=== PATIENT | male | born 1935 | race Caucasian/White ===

== ENCOUNTER 2017-12-22 18:30 | Observation (INO) | payer MEDICARE, OTHER ==
[2017-12-22 19:35] LABS: #Eosinphils 0.1 thou/uL (0.0-0.7); #Lymphocytes 1.3 thou/uL (1.20-3.40); #Monocytes 0.7 thou/uL (0.11-0.59); #Neutrophils 5.1 thou/uL (1.40-6.50); %Basophils 0.4 % (0.0-1.0); %Eosinophils 1.8 % (0.0-10.0); %Lymphocytes 18.4 % (21.0-51.0); %Monocytes 9.3 % (0.0-10.0); %Neutrophils 70.1 % (42.0-75.0); Hemoglobin 12.9 g/dL (14.0-18.0); Mean Corpuscular HGB CONC 31.8 g/dL (32.0-36.0); Mean Corpuscular Hemoglobin 30.3 pg (27.0-31.0); Mean Corpuscular Volume 95.4 fl (80.0-94.0); Mean Platelet Volume 7.1 fL (7.4-10.4); Platelet Count 164 thou/uL (130-400); RBC Distribution Width 12.7 % (11.5-14.5); Red Blood Cell (RBC) Count 4.24 mill/uL (4.70-6.10); White Blood Cell (WBC) Count 7.2 thou/uL (4.8-10.8)
[2017-12-22 19:55] LABS: Anion Gap 11 mmol/L (10-20); BUN (Urea Nitrogen) 13 mg/dL (8.4-25.7); Calc. Creatinine Clearance 0 mL/min (70-130); Calcium 8.9 mg/dL (7.8-10.44); Carbon Dioxide 25 mmol/L (23-31); Chloride 106 mmol/L (98-107); Estimated GFR-MDRD Greater than 90; Glucose 81 mg/dL (83-110); Potassium 3.9 mmol/L (3.5-5.1); Sodium 138 mmol/L (136-145)
[2017-12-22 20:01] LABS: Troponin I 0.038 ng/mL (< 0.028)
[2017-12-22] MEDS ORDERED: Acetaminophen 325 MG TAB PO PRN (21:57)
[2017-12-22] MEDS ORDERED: Ondansetron HCl/PF 4 MG/2 ML Vial IVP PRN (21:57)
[2017-12-22] MEDS ORDERED: hydrALAZINE 20 MG/ML VIAL SLOW IVP PRN (22:03)
[2017-12-22] MEDS ORDERED: Finasteride 5 MG TAB PO SCH (22:15)
[2017-12-22] MEDS ORDERED: Diazepam 2 MG TAB PO SCH (22:15)
[2017-12-22] MEDS ORDERED: Gabapentin 300 MG CAP PO SCH (22:15)
[2017-12-22] MEDS ORDERED: Rivaroxaban 15 MG TAB PO SCH (22:15)
[2017-12-22] MEDS ORDERED: Sodium Chloride 0.9% 500 ML IV SCH (22:15)
[2017-12-22] MEDS ORDERED: Tamsulosin HCl 0.4 MG CAP PO SCH (22:15)
[2017-12-22 22:31] LABS: Troponin I 0.049 ng/mL (< 0.028)
[2017-12-22] MEDS: Sodium Chloride 0.45% 1,000 ML IV SCH (23:11)
[2017-12-23 01:23] LABS: Troponin I 0.057 ng/mL (< 0.028)
[2017-12-23 02:22] VITALS: BMI 28.0
[2017-12-23 04:48] LABS: #Eosinphils 0.1 thou/uL (0.0-0.7); #Lymphocytes 1.1 thou/uL (1.20-3.40); #Monocytes 0.9 thou/uL (0.11-0.59); #Neutrophils 6.3 thou/uL (1.40-6.50); %Basophils 0.2 % (0.0-1.0); %Eosinophils 1.1 % (0.0-10.0); %Lymphocytes 12.9 % (21.0-51.0); %Neutrophils 74.8 % (42.0-75.0); Hemoglobin 12.2 g/dL (14.0-18.0); Mean Corpuscular HGB CONC 32.1 g/dL (32.0-36.0); Mean Corpuscular Hemoglobin 30.3 pg (27.0-31.0); Mean Corpuscular Volume 94.4 fl (80.0-94.0); Mean Platelet Volume 6.7 fL (7.4-10.4); Platelet Count 133 thou/uL (130-400); RBC Distribution Width 12.7 % (11.5-14.5); Red Blood Cell (RBC) Count 4.02 mill/uL (4.70-6.10); White Blood Cell (WBC) Count 8.4 thou/uL (4.8-10.8)
[2017-12-23 05:13] LABS: Anion Gap 10 mmol/L (10-20); BUN (Urea Nitrogen) 14 mg/dL (8.4-25.7); Calc. Creatinine Clearance 92 mL/min (70-130); Calcium 8.6 mg/dL (7.8-10.44); Carbon Dioxide 24 mmol/L (23-31); Chloride 107 mmol/L (98-107); Estimated GFR-MDRD Greater than 90; Glucose 105 mg/dL (83-110); Potassium 3.8 mmol/L (3.5-5.1); Sodium 137 mmol/L (136-145)
--- NOTE | 2017-12-23 05:15 | HP ---
PRIMARY CARE PHYSICIAN: Dr. Emile Jack PRESENTING COMPLAINT: Lightheadedness. 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 He reports he has had intermittent lightheadedness for the past year. Around 2:00 p.m. today, he fel t lightheaded and had intermittent episodes for about every 15 minutes. It usually happens when he i s carrying out various activities such as mowing the lawn, watching TV or sometimes at work. When it occurs he usually drops to his knees and feels better. He also noticed that it is worse when he nabeel es his medications, especially carvedilol and digoxin. He states he has taken the same medications f or over 40 years and now feels he might need some recovery recalibration of his meds. He has had an echocardiogram and a stress test done in the past 6 months in [place] by his press leader, Edi randolph, and he reported a normal stress test about 6 months ago. He states that he does not usually drink enough water and his always encourages him to do just that. He usually drinks a lot of water w hen he feels lightheadedness with improvement in his symptoms, but he tried that today with no improv ement. He denies chest pain, shortness of breath, palpitations, diaphoresis, nausea, vomiting, and n o abdominal or urinary symptoms. PAST MEDICAL HISTORY: Hypertension, atrial fibrillation. PAST SURGICAL HISTORY: Right shoulder and right ACL surgery. FAMILY HISTORY: Reviewed and noncontributory. SOCIAL HISTORY: Does not drink alcohol, smoke cigarettes or use illicit drugs. ALLERGIES: None. CODE STATUS OF SYSTEMS: Full. REVIEW OF SYSTEMS: A 12-point review of systems done and negative except as stated in HPI. PHYSICAL EXAMINATION: VITAL SIGNS: Orthostatics were positive in the hospital with pulse rates fluctuating between the 40s and 90s. GENERAL: Not in acute distress, lying comfortably in bed. HEENT: Normocephalic, atraumatic. Not pale, anicteric. Moist mucosa. PERRLA, EOMI. RESPIRATORY: Vesicular breath sounds bilaterally. No wheezes or rales. CARDIOVASCULAR: Irregularly irregular rhythm with normal rate. No murmurs, rubs or gallops. ABDOMEN: Soft, nontender, nondistended. No organomegaly. MUSCULOSKELETAL: Moves all extremities spontaneously. No edema. SKIN: Warm, dry, well perfused. NEUROLOGIC: Alert and oriented x3. No focal deficits. PSYCHIATRIC: Normal mood and affect. LABORATORY DATA: Chemistry unremarkable. Magnesium 2.3. Hematology largely unremarkable. Initial troponin 0.038. EKG; no signs of acute ischemia. ASSESSMENT AND PLAN: 1. Lightheadedness/dizziness. This is likely secondary to orthostatic hypotension due to inadequate p.o. fluid intake. It could also be medication mediated as he is on carvedilol and digoxin and was bradycardic in the emergency room. We will hold beta blockers, digoxin and give a bolus of normal sa line and maintenance fluid. We will recheck orthostatics in the morning. 2. Bradycardia, likely secondary to beta blockers. We will hold beta blockers and monitor on teleme try. 3. Elevated troponin. This could be from demand ischemia as the patient has no cardiac symptoms cur rently. We will trend and get a Cardiology consult. 4. Hypertension. Blood pressure is currently controlled. We will monitor. 5. Atrial fibrillation. His rates were not rhythm controlled. We will resume Xarelto and monitor h eart rate closely. The patient reports multiple recent investigations at [facility] un [address] Dr. Chinchilla. Primary team in the morning to attempt to get these records. Otherwise, he might nee d a repeat TTE. He might also require an MRI brain if his symptoms persist.
[2017-12-23] MEDS ORDERED: Eucerin (Mineral Oil/Petrolatum,White) 30 gm Jar TOP PRN (06:55)
[2017-12-23] MEDS ORDERED: Ondansetron ODT 4 MG TAB PO PRN (06:55)
[2017-12-23] MEDS ORDERED: Milk Of Magnesia 30 ML UDCUP PO PRN (06:55)
[2017-12-23] MEDS ORDERED: HYDROcodone/Acetaminophen 5/325 mg Tablet PO PRN (06:55)
[2017-12-23] MEDS ORDERED: Diabetic Tussin 200 MG/10 ML UDCUP PO PRN (06:55)
[2017-12-23] MEDS ORDERED: Temazepam 15 MG CAP PO PRN (06:55)
[2017-12-23] MEDS ORDERED: Loperamide HCl 2 MG CAP PO PRN (06:55)
[2017-12-23] MEDS ORDERED: Loratadine 10 MG TAB PO PRN (06:55)
[2017-12-23] MEDS ORDERED: Mag-Al 1200 mg/1200 mg/30 ML UDCUP PO PRN (06:55)
[2017-12-23] MEDS ORDERED: Chloraseptic Spray 180 ml Bottle PO PRN (06:55)
[2017-12-23] MEDS ORDERED: Senokot 8.6 MG TAB PO PRN (06:55)
[2017-12-23] MEDS ORDERED: Artificial Tears 18 DROP/0.9 ML EA EYE PRN (06:55)
[2017-12-23] MEDS ORDERED: Sodium Chloride 0.65% Nasal 44 ML BOT EA NARE PRN (06:55)
[2017-12-23] MEDS ORDERED: FLU VACC TS2017-18 (>65YR) 0.5 ML SYRINGE IM ONE (09:00)
[2017-12-23] MEDS ORDERED: Famotidine 20 MG TAB PO SCH (09:00)
[2017-12-23] MEDS ORDERED: Digoxin 0.125 MG TAB PO SCH (09:00)
--- NOTE | 2017-12-23 09:18 | PDOC.PN ---
- Subjective Encounter Start Date: 12/23/17 Encounter Start Time: 07:10 -: old records requested/rev Patient seen and examined. No new complaints. No overnight events - Objective Resuscitation Status: Resuscitation Status FULL:Full Resuscitation MAR Reviewed: Yes Vital Signs & Weight: Vital Signs (12 hours) Temp Pulse Resp BP BP BP BP 12/23/17 07:35 98.8 F 98 16 136/79 12/23/17 04:11 98.8 F 90 25 H 132/67 12/22/17 23:44 98.0 F 77 18 133/69 12/22/17 21:42 98.4 F 67 20 177/72 H 166/73 H 135/77 Pulse Ox 12/23/17 07:35 92 L 12/23/17 04:11 91 L 12/22/17 23:44 12/22/17 21:42 Weight Weight 195 lb 3.2 oz I&O: 12/22/17 12/23/17 12/24/17 06:59 06:59 06:59 Intake Total 1242 Balance 1242 Result Diagrams: 12/23/17 04:12 12/23/17 04:12 EKG Reviewed by me: Yes (nsr) Phys Exam - Physical Examination Constitutional: NAD HEENT: PERRLA, moist MMs, sclera anicteric Neck: no JVD, supple Respiratory: no wheezing, no rales, no rhonchi Cardiovascular: RRR, no significant murmur, no rub Gastrointestinal: soft, non-tender, no distention, positive bowel sounds Musculoskeletal: no edema, pulses present Neurological: non-focal, normal sensation, moves all 4 limbs Psychiatric: normal affect, A&O x 3 Skin: no rash, normal turgor Dx/Plan (1) Dizziness Code(s): R42 - DIZZINESS AND GIDDINESS Status: Acute (2) Elevated troponin Code(s): R74.8 - ABNORMAL LEVELS OF OTHER SERUM ENZYMES Status: Acute (3) Anxiety Code(s): F41.9 - ANXIETY DISORDER, UNSPECIFIED Status: Chronic (4) BPH (benign prostatic hyperplasia) Code(s): N40.0 - BENIGN PROSTATIC HYPERPLASIA WITHOUT LOWER URINRY TRACT SYMP Status: Chronic (5) Chronic anticoagulation Code(s): Z79.01 - RETIREMENT (CURRENT) USE OF ANTICOAGULANTS Status: Chronic (6) Hypertension Code(s): I10 - ESSENTIAL (PRIMARY) HYPERTENSION Status: Chronic (7) Paroxysmal atrial fibrillation Code(s): I48.0 - PAROXYSMAL ATRIAL FIBRILLATION Status: Chronic - Plan cont current plan of care, plan discussed w/ family * will reduce metoprolol 12.5 mg po bid * DC digoxin * reduce losartan 25 mg po daily * DC actos and Januvia * Echo today * later today will discharge * updated plan to son and pt * medication reviewed as below * symptomatic treatment. Review of Systems - Review of Systems ENT: negative: Ear Pain, Ear Discharge, Nose Pain, Nose Discharge, Nose Congestion, Mouth Pain, Mouth Swelling, Throat Pain, Throat Swelling, Other Respiratory: negative: Cough, Dry, Shortness of Breath, Hemoptysis, SOB with Excertion, Pleuritic Pain, Sputum, Wheezing Cardiovascular: negative: chest pain, palpitations, orthopnea, paroxysmal nocturnal dyspnea, edema, light headedness, other Gastrointestinal: negative: Nausea, Vomiting, Abdominal Pain, Diarrhea, Constipation, Melena, Hematochezia, Other Genitourinary: negative: Dysuria, Frequency, Incontinence, Hematuria, Retention , Other Musculoskeletal: negative: Neck Pain, Shoulder Pain, Arm Pain, Back Pain, Hand Pain, Leg Pain, Foot Pain, Other Skin: negative: Rash, Lesions, Billy, Bruising, Other - Medications/Allergies Allergies/Adverse Reactions: Allergies Allergy/AdvReac Type Severity Reaction Status Date / Time No Known Allergies Allergy Unverified 12/22/17 21:25 Medications: Current Medications Acetaminophen (Tylenol) 650 mg PO Q4H PRN PRN Reason: Headache/Fever or Pain Hydrocodone Bitart/Acetaminophen (Edison 5/325) 1 tab PO Q4H PRN PRN Reason: Moderate Pain (4-6) Al Hydroxide/Mg Hydroxide (Maalox) 15 ml PO Q4H PRN PRN Reason: Heartburn or Indigestion Artificial Tears (Tears Naturale) 0 drop EA EYE PRN PRN PRN Reason: Dry Eyes Famotidine (Pepcid) 20 mg PO BID JENI Finasteride (Proscar) 5 mg PO HS JENI Gabapentin (Neurontin) 300 mg PO HS JENI Guaifenesin (Robitussin Sf) 200 mg PO Q4H PRN PRN Reason: Cough Hydralazine HCl (Apresoline) 5 mg SLOW IVP Q4H PRN PRN Reason: To Control Heart Rate Sodium Chloride (1/2 Normal Saline) 1,000 mls @ 75 mls/hr IV .[id number] [facility] Last Admin: 12/22/17 23:11 Dose: 1,000 mls Loperamide HCl (Imodium) 2 mg PO PRN PRN PRN Reason: Diarrhea/Loose Stools Loratadine (Claritin) 10 mg PO DAILYPRN PRN PRN Reason: Sinus Symptoms Magnesium Hydroxide (Milk Of Magnesium) 30 ml PO DAILYPRN PRN PRN Reason: Constipation Mineral Oil/White Petrolatum (Eucerin Cream) 0 gm TOP BIDPRN PRN PRN Reason: Dry Skin Ondansetron HCl (Zofran) 4 mg IVP Q6H PRN PRN Reason: Nausea/Vomiting Ondansetron HCl (Zofran Odt) 4 mg PO Q6H PRN PRN Reason: Nausea/Vomiting Phenol (Chloraseptic [place] 180 Ml Bot) 0 ml PO PRN PRN PRN Reason: Sore Throat Rivaroxaban (Xarelto) 15 mg PO QPM-WM [facility] Senna (Senokot) 2 tab PO HSPRN PRN PRN Reason: Constipation Sodium Chloride (Bonner Nasal [place] 0.65%) 0 ml EA NARE QIDPRN PRN PRN Reason: Nasal Congestion Sodium Chloride (Flush - Normal Saline) 10 ml IVF Q12HR [facility] Sodium Chloride (Flush - Normal Saline) 10 ml IVF PRN PRN PRN Reason: Saline Flush Tamsulosin HCl (Flomax) 0.4 mg PO HS JENI Temazepam (Restoril) 15 mg PO HSPRN PRN PRN Reason: Insomnia
--- NOTE | 2017-12-23 10:26 | DIS ---
DATE OF ADMISSION: 12/22/2017 DATE OF DISCHARGE: 12/23/2017 PRIMARY CARE PHYSICIAN: Emile Jack M.D. DISCHARGE DISPOSITION: Home. PRIMARY DISCHARGE DIAGNOSES: 1. Dizziness, likely due to orthostatic hypotension. 2. Elevated troponins, likely due to demand ischemia. SECONDARY DISCHARGE DIAGNOSES: Paroxysmal atrial fibrillation, hypertension, chronic anticoagulation , benign enlargement of prostate, anxiety disorder. PRIMARY PROCEDURE/OPERATION: None. RADIOLOGICAL INVESTIGATION: None. SIGNIFICANT LABORATORY DATA: WBC 8.4, hemoglobin 12.2, platelets 133. Sodium 137, potassium 3.8, BU N 14, creatinine 0.76, calcium 8.6, troponin 0.057, magnesium 2.3. DISCHARGE MEDICATIONS: Coreg 3.125 mg p.o. daily, Proscar 5 mg p.o. at bedtime p.r.n., gabapentin 30 0 mg p.o. at bedtime, Xarelto 15 mg p.o. daily, Flomax 0.4 mg p.o. daily. CONTRAINDICATIONS: None. CODE STATUS: FULL CODE. INPATIENT CREATIVE TECHNOLOGIST: Cardiology was consulted while in hospital. TEST RESULTS PENDING ON DISCHARGE: None. ALLERGIES: No known drug allergies. DISCHARGE PLAN: Post hospital, patient will follow up with primary care physician in 1 week. The rochelle veloz will follow up with primary voice systems engineer in 1 month. HOSPITAL COURSE: An 82-year-old male who was admitted last night by Dr. Pina for dizziness. Thi s patient was drinking very little amount of liquid and he was taking blood pressure medicine. He wa s experiencing dizziness after taking Coreg. This patient was relatively having orthostatic hypotension. His dizziness we attributed to be due to orthostatic hypotension and he already had full workup done including echo and stress test in [place] by his voice systems engineer. We are going to obtain medical record if possible. Cardiology already consult ed for their opinion, but doubt any further investigation required during this admission given [place] santiago does not have any more symptoms. While in hospital, we treated him with IV fluid and later on toda y we will plan for discharging him home. Necessary patient education about orthostatic hypotension i s given and he is advised to follow up with his primary care physician and voice systems engineer for further a djustment in medication. The patient is seen and examined at bedside today. Please see my progress note from today for furthe r details.
[2017-12-23] MEDS: Sodium Chloride 0.45% 1,000 ML IV SCH (12:07)
[2017-12-23 13:18] VITALS: TEMP 98.5
[2017-12-23 13:34] VITALS: BP 173/84
--- NOTE | 2017-12-23 14:35 | CON ---
DATE OF CONSULTATION: 12/23/2017 HISTORY OF PRESENT ILLNESS: The patient is an 82-year-old gentleman who presented for evaluation of dizziness. The patient has a previous history of coronary artery disease. He had a cardiac catheterization done in 2008 and found to have a 40% LAD lesion. The patient also has a history of chronic atrial fibrillation. The patient is followed by a pageant director in [place]. He has previously undergone an echocardiogram in 03/2017, which revealed normal left ventricular systolic function. He also underwent a stress test in 2005, which revealed no evidence of ischemia. The patient denies having any chest pain or dyspnea. He has noticed for the past year, having periods of lightheadedness and dizziness. The patient denies never lost consciousness. Approximately 6 weeks ago, the patient started having diarrhea and has been extremely lightheaded and weak. He presented to emergency room for further evaluation due to marked dizziness and diarrhea. PAST MEDICAL HISTORY: 1. Atrial fibrillation. 2. Coronary artery disease. 3. Hypertension. 4. GI hemorrhage. PAST SURGICAL HISTORY: Shoulder surgery and knee surgery. SOCIAL HISTORY: Nonsmoker. FAMILY HISTORY: No strong family history of heart disease. ALLERGIES: None. MEDICATIONS Coreg 3.125 mg daily, gabapentin 300 at bedtime, Flomax 0.4 at bedtime and Xarelto 15 at bedtime. REVIEW OF SYSTEMS: The patient denies having easy bruising or bleeding, bright red blood per rectum, hematuria. PHYSICAL EXAMINATION: GENERAL: This is a well-developed gentleman, in no acute distress. VITAL SIGNS: Blood pressure 136/79. NECK: No jugular venous distention, no carotid bruits. LUNGS: Clear to auscultation. HEART: Regular rate and rhythm, normal S1, S2 with a 1/6 systolic murmur. ABDOMEN: Nondistended. EXTREMITIES: Showed no edema. SKIN: Warm and dry. NEUROLOGIC: Nonfocal. VASCULAR: Radial pulses are 2+. LABORATORY RESULTS: His sodium is 137, potassium 3.8, chloride 107, bicarbonate 24, BUN 14, creatinine 0.76, glucose 105, troponin 0.057. White blood cell count 8.4, hemoglobin 12.2, hematocrit 38.0 and platelets 133. His EKG revealed atrial fibrillation with a right bundle branch block and left anterior fascicular block. IMPRESSION: 1. Dizziness and lightheadedness. 2. Hypotension, orthostatic. 3. Chronic atrial fibrillation. 4. Indeterminate troponin level. 5. History of coronary artery disease. PLAN: This gentleman presents with orthostatic hypotension. He has had marked diarrhea. He was extremely orthostatic. From a cardiac standpoint his digoxin and Coreg were held. He has both slow ventricular response with prolong pauses and rapid tachycardia. The patient has never lost consciousness; however, he appears to be very symptomatic. I would recommend the patient have placement of an electronic pacemaker to prevent severe bradycardia and better control his rate. The patient states he would like to discuss this with his primary pageant director. I also told him I am very concerned about the dose of his Xarelto and that this should be considered whether he should have this dose adjusted to 20 mg daily. If the patient wishes to proceed with electronic pacemaker placement, I will be happy to arrange this during this hospitalization. JHONATAN
[2017-12-23] MEDS ORDERED: Rivaroxaban 15 MG TAB PO SCH (17:00)
[2017-12-23] MEDS ORDERED: Finasteride 5 MG TAB PO SCH (21:00)
[2017-12-23] MEDS ORDERED: Diazepam 2 MG TAB PO SCH (21:00)
[2017-12-23] MEDS ORDERED: Tamsulosin HCl 0.4 MG CAP PO SCH (21:00)
[2017-12-23] MEDS ORDERED: Gabapentin 300 MG CAP PO SCH (21:00)
--- NOTE | 2017-12-27 14:30 | EKG ---
Test Reason : EKG CHANGES Blood Pressure : / mmHG Vent. Rate : 053 BPM Atrial Rate : 468 BPM P-R Int : 000 ms QRS Dur : 148 ms QT Int : 490 ms P-R-T Axes : 000 -49 074 degrees QTc Int : 459 ms Atrial fibrillation with slow ventricular response Right bundle branch block Left anterior fascicular block Bifascicular block Voltage criteria for left ventricular hypertrophy Possible Lateral infarct , age undetermined Abnormal ECG Confirmed by KLEEVR BAKER, ZENIA ([id number]), newspaper photo editor HUI AGUIRRE ([id number]) on 12/27/2017 2:30:29 PM Referred By: Confirmed By:ZENIA ERNST MD
--- NOTE | 2017-12-27 14:30 | EKG ---
Test Reason : Blood Pressure : / mmHG Vent. Rate : 051 BPM Atrial Rate : 048 BPM P-R Int : 000 ms QRS Dur : 140 ms QT Int : 488 ms P-R-T Axes : 000 -44 084 degrees QTc Int : 449 ms Atrial fibrillation with slow ventricular response Left axis deviation Left ventricular hypertrophy with QRS widening Possible Lateral infarct , age undetermined Abnormal ECG Confirmed by KLEVER BAKER, ZENIA ([id number]), editor at large HUI AGUIRRE ([id number]) on 12/27/2017 2:30:23 PM Referred By: Confirmed By:ZENIA ERNST MD
== END 2017-12-23 16:31 | disposition home or self-care (01) ==
LOC: ERS 18:30 → 2SW 20:12
PROVIDERS: ADMIT Internal Medicine; ATTEND Internal Medicine
DX: R42 Dizziness and giddiness (principal); R79.89 Other specified abnormal findings of blood chemistry; I48.0 Paroxysmal atrial fibrillation; I10 Essential (primary) hypertension; I25.10 Atherosclerotic heart disease of native coronary artery without angina pectoris; N40.0 Benign prostatic hyperplasia without lower urinary tract symptoms; F41.9 Anxiety disorder, unspecified; R00.1 Bradycardia, unspecified; Z79.01 Long term (current) use of anticoagulants; Z79.899 Other long term (current) drug therapy; Z98.890 Other specified postprocedural states
CPT/HCPCS: 80048 ×2; 82553; 83735; 84484 ×3; 85025 ×2; 93005; 97139; 99285; G0008; G0378; Q2036; 36415; 90471; 90682

== ENCOUNTER 2018-11-03 15:11 | Inpatient (IN) | payer MEDICARE ==
[~2018-11-03 15:11] MED LIST: Atropine Sulfate 1 mg/10 ml Syringe ONE; Magnesium 5 GM/10 ML Abboject SYRINGE ONE; Succinylcholine Chloride 20 MG/ML 10 ml SYRINGE FS ONE
[2018-11-03] MEDS ORDERED: Atropine Sulfate 1 mg/10 ml Syringe ONE ×3 (15:19→21:02)
[2018-11-03] MEDS ORDERED: Ondansetron ODT 8 MG TAB ONE (15:30)
[2018-11-03] MEDS ORDERED: Ondansetron PF 4 MG/2 ML Vial ONE (15:31)
[2018-11-03 15:41] LABS: #Eosinphils 0.1 thou/uL (0.0-0.7); #Lymphocytes 1.7 thou/uL (1.20-3.40); #Neutrophils 6.8 thou/uL (1.40-6.50); %Basophils 0.2 % (0.0-1.0); %Eosinophils 1.4 % (0.0-10.0); %Neutrophils 70.4 % (42.0-75.0); Hemoglobin 11.2 g/dL (14.0-18.0); Mean Corpuscular HGB CONC 33.5 g/dL (32.0-36.0); Mean Corpuscular Hemoglobin 30.4 pg (27.0-31.0); Mean Corpuscular Volume 90.7 fL (78.0-98.0); Mean Platelet Volume 7.2 fL (7.4-10.4); Platelet Count 176 thou/uL (130-400); RBC Distribution Width 13.2 % (11.5-14.5); Red Blood Cell (RBC) Count 3.68 mill/uL (4.70-6.10); White Blood Cell (WBC) Count 9.7 thou/uL (4.8-10.8)
[2018-11-03 16:03] LABS: Digoxin 1.28 ng/mL (0.8-2.0)
[2018-11-03 16:04] LABS: ALT (SGPT) 21 U/L (8-55); AST (SGOT) 24 U/L (5-34); Albumin 3.9 g/dL (3.4-4.8); Alkaline Phosphatase 82 U/L (40-150); Anion Gap 17 mmol/L (10-20); BUN (Urea Nitrogen) 93 mg/dL (8.4-25.7); Bilirubin, Total 1.1 mg/dL (0.2-1.2); Calc. Creatinine Clearance 0 mL/min (70-130); Calcium 8.5 mg/dL (7.8-10.44); Carbon Dioxide 18 mmol/L (23-31); Chloride 95 mmol/L (98-107); Estimated GFR-MDRD 12; Globulin 2.7 g/dL (2.4-3.5); Glucose 97 mg/dL (83-110); Magnesium 3.1 mg/dL (1.6-2.6); Potassium 6.4 mmol/L (3.5-5.1); Protein, Total 6.6 g/dL (5.8-8.1); Sodium 124 mmol/L (136-145)
[2018-11-03] MEDS ORDERED: Sodium Bicarb 50 MEQ/50 ML Abboject 8.4% SYRINGE ONE (16:13)
[2018-11-03] MEDS ORDERED: Dextrose 50% Abboject 50 ML SYRINGE ONE (16:13)
[2018-11-03] MEDS ORDERED: Insulin Regular 300 UNITS/3 ML VIAL ONE (16:13)
[2018-11-03] MEDS ORDERED: Calcium Chloride 1 GM/10 ML Abboject SYRINGE ONE (16:15)
[2018-11-03 16:26] LABS: CKMB 2.5 ng/mL (0-6.6)
[2018-11-03] MEDS ORDERED: Aspirin 325 MG TAB ONE (16:28)
[2018-11-03] MEDS ORDERED: Diazepam 5 MG TAB ONE (16:54)
--- NOTE | 2018-11-03 17:03 | RAD ---
AP CHEST: INDICATION: Bradycardia. FINDINGS: The heart is mildly enlarged. Mild vascular engorgement. No focal infiltrate or significant effusio n. IMPRESSION: Borderline cardiomegaly and mild vascular engorgement. POS: [facility]
[2018-11-03] MEDS ORDERED: Ondansetron PF 4 MG/2 ML Vial IVP PRN (18:11)
[2018-11-03] MEDS ORDERED: Ondansetron ODT 4 MG TAB PO PRN (18:11)
[2018-11-03] MEDS ORDERED: Senokot S 8.6-50 MG TAB PO PRN (18:11)
[2018-11-03 18:42] LABS: Potassium 5.5 mmol/L (3.5-5.1)
[2018-11-03] MEDS: DOBUTamine 500 mg/250 ml 250 ML IVPB SCH (18:54)
[2018-11-03] MEDS: DOPamine 400 MG/D5W 250 ML 250 ML IVPB SCH (18:55)
[2018-11-03 19:14] LABS: Troponin I 0.225 ng/mL (< 0.028)
[2018-11-03 19:50] LABS: Actual Bicarbonate (HCO3a) 19.8 mEq/L (22-28); Base Excess (BEa) -5.8 mEq/L (-2.0 to +3.0); CO2 Tension 39.1 mmHg (35.0-45.0); Calcium, Ionized 1.18 mmol/L (1.12-1.30); Carboxyhemoglobin (COHb) 0.7 gm% (0.0-3.0); Hemoglobin (Hb) 11.8 g/dL (14.0-18.0); O2 Tension (PaO2) 75.8 mmHg (> 60.0); Potassium - ABG Lab 5.74 mmol/L (3.70-5.30); pH, Arterial 7.32 (7.35-7.45)
[2018-11-03 19:52] LABS: ALV-art Gradient 74.965 (0-20); Puncture Site LRA
[2018-11-03] MEDS ORDERED: Amiodarone 150 MG/3 ML VIAL ONE ×2 (20:20→20:49)
[2018-11-03] MEDS ORDERED: KETAMINE 100 MG/ML (5ML VIAL) ONE (21:20)
[2018-11-03] MEDS ORDERED: Succinylcholine Chloride 20 MG/ML 10 ml SYRINGE FS ONE (21:20)
[2018-11-03] MEDS ORDERED: Rocuronium Bromide 50 MG/5 ML VIAL ONE (21:21)
[2018-11-03] MEDS ORDERED: Propofol 1,000 MG/100 ML VIAL IV ONE (22:05)
[2018-11-03] MEDS ORDERED: Propofol BOLUS 1,000 MG/100 ML VIAL IV PRN (22:07)
[2018-11-03] MEDS ORDERED: Lorazepam 2 MG/ML VIAL SLOW IVP PRN (22:07)
[2018-11-03] MEDS ORDERED: Fentanyl BOLUS 250 ML IVPB PRN (22:07)
[2018-11-03] MEDS ORDERED: fentaNYL Citrate/PF 2,000 MCG in Sodium Chloride 0.9% 60 ML IV SCH (22:07)
[2018-11-03] MEDS ORDERED: Morphine 2 MG/ML SYRINGE SLOW IVP PRN (22:07)
[2018-11-03] MEDS ORDERED: DISCONTINUE PREVIOUS NARCOTIC PAIN MEDICATIONS AND BENZODIAZEPINES FS SCH (22:07)
[2018-11-03 22:24] LABS: ALT (SGPT) 19 U/L (8-55); AST (SGOT) 18 U/L (5-34); Albumin 3.6 g/dL (3.4-4.8); Alkaline Phosphatase 76 U/L (40-150); Anion Gap 16 mmol/L (10-20); BUN (Urea Nitrogen) 93 mg/dL (8.4-25.7); Bilirubin, Total 1.2 mg/dL (0.2-1.2); Calc. Creatinine Clearance 16 mL/min (70-130); Calcium 9.1 mg/dL (7.8-10.44); Carbon Dioxide 18 mmol/L (23-31); Chloride 95 mmol/L (98-107); Estimated GFR-MDRD 13; Globulin 2.6 g/dL (2.4-3.5); Glucose 104 mg/dL (83-110); Potassium 5.8 mmol/L (3.5-5.1); Protein, Total 6.2 g/dL (5.8-8.1); Sodium 123 mmol/L (136-145)
[2018-11-03 22:25] LABS: Troponin I 0.194 ng/mL (< 0.028)
[2018-11-03 23:00] LABS: Actual Bicarbonate (HCO3a) 18.1 mEq/L (22-28); Base Excess (BEa) -7.8 mEq/L (-2.0 to +3.0); CO2 Tension 38.7 mmHg (35.0-45.0); Calcium, Ionized 1.19 mmol/L (1.12-1.30); Carboxyhemoglobin (COHb) 0.8 gm% (0.0-3.0); Hemoglobin (Hb) 11.8 g/dL (14.0-18.0); O2 Tension (PaO2) 63.3 mmHg (> 60.0); pH, Arterial 7.29 (7.35-7.45)
[2018-11-03] MEDS: Famotidine 20 MG TAB PO SCH (23:04)
--- NOTE | 2018-11-03 23:20 | RAD ---
PORTABLE SUPINE CHEST ONE VIEW: 11/03/18 PROVIDED CLINICAL HISTORY: Code blue. FINDINGS: Comparison made with examination performed earlier same date. Interval placement of endotracheal tube , tip of which projects in the region of the thoracic inlet. Interval placement of enteric catheter, the tip of which projects over likely the left upper quadrant. It is not well seen due to multiple ov erlying lead wires and external defibrillators. Pulmonary vasculature appears prominent. No gross ple ural fluid or pneumothorax is evident with limitations due to the supine nature of the study. IMPRESSION: Interval endotracheal tube and enteric catheter placement as above. POS: [facility]
[2018-11-03 23:28] LABS: ALV-art Gradient 173.525 (0-20); Puncture Site LBA
[2018-11-03] MEDS ORDERED: Sodium Chloride 0.9% 1,000 ML IV SCH (23:30)
[2018-11-03] MEDS ORDERED: Sodium Bicarbonate 140 MEQ in Dextrose 5% in Water 1,000 ML IV SCH (23:59)
--- NOTE | 2018-11-04 00:08 | CON ---
DATE OF CONSULTATION: TOTAL CRITICAL CARE TIME: 1 hour 45 minutes. HISTORY OF PRESENT ILLNESS: Mr. Guy is an 82-year-old gentleman, who is a patient of Dr. Davin Perez. He recently presented with a fall. He was brought to the emergency room. He was found to be markedly bradycardic. He also was found to have new onset renal failure and hyperkalemia. He was seen and evaluated by Nephrology. He was treated for hyperkalemia and his potassium decreased to 5.4. He remained markedly bradycardic. I saw and evaluated Mr. Guy at bedside. His heart rate was in the 20s and 30s. I recommended we increase his dopamine and dobutamine. His heart rate responded appropriately in the 40s and 50s. The patient was somnolent and given Valium while in the emergency room. PAST MEDICAL HISTORY: Atrial fibrillation, on anticoagulation therapy; hypertension; prostate enlargement; knee surgery; shoulder surgery. ALLERGIES: NONE. HOME MEDICATIONS: Include; 1. Carvedilol. 2. Gabapentin. 3. Diazepam. 4. Digoxin. 5. Finasteride. 6. Tamsulosin. 7. Lisinopril. 8. Lasix. REVIEW OF SYSTEMS: Difficult to obtain due to somnolence. PHYSICAL EXAMINATION: VITAL SIGNS: Blood pressure 110/70, pulse 20s to 40s, respirations 20. GENERAL: He is currently somnolent. NEUROLOGIC: The patient is alert and oriented x3 with no focal neurologic deficits. HEENT: Sclerae without icterus. Mouth has moist mucous membranes with normal pallor. NECK: No JVD. Carotid upstroke brisk. No bruits bilaterally. LUNGS: Clear to auscultation with unlabored respirations. BACK: No scoliosis or kyphosis. CARDIAC: Regular rate and rhythm with normal S1 and S2. No S3 or S4 noted. No significant rubs, murmurs, thrills, or gallops noted throughout the precordium. PMI is not displaced. There is no parasternal heave. ABDOMEN: Soft, nontender, nondistended. No peritoneal signs present. No hepatosplenomegaly. No abnormal striae. EXTREMITIES: 2+ femoral and 2+ dorsalis pedis pulses. No cyanosis, clubbing, or edema. SKIN: No gross abnormalities. PERTINENT LABORATORY DATA: Hemoglobin 11.2, creatinine 4.5 which is a new finding. Followup potassium of 5.4, peak troponin 0.225. BNP of 198. IMPRESSION: 1. Marked bradycardia, etiology unknown. 2. Hyperkalemia, now resolved. 3. Renal failure, unknown etiology. RECOMMENDATIONS: At this point, we decided to proceed without temporary pacer implant on Mr. Mikal Guy. I discussed the procedure in full detail with his and family. Risks include, but not limited to the following: Infection, bleeding, perforation, as well as inability to pace. All questions were answered. Given the above, the patient's family agreed to proceed with the above procedure. While in the cath lab tech, the patient was draped and prepped in sterile fashion. Pacer was placed appropriately in the RA and RV. Upon attempting pacing, he went into sinus. He had to be shocked initially. After a total of 7 attempts of placement of the catheter into the right ventricle as well as using a different pacemaker catheter, he continued to go into sinus and required cardioversion. He was cardioverted x6. He was also given magnesium in addition to amiodarone during the procedure. At that point, it was decided to proceed with intubation. Intubation was recommended for possible external pacing. I also discussed the case with Dr. Antonio given the above. The patient was on Zithromax, which may have been the culprit for myocardial sensitivity. This has been discontinued. At this point, we will plan on intubation for external cardioversion if needed. After keeping the family apprised of the situation, they have opted for intubation only. They also felt a chemical code is appropriate, but no compressions. This will be honored. The patient's prognosis appears guarded. Job ID: [id number]
--- NOTE | 2018-11-04 00:46 | HP ---
PRIMARY CARE PHYSICIAN: Emile Jack MD CHIEF COMPLAINT: Near-syncope and weakness. HISTORY OF PRESENT ILLNESS: This is an 82-year-old white male with a known history of hypertension and long-standing atrial fibrillation. He had been feeling bad with allergies and coughing for the last 2 to 3 weeks. This progressed until a week ago. He was coughing a lot of green phlegm up. He was seen by his primary care doctor and started on azithromycin and just finished his course yesterday. It did not improve the cough at all, although the mucus started becoming thinner and much more copious. He has had persistence of the cough and then for about a week or week and a half, he has felt very tired. This has gotten progressively worse and then 2 days prior to admission, he started to feel like he was going to pass out multiple episodes that was Friday than yesterday. He had a couple episodes, where he felt he was going to pass out and had to sit down. 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 He was able to drive to work but then he after walking across the parking lot to the building, he almost passed out. They had to lay him down. He did not improve after 5 minutes, so they called EMS. EMS found his heart rate in the 20s and improved to the 40s after a dose of atropine. I came to the emergency room, he had idioventricular rhythm and was found to be in renal failure with a high potassium. The patient was given insulin and glucose along with calcium chloride and glucagon and sodium bicarbonate. He also had a dose of Valium, because he was having hard time lying still. The patient's complex narrowed a little bit, but did not speed up in all. He still does not have any atrial activity on the monitor. I did talk to Dr. Awad about the patient. He had already discussed the case with the ER physician. Given the fact that he had no response to interventions made to lower his potassium, Dr. Awad recommended dobutamine and dopamine drips, and then he is going to come and see him and likely put an intravenous pacer in. Of note, before the dopamine and dobutamine were ordered, the patient has been transferred to the [facility], so I have to do a low-dose at a steady rate during the move to an ICU bed. PAST MEDICAL HISTORY: 1. Hypertension. 2. Atrial fibrillation. 3. It was told by Dr. Perez that he would likely need a pacemaker sometime in the last year. PAST SURGICAL HISTORY: Right shoulder surgery, right ACL surgery, macular degeneration. FAMILY HISTORY: Mother in her 50s of throat cancer from smoking. No other pertinent family medical history. SOCIAL HISTORY: The patient does not smoke, drink, or use illicit drugs. He is . ALLERGIES: NO KNOWN DRUG ALLERGIES. CURRENT MEDICATIONS: 1. Carvedilol 3.125 mg daily. 2. Finasteride 5 mg at night. 3. Gabapentin 300 mg at night. 4. Xarelto 15 mg daily. 5. Tamsulosin 0.4 mg at night. 6. Digoxin, unknown dose. REVIEW OF SYSTEMS: CONSTITUTIONAL: No fevers, no chills, no weight changes. EYES: No double vision or blurred vision. He does have chronic poor vision from his macular degeneration. ENT: He had some congestion and drainage as per HPI. No sore throat. CARDIOVASCULAR: No chest pain. No palpitations or racing heart. PULMONARY: See HPI. He has had no wheezing or trouble breathing. GASTROINTESTINAL: No abdominal pain. No nausea or vomiting. No constipation. He has had some diarrhea, possibly related to the azithromycin. GENITOURINARY: He has had a little bit of dysuria for the last couple of days on initiation of his stream. No hematuria. MUSCULOSKELETAL: No new muscle aches or joint pains. He does have chronic low back pain and chronic muscular spasms of his calves and his feet from a burst disc from an injury when he was a teenager. The cramps in his legs have worsened over the last 2 days. NEUROLOGIC: No numbness, tingling, or focal weakness. SKIN: No rashes or lesions noted. PHYSICAL EXAMINATION: VITAL SIGNS: Pulse alternating between 30s to 40s, blood pressure has been stable. No hypotension. His current vital signs from the floor, not yet posted in the computer. GENERAL: This is a well-developed white male, who is a little bit anxious from having to lay on his back due to his back injury, little sleepy from the Valium he was given, but otherwise no distress. HEENT: Pupils are equally round and reactive to light. Oropharynx is clear without lesions, erythema, or exudate. NECK: Supple. No lymphadenopathy. No thyroid nodules or enlargement. No JVD. HEART: Bradycardic and regular without any murmurs. LUNGS: Clear to auscultation bilaterally. No wheezes, crackles, or rhonchi. ABDOMEN: Soft, nontender to palpation. Normoactive bowel sounds. No hepatosplenomegaly or other masses. EXTREMITIES: No clubbing, cyanosis, or edema. SKIN: No rashes or lesions noted. NEUROLOGIC: He moves all extremities equally and has no facial droop. LABORATORY DATA: CBC shows hemoglobin 11 and hematocrit 33. Rest is normal. The complete metabolic panel shows sodium of 124, potassium of 6.4, chloride of 95, carbon dioxide of 18, BUN of 93, creatinine of 4.55 with a creatinine of 0.97 just 2 weeks ago. Magnesium is 3.1. Remainder of the CMP is normal. His troponin is indeterminate at 0.226. Brain natriuretic peptide is elevated at 198. Digoxin level is normal at 1.28. EKG, I did review the EKG done in the emergency room. He does have an idioventricular rhythm at 26 beats per minute with a right bundle branch block and left anterior fascicular block and some LVH. No severe peaking of the T-waves on the EKG. On the heart monitor, his complexes were a little bit narrower but virtually unchanged from the EKG. Chest x-ray done in the emergency room along the radiologist's report does show some cardiomegaly and some pulmonary vascular congestion that is mild. ASSESSMENT: 1. Symptomatic bradycardia, possibly related to his hyperkalemia, though it sounds like he has had some problems with his rhythms in the past year. He appears to have progressed to where he needs a pacemaker now. I have discussed this case with Dr. Awad and wished starting dobutamine and dopamine. Dr. Awad will evaluate the patient for need for a pacemaker. 2. Acute renal failure. Uncertain etiology at this time. I have talked to Dr. Gomez. He will see the patient. Given the pulmonary vascular congestion in his lungs, I am reluctant to give him a lot of fluids at this time. 3. Hyperkalemia. We will recheck the potassium now after interventions in the ER and will give a dose of Kayexalate. 4. Gastrointestinal prophylaxis. We will put the patient on Pepcid twice a day. 5. Deep venous thrombosis prophylaxis. We will put the patient on SCDs while in bed. We will hold on any blood thinners for now as he is previously on Xarelto. We will hold his Xarelto for now as well until they decide about possibly surgery. 6. Code status. I did discuss this with the patient and his at length. He is a full code, but he would not want to be stuck on a machine for a prolonged period of time. Should he be incapacitated, his would be his medical decision maker. Her name is Shelby Guy. Job ID: [id number]
[2018-11-04] MEDS: cefTRIAXone\\ROCEPHIN 1 GM in Sodium Chloride 0.9% 100 ML IVPB SCH (01:11)
[2018-11-04] MEDS: DOBUTamine 500 mg/250 ml 250 ML IVPB SCH (04:25)
--- NOTE | 2018-11-04 04:35 | CON ---
DATE OF CONSULTATION: 11/03/2018 This is 45 minutes critical care time. CONSULTING PHYSICIAN: Dr. Awad. HISTORY OF PRESENT ILLNESS: The patient is a pleasant 82-year-old male who presented to the emergency room earlier today. At the time of this dictation, history and physical is now on the chart. The ER notes indicate that he was profoundly bradycardic at time of admission with heart rate in the 20s to 30s. 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 Several attempts were made to put in a transvenous pacer and apparently he had multiple episodes of torsade. Based on that, decision was made externally pace him. To do that, Dr. Awad felt that he would need to be intubated. In the process of talking to the family, the patient had respiratory arrest and ended up being intubated before everything could play out. PAST MEDICAL HISTORY: 1. He has had a recent viral type illness where he has been taking a Z-Ash. His says he has not eaten well in the last 3 or 4 days. 2. Atrial fibrillation. 3. CHF. 4. Herniated discs. 5. Hypertension. 6. Prostatic hypertrophy. PAST SURGICAL HISTORY: Shoulder surgery and knee surgery. He has also had hernia operations. FAMILY MEDICAL HISTORY: Unremarkable. SOCIAL HISTORY: He does not drink alcohol. Does not smoke. Does not use illicit drugs. 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 ALLERGIES: NONE. MEDICATIONS: List is not complete and what we have from the ER demonstrates that he is on; 1. Eliquis 5 mg b.i.d. 2. Carvedilol 6.25 mg b.i.d. 3. Gabapentin 800 mg at night. 4. Diazepam 5 mg two daily. 5. Digoxin 0.125 mg daily. 6. Finasteride 5 mg daily. 7. Tamsulosin 0.4 mg once daily. 8. Lisinopril 10 mg once daily. 9. Furosemide 80 mg as needed. REVIEW OF SYSTEMS: Cannot be obtained. He is currently on mechanical ventilation. PHYSICAL EXAMINATION: VITAL SIGNS: Pulse 91, blood pressure 133/43, O2 saturation 92%, respiratory rate 29. GENERAL: He is currently intubated on mechanical ventilation. He will move all 4 extremities spontaneously. HEENT: Pupils are 3 mm and reactive. Sclerae icteric. Oropharynx clear. NECK: No adenopathy or JVD. CHEST: He has an external pacer placed. CARDIAC: S1 and S2. Slightly bradycardic without murmur. He is not currently having to be paced at the time of this dictation. LUNGS: Clear without wheezing or rhonchi. ABDOMEN: Soft and nontender. EXTREMITIES: No clubbing, cyanosis, or edema. LABORATORY DATA: Sodium 123, potassium 5.8, chloride 95, CO2 of 18, BUN 93, creatinine 4.3, glucose 104. White blood cell count 9.7, hematocrit 33.4, and platelet count 176. PH 7.29, pCO2 of 38, pO2 of 63 on SIMV rate of 20, tidal volume of 500, PEEP 5, pressure support 10, and FiO2 of 40%. Digoxin level is 1.28. Chest x-ray shows no obvious mass, effusion, or infiltrate. ASSESSMENT: 1. Hyperkalemia. 2. Acute renal failure. 3. Rule out sepsis. 4. Bradycardia. RECOMMENDATIONS: 1. I would switch him over to a bicarbonate drip. 2. Sepsis workup. 3. Empiric antibiotics. 4. Keep on mechanical ventilation until he no longer needs pacemaker. 5. Consider acute hemodialysis as I think his renal failure is probably reversible. Job ID: [id number]
[2018-11-04 05:16] LABS: Bilirubin Negative (Negative); Blood, Urine Large (Negative); Clarity CLOUDY (Clear); Glucose, Urine (Dipstick) Negative (Negative); Leukocyte Trace (Negative); Nitrite Negative (Negative); Protein, Urine (Dipstick) 100 mg/dL (Neg-Trace); Specific Gravity, Urine 1.009 (1.002-1.036); Urobilinogen 0.2 mg/dL (0.2-1.0)
[2018-11-04 05:19] LABS: Bacteria/HPF None Seen HPF (None Seen); RBC/HPF GREATER THAN 50-TNTC HPF (0-3); Squamous Epithelial 0-3 HPF (0-3)
[2018-11-04 05:20] LABS: Pathc Cast-AUWi Flag 4.07 (0-2.49)
[2018-11-04 05:21] LABS: Transitional Epithelial 0-3 HPF (0-3)
[2018-11-04 05:22] LABS: Albumin 3.5 g/dL (3.4-4.8); Anion Gap 19 mmol/L (10-20); BUN (Urea Nitrogen) 94 mg/dL (8.4-25.7); BUN/Creatinine Ratio 22.76; Calc. Creatinine Clearance 17 mL/min (70-130); Calcium 8.7 mg/dL (7.8-10.44); Carbon Dioxide 18 mmol/L (23-31); Chloride 93 mmol/L (98-107); Estimated GFR-MDRD 14; Glucose 146 mg/dL (83-110); Potassium 5.9 mmol/L (3.5-5.1); Sodium 124 mmol/L (136-145)
[2018-11-04 06:26] LABS: #Monocytes 1.1 thou/uL (0.11-0.59); #Neutrophils 12.1 thou/uL (1.40-6.50); %Basophils 0.2 % (0.0-1.0); %Eosinophils 0.2 % (0.0-10.0); %Lymphocytes 6.9 % (21.0-51.0); %Monocytes 7.8 % (0.0-10.0); %Neutrophils 84.9 % (42.0-75.0); Hemoglobin 10.7 g/dL (14.0-18.0); Mean Corpuscular HGB CONC 35.4 g/dL (32.0-36.0); Mean Corpuscular Hemoglobin 31.1 pg (27.0-31.0); Mean Corpuscular Volume 87.8 fL (78.0-98.0); Mean Platelet Volume 7.1 fL (7.4-10.4); Platelet Count 154 thou/uL (130-400); RBC Distribution Width 13.1 % (11.5-14.5); Red Blood Cell (RBC) Count 3.43 mill/uL (4.70-6.10); White Blood Cell (WBC) Count 14.2 thou/uL (4.8-10.8)
[2018-11-04 06:54] LABS: Actual Bicarbonate (HCO3a) 18.7 mEq/L (22-28); Base Excess (BEa) -2.7 mEq/L (-2.0 to +3.0); Calcium, Ionized 1.08 mmol/L (1.12-1.30); Carboxyhemoglobin (COHb) 0.9 gm% (0.0-3.0); Hemoglobin (Hb) 10.5 g/dL (14.0-18.0); O2 Tension (PaO2) 69.5 mmHg (> 60.0); Potassium - ABG Lab 5.12 mmol/L (3.70-5.30); pH, Arterial 7.53 (7.35-7.45)
[2018-11-04 06:55] LABS: ALV-art Gradient -26.825 (0-20); CO2 Tension 22.9 mmHg (35.0-45.0); Puncture Site ALINE
--- NOTE | 2018-11-04 07:58 | PDOC.PN ---
- Subjective Encounter Start Date: 11/04/18 Encounter Start Time: 10:00 -: non-verbal Subjective: Patient intubated during attempted transvenous pacing. Now with -: external pads in place, but HR staying 40-50 on Dopamine and Dobutamine. - Objective Resuscitation Status - Order Detail: 11/03/18 22:06 Resuscitation Status Routine Resuscitation Status: PRTL: Chem-Intubation Discussed with: Discussed with and children and family. 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 Additional comments: external pacing MAR Reviewed: Yes Vital Signs & Weight: Vital Signs (12 hours) Temp Pulse Resp BP Pulse Ox 11/04/18 07:00 99.1 F 11/04/18 06:31 72 123/37 L 11/04/18 06:00 26 H 11/04/18 05:00 97.8 F 11/04/18 04:00 26 H 11/04/18 02:00 26 H 11/04/18 00:00 26 H 11/03/18 22:00 91 L Weight Weight 196 lb 1.6 oz Most Recent Monitor Data Heart Rate from ECG 47 NIBP 117/32 NIBP BP-Mean 67 Respiration from ECG 7 SpO2 95 I&O: 11/03/18 11/04/18 11/05/18 06:59 06:59 06:59 Intake Total 600 Output Total 1225 45 Balance -625 -45 Result Diagrams: 11/04/18 04:55 11/04/18 04:55 Phys Exam - Physical Examination Constitutional: NAD HEENT: moist MMs intubated Respiratory: no wheezing, no rales, no rhonchi Cardiovascular: no significant murmur bradycardic Gastrointestinal: soft, positive bowel sounds Musculoskeletal: no edema Neurological: non-focal Deviation from normal: sedated on ventilator Dx/Plan (1) Bradycardia Code(s): R00.1 - BRADYCARDIA, UNSPECIFIED Status: Acute Comment: Severe, possibly secondary to underlying afib along with azithromycin. Failed placement of temporary transvenous pacer. Intubated to allow for external pacing. Dr. Awad following. On Dopamine and Dobutamine. (2) Intubation of airway performed without difficulty Code(s): Z78.9 - OTHER SPECIFIED HEALTH STATUS Status: Acute Comment: Patient intubated and ventilated to allow external pacing (3) Acute renal failure Status: Acute Comment: Dr. Gomez consulted (4) Hyperkalemia Code(s): E87.5 - HYPERKALEMIA Status: Acute Comment: Improved, given Kayexelate (5) Diastolic CHF Code(s): I50.30 - UNSPECIFIED DIASTOLIC (CONGESTIVE) HEART FAILURE Status: Acute Qualifiers: Heart failure chronicity: unspecified Qualified Code(s): I50.30 - Unspecified diastolic (congestive) heart failure Comment: Severe pulmonary HT and diastolic dysfunction on ECHO - Plan cont current plan of care, PT/OT, respiratory therapy, DVT proph w/SCDs Try another dose of Kayexelate, may need a round of dialysis. * . - Discharge Day Encounter end time: 10:30
--- NOTE | 2018-11-04 08:03 | CON ---
DATE OF CONSULTATION: CONSULTING PHYSICIAN: Patricia Cruz MD REQUESTING PHYSICIAN: ER physician. REASON FOR CONSULTATION: Hyperkalemia and acute kidney injury. IMPRESSION: 1. Acute kidney injury, query cause. This is probably cardiorenal in the context of cardiac problems compounded by recent use of diuretics. 2. Hyperkalemia, which is related to problem #1 above plus or minus medications, which I do not have the names of the medications. 3. Bradycardia may be related to cardiac pathology; however, the hyperkalemia could be also playing a role. 4. Somnolence, query related to the diazepam that was administered in the ER as well as incipient uremic sleep. PLAN: 1. The cardiology service is in the process of securing a temporary pacemaker to stabilize the heart rate. I will discuss with in the event of status post stabilization of the heart. If the renal function does not improve, the patient will benefit from renal replacement therapy (hemodialysis) to address the potential incipient uremia as well as the hyperkalemia. 2. Bladder scan to rule out potential obstructive uropathy. 3. Renally dose all medications for very low GFR and avoid potentially nephrotoxic agents. 4. The patient has received all the medical cocktail for hyperkalemia with a repeat potassium of 5.5. We will continue to monitor the potassium as there is potential for a rise again if the renal function does not pear picker status post cardiac stabilization. 5. If all the above medical maneuvers do not help the electrolytes in the way of hyperkalemia, the patient to benefit from temporary dialysis. HISTORY OF PRESENT ILLNESS: An 82-year-old gentleman who syncop[place] at the local bank and was found to be bradycardic. The patient responded transiently to atropine with a heart rate going up to 30s. The patient was then via EMS sent to the ER where he was noted to remain bradycardic as well as severely hyperkalemic with potassium of 6.4 and creatinine of 4 to 4.5, baseline creatinine a few months ago showed a creatinine of 0.76. According to the , the patient some fluid for which he was prescribed buttload load of diuretics. Over the past few days, the noted that the patient has not be eating well and not feeling well. As a result of the constellation of the findings of hyperkalemia and acute kidney injury, decision was taken to involve Renal in the management of this case. PAST MEDICAL HISTORY: Significant for atrial fibrillation, congestive heart failure, hypertension, BPH. MEDICATIONS: According to the ER record include; 1. Eliquis. 2. Carvedilol. 3. Neurontin. 4. Diazepam. 5. Digoxin. 6. Finasteride. 7. Flomax. 8. Lisinopril. 9. Lasix. FAMILY HISTORY: No family history of kidney disease. SOCIAL HISTORY: The patient is . No history of alcohol abuse. REVIEW OF SYSTEMS: Could not be obtained from this patient who is virtually somnolent. LABORATORY DATA: Laboratory investigations significant for potassium of 6.4, which has gone down to 5.5 with a repeat. Sodium of 124, bicarb of 18, BUN of 93 with a creatinine of 4.55. Chest x-ray showed some mild vascular congestion and cardiomegaly. Magnesium 3.1. PHYSICAL EXAMINATION: GENERAL: The patient was found to be somnolent. VITAL SIGNS: Noted with the following vital signs; afebrile with temperature of 98.3, pulse 20s to 30s, respiratory rate of 17, O2 saturation of 96 with a blood pressure 157/57. HEENT: Unremarkable. CARDIOVASCULAR SYSTEM: First and second heart sounds were heard. RESPIRATORY SYSTEM: Clear to auscultation. DIGESTIVE SYSTEM: Revealed a benign abdomen. EXTREMITIES: Showed very mild edema. NEUROLOGIC: Revealed the patient who is very somnolent, but no obvious lateralizing signs. LYMPHATICS: No peripheral lymphadenopathy. SUMMARY: An 82-year-old gentleman who syncopized at a local bank, brought in and found to be severely bradycardic. Thank you for this consultation. We will follow with you. Job ID: [id number]
[2018-11-04] MEDS: Sodium Bicarbonate 70 MEQ in Sodium Chloride 0.45% 1,000 ML IV SCH ×2 (08:44→18:26)
--- NOTE | 2018-11-04 09:40 | PRG ---
DATE OF SERVICE: 11/04/2018 35 minutes critical care time. SUBJECTIVE: The patient remains intubated on mechanical ventilation. He will wake up. He moves all extremities, but does not follow commands specifically for me. OBJECTIVE: VITAL SIGNS: Temperature is 99.1, pulse 47, and blood pressure 123/34. Right now, his pacemaker is not capturing because the demand rate has been turned down below 40. Intake 600, output 1225. HEENT: Pupils reactive. Sclerae anicteric. Oropharynx clear. NECK: No JVD. LUNGS: Clear anteriorly. CARDIAC: S1 and S2. Bradycardic. ABDOMEN: Soft and nontender. EXTREMITIES: No edema. LABORATORY DATA: White blood cell count 14.2, hematocrit platelet count 154. A pH 7.53, pCO2 of 23, pO2 of 60 on SIMV rate 26, tidal volume 500, PEEP 5, pressure support 10, and FiO2 of 40%. Sodium 124, potassium 5.9, chloride 93, CO2 of 18, BUN 94, creatinine 4.1, and glucose 146. ASSESSMENT: 1. Acute respiratory failure, requiring mechanical ventilation. 2. Severe bradycardia, which I think is probably due to the hyperkalemia. 3. Acute renal insufficiency secondary to sepsis. PLAN: 1. I will go ahead and change his IV fluids and take some of the bicarbonate out. 2. Urine output seems adequate, but one run of acute dialysis might be considered. I will talk with the family about that. 3. I have adjusted mechanical ventilation rate. Job ID: [id number]
[2018-11-04] MEDS: DOPamine 400 MG/D5W 250 ML 250 ML IVPB SCH ×4 (10:42→23:43)
[2018-11-04 12:30] LABS: Digoxin 1.19 ng/mL (0.8-2.0)
[2018-11-04] MEDS: Propofol 1,000 MG/100 ML VIAL IV PRN ×2 (12:43→18:52)
--- NOTE | 2018-11-04 19:50 | PRG ---
DATE OF SERVICE: 11/04/2018 SUBJECTIVE: The patient is seen and examined, still intubated, noted with the following vital signs. OBJECTIVE: VITAL SIGNS: Blood pressure 160/44, respiratory rate of 20, O2 saturations are 93%, and heart rate in the 40s to 50s on transcutaneous pacer. HEENT: Remarkable for endotracheal tube in place. CARDIOVASCULAR SYSTEM: First and second heart sounds were heard. RESPIRATORY SYSTEM: Revealed ventilator sounds. DIGESTIVE SYSTEM: Revealed a benign abdomen. EXTREMITIES: No peripheral edema. LABORATORY INVESTIGATIONS: Showed a sodium of 124, potassium of 5.9, bicarbonate of 18, BUN of 94 with a creatinine of 4.13. Phosphorus was 5.0. IMPRESSION: 1. Acute tubular necrosis, nonoliguric. 2. Hyperkalemia, persistent. 3. Hyponatremia. 4. Metabolic acidosis. PLAN: 1. Formal indication and discussion with the family seem not to want to consider dialysis. Though with hyperkalemia and metabolic acidosis persist, not responding to medical management, this modality of treatment is clearly indicated. 2. I adjust the IV fluid from relatively hypotonic at this point to hypertonic given the hyponatremic state. 3. Renally dose all medications and avoid potentially nephrotoxic agents. 4. Further management to be dependent on the clinical course. Job ID: [id number]
[2018-11-04] MEDS: Famotidine 20 MG TAB PO SCH (19:58)
--- NOTE | 2018-11-04 23:01 | CON ---
DATE OF CONSULTATION: 11/04/2018 HISTORY OF PRESENT ILLNESS: I am seeing Mr. uGy at our 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 a. Attempted temporary pacemaker placement with cancel due to temporary lead induced ventricular arrhythmias. 2. Chronic atrial fibrillation, on digoxin and Eliquis. 3. Acute renal failure with elevated potassium. 4. History of preserved LV systolic function with LVEF of 60% to 65%, moderate right atrial and mildly enlarged right ventricular cavities, [id number]-[id number] MR, vcjoxodp-dq-[id number] TR with severe pulmonary hypertension 80 mmHg on echocardiogram on 11/04/2018. 5. hypertension. ALLERGIES: NONE. MEDICATIONS: At home include: 1. Eliquis. 2. Carvedilol. 3. Gabapentin. 4. Diazepam. 5. Digoxin 0.125 mg daily. 6. Finasteride. 7. Tamsulosin. 8. Lisinopril. 9. Furosemide. SUBJECTIVE: Mr. Guy is intubated and sedated. History is obtained from the chart. This gentleman has been experiencing significant mental status changes for last week or so. He has had an episode of bronchitis with green phlegm about 2 to 3 weeks ago, at which point, later, he was evaluated by his primary care doctor and erythromycin was started. He finishes course just the day before admission. The bronchitis symptoms seem to have been resolving. On the other hand, he had persistent cough and felt very tired, progressively worse and 2 days prior to his admission, he started to pass out, and again, tried to go to work today, but almost passed out again. He was found to be in atrial fibrillation with junctional escape rhythm on arrival to the ER. Potassium was found somewhat elevated. Glucagon, sodium bicarb, calcium chloride, and glucose insulin were all given. Eventually, he underwent an emergent attempt on placing a temporary pacemaker wire, has marked bradycardia in the 20s, but the effort is failed due to frequently induced torsade-like ventricular tachycardia. As per Dr. Awad's noted, it seems to be related to the pacemaker wire manipulation. Eventually, his heart rate improved with administration of dopamine and dobutamine. His blood pressure also remained stable overnight. He had no further ventricular arrhythmias without the temporary pacing wires in place. Currently, he appears to be stable on these drips, but still somewhat bradycardic in the 40s on high-dose pressor support. He is on some sedation and poorly mentating at this time on the ventilator, which was instituted after the failed attempts of pacemaker placement. Transiently overnight, he had some external pacing instituted. His renal failure is evaluated by Nephrology. Hyperkalemia treated as above. So far, he had no bleeding issues, but he has prolonged PT/PTT and mild anemia present. White cell count has increased overnight. REVIEW OF SYSTEMS: Rest of 12-point review of systems is otherwise unremarkable/unavailable. PAST MEDICAL HISTORY: As above. He has been followed by Dr. Perez long-term with prior history of atrial fibrillation and some bradyarrhythmia. He has been treated for this in the past. SOCIAL HISTORY: The patient denies smoking, EtOH, or drug abuse. 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 FAMILY HISTORY: Not contributory. PHYSICAL EXAMINATION: VITAL SIGNS: Most recent blood pressure is 138/52, heart rate 46 to 50, and respirations 12. The patient is afebrile. GENERAL: Reveals an intubated and sedated man, in no apparent distress. Poorly responsive. NECK: Supple. Jugular veins, difficult to evaluate. CHEST: Coarse without crackles. HEART: Sounds are regular, but bradycardic. No murmurs or gallops. ABDOMEN: Benign. Bowel sounds are positive. EXTREMITIES: Lower extremities without edema, clubbing, or cyanosis. Pulses are adequate. NEUROLOGIC: The patient is nonfocal. MUSCULOSKELETAL: Without joint swelling or deformity. SKIN: Without rash. DATABASE: Chest x-ray on admission shows borderline cardiomegaly, mild vascular engorgement, but is unremarkable. LABORATORY DATA: Reveals initial white cell count 9.7, now 14.2; hemoglobin 11.2; platelet count is 176. ABGs on the 8th reveals pCO2 of 39, pH 7.32, PO2 of 75.8. Current pH 7.53, pCO2 of 22, and PO2 is 69.5 on SIMV 26, PEEP of 5. Urine growth culture is negative at 12 hours. ASSESSMENT AND PLAN: Mr. Guy is an 82-year-old man with prior history of atrial arrhythmias, on chronic apixaban therapy, which has been held on admission, thus was on digoxin, and on presentation, he is markedly bradycardic with pauses, likely junctional escape is the present rhythm with possible underlying atrial fibrillation or atrial standstill. His heart rate is now improved with dopamine and dobutamine support. His blood pressure is reasonably stable, although he attempted to have a pacemaker placed that was stopped due to the provoked during the placement. The reason for his extreme bradycardia is unclear, possibly started developing AV block is a potential reason. Digoxin toxicity would be less likely. Hence, the lab tox screen, that was 1.28 just in the therapeutic range. Uremia could also contribute, but also could be a cause of his poor circulation. His potassium is mildly elevated, but could also contribute to his darlene and also tachyarrhythmias. I discussed his case with the family, his nursing staff, and also Dr. Perez. This gentleman is likely decompensated due to marked bradycardia, and at this point, hopefully, he will improve with the increased heart rates on dopamine support long-term, though he would likely benefit for pacemaker placement, even though it may be complicated again with the noted ventricular arrhythmias. Hence, hence has normal LV function, I do not think ICD would be though necessary. I am hoping that these ventricular tachyarrhythmias induced during the manipulation in the RV were all reversible after placement of a permanent pacemaker and improvement of his renal function and electrolyte situation. For now, though, I would advise continued supportive measures with continued intubation and pressor support. If he remains stable, may be a consideration to perform permanent pacemaker placement, attempt tomorrow. Risk and benefits of this were discussed with the family including chance of recurrent arrhythmias, infection, bleeding, pneumothorax, tamponade. They understand and agreed to proceed. We will schedule him for a near date. Thank you again for allowing us to participate in the care of this pleasant patient. Job ID: [id number]
[2018-11-05] MEDS: cefTRIAXone\\ROCEPHIN 1 GM in Sodium Chloride 0.9% 100 ML IVPB SCH (00:31)
[2018-11-05] MEDS: Propofol 1,000 MG/100 ML VIAL IV PRN ×3 (02:00→20:31)
[2018-11-05 05:29] LABS: ALT (SGPT) 20 U/L (8-55); AST (SGOT) 36 U/L (5-34); Albumin 3.3 g/dL (3.4-4.8); Alkaline Phosphatase 67 U/L (40-150); Anion Gap 16 mmol/L (10-20); BUN (Urea Nitrogen) 79 mg/dL (8.4-25.7); BUN/Creatinine Ratio 27.82; Bilirubin, Total 1.4 mg/dL (0.2-1.2); Calc. Creatinine Clearance 0 mL/min (70-130); Carbon Dioxide 23 mmol/L (23-31); Chloride 95 mmol/L (98-107); Estimated GFR-MDRD 21; Globulin 2.6 g/dL (2.4-3.5); Glucose 133 mg/dL (83-110); Phosphorus 6.6 mg/dL (2.3-4.7); Potassium 4.6 mmol/L (3.5-5.1); Protein, Total 5.9 g/dL (5.8-8.1); Sodium 129 mmol/L (136-145)
[2018-11-05 06:11] LABS: INR-International Normal Ratio 1.6; Prothrombin Time 19.1 SEC (12.0-14.7)
[2018-11-05 06:12] LABS: PTT 48.7 SEC (22.9-36.1)
[2018-11-05 07:01] LABS: Actual Bicarbonate (HCO3a) 23.8 mEq/L (22-28); Base Excess (BEa) 0.5 mEq/L (-2.0 to +3.0); CO2 Tension 34.2 mmHg (35.0-45.0); Calcium, Ionized 1.06 mmol/L (1.12-1.30); Carboxyhemoglobin (COHb) 0.3 gm% (0.0-3.0); Potassium - ABG Lab 4.27 mmol/L (3.70-5.30); pH, Arterial 7.46 (7.35-7.45)
[2018-11-05 07:05] LABS: Puncture Site ALINE
[2018-11-05] MEDS: Sodium Bicarbonate 70 MEQ in Sodium Chloride 0.45% 1,000 ML IV SCH ×2 (07:23→20:29)
--- NOTE | 2018-11-05 08:38 | RAD ---
CHEST 1 VIEW: INDICATION: Intubation. COMPARISON: Prior study dated 11/03/2018. FINDINGS: There is persistent cardiomegaly with pulmonary vascular congestion and central edema pattern. ET tu be and gastric catheter are unchanged. No pneumothorax is evident. Left lower chest wall pacer pad is unchanged. Numerous leads overlie the patient. Osseous structures are unchanged. IMPRESSION: 1. Stable congestive heart failure. 2. Tubes and lines are unchanged. 3. No pneumothorax demonstrated. POS: [facility]
[2018-11-05] MEDS: DOPamine 400 MG/D5W 250 ML 250 ML IVPB SCH ×2 (08:57→16:01)
--- NOTE | 2018-11-05 09:34 | PRG ---
DATE OF SERVICE: 11/05/2018 PULMONARY CRITICAL CARE PROGRESS NOTE 35 minutes critical time. SUBJECTIVE: The patient remains intubated on mechanical ventilation. There have been no acute changes overnight. OBJECTIVE: VITAL SIGNS: His temperature is 98.6, pulse 44, blood pressure 150/44, 24-hour intake 3977, output 3125. NEUROLOGIC: The nursing staff says he will wake up and follow commands without limitation. HEENT: Unremarkable. NECK: No JVD. LUNGS: Clear anteriorly. CARDIAC: S1 and S2. Bradycardic. ABDOMEN: Soft and nontender. EXTREMITIES: No edema. LABORATORY DATA: Sodium 129, potassium 4.6, chloride 95, CO2 of 23, BUN 79, creatinine 2.8, glucose 133, phosphorus 6.6, AST 36, ALT 20, albumin 3.3. PH 7.46, pCO2 of 34, pO2 of 46 on SIMV rate 16, tidal volume of 500, PEEP 5, pressure support 10, and FiO2 of 40%. ASSESSMENT: 1. Acute respiratory failure related to severe bradycardia. 2. Severe bradycardia, which I thought was initially related to hyperkalemia, but has persisted despite correction of the potassium. 3. Acute renal failure secondary to sepsis and probably secondary to recent medications he was started on as an outpatient. PLAN: This patient needs a pacemaker. I would be inclined to be very aggressive in his treatment as he was fully functional a couple of days ago. For the time being, I will keep the bicarbonate going in his IV fluids until pacemaker is in. It does not look the patient will need hemodialysis as his urine output has been adequate. He is on antibiotics for presumed sepsis, but so far, cultures had shown no growth today. Job ID: [id number]
--- NOTE | 2018-11-05 09:45 | PDOC.PN ---
- Subjective Encounter Start Date: 11/05/18 Encounter Start Time: 10:15 Subjective: Patient still intubated and sedated. No changes overnight. - Objective Resuscitation Status - Order Detail: 11/03/18 22:06 Resuscitation Status Routine Resuscitation Status: PRTL: Chem-Intubation Discussed with: Discussed with and children and family. 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 Additional comments: external pacing MAR Reviewed: Yes Vital Signs & Weight: Vital Signs (12 hours) Temp Pulse Resp BP Pulse Ox 11/05/18 08:00 16 95 11/05/18 07:00 98.6 F 11/05/18 06:42 43 L 144/42 H 11/05/18 06:00 16 11/05/18 04:00 16 11/05/18 03:20 16 94 L 11/05/18 03:00 98.3 F 11/05/18 02:00 16 11/05/18 01:00 98.3 F 11/05/18 00:00 16 96 11/04/18 22:00 98.6 F 16 Weight Admit Weight 196 lb Weight 3.139 oz Most Recent Monitor Data Heart Rate from ECG 42 NIBP 132/31 NIBP BP-Mean 54 Respiration from ECG 16 SpO2 96 I&O: 11/04/18 11/05/18 11/06/18 06:59 06:59 06:59 Intake Total 600 3977 Output Total 1225 3125 460 Balance -625 852 -460 Result Diagrams: 11/04/18 04:55 11/05/18 03:30 Phys Exam - Physical Examination HEENT: moist MMs Respiratory: no wheezing, no rales, no rhonchi Cardiovascular: no significant murmur bradycardic in 40s Gastrointestinal: soft, positive bowel sounds Musculoskeletal: no edema Neurological: non-focal Deviation from normal: sedated on vent Dx/Plan (1) Bradycardia Code(s): R00.1 - BRADYCARDIA, UNSPECIFIED Status: Acute Comment: Severe, possibly secondary to underlying afib along with azithromycin. Failed placement of temporary transvenous pacer. Intubated to allow for external pacing. Dr. Awad following. On Dopamine and Dobutamine. Dr. Antonio considering permanent pacemaker today or tomorrow if stable. (2) Intubation of airway performed without difficulty Code(s): Z78.9 - OTHER SPECIFIED HEALTH STATUS Status: Acute Comment: Patient intubated and ventilated to allow external pacing (3) Acute renal failure Status: Acute Comment: Dr. Gomez consulted, creatinine improving (4) Hyperkalemia Code(s): E87.5 - HYPERKALEMIA Status: Resolved Comment: Improved, given Kayexelate (5) Diastolic CHF Code(s): I50.30 - UNSPECIFIED DIASTOLIC (CONGESTIVE) HEART FAILURE Status: Acute Qualifiers: Heart failure chronicity: unspecified Qualified Code(s): I50.30 - Unspecified diastolic (congestive) heart failure Comment: Severe pulmonary HT and diastolic dysfunction on ECHO - Plan cont current plan of care, continue antibiotics, PT/OT, respiratory therapy, DVT proph w/SCDs Plan for pacemaker today * . - Discharge Encounter end time: 11:30
[2018-11-05] MEDS ORDERED: Iopamidol 370 76% 50 ML VIAL FS ONE (11:17)
[2018-11-05] MEDS ORDERED: CEFAZOLIN 1 GM VIAL ONE (17:46)
--- NOTE | 2018-11-05 19:24 | PRG ---
DATE OF SERVICE: 11/05/2018 SUBJECTIVE: The patient is seen and examined, still on life support, noted with the following vital signs. OBJECTIVE: VITAL SIGNS: Blood pressure 124/40, pulse 46, and respiratory rate of 23. HEENT: Remarkable for endotracheal tube in place. CARDIOVASCULAR SYSTEM: First and second heart sounds were heard. RESPIRATORY SYSTEM: Revealed sounds. DIGESTIVE SYSTEM: Revealed a benign abdomen. EXTREMITIES: No peripheral edema. SKIN: No new gross rash. LYMPHATICS: No peripheral lymphadenopathy. LABORATORY INVESTIGATION: Significant for sodium of 129, BUN of 79 with a creatinine 2.84. Urine output in this patient is up to 100 to 150 mL per hour. IMPRESSION: 1. Acute on chronic kidney disease in the context of acute tubular necrosis. The patient seems to be in post acute tubular necrosis diuretic phase. 2. Hyponatremia, in keeping with acute tubular necrosis improving. 3. Cardiopulmonary failure with significant bradycardia. PLAN: 1. There is no indication for renal replacement therapy, especially now that the patient is in post ATN diuretic phase. We just pay attention to the patient's electrolyte potassium and sodium. 2. Renally dose all medications and avoid potentially nephrotoxic agents. Job ID: [id number]
[2018-11-05] MEDS ORDERED: Acetaminophen/Codeine 30-300mg Tablet PO PRN ×2 (20:15)
[2018-11-05] MEDS: Famotidine 20 MG TAB PO SCH (20:28)
[2018-11-06] MEDS: cefTRIAXone\\ROCEPHIN 1 GM in Sodium Chloride 0.9% 100 ML IVPB SCH (00:17)
[2018-11-06] MEDS ORDERED: Fentanyl BOLUS 250 ML IVPB PRN (00:51)
[2018-11-06] MEDS ORDERED: Morphine 2 MG/ML SYRINGE SLOW IVP PRN (00:51)
[2018-11-06] MEDS ORDERED: DISCONTINUE PREVIOUS NARCOTIC PAIN MEDICATIONS AND BENZODIAZEPINES FS SCH (00:51)
[2018-11-06] MEDS ORDERED: Lorazepam 2 MG/ML VIAL SLOW IVP PRN (00:51)
[2018-11-06] MEDS ORDERED: Propofol BOLUS 1,000 MG/100 ML VIAL IV PRN (00:51)
[2018-11-06] MEDS ORDERED: fentaNYL Citrate/PF 2,000 MCG in Sodium Chloride 0.9% 60 ML IV SCH (00:51)
[2018-11-06 00:58] LABS: Actual Bicarbonate (HCO3a) 25.7 mEq/L (22-28); CO2 Tension 41.3 mmHg (35.0-45.0); Calcium, Ionized 1.06 mmol/L (1.12-1.30); Carboxyhemoglobin (COHb) 0.8 gm% (0.0-3.0); Hemoglobin (Hb) 11.3 g/dL (14.0-18.0); Potassium - ABG Lab 4.39 mmol/L (3.70-5.30); pH, Arterial 7.41 (7.35-7.45)
[2018-11-06 01:07] LABS: ALV-art Gradient 617.375 (0-20); Puncture Site ALINE
[2018-11-06] MEDS ORDERED: Furosemide 40 MG/4 ML VIAL SLOW IVP SCH (01:15)
[2018-11-06] MEDS: Sodium Bicarbonate 70 MEQ in Sodium Chloride 0.45% 1,000 ML IV SCH (01:42)
[2018-11-06] MEDS: DOPamine 400 MG/D5W 250 ML 250 ML IVPB SCH (01:43)
[2018-11-06 03:14] LABS: #Eosinphils 0.1 thou/uL (0.0-0.7); #Lymphocytes 0.9 thou/uL (1.20-3.40); #Neutrophils 10.3 thou/uL (1.40-6.50); %Eosinophils 0.9 % (0.0-10.0); %Lymphocytes 7.2 % (21.0-51.0); %Monocytes 8.1 % (0.0-10.0); %Neutrophils 83.8 % (42.0-75.0); Hemoglobin 10.3 g/dL (14.0-18.0); Mean Corpuscular Hemoglobin 30.4 pg (27.0-31.0); Mean Corpuscular Volume 89.3 fL (78.0-98.0); Mean Platelet Volume 6.4 fL (7.4-10.4); Platelet Count 175 thou/uL (130-400); RBC Distribution Width 13.7 % (11.5-14.5); White Blood Cell (WBC) Count 12.3 thou/uL (4.8-10.8)
[2018-11-06 03:57] LABS: ALT (SGPT) 16 U/L (8-55); AST (SGOT) 29 U/L (5-34); Albumin 2.9 g/dL (3.4-4.8); Alkaline Phosphatase 61 U/L (40-150); Anion Gap 13 mmol/L (10-20); BUN (Urea Nitrogen) 61 mg/dL (8.4-25.7); BUN/Creatinine Ratio 35.88; Bilirubin, Total 1.4 mg/dL (0.2-1.2); Calc. Creatinine Clearance 0 mL/min (70-130); Calcium 7.8 mg/dL (7.8-10.44); Carbon Dioxide 27 mmol/L (23-31); Chloride 100 mmol/L (98-107); Estimated GFR-MDRD 39; Globulin 2.5 g/dL (2.4-3.5); Glucose 100 mg/dL (83-110); Phosphorus 4.8 mg/dL (2.3-4.7); Potassium 4.5 mmol/L (3.5-5.1); Protein, Total 5.4 g/dL (5.8-8.1); Sodium 135 mmol/L (136-145)
[2018-11-06] MEDS: Propofol 1,000 MG/100 ML VIAL IV PRN ×2 (06:11→16:52)
[2018-11-06 07:08] LABS: Actual Bicarbonate (HCO3a) 28.2 mEq/L (22-28); Base Excess (BEa) 4.8 mEq/L (-2.0 to +3.0); CO2 Tension 37.3 mmHg (35.0-45.0); Calcium, Ionized 1.02 mmol/L (1.12-1.30); Carboxyhemoglobin (COHb) 0.5 gm% (0.0-3.0); Hemoglobin (Hb) 10.5 g/dL (14.0-18.0); Potassium - ABG Lab 4.29 mmol/L (3.70-5.30)
[2018-11-06 07:13] LABS: ALV-art Gradient 298.175 (0-20); Puncture Site ALINE
--- NOTE | 2018-11-06 09:18 | PRG ---
DATE OF SERVICE: 11/06/2018 PULMONARY CRITICAL CARE PROGRESS NOTE 35 minutes of critical time. SUBJECTIVE: Mr. Guy had a pacemaker placed yesterday. Afterwards, he had difficulty with hematuria, pulmonary edema, and hypoxemia. He was given Lasix. His PEEP was increased, his FiO2 was increased, and his oxygenation improved. His hematuria is thought secondary to catheter manipulation during transport yesterday. PHYSICAL EXAMINATION: VITAL SIGNS: His temperature is 99.2, pulse is 60 and fully paced, blood pressure 110/34. He is currently on dopamine drip at 3 mcg/minute. HEENT: Unremarkable. NECK: No JVD. CHEST: He has a pacemaker bandage over the left upper quadrant of his chest. His lungs are clear. CARDIAC: S1 and S2, fully paced. ABDOMEN: Soft and nontender. EXTREMITIES: No edema. LABORATORY DATA: Sodium 135, potassium 4.5, chloride 100, CO2 of 27, BUN 61, creatinine 1.7, glucose 100. White blood cell count 12.3, hematocrit 38.3, and platelet count 175. His chest x-ray demonstrates bilateral effusions, right greater than left, and some pulmonary edema. ASSESSMENT: 1. Acute respiratory failure, requiring mechanical ventilation. 2. Status post profound bradycardia. 3. Improving renal failure. PLAN: 1. Decrease IV fluids, stop bicarbonate. 2. Decrease ventilatory rate. 3. Hopefully, be able to wean over this weekend. 4. Urology consultation for the hematuria. 5. Start enteral tube feeds. 6. Wean off dopamine as tolerated. 7. Continue Rocephin for the time being. Job ID: [id number]
--- NOTE | 2018-11-06 09:32 | RAD ---
PORTABLE SUPINE FRONTAL CHEST RADIOGRAPH: DATE: 11/06/1028. COMPARISON: 11/05/2018. HISTORY: Ventilated patient. FINDINGS: Endotracheal tube and nasogastric tube are in stable position. There is dense opacity in both lung b ases suggesting a combination of bibasilar consolidation/collapse and bilateral pleural effusions, st able on the left and worsened on the right. There is pulmonary vascular congestion. A single-lead t ransvenous AICD is present, inserted via left subclavian approach. Cardiac silhouette is enlarged. IMPRESSION: Pulmonary vascular congestion with dense bibasilar pleural and parenchymal opacity which may signify infectious pneumonitis, pulmonary edema, and/or aspiration. Followup to resolution advised. POS: [facility]
[2018-11-06] MEDS: Sodium Chloride 0.9% 1,000 ML IV SCH (10:02)
--- NOTE | 2018-11-06 13:17 | PQF ---
DATE: 11-06-18 ATTN: DR. CYNTHIA NATION Please exercise your independent, professional judgment in responding to the clarification form. Clinical indicators are provided on the bottom of this form for your review Please check appropriate box(s) to clarify if the following diagnosis has been ruled in or ruled out: SEPSIS Present on Admission (POA): [ ] Yes [ x ] No [ ] Unable to determine [ ] Ruled in diagnosis [ ] Continue to treat [ ] Resolved [ ] Ruled out diagnosis [ ] Other diagnosis [ ] Unable to determine For continuity of documentation, please document condition throughout progress notes and discharge summary. Thank You. CLINICAL INDICATORS - SIGNS / SYMPTOMS / LABS CONSULT NOTE DR. DENISE 11-03-18: HYPERKALEMIA, ACUTE RENAL FAILURE, R/O SEPSIS, BRADYCARDIA CONSULT NOTE DR. DENISE 11-04-18: ACUTE RENAL INSUFFICIENCY SECONDARY TO SEPSIS WBC: 11-03-18: 9.7 11-04-18: 14.2 11-06-18: 12.[address] HERNANDEZ 11-04-18: HAS BEEN EXPERIENCING SIGNIFICANT MENTAL STATUS CHANGES FOR LAST WEEK OR SO TEMP: 11-04-18: 99.1, 100.1 RR: 11-04-18: 26, 26, 26, 26, 24, 24 RISK FACTORS: CONSULT NOTE DR. HERNANDEZ 11-04-18: HAS BEEN EXPERIENCING SIGNIFICANT MENTAL STATUS CHANGES FOR LAST WEEK OR SO H&P: COUGHING UP A LOT OF GREEN PHLEGM, STARTED ON AZITHROMYCIN AND JUST FINISHED COURSE YEST. CONSULT NOTED DR. DENISE 11-04-18: ACUTE RENAL FAILURE SECONDARY TO SEPSIS AND PROBABLY SECONDARY TO RECENT MEDICATIONS HE WAS STARTED ON AN OUTPATIENT TREATMENTS: CONSULT NOTE DR. DENISE 11-03-18: SEPSIS WORKUP MAR: STEFANIEEPKEVIN 11-03-18, IVF (This form is maintained as a part of the permanent medical record) 2014 [employer] All Rights Reserved KIRSTEN [email or web address] Office: [phone] [facility] CENTERKermit
--- NOTE | 2018-11-06 14:08 | PDOC.CTH ---
Cardiology Progress Note - Subjective EP PROGRESS NOTE: 11/06/18 Seeing patient as follow up for third degree heart block s/p pacemaker implantation on 11/05/18. He is intubated and sedated. Family not at bedside. Pressure dressing remains in place over PPM implant site. - ROS not able to obtain ROS - Objective Vital Signs Temp Pulse Resp BP 11/06/18 13:43 80 107/32 L 11/06/18 10:26 60 118/46 L 11/06/18 08:02 61 151/51 H 11/06/18 06:00 16 11/06/18 04:00 99.2 F 16 11/06/18 02:27 63 Admit Weight 196 lb Weight 3.139 oz 11/05/18 11/06/18 11/07/18 06:59 06:59 06:59 Intake Total 3977 4807.6 Output Total 3125 4112 Balance 852 695.6 - Physical Examination General/Neuro: other: (sedated) Neck: no JVD present Lungs: other: (intubated. PEEP 10, FiO 45%) Heart: PMI normal, RRR Abdomen: NT/ND, soft Other PE findings: hematuria in tyson bag. Pressure dressing over PPM site. - Telemetry Telemetry Rhythm: SR - Labs Result Diagrams: 11/06/18 03:10 11/06/18 03:10 Troponin/CKMB CK-MB (CK-2) 2.5 ng/mL (0-6.6) 11/03/18 15:27 Troponin I 0.194 ng/mL (< 0.028) H 11/03/18 21:42 - Assessment/Plan 1. Third degree AV block -s/p single lead permanent pacemaker 11/05/18 2. Medtronic single lead pacemaker - hematoma at site. controlled with pressure dressing. off OAC - CXR this AM- no pneumothorax. Device check stable today. 3. Renal failure, improving 4. Respiratory failure -remains intubated - per Pulm/intensivists 5. Hypotension - on low dose dopamine gtt at 3mcg/kg/min 6. Chronic Atrial fibrillation - OAC on hold for now with acute hematuria and hematoma at PPM site. - fair rate controlled despite current dopamine gtt Continue Ceftriaxone 1 gram Q24 hours x 5 doses post PPM implant.
--- NOTE | 2018-11-06 17:35 | PDOC.PN ---
- Subjective Encounter Start Date: 11/06/18 Encounter Start Time: 17:33 Intubated, sedated. Pacemaker placed yesterday. Remains on dopamine infusion 3mcg/min. Hematuria present in tyson bag, urology consult requested per critical care team. Family not present at this time. - Objective Resuscitation Status - Order Detail: 11/03/18 22:06 Resuscitation Status Routine Resuscitation Status: PRTL: Chem-Intubation Discussed with: Discussed with and children and family. 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 Additional comments: external pacing Vital Signs & Weight: Vital Signs (12 hours) Pulse Resp BP 11/06/18 15:19 81 95/30 L 11/06/18 13:43 80 107/32 L 11/06/18 10:26 60 118/46 L 11/06/18 08:02 61 151/51 H 11/06/18 06:00 16 Weight Admit Weight 196 lb Weight 3.139 oz Most Recent Monitor Data Heart Rate from ECG 80 NIBP 94/42 NIBP BP-Mean 60 Respiration from ECG 11 SpO2 100 I&O: 11/05/18 11/06/18 11/07/18 06:59 06:59 06:59 Intake Total 3977 4807.6 Output Total 3125 4112 Balance 852 695.6 Result Diagrams: 11/06/18 03:10 11/06/18 03:10 Phys Exam - Physical Examination Sedated, intubated ETT Neck: supple Fairly clear laterally/anteriorly Cardiovascular: RRR paced Gastrointestinal: soft Musculoskeletal: edema present Presently sedated on diprivan Deviation from normal: Reinforced dressing overlying pacer site Dx/Plan (1) Third degree AV block Code(s): I44.2 - ATRIOVENTRICULAR BLOCK, COMPLETE Status: Acute Comment: s/ p Medtronic single lead pacemaker. Hematoma at site, pressure dressing in place /reinforced. No PTX (2) Hematuria Code(s): R31.9 - HEMATURIA, UNSPECIFIED Status: Acute Comment: Urology consulted per critical care (3) Presence of permanent cardiac pacemaker Code(s): Z95.0 - PRESENCE OF CARDIAC PACEMAKER Status: Acute Comment: PPM 08/14, continue Rocephin once daily for 5 doses per EP (4) Acute renal failure Status: Acute Comment: Dr. Gomez consulted, creatinine improving (5) Diastolic CHF Code(s): I50.30 - UNSPECIFIED DIASTOLIC (CONGESTIVE) HEART FAILURE Status: Acute Qualifiers: Heart failure chronicity: unspecified Qualified Code(s): I50.30 - Unspecified diastolic (congestive) heart failure Comment: Severe pulmonary HTN and diastolic dysfunction on ECHO (6) Hyperkalemia Code(s): E87.5 - HYPERKALEMIA Status: Resolved Comment: Improved, given Kayexelate (7) Chronic atrial fibrillation Code(s): I48.2 - CHRONIC ATRIAL FIBRILLATION Status: Acute Comment: Not an anticoagulation candidate presently (8) Hypotension Status: Acute Comment: Weaning dopamine (9) Acute respiratory failure Code(s): J96.00 - ACUTE RESPIRATORY FAILURE, UNSP W HYPOXIA OR HYPERCAPNIA Status: Acute Comment: Weaning per pulmonary, appreciate their care - Plan * Please see specifics above * Holding anticoagulation at this time. Check AML including coags for the morning, prior INR 1.6
--- NOTE | 2018-11-06 19:16 | PRG ---
DATE OF SERVICE: 11/06/2018 SUBJECTIVE: The patient was seen and examined, still on life support. Noted with the following vital signs. OBJECTIVE: VITAL SIGNS: Blood pressure of 94/42 to 114/47 with a pulse of 80 and respiratory rate of 11. HEENT: Remarkable for endotracheal tube in place. CARDIOVASCULAR SYSTEM: First and second heart sounds were heard. RESPIRATORY SYSTEM: Revealed vented sounds. DIGESTIVE SYSTEM: Revealed a benign abdomen. EXTREMITIES: No peripheral edema. SKIN: No new gross rash. UROGENITAL SYSTEM: Revealed hematuria. IMPRESSION: 1. Acute on chronic kidney disease, which seems to be improving. 2. Hematuria, query cause. 3. Cardiopulmonary failure, on life support. PLAN: 1. Continue renal supportive measures. 2. Hemodynamic support. 3. Hematuria management by Urology. 4. Further management will be dependent on the clinical course. Condition of the patient still remains guarded. Job ID: [id number]
--- NOTE | 2018-11-06 20:24 | CON ---
DATE OF CONSULTATION: 11/06/2018 CONSULTING PHYSICIAN: Ridge Moon MD. CONSULTED PHYSICIAN: Dr. Rae. REASON FOR CONSULTATION: Gross hematuria. HISTORY OF PRESENT ILLNESS: Mr. Guy is an 82-year-old white male, who was admitted to the hospital with history of hypertension and atrial fibrillation with feeling bad, coughing up a lot, and feeling very tired. He was found to have renal failure as well as being markedly bradycardic. He was given dopamine and dobutamine and transferred to the ICU. Dr. Antonio has taken him for formal pacemaker placement after attempts at an endovascular pacemaker placement had failed. After coming out of his procedure, the patient did have a Nichols catheter, which became grossly bloody. The patient has a history of taking Eliquis, but apparently has not received a dose since around Friday or Friday earlier this week. The nursing staff stated the catheter was not draining at all despite attempts to flush it and he had 400 mL in his bladder on bladder scan. I requested that his catheter be changed out to a 22-Czech catheter, which was done prior to my arrival to the patient's bedside. At the time of my arrival, the patient is currently intubated and sedated. His son is present from whom a limited history is obtained. The son states that the patient has not had blood in his urine previously and did not really report any significant urinary problems before. PAST MEDICAL HISTORY: 1. Atrial fibrillation. 2. Chronic anticoagulation use. 3. Hypertension. 4. BPH. 5. Knee surgery. 6. Shoulder surgery. ALLERGIES: NONE. HOME MEDICATIONS: 1. Carvedilol. 2. Neurontin. 3. Valium. 4. Digoxin. 5. Finasteride. 6. Flomax. 7. Lisinopril. 8. Lasix. FAMILY HISTORY: Significant for throat cancer in his mother, otherwise noncontributory. SOCIAL HISTORY: The patient has no history of reported smoking, drinking, or illicit drug use. He is . 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 REVIEW OF SYSTEMS: A 12-point review of systems could not be obtained as the patient is currently intubated. PHYSICAL EXAMINATION: VITAL SIGNS: Temperature 98.1, pulse 60, blood pressure 106/38, saturation 99% on the ventilator. GENERAL: Intubated and sedated. The patient does withdraw to stimuli. HEENT: Normocephalic, atraumatic. ET tube is currently in place. Pupils are somewhat small, but otherwise nonicteric. NECK: Trachea midline. CARDIOVASCULAR: Borderline bradycardia with normal S1 and S2, somewhat irregular rhythm. CHEST: Clear anteriorly, although there do appear to be some coarse upper airway breath sounds. ABDOMEN: Soft, nontender, nondistended. Positive bowel sounds. No organomegaly or masses. : Nichols catheter is currently in place. The penis is uncircumcised. Scrotum is normal with testicles bilaterally descended. The Nichols catheter is a 22-Czech two-way Nichols catheter with dark merlot-type urine in the tubing. RECTAL: Exam is deferred. EXTREMITIES: No clubbing, cyanosis, or edema. SKIN: No rashes. Warm, dry, slightly poor turgor. NEUROLOGIC: The patient is currently sedated and does not follow commands. MUSCULOSKELETAL: No obvious joint deformities or joint erythema noted. LABORATORY DATA: On laboratory evaluation, the full set of labs are in the [employer] system, which I have reviewed. Of note, the patient's white count is 12.3 with hemoglobin 10.3. Creatinine is 1.7 with sodium of 135. DESCRIPTION OF PROCEDURE: The patient's catheter was irrigated with normal saline approximately 1 L with removal of a large amount of clot from the bladder. Upon completion of irrigation, the urine became light pink color, but he continues to have evidence of active bleeding, although it seems to be quite slow. The catheter was hooked back up to gravity drainage after completion of irrigation. ASSESSMENT AND PLAN: An 82-year-old white male with gross hematuria starting after his recent procedure. It is unclear whether the patient was heparinized or not during the procedure, but more than likely his catheter probably had some type of trauma during a transfer. He probably does not have any anticoagulation on board at this time, but given his history of finasteride and Flomax usage, I do anticipate that he probably has a large prostate and may have voiding difficulties without these medications. In either case, the medications can be restarted once the patient is awake and able to swallow pills again. For now, I would recommend keeping the catheter in to gravity drainage. I will reinspect the catheter in approximately 3 to 4 hours and if the urine has become very bloody again, we will switch his catheter out to a three-way catheter and initiate CBI. If the urine is draining well and it is only a translucent red, I think we can keep this catheter in place and allowed to continue to drain until the bleeding clears up on its own, at which point, we can remove his catheter and perform a voiding trial. I would recommend that he is back on his prostate medications before starting the void trial. I will come check on the patient again and make recommendations accordingly. Job ID: [id number]
[2018-11-06] MEDS: Famotidine 20 MG TAB PO SCH (20:31)
[2018-11-07] MEDS: cefTRIAXone\\ROCEPHIN 1 GM in Sodium Chloride 0.9% 100 ML IVPB SCH ×2 (00:09→23:35)
[2018-11-07 05:53] LABS: #Eosinphils 0.2 thou/uL (0.0-0.7); #Lymphocytes 0.8 thou/uL (1.20-3.40); #Monocytes 0.7 thou/uL (0.11-0.59); #Neutrophils 6.7 thou/uL (1.40-6.50); %Basophils 0.1 % (0.0-1.0); %Eosinophils 2.2 % (0.0-10.0); %Lymphocytes 9.4 % (21.0-51.0); %Monocytes 7.8 % (0.0-10.0); %Neutrophils 80.5 % (42.0-75.0); Hemoglobin 8.8 g/dL (14.0-18.0); Mean Corpuscular HGB CONC 33.2 g/dL (32.0-36.0); Mean Corpuscular Hemoglobin 30.7 pg (27.0-31.0); Mean Corpuscular Volume 92.5 fL (78.0-98.0); Platelet Count 158 thou/uL (130-400); RBC Distribution Width 13.6 % (11.5-14.5); Red Blood Cell (RBC) Count 2.85 mill/uL (4.70-6.10); White Blood Cell (WBC) Count 8.3 thou/uL (4.8-10.8)
[2018-11-07 05:57] LABS: INR-International Normal Ratio 1.4; Prothrombin Time 17.2 SEC (12.0-14.7)
[2018-11-07] MEDS: Sodium Chloride 0.9% 1,000 ML IV SCH (05:58)
[2018-11-07] MEDS: Propofol 1,000 MG/100 ML VIAL IV PRN ×2 (05:58→18:45)
[2018-11-07 06:06] LABS: Albumin 2.6 g/dL (3.4-4.8); Anion Gap 9 mmol/L (10-20); BUN (Urea Nitrogen) 56 mg/dL (8.4-25.7); BUN/Creatinine Ratio 40.88; Calc. Creatinine Clearance 50 mL/min (70-130); Calcium 7.8 mg/dL (7.8-10.44); Carbon Dioxide 30 mmol/L (23-31); Chloride 102 mmol/L (98-107); Estimated GFR-MDRD 50; Glucose 119 mg/dL (83-110); Phosphorus 3.9 mg/dL (2.3-4.7); Sodium 137 mmol/L (136-145)
[2018-11-07 07:37] LABS: Actual Bicarbonate (HCO3a) 29.9 mEq/L (22-28); Base Excess (BEa) 4.8 mEq/L (-2.0 to +3.0); CO2 Tension 46.8 mmHg (35.0-45.0); Calcium, Ionized 1.07 mmol/L (1.12-1.30); Carboxyhemoglobin (COHb) 0.2 gm% (0.0-3.0); Hemoglobin (Hb) 9.3 g/dL (14.0-18.0); Potassium - ABG Lab 3.95 mmol/L (3.70-5.30); pH, Arterial 7.42 (7.35-7.45)
[2018-11-07 07:39] LABS: Puncture Site ART LINE
--- NOTE | 2018-11-07 08:47 | RAD ---
PORTABLE FRONTAL CHEST RADIOGRAPH: D ATE: 11/07/2018. COMPARISON: 11/06/2018. HISTORY: Ventilated patient. FINDINGS: Endotracheal tube and nasogastric tube in proper position. Single-lead transvenous pacing device. P rominence of the cardiac silhouette noted. Atherosclerotic calcification in the aortic arch present. There is dense opacity in both lung bases suggesting a combination of bilateral lower lobe consolidat ion/collapse and bilateral pleural effusions, not significantly changed. IMPRESSION: Stable portable chest radiograph as above. POS: JIMBO
--- NOTE | 2018-11-07 09:28 | PRG ---
DATE OF SERVICE: 11/07/2018 SUBJECTIVE: Remains intubated in the vent and sedated. OBJECTIVE: VITAL SIGNS: Blood pressure 124/44, pulse is 80, sats are 100%, respirations 11. GENERAL: He is encephalopathic, sedated. I's and O's are negative 2661 in, 4580 out. CHEST: Bilateral rhonchi. CARDIAC: Normal S1 and S2. No gallops. ABDOMEN: No masses. LABORATORY DATA: White count 8000, H and H 8 and 26, platelet count is normal. PO2 is . IMPRESSION: 1. Status post pacemaker for third-degree heart block. 2. Respiratory failure. 3. Renal failure. 4. Congestive heart failure. PLAN: Hold sedation. Start weaning slowly. Continue nutrition, PT. We will follow. One-half hour of critical time. Job ID: [id number]
--- NOTE | 2018-11-07 11:01 | PDOC.PN ---
- Subjective Encounter Start Date: 11/07/18 (f/u anemia) Encounter Start Time: 10:59 Subjective: Pt intubated, per RN following commands. Continuous bladder irrigation -: continues for hematuria. - Objective Resuscitation Status - Order Detail: 11/03/18 22:06 Resuscitation Status Routine Resuscitation Status: PRTL: Chem-Intubation Discussed with: Discussed with and children and family. 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 Additional comments: external pacing Vital Signs & Weight: Vital Signs (12 hours) Temp Pulse Resp BP 11/07/18 10:46 80 114/44 L 11/07/18 07:31 80 124/44 L 11/07/18 06:00 11 L 11/07/18 04:00 99.6 F 13 11/07/18 02:20 80 11/07/18 02:00 12 11/07/18 00:00 99.3 F 16 Weight Admit Weight 196 lb Weight 192 lb 7.417 oz Most Recent Monitor Data Heart Rate from ECG 80 NIBP 111/41 NIBP BP-Mean 56 Respiration from ECG 15 SpO2 100 I&O: 11/06/18 11/07/18 11/08/18 06:59 06:59 06:59 Intake Total 4807.6 2661.2 Output Total 4112 4580 Balance 695.6 -1918.8 Result Diagrams: 11/07/18 05:34 11/07/18 05:34 EKG Reviewed by me: Yes (tele - paced rhythm) Phys Exam - Physical Examination Constitutional: NAD intubated, sedated, some spontaneous movement, eye opening Respiratory: no wheezing, no rales, no rhonchi Cardiovascular: RRR, no significant murmur ecchymosis on chest around pacemaker site Gastrointestinal: soft, positive bowel sounds Musculoskeletal: no edema intubated/sedated with spontaneous movement Dx/Plan (1) S/P placement of cardiac pacemaker Code(s): Z95.0 - PRESENCE OF CARDIAC PACEMAKER Status: Acute (2) Hematuria Code(s): R31.9 - HEMATURIA, UNSPECIFIED Status: Acute Qualifiers: Hematuria type: gross Qualified Code(s): R31.0 - Gross hematuria (3) Anemia Code(s): D64.9 - ANEMIA, UNSPECIFIED Status: Acute (4) CORTES (acute kidney injury) Code(s): N17.9 - ACUTE KIDNEY FAILURE, UNSPECIFIED Status: Acute (5) Acute respiratory failure Code(s): J96.00 - ACUTE RESPIRATORY FAILURE, UNSP W HYPOXIA OR HYPERCAPNIA Status: Acute Comment: Weaning per pulmonary, appreciate their care (6) Chronic atrial fibrillation Code(s): I48.2 - CHRONIC ATRIAL FIBRILLATION Status: Acute (7) Diastolic CHF Code(s): I50.30 - UNSPECIFIED DIASTOLIC (CONGESTIVE) HEART FAILURE Status: Acute Qualifiers: Heart failure chronicity: unspecified Qualified Code(s): I50.30 - Unspecified diastolic (congestive) heart failure Comment: Severe pulmonary HTN and diastolic dysfunction on ECHO (8) Hypotension Status: Acute Comment: dopamine weaned off 11/07 - Plan * Appreciate Pulm managing vent - weaning sedation * Hematuria - continuous bladder irrigation * Anemia of acute blood loss - type and screen ordered * CORTES improving * hyperkalemia resolved * s/p pacemaker insertion 11/07 * * dvt prophy - scd's * gi prophy - pepcid * code status - chemical only with intubation * * family not present to discuss care * pt remains at high risk in current condition
--- NOTE | 2018-11-07 12:52 | PRG ---
DATE OF SERVICE: 11/07/2018 SUBJECTIVE: Yesterday upon my arrival back to the room, the patient had recurrent very dark red merlot type hematuria in the catheter with clots. The nurse said she had irrigated several clots out of the bladder. I had elected to start him on CBI at that time and I had irrigated out his bladder with insertion of a 22-Persian three-way Nichols catheter, which he currently has in. There were no further episodes of clotting after this. OBJECTIVE: VITAL SIGNS: Temperature is not recorded, pulse 80, blood pressure 114/44, and saturations are 100% on ventilator. GENERAL: Intubated and sedated. CARDIOVASCULAR: Regular rate and rhythm. GENITOURINARY: Catheter is in place with very light pink urine on a moderate drip CBI. ASSESSMENT AND PLAN: An 82-year-old white male with chronic kidney disease and hematuria most likely secondary to catheter-associated trauma. The patient had taken Eliquis before and due to his chronic kidney disease, I think it is taking a little longer than normal for the bleeding to resolve and the Eliquis to wear out of his system. I do anticipate that the bleeding should resolve on its own and if it does not, he may need to go to the operating room for cauterization, although he is in somewhat poor health for this. At the current time, I am fairly confident that he will not have to do this and will probably have his bleeding resolved on its own. We will continue just to leave things alone as they are to allow his natural clotting to take place, at which time, the CBI can be turned off if his urine remains clear and his catheter has been in for about 5 to 7 days. We can consider a void trial if he is still in the hospital. Otherwise, he can be discharged to rehab or wherever he is going to go if he is discharged before then and we can always perform his void trial on an outpatient basis. I will continue to follow along and make recommendations. Job ID: [id number]
[2018-11-07] MEDS: Famotidine 20 MG TAB PO SCH (20:46)
--- NOTE | 2018-11-07 21:26 | EKG ---
Test Reason : BRADYCARDIA Blood Pressure : / mmHG Vent. Rate : 026 BPM Atrial Rate : 024 BPM P-R Int : 000 ms QRS Dur : 174 ms QT Int : 652 ms P-R-T Axes : 000 -49 060 degrees QTc Int : 428 ms Idioventricular rhythm Right bundle branch block Left anterior fascicular block Bifascicular block Left ventricular hypertrophy with repolarization abnormality Possible Lateral infarct , age undetermined Abnormal ECG Confirmed by JEROME GARCIA ([id number]), proposal editor PINA BUCK ([id number]) on 11/07/2018 9:25:45 PM Referred By: JOSE Confirmed By:JEROME GARCIA
[2018-11-08] MEDS: Propofol 1,000 MG/100 ML VIAL IV PRN (01:23)
[2018-11-08] MEDS: Sodium Chloride 0.9% 1,000 ML IV SCH ×2 (01:23→23:44)
--- NOTE | 2018-11-08 02:14 | PRG ---
DATE OF SERVICE: 11/08/2018 SUBJECTIVE: The patient was seen and examined and noted with the following vital signs while still on life support. OBJECTIVE: VITAL SIGNS: Blood pressure 129/56, pulse of 80, respiratory rate of 17 and O2 saturation 100%. HEENT: Remarkable for endotracheal tube in place. CARDIOVASCULAR: First and second heart sounds were heard. RESPIRATORY SYSTEM: Revealed vented sounds. DIGESTIVE SYSTEM: Revealed a benign abdomen. EXTREMITIES: No peripheral edema. SKIN: No new gross rash. IMPRESSION: 1. Acute on chronic kidney disease, which is much improved. 2. Cardiopulmonary failure, on life support. PLAN: 1. Continue renal supportive measures. 2. Continue to avoid potential nephrotoxic agents. 3. Further management will be dependent on the clinical course. Job ID: [id number]
[2018-11-08 04:29] LABS: #Eosinphils 0.2 thou/uL (0.0-0.7); #Lymphocytes 0.8 thou/uL (1.20-3.40); #Monocytes 0.6 thou/uL (0.11-0.59); #Neutrophils 6.2 thou/uL (1.40-6.50); %Eosinophils 2.8 % (0.0-10.0); %Lymphocytes 10.5 % (21.0-51.0); %Monocytes 7.9 % (0.0-10.0); %Neutrophils 78.8 % (42.0-75.0); Mean Corpuscular HGB CONC 33.1 g/dL (32.0-36.0); Mean Corpuscular Hemoglobin 30.9 pg (27.0-31.0); Mean Corpuscular Volume 93.3 fL (78.0-98.0); Mean Platelet Volume 6.7 fL (7.4-10.4); Platelet Count 169 thou/uL (130-400); RBC Distribution Width 13.6 % (11.5-14.5); Red Blood Cell (RBC) Count 2.93 mill/uL (4.70-6.10); White Blood Cell (WBC) Count 7.9 thou/uL (4.8-10.8)
[2018-11-08 06:56] LABS: Actual Bicarbonate (HCO3a) 33.2 mEq/L (22-28); Base Excess (BEa) 7.6 mEq/L (-2.0 to +3.0); CO2 Tension 52.8 mmHg (35.0-45.0); Calcium, Ionized 1.14 mmol/L (1.12-1.30); Carboxyhemoglobin (COHb) 0.6 gm% (0.0-3.0); Hemoglobin (Hb) 9.2 g/dL (14.0-18.0); O2 Tension (PaO2) 112.5 mmHg (> 60.0); pH, Arterial 7.42 (7.35-7.45)
[2018-11-08 06:59] LABS: Puncture Site RRA
[2018-11-08] MEDS ORDERED: Furosemide 40 MG/4 ML VIAL SLOW IVP SCH ×2 (08:15→12:45)
--- NOTE | 2018-11-08 08:27 | RAD ---
FRONTAL RADIOGRAPH CHEST: DATE: 11/08/2018. COMPARISON: 11/07/2018. HISTORY: Ventilated patient. FINDINGS: Stable endotracheal tube and nasogastric tube. Stable single-lead transvenous pacing device. There is pulmonary vascular congestion with dense bibasilar pleural and parenchymal opacity suggesting biba silar consolidation/collapse and bilateral pleural effusions. IMPRESSION: Findings suggesting pulmonary edema. Superimposed infection could not be excluded. Followup to [facility] advised. POS: EVELIA
--- NOTE | 2018-11-08 08:34 | PRG ---
DATE OF SERVICE: 11/08/2018 SUBJECTIVE: Mikal Guy remains intubated on the vent. His sedation was withheld, though he is not very much responsive this morning. OBJECTIVE: VITAL SIGNS: Pulse is 82, blood pressure 154/88, sats 99% on the vent, and respiratory rate 19. His I's and O's have been negative. CHEST: Decreased breath sounds with bilateral rhonchi. CARDIAC: Normal S1, S2. No gallops. ABDOMEN: No masses. LABORATORY DATA: White count 7000, H and H 9 and 27, and platelet count normal. His PO2 is 112, and his creatinine was 1.37 yesterday. DIAGNOSTIC DATA: Chest x-ray shows large bilateral pleural effusions. IMPRESSION: 1. Respiratory failure. 2. Congestive heart failure. 3. Severe deconditioning. 4. Encephalopathy. 5. Status post pacemaker. 6. Renal failure. PLAN: weanable today. We will continue to hold sedation and a trial of diuretics. We will follow. One-half hour of critical time. Job ID: [id number]
[2018-11-08] MEDS ORDERED: DC Sedation Protocol FS ONE (12:41)
--- NOTE | 2018-11-08 13:42 | PDOC.PN ---
- Subjective Encounter Start Date: 11/08/18 (f/u anemia) Encounter Start Time: 13:40 Subjective: Pt s/p extubation, c/o dry mouth. Denies any other complaints - Objective Resuscitation Status - Order Detail: 11/03/18 22:06 Resuscitation Status Routine Resuscitation Status: PRTL: Chem-Intubation Discussed with: Discussed with and children and family. 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 Additional comments: external pacing Vital Signs & Weight: Vital Signs (12 hours) Pulse Resp BP Pulse Ox 11/08/18 12:40 86 23 H 96 11/08/18 11:04 81 157/58 H 11/08/18 06:50 82 139/58 L 11/08/18 06:00 12 11/08/18 04:00 10 L 11/08/18 02:07 80 11/08/18 02:00 15 Weight Admit Weight 196 lb Weight 204 lb 9.423 oz Most Recent Monitor Data Heart Rate from ECG 80 NIBP 149/47 NIBP BP-Mean 107 Respiration from ECG 18 SpO2 94 I&O: 11/07/18 11/08/18 11/09/18 06:59 06:59 06:59 Intake Total 2661.2 2715 Output Total 4580 5025 Balance -1918.8 -2310 Result Diagrams: 11/08/18 03:55 11/07/18 05:34 EKG Reviewed by me: Yes (tele - paced rhythm) Phys Exam - Physical Examination Constitutional: NAD Respiratory: no wheezing, no rales, no rhonchi Cardiovascular: RRR, no significant murmur Gastrointestinal: soft, non-tender, positive bowel sounds Neurological: non-focal, moves all 4 limbs Deviation from normal: multiple small areas of ecchymosis on chest Dx/Plan (1) S/P placement of cardiac pacemaker Code(s): Z95.0 - PRESENCE OF CARDIAC PACEMAKER Status: Acute (2) Hematuria Code(s): R31.9 - HEMATURIA, UNSPECIFIED Status: Acute Qualifiers: Hematuria type: gross Qualified Code(s): R31.0 - Gross hematuria (3) Anemia Code(s): D64.9 - ANEMIA, UNSPECIFIED Status: Acute (4) CORTES (acute kidney injury) Code(s): N17.9 - ACUTE KIDNEY FAILURE, UNSPECIFIED Status: Acute (5) Acute respiratory failure Code(s): J96.00 - ACUTE RESPIRATORY FAILURE, UNSP W HYPOXIA OR HYPERCAPNIA Status: Acute Comment: extubaed 11/08 (6) Chronic atrial fibrillation Code(s): I48.2 - CHRONIC ATRIAL FIBRILLATION Status: Acute (7) Diastolic CHF Code(s): I50.30 - UNSPECIFIED DIASTOLIC (CONGESTIVE) HEART FAILURE Status: Acute Qualifiers: Heart failure chronicity: unspecified Qualified Code(s): I50.30 - Unspecified diastolic (congestive) heart failure Comment: Severe pulmonary HTN and diastolic dysfunction on ECHO (8) Hypotension Status: Acute Comment: dopamine weaned off 11/07 - Plan * * Appreciate Pulm - pt extubaed today * Hematuria improved - continuous bladder irrigation * Anemia of acute blood loss - stable and bleeding slowing down * CORTES continues to improve * * s/p pacemaker insertion 11/07 * * advance diet as tolerated per ICU protocol * * dvt prophy - scd's * gi prophy - pepcid * code status - chemical only with intubation * * family not present to discuss care * pt remains at high risk in current condition.
[2018-11-08] MEDS: Famotidine 20 MG TAB PO SCH (20:29)
--- NOTE | 2018-11-08 22:27 | PRG ---
DATE OF SERVICE: 11/08/2018 SUBJECTIVE: The patient noted with the following vital signs, still on life support. OBJECTIVE: VITAL SIGNS: Blood pressure 162/72, pulse 80, respiratory rate of 20, and O2 saturation of 92%. HEENT: Remarkable for endotracheal tube in place. CARDIOVASCULAR SYSTEM: First and second heart sounds were heard. RESPIRATORY SYSTEM: Clear to auscultation. DIGESTIVE SYSTEM: Revealed a benign abdomen. EXTREMITIES: No peripheral edema. SKIN: No new gross rash. LYMPHATICS: No peripheral lymphadenopathy. LABORATORY INVESTIGATION: Showed a hemoglobin of 9.0, creatinine down to 1.37 with BUN of 56. IMPRESSION: 1. Acute on chronic kidney disease, which seems to shown remarkable improvement with the creatinine down to 1.37. 2. Cardiopulmonary failure, on life support. PLAN: 1. Hemodynamic support. 2. Renally dose all medications and avoid potentially nephrotoxic agents. 3. Further management to be dependent on the clinical course. Job ID: [id number]
[2018-11-08] MEDS: cefTRIAXone\\ROCEPHIN 1 GM in Sodium Chloride 0.9% 100 ML IVPB SCH (23:45)
[2018-11-09 05:20] LABS: #Lymphocytes 0.9 thou/uL (1.20-3.40); #Monocytes 1.2 thou/uL (0.11-0.59); #Neutrophils 10.8 thou/uL (1.40-6.50); %Basophils 0.1 % (0.0-1.0); %Eosinophils 0.2 % (0.0-10.0); %Lymphocytes 7.1 % (21.0-51.0); %Monocytes 9.3 % (0.0-10.0); %Neutrophils 83.4 % (42.0-75.0); Hemoglobin 9.8 g/dL (14.0-18.0); Mean Corpuscular HGB CONC 32.3 g/dL (32.0-36.0); Mean Corpuscular Hemoglobin 30.5 pg (27.0-31.0); Mean Corpuscular Volume 94.3 fL (78.0-98.0); Mean Platelet Volume 6.9 fL (7.4-10.4); Platelet Count 190 thou/uL (130-400); RBC Distribution Width 13.5 % (11.5-14.5); Red Blood Cell (RBC) Count 3.22 mill/uL (4.70-6.10); White Blood Cell (WBC) Count 12.9 thou/uL (4.8-10.8)
[2018-11-09] MEDS ORDERED: Furosemide 40 MG/4 ML VIAL SLOW IVP SCH (08:00)
--- NOTE | 2018-11-09 08:27 | PRG ---
DATE OF SERVICE: 11/09/2018 SUBJECTIVE: The patient is extubated. He is alert. OBJECTIVE: VITAL SIGNS: On exam, his temperature is 100.2, pulse 81, blood pressure , and O2 sat 95% on 3 L of oxygen. Intake for 24 hours 898 in. His net urine output was not quantitated accurately. His weight currently is 205 pounds. His admission weight was 196 pounds. HEENT: Unremarkable. NECK: No JVD. LUNGS: Coarse breath sounds. CARDIAC: S1 and S2 paced. ABDOMEN: Soft. EXTREMITIES: He has bruising over his upper torso and petechiae type lesions. LABORATORY DATA: No labs were done today. Chemistry needs to be repeated this morning to ensure that he does not need supplemental potassium. ASSESSMENT: 1. Status post severe bradycardia, requiring pacemaker. 2. Status post respiratory failure, requiring mechanical ventilation. PLAN: 1. Initiate physical therapy. 2. Out of bed. 3. Check labs. 4. Consider moving to floor this afternoon if he is doing well. Job ID: [id number]
[2018-11-09] MEDS: Carvedilol 3.125 MG TAB PO SCH ×2 (08:28→09:54)
[2018-11-09 09:03] LABS: Anion Gap 18 mmol/L (10-20); BUN (Urea Nitrogen) 43 mg/dL (8.4-25.7); Calc. Creatinine Clearance 75 mL/min (70-130); Calcium 8.9 mg/dL (7.8-10.44); Carbon Dioxide 24 mmol/L (23-31); Chloride 106 mmol/L (98-107); Estimated GFR-MDRD 73; Glucose 108 mg/dL (83-110); Potassium 4.9 mmol/L (3.5-5.1); Sodium 143 mmol/L (136-145)
--- NOTE | 2018-11-09 09:08 | RAD ---
CHEST ONE VIEW: History: Dyspnea. Follow up. Comparison: 11-08-18 FINDINGS: Cardiac silhouette is magnified and enlarged. Pulmonary vasculature remains engorged with bilateral p erihilar and dense bibasilar infiltrates, similar in appearance to the prior study. Blunting of the h emidiaphragms has the appearance of pleural fluid. Mediastinum is midline with aortic calcification and a single lead left subclavian cardiac pacer. No evidence for pneumothorax. Endotracheal catheter and nasogastric tube no longer visible. IMPRESSION: 1. Interval removal of the endotracheal catheter and nasogastric tube. 2. Pulmonary edema with pleural fluid and other findings are otherwise stable. POS: [facility]
[2018-11-09] MEDS ORDERED: Digoxin 0.5 MG/2 ML AMP SLOW IVP SCH ×3 (10:00→14:00)
[2018-11-09] MEDS: Enoxaparin Sodium 30 MG/0.3 ML SYRINGE SC SCH (10:17)
--- NOTE | 2018-11-09 10:24 | PDOC.PN ---
- Subjective Encounter Start Date: 11/09/18 Encounter Start Time: 12:15 Subjective: Patient doing better. Extubated. Denies CP/SOB currently. - Objective Resuscitation Status - Order Detail: 11/03/18 22:06 Resuscitation Status Routine Resuscitation Status: PRTL: Chem-Intubation Discussed with: Discussed with and children and family. 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 Additional comments: external pacing MAR Reviewed: Yes Vital Signs & Weight: Vital Signs (12 hours) Temp Pulse 11/09/18 10:18 86 11/09/18 05:00 100.2 F H 11/09/18 00:00 98.0 F Weight Admit Weight 196 lb Weight 205 lb 7.533 oz Most Recent Monitor Data Heart Rate from ECG 80 NIBP 154/77 NIBP BP-Mean 96 Respiration from ECG 27 SpO2 93 I&O: 11/08/18 11/09/18 11/10/18 06:59 06:59 06:59 Intake Total 2715 898 Output Total 2295 5895 Balance -2075 -4885 Result Diagrams: 11/09/18 04:12 11/09/18 08:09 Phys Exam - Physical Examination Constitutional: NAD HEENT: moist MMs Respiratory: no wheezing, no rales, no rhonchi occ irregular and fast, 80s most of the time Gastrointestinal: soft, positive bowel sounds Neurological: non-focal, moves all 4 limbs Psychiatric: normal affect, A&O x 3 Dx/Plan (1) Bradycardia Code(s): R00.1 - BRADYCARDIA, UNSPECIFIED Status: Resolved Comment: S/P permanent pacemaker placement, doing well. (2) Intubation of airway performed without difficulty Code(s): Z78.9 - OTHER SPECIFIED HEALTH STATUS Status: Acute Comment: Extubated, saturating well on NC O2. (3) Acute renal failure Status: Resolved Comment: Dr. Gomez consulted, creatinine improving (4) Hyperkalemia Code(s): E87.5 - HYPERKALEMIA Status: Resolved Comment: Improved, given Kayexelate (5) Diastolic CHF Code(s): I50.30 - UNSPECIFIED DIASTOLIC (CONGESTIVE) HEART FAILURE Status: Acute Qualifiers: Heart failure chronicity: unspecified Qualified Code(s): I50.30 - Unspecified diastolic (congestive) heart failure Comment: Severe pulmonary HTN and diastolic dysfunction on ECHO (6) Chronic atrial fibrillation Code(s): I48.2 - CHRONIC ATRIAL FIBRILLATION Status: Chronic - Plan cont current plan of care, PT/OT, respiratory therapy Off all antibiotics * . - Discharge Day Encounter end time: 12:30
--- NOTE | 2018-11-09 12:14 | PRG ---
DATE OF SERVICE: 11/09/2018 SUBJECTIVE: The patient has been extubated. He is responsive but has hoarseness and is somewhat somnolent. He has had no other major events overnight. OBJECTIVE: VITAL SIGNS: Temperature 99, pulse 86, respirations 21, blood pressure 165/72, and saturations 94% on 1 L nasal cannula. GENERAL: Again, appears somnolent, minimally responsive, but awake. CARDIOVASCULAR: Regular rate and rhythm. CHEST: No significant increased work of breathing. Symmetric expansion of the lungs. ABDOMEN: Soft, nontender, and nondistended. Positive bowel sounds. : Nichols catheter in place with CBI. CBI is currently off and the urine is nearly completely yellow. EXTREMITIES: 1+ edema bilaterally. SKIN: Multiple ecchymoses noted throughout the patient's skin on arms, chest, and legs. LABORATORY DATA: On laboratory evaluation, the full set of labs in the [facility] system which I have reviewed. Of note, the patient's white count is 12.9 with a hemoglobin of 9.8. Creatinine is currently 0.98. ASSESSMENT AND PLAN: An 82-year-old white male with cardiac arrhythmia, status post pacemaker placement with hematuria and likely secondary to Nichols catheter trauma. The hematuria seems to have almost completely resolved now and his CBI is off. We will keep the CBI off, unless, he begins to have hematuria again, at which point, the nurse has been instructed to restart the CBI. If his urine remains clear for approximately another 1 to 2 days, I think we could consider a void trial once he is a little bit more ambulatory and out of the ICU. At which point, we can see if he is urinating on his own; however, his significant debilitation and weakness would likely make him have a temporary ileus of the bladder, which may make urination difficult. If he fails a void trial, he will need to keep an indwelling catheter, until he is able to do rehab to gain his strength back at which point, I would anticipate that he would be able to urinate better. I will continue to follow along and make recommendations. Job ID: [id number]
[2018-11-09] MEDS: Nitroglycerin 2% Ointment 1 INCH/1 GM Packet TOP SCH (19:46)
[2018-11-09] MEDS: Famotidine 20 MG TAB PO SCH (19:46)
[2018-11-09] MEDS: hydrALAZINE 20 MG/ML VIAL SLOW IVP PRN (19:47)
[2018-11-09] MEDS: Furosemide 40 MG/4 ML VIAL SLOW IVP SCH (19:47)
--- NOTE | 2018-11-09 23:19 | PRG ---
DATE OF SERVICE: 11/09/2018 SUBJECTIVE: The patient was seen and examined, already extubated, noted with the following vital signs. OBJECTIVE: VITAL SIGNS: Afebrile, temperature 98.2, pulse 100, and blood pressure 185/71. HEENT: Unremarkable. CARDIOVASCULAR SYSTEM: First and second heart sounds were heard. RESPIRATORY: Clear to auscultation. DIGESTIVE SYSTEM: Revealed a benign abdomen. EXTREMITIES: No peripheral edema. SKIN: No new gross rash. LYMPHATICS: No peripheral lymphadenopathy. LABORATORY INVESTIGATION: Showed a hemoglobin of 9.8. Chemistry showed a creatinine of 0.98 with BUN of 3. IMPRESSION: 1. Acute on chronic kidney disease, which is much improved with creatinine down to 0.98. 2. Hypertension, suboptimally controlled. PLAN: 1. The patient's blood pressure may be better monitored with medication with negative chronotropic effect. 2. Avoid potentially nephrotoxic agents. 3. Further management to be dependent on the clinical course. Job ID: [id number]
[2018-11-10] MEDS: Nitroglycerin 2% Ointment 1 INCH/1 GM Packet TOP SCH ×5 (00:23→23:24)
[2018-11-10 05:29] LABS: #Monocytes 1.2 thou/uL (0.11-0.59); #Neutrophils 9.3 thou/uL (1.40-6.50); %Basophils 0.1 % (0.0-1.0); %Eosinophils 0.3 % (0.0-10.0); %Lymphocytes 8.9 % (21.0-51.0); %Monocytes 10.3 % (0.0-10.0); %Neutrophils 80.3 % (42.0-75.0); Hemoglobin 9.9 g/dL (14.0-18.0); Mean Corpuscular HGB CONC 32.7 g/dL (32.0-36.0); Mean Corpuscular Hemoglobin 30.5 pg (27.0-31.0); Mean Corpuscular Volume 93.2 fL (78.0-98.0); Mean Platelet Volume 6.9 fL (7.4-10.4); Platelet Count 204 thou/uL (130-400); RBC Distribution Width 13.3 % (11.5-14.5); Red Blood Cell (RBC) Count 3.25 mill/uL (4.70-6.10); White Blood Cell (WBC) Count 11.5 thou/uL (4.8-10.8)
[2018-11-10 05:47] LABS: Anion Gap 13 mmol/L (10-20); BUN (Urea Nitrogen) 53 mg/dL (8.4-25.7); Calc. Creatinine Clearance 64 mL/min (70-130); Calcium 9.3 mg/dL (7.8-10.44); Carbon Dioxide 29 mmol/L (23-31); Chloride 108 mmol/L (98-107); Estimated GFR-MDRD 60; Glucose 118 mg/dL (83-110); Potassium 4.3 mmol/L (3.5-5.1); Sodium 146 mmol/L (136-145)
[2018-11-10] MEDS: hydrALAZINE 20 MG/ML VIAL SLOW IVP PRN (05:47)
[2018-11-10] MEDS: Enoxaparin Sodium 30 MG/0.3 ML SYRINGE SC SCH (08:03)
[2018-11-10] MEDS: Digoxin 0.125 MG TAB PO SCH (08:04)
[2018-11-10] MEDS: Furosemide 40 MG/4 ML VIAL SLOW IVP SCH (08:04)
--- NOTE | 2018-11-10 08:28 | RAD ---
CHEST ONE VIEW: History: Dyspnea. Follow up exam. FINDINGS: Re-demonstration of the left sided transvenous pacemaker, cardiomegaly and atherosclerosis. There is persistent interstitial and alveolar opacification. The degree of opacification has minimally decreas ed when compared to earlier exam. Bilateral pleural effusions are again noted. There is no pneumothor ax. IMPRESSION: Slightly improved aeration. Persistent interstitial and alveolar infiltrates along with pleural effus ion. POS: EVELIA
[2018-11-10] MEDS ORDERED: Furosemide 40 MG/4 ML VIAL SLOW IVP SCH ×3 (09:00→21:00)
[2018-11-10] MEDS ORDERED: Carvedilol 3.125 MG TAB PO SCH ×2 (10:00→10:15)
--- NOTE | 2018-11-10 10:09 | PDOC.PN ---
- Subjective Encounter Start Date: 11/10/18 Encounter Start Time: 11:50 Subjective: Patient feeling a bit better. Moved around with PT. No CP/SOB. No fever. - Objective Resuscitation Status - Order Detail: 11/03/18 22:06 Resuscitation Status Routine Resuscitation Status: PRTL: Chem-Intubation Discussed with: Discussed with and children and family. 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 Additional comments: external pacing MAR Reviewed: Yes Vital Signs & Weight: Vital Signs (12 hours) Temp Pulse BP Pulse Ox 11/10/18 08:04 90 11/10/18 08:00 100 11/10/18 05:47 84 198/80 H 11/10/18 04:00 97.8 F 11/10/18 00:00 98.2 F 11/09/18 22:14 94 L Weight Admit Weight 196 lb Weight 187 lb 6.287 oz Most Recent Monitor Data Heart Rate from ECG 87 NIBP 172/62 NIBP BP-Mean 108 Respiration from ECG 21 SpO2 94 I&O: 11/09/18 11/10/18 11/11/18 06:59 06:59 06:59 Intake Total 898 508 Output Total 5810 2310 Balance -9068 -0157 Result Diagrams: 11/10/18 05:10 11/10/18 05:10 Phys Exam - Physical Examination Constitutional: NAD HEENT: moist MMs Respiratory: no wheezing, no rales, no rhonchi Cardiovascular: RRR, no significant murmur Gastrointestinal: soft, positive bowel sounds Musculoskeletal: no edema Neurological: non-focal, moves all 4 limbs Psychiatric: normal affect, A&O x 3 Dx/Plan (1) Bradycardia Code(s): R00.1 - BRADYCARDIA, UNSPECIFIED Status: Resolved Comment: S/P permanent pacemaker placement, doing well. (2) Intubation of airway performed without difficulty Code(s): Z78.9 - OTHER SPECIFIED HEALTH STATUS Status: Acute Comment: Extubated, saturating well on NC O2. (3) Acute renal failure Status: Resolved Comment: Dr. Gomez consulted, creatinine improving, will redose Lovenox now that GFR improved (4) Hyperkalemia Code(s): E87.5 - HYPERKALEMIA Status: Resolved Comment: Improved, given Kayexelate (5) Diastolic CHF Code(s): I50.30 - UNSPECIFIED DIASTOLIC (CONGESTIVE) HEART FAILURE Status: Acute Qualifiers: Heart failure chronicity: unspecified Qualified Code(s): I50.30 - Unspecified diastolic (congestive) heart failure Comment: Severe pulmonary HTN and diastolic dysfunction on ECHO (6) Chronic atrial fibrillation Code(s): I48.2 - CHRONIC ATRIAL FIBRILLATION Status: Chronic - Plan cont current plan of care, PT/OT, DVT proph w/lovenox * . - Discharge Day Encounter end time: 12:00
--- NOTE | 2018-11-10 10:10 | PRG ---
DATE OF SERVICE: 11/10/2018 SUBJECTIVE: The patient is doing well today, has no complaints. OBJECTIVE: VITAL SIGNS: Temperature 97.8, pulse 87, blood pressure his weight is down to 187 pounds. HEENT: Unremarkable. NECK: Without adenopathy or JVD. LUNGS: Some diminished breath sounds at the bases. CARDIOVASCULAR: S1 and S2, paced. ABDOMEN: Soft and nontender. EXTREMITIES: Edematous. LABORATORY DATA: White blood cell count 11.5, hematocrit 30.3, and platelet count 204. Sodium 146, potassium 4.3, chloride 108, CO2 of 29, BUN 53, creatinine 1.1, glucose 118. ASSESSMENT: 1. Status post acute respiratory failure related to congestive heart failure. 2. Systolic heart failure related to severe bradycardia at the time of admission. 3. Improved acute renal failure, now to the point of being dry. RECOMMENDATIONS: 1. I would consider going down on the diuretic dose. 2. Can transfer to [facility]. 3. physical therapy. Job ID: [id number]
[2018-11-10] MEDS: Tamsulosin HCl 0.4 MG CAP PO SCH (11:58)
[2018-11-10] MEDS: Carvedilol 3.125 MG TAB PO SCH (17:34)
[2018-11-10] MEDS: Famotidine 20 MG TAB PO SCH (20:02)
[2018-11-11 04:49] LABS: #Eosinphils 0.1 thou/uL (0.0-0.7); #Lymphocytes 0.8 thou/uL (1.20-3.40); #Monocytes 0.7 thou/uL (0.11-0.59); #Neutrophils 4.7 thou/uL (1.40-6.50); %Basophils 0.2 % (0.0-1.0); %Eosinophils 1.8 % (0.0-10.0); %Lymphocytes 13.3 % (21.0-51.0); %Monocytes 10.3 % (0.0-10.0); %Neutrophils 74.4 % (42.0-75.0); Hemoglobin 8.2 g/dL (14.0-18.0); Mean Corpuscular HGB CONC 32.7 g/dL (32.0-36.0); Mean Corpuscular Hemoglobin 30.5 pg (27.0-31.0); Mean Corpuscular Volume 93.1 fL (78.0-98.0); Mean Platelet Volume 6.7 fL (7.4-10.4); Platelet Count 193 thou/uL (130-400); RBC Distribution Width 13.3 % (11.5-14.5); Red Blood Cell (RBC) Count 2.68 mill/uL (4.70-6.10); White Blood Cell (WBC) Count 6.3 thou/uL (4.8-10.8)
[2018-11-11 05:13] LABS: Anion Gap 11 mmol/L (10-20); BUN (Urea Nitrogen) 47 mg/dL (8.4-25.7); Calc. Creatinine Clearance 63 mL/min (70-130); Calcium 8.5 mg/dL (7.8-10.44); Carbon Dioxide 31 mmol/L (23-31); Chloride 108 mmol/L (98-107); Estimated GFR-MDRD 67; Glucose 103 mg/dL (83-110); Potassium 3.8 mmol/L (3.5-5.1); Sodium 146 mmol/L (136-145)
[2018-11-11] MEDS: Nitroglycerin 2% Ointment 1 INCH/1 GM Packet TOP SCH ×3 (05:26→18:35)
[2018-11-11] MEDS ORDERED: Carvedilol 3.125 MG TAB PO SCH (08:43)
--- NOTE | 2018-11-11 08:49 | PRG ---
DATE OF SERVICE: 11/10/2018 SUBJECTIVE: The patient is seen and examined. Noted with the following vital signs. OBJECTIVE: VITAL SIGNS: Temperature 98.5, pulse 79, respiratory rate 20, blood pressure 121/57. HEENT: Unremarkable. CARDIOVASCULAR SYSTEM: First and second heart sounds were heard. RESPIRATORY SYSTEM: DIGESTIVE SYSTEM: Revealed a benign abdomen. EXTREMITIES: No peripheral edema. SKIN: No new gross rash. LYMPHATICS: No peripheral lymphadenopathy. IMPRESSION: 1. Glqiy-ot-vpgijqa kidney disease, will require hemodynamic support. 2. Hypertension, . 3. Further management to be dependent on the clinical course. Job ID: [id number]
--- NOTE | 2018-11-11 08:50 | PDOC.PN ---
- Subjective Encounter Start Date: 11/11/18 Encounter Start Time: 09:20 Subjective: Patient doing well. No CP/SOB. Doesn't like the food but willing to start -: eating more to gain strength. - Objective Resuscitation Status - Order Detail: 11/03/18 22:06 Resuscitation Status Routine Resuscitation Status: PRTL: Chem-Intubation Discussed with: Discussed with and children and family. 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 Additional comments: external pacing MAR Reviewed: Yes Vital Signs & Weight: Vital Signs (12 hours) Temp Pulse Resp BP Pulse Ox 11/11/18 07:51 98.2 F 75 18 148/77 H 94 L 11/11/18 03:54 99.2 F 79 16 134/61 94 L 11/11/18 03:53 99.2 F 79 16 134/61 94 L 11/11/18 00:00 99.2 F 80 16 116/50 L 94 L Weight Admit Weight 196 lb Weight 284 lb Most Recent Monitor Data Heart Rate from ECG 80 NIBP 141/56 NIBP BP-Mean 71 Respiration from ECG 28 SpO2 93 I&O: 11/10/18 11/11/18 11/12/18 06:59 06:59 06:59 Intake Total 508 2300 Output Total 2310 4250 Balance -1802 -1950 Result Diagrams: 11/11/18 04:32 11/11/18 04:32 Phys Exam - Physical Examination Constitutional: NAD HEENT: moist MMs Respiratory: no wheezing, no rales, no rhonchi Cardiovascular: RRR, no significant murmur Gastrointestinal: soft, positive bowel sounds Neurological: non-focal, moves all 4 limbs Psychiatric: normal affect, A&O x 3 Dx/Plan (1) Bradycardia Code(s): R00.1 - BRADYCARDIA, UNSPECIFIED Status: Resolved Comment: S/P permanent pacemaker placement, doing well. (2) Intubation of airway performed without difficulty Code(s): Z78.9 - OTHER SPECIFIED HEALTH STATUS Status: Acute Comment: Extubated, saturating well on NC O2. (3) Acute renal failure Status: Resolved Comment: Dr. Gomez consulted, creatinine improving, will redose Lovenox now that GFR improved (4) Hyperkalemia Code(s): E87.5 - HYPERKALEMIA Status: Resolved Comment: Improved, given Kayexelate (5) Diastolic CHF Code(s): I50.30 - UNSPECIFIED DIASTOLIC (CONGESTIVE) HEART FAILURE Status: Acute Qualifiers: Heart failure chronicity: acute on chronic Qualified Code(s): I50.33 - Acute on chronic diastolic (congestive) heart failure Comment: Severe pulmonary HTN and diastolic dysfunction on ECHO (6) Chronic atrial fibrillation Code(s): I48.2 - CHRONIC ATRIAL FIBRILLATION Status: Chronic - Plan cont current plan of care, PT/OT, respiratory therapy, DVT proph w/lovenox * . - Discharge Day Encounter end time: 09:30
[2018-11-11] MEDS ORDERED: Carvedilol 6.25 MG TAB PO SCH (09:00)
[2018-11-11] MEDS: Digoxin 0.125 MG TAB PO SCH (09:36)
[2018-11-11] MEDS: Enoxaparin Sodium 40 MG/0.4 ML SYRINGE SC SCH (09:37)
--- NOTE | 2018-11-11 09:59 | PRG ---
DATE OF SERVICE: 11/11/2018 SUBJECTIVE: The patient is doing well. He is feeding himself. He has not been able to get up because of the bladder irrigation. OBJECTIVE: VITAL SIGNS: Temperature 98.2, pulse 65, respirations 18, O2 saturation 94% on 2 L, and blood pressure 148/77. HEENT: Unremarkable. NECK: No JVD. CHEST: Clear anteriorly. CARDIAC: S1 and S2, regular, paced. ABDOMEN: Soft. EXTREMITIES: No edema. LABORATORY DATA: White blood cell count 6.3, hematocrit 25, platelet count 193. Sodium 146, potassium 3.8, chloride 108, CO2 of 31, BUN 47, creatinine 1.1, and glucose 103. ASSESSMENT: 1. Status post pacemaker placement for sick sinus syndrome. 2. Status post respiratory failure, requiring mechanical ventilation. 3. Status post Nichols trauma and subsequent need for bladder irrigation. PLAN: I think he can be transferred to the floor once the bladder irrigation is stopped. He needs to start physical therapy if he is not already done so. Job ID: [id number]
[2018-11-11] MEDS: Tamsulosin HCl 0.4 MG CAP PO SCH (13:21)
[2018-11-11] MEDS: Carvedilol 3.125 MG TAB PO SCH (13:44)
--- NOTE | 2018-11-11 17:42 | PRG ---
DATE OF SERVICE: 11/11/2018 SUBJECTIVE: The patient is doing well. He states he has no complaints right now. He is somewhat weak, but he had been able to get out of bed several times and ambulated short distances. His urine has been relatively clear without any further hematuria and his CBI is now off. OBJECTIVE: VITAL SIGNS: Temperature 98.7, pulse 84, respirations 20, blood pressure 155/83, and saturations 89% on room air. GENERAL: No apparent distress, communicating, and alert. CARDIOVASCULAR: Normal rate, irregular rhythm. ABDOMEN: Soft, nontender, nondistended. Positive bowel sounds. : Nichols catheter in place with clear urine with some sediment and a few tiny sediments of blood. EXTREMITIES: No clubbing, cyanosis, or edema. LABORATORY DATA: On laboratory evaluation, the full set of labs are in the [facility] system, which I have reviewed. Of note, white count is 6.3 with a hemoglobin 8.2. Creatinine is currently 1.06. ASSESSMENT AND PLAN: An 82-year-old white male with gross hematuria, likely secondary to catheter trauma, which has now resolved. He has had a catheter in for several days and I do feel that he has been long enough now that he could have his catheter removed for a void trial. There is some concern given his weakness about whether he would be able to ambulate properly to urinate or even be able to urinate at all given his deconditioning. The patient states he would like to try and get rid of his catheter eventually, so we will make plans to remove his catheter either today or tomorrow and have him do a void trial. If he cannot urinate, we will have to replace the catheter and he will probably have to go to rehab with his catheter in. However, if he is able to urinate, the catheter can remain out and we will continue to follow him on an outpatient basis. Job ID: [id number]
[2018-11-11] MEDS: Carvedilol 6.25 MG TAB PO SCH (18:34)
[2018-11-11] MEDS: Famotidine 20 MG TAB PO SCH (20:44)
[2018-11-12] MEDS: Nitroglycerin 2% Ointment 1 INCH/1 GM Packet TOP SCH ×2 (00:05→05:40)
[2018-11-12 05:08] LABS: #Eosinphils 0.2 thou/uL (0.0-0.7); #Lymphocytes 0.7 thou/uL (1.20-3.40); #Monocytes 0.4 thou/uL (0.11-0.59); #Neutrophils 3.2 thou/uL (1.40-6.50); %Basophils 0.1 % (0.0-1.0); %Eosinophils 4.3 % (0.0-10.0); %Lymphocytes 16.6 % (21.0-51.0); %Monocytes 7.9 % (0.0-10.0); Hemoglobin 8.6 g/dL (14.0-18.0); Mean Corpuscular HGB CONC 32.8 g/dL (32.0-36.0); Mean Corpuscular Hemoglobin 30.6 pg (27.0-31.0); Mean Corpuscular Volume 93.4 fL (78.0-98.0); Mean Platelet Volume 6.9 fL (7.4-10.4); Platelet Count 212 thou/uL (130-400); RBC Distribution Width 13.3 % (11.5-14.5); White Blood Cell (WBC) Count 4.5 thou/uL (4.8-10.8)
[2018-11-12 05:41] LABS: Anion Gap 12 mmol/L (10-20); BUN (Urea Nitrogen) 34 mg/dL (8.4-25.7); Calc. Creatinine Clearance 76 mL/min (70-130); Calcium 8.6 mg/dL (7.8-10.44); Carbon Dioxide 30 mmol/L (23-31); Chloride 107 mmol/L (98-107); Estimated GFR-MDRD 84; Glucose 92 mg/dL (83-110); Potassium 3.6 mmol/L (3.5-5.1); Sodium 145 mmol/L (136-145)
--- NOTE | 2018-11-12 09:34 | PDOC.PN ---
- Subjective Encounter Start Date: 11/12/18 Encounter Start Time: 11:00 Subjective: Patient doing better. Had tyson out today but hasn't voided -: yet. Strength improving. No CP. No SOB. - Objective Resuscitation Status - Order Detail: 11/03/18 22:06 Resuscitation Status Routine Resuscitation Status: PRTL: Chem-Intubation Discussed with: Discussed with and children and family. 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 Additional comments: external pacing MAR Reviewed: Yes Vital Signs & Weight: Vital Signs (12 hours) Temp Pulse Resp BP Pulse Ox 11/12/18 07:36 98 11/12/18 07:18 98.5 F 79 19 94/68 95 11/12/18 04:25 98.8 F 79 16 135/66 96 11/12/18 00:06 98.7 F 79 16 116/52 L 100 Weight Admit Weight 196 lb Weight 184 lb 4.8 oz Most Recent Monitor Data Heart Rate from ECG 80 NIBP 141/56 NIBP BP-Mean 71 Respiration from ECG 28 SpO2 93 I&O: 11/11/18 11/12/18 11/13/18 06:59 06:59 06:59 Intake Total 2300 1410 Output Total 4250 1700 Balance -1950 -290 Result Diagrams: 11/12/18 04:49 11/12/18 04:49 Phys Exam - Physical Examination Constitutional: NAD HEENT: moist MMs Respiratory: no wheezing, no rales, no rhonchi, clear to auscultation bilateral Cardiovascular: RRR, no significant murmur Gastrointestinal: soft, positive bowel sounds Neurological: non-focal, moves all 4 limbs Psychiatric: normal affect, A&O x 3 Dx/Plan (1) Bradycardia Code(s): R00.1 - BRADYCARDIA, UNSPECIFIED Status: Resolved Comment: S/P permanent pacemaker placement, doing well. (2) Intubation of airway performed without difficulty Code(s): Z78.9 - OTHER SPECIFIED HEALTH STATUS Status: Acute Comment: Extubated, saturating well on NC O2. (3) Acute renal failure Status: Resolved Comment: Dr. Gomez consulted, creatinine improving, will redose Lovenox now that GFR improved (4) Hyperkalemia Code(s): E87.5 - HYPERKALEMIA Status: Resolved Comment: Improved, given Kayexelate (5) Diastolic CHF Code(s): I50.30 - UNSPECIFIED DIASTOLIC (CONGESTIVE) HEART FAILURE Status: Acute Qualifiers: Heart failure chronicity: acute on chronic Qualified Code(s): I50.33 - Acute on chronic diastolic (congestive) heart failure Comment: Severe pulmonary HTN and diastolic dysfunction on ECHO (6) Chronic atrial fibrillation Code(s): I48.2 - CHRONIC ATRIAL FIBRILLATION Status: Chronic (7) Hematuria Code(s): R31.9 - HEMATURIA, UNSPECIFIED Status: Acute Comment: Bladder irrigation d/c'd. Plan to try off tyson today. - Plan cont current plan of care, PT/OT, DVT proph w/lovenox Plan to send to rehab when approved and ok to d/c per cardiology * . - Discharge Encounter end time: 11:10
--- NOTE | 2018-11-12 09:41 | PRG ---
DATE OF SERVICE: 11/12/2018 SUBJECTIVE: Mr. Guy has been up and walking around. He looks very good. OBJECTIVE: VITAL SIGNS: Temperature 98.5, pulse 79, respirations 19, O2 saturation 95% on 2 L, and blood pressure 94/60. HEENT: Unremarkable. NECK: No JVD. CHEST: Clear anteriorly. CARDIAC: S1, S2. Regular. ABDOMEN: Soft. EXTREMITIES: No edema. LABORATORY DATA: White blood cell count 4.5, hematocrit 26.2, and platelet count 212. Sodium 145, potassium 3.6, BUN 34, creatinine 0.8, glucose 84. ASSESSMENT: 1. Status post sick sinus syndrome, requiring pacemaker placement. 2. Status post respiratory failure, requiring mechanical ventilation. PLAN: The patient can be transferred out to the Telemetry floor. I think, he is a good candidate for rehab and should be able to go over there as soon as he is cleared by Cardiology. Job ID: [id number]
[2018-11-12] MEDS: Furosemide 40 MG TAB PO SCH (09:42)
[2018-11-12] MEDS: Enoxaparin Sodium 40 MG/0.4 ML SYRINGE SC SCH (09:43)
[2018-11-12] MEDS: Carvedilol 6.25 MG TAB PO SCH ×2 (09:43→18:26)
[2018-11-12] MEDS: Digoxin 0.125 MG TAB PO SCH (09:43)
--- NOTE | 2018-11-12 09:50 | PRG ---
DATE OF SERVICE: 11/11/2018 SUBJECTIVE: The patient was seen and examined. Seems to be doing much better. Hemodynamically stable. OBJECTIVE: VITAL SIGNS: Blood pressure 151/83, O2 saturations 98%, pulse 84, respiratory rate of 20. HEENT: Unremarkable. Moist oral mucosa. NECK: Supple. No conjunctival injection or icterus. CARDIOVASCULAR: First and second heart sounds were heard. RESPIRATORY: Clear to auscultation. DIGESTIVE SYSTEM: Revealed a benign abdomen with positive bowel sounds. EXTREMITIES: No peripheral edema. SKIN: No new gross rash. LYMPHATICS: No peripheral lymphadenopathy. IMPRESSION: 1. Htfcn-ij-ekjfyrs kidney disease, which seems to be much improved. 2. Gross hematuria, followed by Urology. PLAN: 1. Continue current renal supportive measures. 2. Further management to be dependent on the clinical course. Job ID: [id number]
[2018-11-12] MEDS: Tamsulosin HCl 0.4 MG CAP PO SCH (12:46)
[2018-11-12] MEDS: Famotidine 20 MG TAB PO SCH (20:46)
--- NOTE | 2018-11-13 08:19 | PDOC.PN ---
- Subjective Encounter Start Date: 11/13/18 Encounter Start Time: 10:10 Subjective: Patient feeling much better. Had some tachy arrh overnight, non- sustained. -: Coreg increased. Strength improving with PT. - Objective Resuscitation Status - Order Detail: 11/03/18 22:06 Resuscitation Status Routine Resuscitation Status: PRTL: Chem-Intubation Discussed with: Discussed with and children and family. 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 Additional comments: external pacing MAR Reviewed: Yes Vital Signs & Weight: Vital Signs (12 hours) Temp Pulse Resp BP Pulse Ox 11/13/18 07:27 98.8 F 79 18 128/57 L 93 L 11/13/18 04:00 99.2 F 79 20 132/65 92 L 11/13/18 00:00 98.8 F 84 16 113/65 97 Weight Admit Weight 196 lb 1.6 oz Weight 184 lb 14.4 oz Most Recent Monitor Data Heart Rate from ECG 80 NIBP 141/56 NIBP BP-Mean 71 Respiration from ECG 28 SpO2 93 I&O: 11/12/18 11/13/18 11/14/18 06:59 06:59 06:59 Intake Total 1410 10 Output Total 1700 500 Balance -290 -490 Result Diagrams: 11/12/18 04:49 11/13/18 11:02 Phys Exam - Physical Examination Constitutional: NAD HEENT: moist MMs Respiratory: no wheezing, no rales, no rhonchi Cardiovascular: RRR, no significant murmur Gastrointestinal: soft, non-tender, positive bowel sounds Neurological: non-focal, moves all 4 limbs Psychiatric: normal affect, A&O x 3 Dx/Plan (1) Bradycardia Code(s): R00.1 - BRADYCARDIA, UNSPECIFIED Status: Resolved Comment: S/P permanent pacemaker placement, doing well. (2) Intubation of airway performed without difficulty Code(s): Z78.9 - OTHER SPECIFIED HEALTH STATUS Status: Resolved Comment: Extubated, now weaned off all oxygen, doing well on RA (3) Acute renal failure Status: Resolved Comment: Dr. Gomez consulted, creatinine improving, will redose Lovenox now that GFR improved (4) Hyperkalemia Code(s): E87.5 - HYPERKALEMIA Status: Resolved (5) Diastolic CHF Code(s): I50.30 - UNSPECIFIED DIASTOLIC (CONGESTIVE) HEART FAILURE Status: Acute Qualifiers: Heart failure chronicity: acute on chronic Qualified Code(s): I50.33 - Acute on chronic diastolic (congestive) heart failure Comment: Severe pulmonary HTN and diastolic dysfunction on ECHO (6) Chronic atrial fibrillation Code(s): I48.2 - CHRONIC ATRIAL FIBRILLATION Status: Chronic (7) Hematuria Code(s): R31.9 - HEMATURIA, UNSPECIFIED Status: Resolved Comment: Nichols successfully out. No more hematuria. - Plan cont current plan of care, PT/OT rehab when approved * . - Discharge Day Encounter end time: 10:20
--- NOTE | 2018-11-13 09:35 | PRG ---
DATE OF SERVICE: 11/13/2018 SUBJECTIVE: Mr. Guy remains in the IM. He has been walking around. He is quite thankful for his care. Has no complaints today. OBJECTIVE: VITAL SIGNS: Temperature 98.8, pulse 79, respirations 18, O2 saturation 95% on room air, and blood pressure 120/57. HEENT: Unremarkable. NECK: Without adenopathy, JVD, or bruits. LUNGS: Clear. CARDIAC: S1 and S2, regular. ABDOMEN: Soft. EXTREMITIES: No edema. ASSESSMENT: 1. Status post pacemaker placement for sick sinus syndrome. 2. Status post acute respiratory failure related to his heart failure. PLAN: He can be transferred out to telemetry. His pulmonary status is stable. There are no acute pulmonary issues and we will sign off. Job ID: [id number]
[2018-11-13] MEDS: Digoxin 0.125 MG TAB PO SCH (09:39)
[2018-11-13] MEDS: Apixaban 5 MG TAB PO SCH ×2 (09:39→21:42)
[2018-11-13] MEDS: Carvedilol 6.25 MG TAB PO SCH ×2 (09:39→17:22)
[2018-11-13] MEDS: Furosemide 40 MG TAB PO SCH (09:42)
[2018-11-13] MEDS: Tamsulosin HCl 0.4 MG CAP PO SCH (11:33)
[2018-11-13 11:37] LABS: Anion Gap 17 mmol/L (10-20); BUN (Urea Nitrogen) 28 mg/dL (8.4-25.7); Calc. Creatinine Clearance 75 mL/min (70-130); Carbon Dioxide 22 mmol/L (23-31); Chloride 105 mmol/L (98-107); Estimated GFR-MDRD 83; Glucose 102 mg/dL (83-110); Magnesium 2.3 mg/dL (1.6-2.6); Potassium 3.8 mmol/L (3.5-5.1); Sodium 140 mmol/L (136-145)
--- NOTE | 2018-11-13 18:19 | PRG ---
DATE OF SERVICE: 11/13/2018 SUBJECTIVE: The patient was seen and examined, seems to be doing much better, noted with the following vital signs. OBJECTIVE: VITAL SIGNS: Afebrile, temperature 98.1, pulse 79, respiratory rate of 18, O2 saturations 95%, blood pressure 120/57. HEENT: Unremarkable. CARDIOVASCULAR SYSTEM: First and second heart sounds were heard. RESPIRATORY SYSTEM: Clear to auscultation. DIGESTIVE SYSTEM: Revealed a benign abdomen. EXTREMITIES: No peripheral edema. LABORATORY INVESTIGATION: Showed a creatinine down to less than 1. IMPRESSION: 1. Acute kidney injury which is much improved, back to baseline normal range. 2. Sick sinus syndrome, status post pacemaker placement. PLAN: Continue current renal supportive measures. Job ID: [id number]
[2018-11-13] MEDS: Famotidine 20 MG TAB PO SCH (21:42)
[2018-11-14 06:29] LABS: Anion Gap 13 mmol/L (10-20); BUN (Urea Nitrogen) 26 mg/dL (8.4-25.7); Calc. Creatinine Clearance 81 mL/min (70-130); Calcium 8.5 mg/dL (7.8-10.44); Carbon Dioxide 26 mmol/L (23-31); Chloride 105 mmol/L (98-107); Estimated GFR-MDRD 90; Glucose 95 mg/dL (83-110); Potassium 3.2 mmol/L (3.5-5.1); Sodium 141 mmol/L (136-145)
[2018-11-14] MEDS: Carvedilol 6.25 MG TAB PO SCH (08:13)
[2018-11-14] MEDS: Digoxin 0.125 MG TAB PO SCH (08:13)
[2018-11-14] MEDS: Furosemide 40 MG TAB PO SCH (08:13)
[2018-11-14] MEDS: Apixaban 5 MG TAB PO SCH ×2 (08:13→20:58)
[2018-11-14] MEDS ORDERED: Carvedilol 6.25 MG TAB PO SCH (09:00)
[2018-11-14] MEDS ORDERED: Carvedilol 25 MG TAB PO SCH (09:00)
[2018-11-14] MEDS ORDERED: Potassium Chloride 20 MEQ TAB PO SCH (12:30)
--- NOTE | 2018-11-14 12:43 | PRG ---
DATE OF SERVICE: 11/12/2018 SUBJECTIVE: The patient states he is feeling good. His catheter was removed and he has been voiding without any difficulty. His urine is clear without any blood. He is currently taking his finasteride and Flomax. He does have a history of previous BPH with slow urinary stream, but states that he is getting by pretty well on his own and he has no real complaints regarding his urination currently. He has been up out of bed and is otherwise doing quite well. OBJECTIVE: VITAL SIGNS: Temperature 98.2, blood pressure 144/68, heart rate 80, respirations 19, and saturations 95% on room air. GENERAL: No apparent distress, communicating, and alert. CARDIOVASCULAR: Regular rate and rhythm. SKIN: Multiple ecchymoses throughout his chest, shoulders, arms, and extremities. ABDOMEN: Soft, nontender, and nondistended. : Nichols catheter has gone. Penis is otherwise nonfocal. EXTREMITIES: No significant clubbing, cyanosis, or edema. LABORATORY EVALUATION: The full set of labs in the [facility] System, which I have reviewed. Of note, the patient's white count is 4.5 and hemoglobin is 8.6. Creatinine is 0.82. ASSESSMENT AND PLAN: An 82-year-old white male with gross hematuria secondary to catheter-related trauma, which has now resolved. The patient has also history of benign prostatic hyperplasia, but he is urinating well with finasteride and Flomax and has passed his voiding trial. He had a postvoid residual via bladder scan by the nursing staff, which demonstrated only 18 mL. He is very happy with his current emptying status and since he states he is urinating without any significant problems, I think I can sign off at this time. He does not necessarily state that he needs a followup appointment, which I would agree with. Given him my card that if his urinary symptoms worsen in the future, he can always contact me. Otherwise, he can see me on a p.r.n. basis as an outpatient. Again, I will sign off on this case. Please re-consult if there are any further questions or concerns. Job ID: [id number]
[2018-11-14] MEDS: Tamsulosin HCl 0.4 MG CAP PO SCH (12:46)
--- NOTE | 2018-11-14 14:03 | PRG ---
DATE OF SERVICE: 11/14/2018 SUBJECTIVE: The patient is seen and examined at the bedside. He is feeling good. He did his walking this morning. His appetite is not that good, but he complains about the quality of food in this hospital. OBJECTIVE: VITAL SIGNS: Blood pressure is 126/60, pulse is 84, respiratory rate is 18, temperature is 98.3, and O2 saturation 93% on room air. HEENT: His head is atraumatic and normocephalic. Eyes are PERRLA. Sclerae are nonicteric. Oral mucosa is moist. NECK: Supple. CHEST: Left upper chest shows there is some bruising in the area where the pacemaker was placed. Otherwise, the area looks good lungs. LUNGS: He has few wheezes and few crackles at both bases. HEART: S1, S2 normal. No S3. No S4. There is a murmur 2/6, mostly audible at the left sternal border. ABDOMEN: Soft, nontender. Bowel sounds are present. No organomegaly. EXTREMITIES: No clubbing, cyanosis, or edema. NEUROLOGIC: He is alert and oriented x4. There is no any motor or sensory deficit present. Cranial nerves are intact. LABORATORY DATA: Labs showed sodium of 141, potassium 3.2, chloride 105, CO2 of 26, BUN 26, creatinine 0.82. The rest of chemistry within normal limits. IMPRESSION: 1. Bradycardia, status post permanent pacemaker placement. 2. Acute renal failure, improved. 3. Hypokalemia. We will supplement him with potassium chloride p.o. 40 mEq x1. 4. Diastolic congestive heart failure, acute on chronic, improved, although there is a severe pulmonary hypertension. 5. Chronic atrial fibrillation. 6. Hematuria, resolved. PLAN: Plan is to continue current regimen, which includes Eliquis, carvedilol, digoxin, furosemide, and Flomax along with potassium and transfer to rehab as soon as he is approved. Job ID: [id number]
[2018-11-14] MEDS: Carvedilol 25 MG TAB PO SCH (16:48)
[2018-11-14] MEDS: Famotidine 20 MG TAB PO SCH (20:58)
--- NOTE | 2018-11-15 00:14 | PRG ---
DATE OF SERVICE: 11/14/2018 SUBJECTIVE: The patient noted with the following vital signs. OBJECTIVE: VITAL SIGNS: Temperature 98.9, pulse 85, respiratory rate of 20, O2 sat 95%, and blood pressure . HEENT: Unremarkable. CARDIOVASCULAR SYSTEM: First and second heart sounds were heard. RESPIRATORY SYSTEM: Clear to auscultation. DIGESTIVE SYSTEM: Revealed a benign abdomen with positive bowel sounds. EXTREMITIES: No peripheral edema. SKIN: No new gross rash. LYMPHATICS: No peripheral lymphadenopathy. LABORATORY INVESTIGATION: Showed creatinine 0.83, BUN of 26, and potassium 3.2. IMPRESSION: 1. Hypokalemia. 2. Acute kidney injury, resolved. 3. Hypernatremia, resolved. PLAN: 1. Replete potassium. 2. Further management to be dependent on the clinical course. Job ID: [id number]
[2018-11-15] MEDS: Apixaban 5 MG TAB PO SCH ×2 (09:01→20:47)
[2018-11-15] MEDS: Carvedilol 25 MG TAB PO SCH ×2 (09:01→17:24)
[2018-11-15] MEDS: Furosemide 40 MG TAB PO SCH (09:01)
[2018-11-15] MEDS: Digoxin 0.125 MG TAB PO SCH (09:01)
[2018-11-15] MEDS: Tamsulosin HCl 0.4 MG CAP PO SCH (12:14)
--- NOTE | 2018-11-15 14:13 | PRG ---
DATE OF SERVICE: 11/15/2018 SUBJECTIVE: The patient is seen and examined at bedside. He is doing quite well. He is walking in the hallway. His appetite is fair. OBJECTIVE: VITAL SIGNS: Blood pressure is 146/68, pulse is 80, temperature is 97.9, O2 saturation is 95% on room air, his respirations are 18. HEENT: His head is atraumatic and normocephalic. Eyes are PERRLA. Sclerae are nonicteric. Oral mucosa is moist. NECK: Supple. No lymphadenopathy. Thyroid is not palpable. Left upper chest shows status post pacemaker placement with small bruise and healing incision properly. LUNGS: Clear. HEART: S1 and S2 normal. No S3. No S4. ABDOMEN: Soft, nontender. Bowel sounds are present. No organomegaly. EXTREMITIES: No clubbing, cyanosis, or edema. NEUROLOGIC: He is alert and oriented x4. There is no any sensory or motor deficits present. Cranial nerves are intact. LABORATORY DATA: None today. IMPRESSION: 1. Bradycardia, status post permanent pacemaker placement. 2. Acute renal failure, improved. 3. Renal failure, improved. 4. Hypokalemia. 5. Diastolic congestive heart failure, acute on chronic, improved. 6. Severe pulmonary hypertension. 7. Chronic atrial fibrillation. 8. Hematuria, resolved, posttraumatic. PLAN: Plan is to continue his current regimen with furosemide, Flomax, digoxin, carvedilol, Eliquis. Replace potassium as needed, continue until he is approved by the rehab, then transfer. Job ID: [id number]
[2018-11-15] MEDS: Famotidine 20 MG TAB PO SCH (20:47)
--- NOTE | 2018-11-15 21:04 | PRG ---
DATE OF SERVICE: 11/15/2018 OBJECTIVE: VITAL SIGNS: Patient noted with the following vital signs. Afebrile, temperature 98.2; pulse 89; respiratory rate of 18; O2 saturation 93%, with blood pressure 137/64. HEENT EXAMINATION: Unremarkable. CARDIOVASCULAR SYSTEM: First and second heart sounds were heard. RESPIRATORY SYSTEM: Clear to auscultation. DIGESTIVE SYSTEM: Revealed a benign abdomen. Positive bowel sounds. EXTREMITIES: No peripheral edema. SKIN EXAMINATION: No new gross rash. LYMPHATICS: No peripheral lymphadenopathy. IMPRESSION: 1. Acute kidney injury, which seems resolved. 2. Hypokalemia, on potassium supplementation. PLAN: 1. Continue current renal supportive measures. 2. Further management to be dependent on the clinical course. Job ID: [id number]
[2018-11-16] MEDS: Digoxin 0.125 MG TAB PO SCH (08:07)
[2018-11-16] MEDS: Carvedilol 25 MG TAB PO SCH ×2 (08:07→17:20)
[2018-11-16] MEDS: Furosemide 40 MG TAB PO SCH (08:07)
[2018-11-16] MEDS: Apixaban 5 MG TAB PO SCH ×2 (08:07→21:05)
[2018-11-16] MEDS ORDERED: Amiodarone 200 MG TAB PO SCH ×2 (11:00→12:00)
[2018-11-16] MEDS: Tamsulosin HCl 0.4 MG CAP PO SCH (12:38)
--- NOTE | 2018-11-16 14:26 | PRG ---
DATE OF SERVICE: 11/16/2018 SUBJECTIVE: The patient is seen and examined at the bedside. He is doing well. He does not have much complaints to offer. OBJECTIVE: VITAL SIGNS: Blood pressure is 119/56, pulse is 85, temperature is 98.2, respiratory rate 18, and pulse oximetry is 95% on room air. HEENT: His head is atraumatic and normocephalic. Eyes are PERRLA. Sclerae are nonicteric. Oral mucosa is moist. NECK: Supple. CHEST: The left chest area where the pacemaker is placed, looks good. Small bruising. Incision looks good. LUNGS: Clear. HEART: S1 and S2 normal. No S3. No S4. No any murmur. ABDOMEN: Soft, nontender, nondistended. EXTREMITIES: 1+ peripheral edema similar bilaterally. No any other pathology. NEUROLOGIC: He is alert and oriented x4. There is no any motor or sensory deficits present. Cranial nerves are intact. LABORATORY DATA: None. IMPRESSION: 1. Bradycardia, status post permanent pacemaker placement. 2. Acute renal failure, improved. 3. Hypokalemia. 4. Diastolic congestive heart failure, acute on chronic, improved. 5. Severe pulmonary hypertension. 6. Chronic atrial fibrillation. 7. Hematuria, resolved, posttraumatic. We are basically waiting for insurance to approve his rehab. All medical treatments going to continue until we have some final report on that part. If not the rehab we will try to get him to skilled or outpatient rehabilitation center, but he should be able to be discharged in the next 24 hours. Job ID: [id number]
[2018-11-16] MEDS: Famotidine 20 MG TAB PO SCH (21:05)
[2018-11-16] MEDS: Amiodarone 200 MG TAB PO SCH (21:05)
--- NOTE | 2018-11-16 21:37 | PRG ---
DATE OF SERVICE: 11/16/2018 SUBJECTIVE: The patient noted with the following vital signs. OBJECTIVE: VITAL SIGNS: Blood pressure 90/56, pulse of 85, afebrile, temperature 98.2, respiratory rate of 18, O2 saturation 95%. HEENT: Unremarkable. Moist oral mucosa. No conjunctival injection or icterus. NECK: Supple. CARDIOVASCULAR SYSTEM: First and second heart sounds were heard. RESPIRATORY SYSTEM: Clear to auscultation. DIGESTIVE SYSTEM: Revealed a benign abdomen. EXTREMITIES: No peripheral edema. SKIN: No new gross rash. LYMPHATICS: No peripheral lymphadenopathy. IMPRESSION: 1. Acute kidney injury, improved. 2. Hypokalemia. 3. Bradycardia, status post pacemaker placement. PLAN: 1. Replete potassium. 2. Further management to be dependent on the clinical course. Job ID: [id number]
[2018-11-17 06:27] LABS: Hemoglobin 8.8 g/dL (14.0-18.0); Platelet Count 236 thou/uL (130-400)
[2018-11-17 06:49] LABS: Calc. Creatinine Clearance 83 mL/min (70-130); Estimated GFR-MDRD Greater than 90
[2018-11-17] MEDS: Apixaban 5 MG TAB PO SCH ×2 (08:55→21:40)
[2018-11-17] MEDS: Digoxin 0.125 MG TAB PO SCH (08:55)
[2018-11-17] MEDS: Furosemide 40 MG TAB PO SCH (08:55)
[2018-11-17] MEDS: Amiodarone 200 MG TAB PO SCH ×2 (08:55→21:40)
[2018-11-17] MEDS: Carvedilol 25 MG TAB PO SCH ×2 (08:55→16:19)
[2018-11-17] MEDS: Tamsulosin HCl 0.4 MG CAP PO SCH (11:51)
[2018-11-17 13:58] VITALS: BMI 26.4
--- NOTE | 2018-11-17 14:46 | PDOC.PN ---
- Subjective Encounter Start Date: 11/17/18 Encounter Start Time: 08:40 Pt seen for followup re; physical deconditioning. Says he feels well. - Objective Resuscitation Status - Order Detail: 11/03/18 22:06 Resuscitation Status Routine Resuscitation Status: PRTL: Chem-Intubation Discussed with: Discussed with and children and family. Pt to be intubated for plastic sewer Additional comments: external pacing MAR Reviewed: Yes Vital Signs & Weight: Vital Signs (12 hours) Temp Pulse Pulse Pulse Resp BP BP 11/17/18 11:47 97.6 F 82 16 11/17/18 11:10 86 84 133/62 133/60 11/17/18 08:55 81 11/17/18 07:15 97.4 F L 81 16 11/17/18 04:00 97.2 F L 80 20 BP BP Pulse Ox Pulse Ox Pulse Ox 11/17/18 11:47 128/60 96 11/17/18 11:10 98 97 11/17/18 08:55 11/17/18 07:15 134/65 94 L 11/17/18 04:00 133/65 92 L Weight Admit Weight 196 lb 1.6 oz Weight 184 lb Most Recent Monitor Data Heart Rate from ECG 80 NIBP 141/56 NIBP BP-Mean 71 Respiration from ECG 28 SpO2 93 I&O: 11/16/18 11/17/18 11/18/18 06:59 06:59 06:59 Intake Total 1050 400 Output Total 200 Balance 850 400 Result Diagrams: 11/17/18 05:29 11/17/18 05:29 EKG Reviewed by me: Yes (Tele: V-paced) Phys Exam - Physical Examination Constitutional: NAD HEENT: moist MMs Neck: supple Respiratory: clear to auscultation bilateral Cardiovascular: RRR Gastrointestinal: soft Neurological: moves all 4 limbs Psychiatric: normal affect Dx/Plan (1) Physical deconditioning Code(s): R53.81 - OTHER MALAISE Status: Acute Comment: awaiting SNU placement (2) S/P placement of cardiac pacemaker Code(s): Z95.0 - PRESENCE OF CARDIAC PACEMAKER Status: Acute Comment: no complications (3) BPH (benign prostatic hyperplasia) Code(s): N40.0 - BENIGN PROSTATIC HYPERPLASIA WITHOUT LOWER URINRY TRACT SYMP Status: Chronic Comment: stable (4) Hypertension Code(s): I10 - ESSENTIAL (PRIMARY) HYPERTENSION Status: Chronic Comment: controlled - Plan * . Review of Systems - Review of Systems Constitutional: weakness Respiratory: negative: Cough, Shortness of Breath, SOB with Excertion, Pleuritic Pain, Wheezing Cardiovascular: negative: chest pain, palpitations, orthopnea, paroxysmal nocturnal dyspnea, edema, light headedness - Medications/Allergies Allergies/Adverse Reactions: Allergies Allergy/AdvReac Type Severity Reaction Status Date / Time No Known Allergies Allergy Unverified 12/22/17 21:25 Medications: Current Medications Amiodarone HCl (Cordarone) 400 mg PO BID [facility] Last Admin: 11/17/18 08:55 Dose: 400 mg Apixaban (Eliquis) 5 mg PO BID [facility] Last Admin: 11/17/18 08:55 Dose: 5 mg Carvedilol (Coreg) 25 mg PO BID[facility] Last Admin: 11/17/18 08:55 Dose: 25 mg Digoxin (Lanoxin) 0.125 mg PO QAM [facility] Last Admin: 11/17/18 08:55 Dose: 0.125 mg Famotidine (Pepcid) 20 mg PO Q24HR [facility] Last Admin: 11/16/18 21:05 Dose: 20 mg Furosemide (Lasix) 40 mg PO DAILY-AC [facility] Last Admin: 11/17/18 08:55 Dose: 40 mg Hydralazine HCl (Apresoline) 10 mg SLOW IVP Q4H PRN PRN Reason: Hypertension Last Admin: 11/10/18 05:47 Dose: 10 mg Ondansetron HCl (Zofran Odt) 4 mg PO Q6H PRN PRN Reason: Nausea/Vomiting Ondansetron HCl (Zofran) 4 mg IVP Q6H PRN PRN Reason: Nausea/Vomiting Senna/Docusate Sodium (Senokot S) 2 tab PO BID PRN PRN Reason: Constipation Sodium Chloride (Flush - Normal Saline) 10 ml IVF Q12HR [facility] Last Admin: 11/17/18 08:56 Dose: 10 ml Sodium Chloride (Flush - Normal Saline) 10 ml IVF PRN PRN PRN Reason: Saline Flush Last Admin: 11/10/18 10:19 Dose: 10 ml Tamsulosin HCl (Flomax) 0.4 mg PO 1200 [facility] Last Admin: 11/17/18 11:51 Dose: 0.4 mg
--- NOTE | 2018-11-17 20:56 | PRG ---
DATE OF SERVICE: SUBJECTIVE: The patient is noted with the following vital signs. OBJECTIVE: VITAL SIGNS: Afebrile. Temperature 97.4, pulse 86, respiratory rate of 16, O2 saturation of 97% with a blood pressure of 119/59. HEENT: Unremarkable. CARDIOVASCULAR SYSTEM: First and second heart sounds were heard. RESPIRATORY SYSTEM: Clear to auscultation. DIGESTIVE SYSTEM: Revealed a benign abdomen. EXTREMITIES: No peripheral edema. SKIN: No new gross rash. LYMPHATICS: No peripheral lymphadenopathy. IMPRESSION: Acute kidney injury, which has resolved. Hypokalemia, seems to have resolved PLAN: 1. Continue current renal supportive measures. 2. Monitor the electrolyte, especially the potassium. 3. Further management to be dependent on the clinical course. Job ID: [id number]
[2018-11-17] MEDS: Famotidine 20 MG TAB PO SCH (21:40)
[2018-11-18] MEDS: Apixaban 5 MG TAB PO SCH (08:20)
[2018-11-18] MEDS: Digoxin 0.125 MG TAB PO SCH (08:20)
[2018-11-18] MEDS: Amiodarone 200 MG TAB PO SCH (08:20)
[2018-11-18] MEDS: Carvedilol 25 MG TAB PO SCH (08:20)
[2018-11-18] MEDS: Furosemide 40 MG TAB PO SCH (08:20)
[2018-11-18 11:33] VITALS: TEMP 97.4
[2018-11-18] MEDS: Tamsulosin HCl 0.4 MG CAP PO SCH (11:34)
[2018-11-18 13:09] VITALS: BP 132/61
--- NOTE | 2018-11-18 20:35 | DIS ---
DATE OF ADMISSION: 11/03/2018 DATE OF DISCHARGE: 11/18/2018 PRIMARY CARE PROVIDER: Emile Jack MD DISCHARGE DIAGNOSES: 1. Symptomatic bradycardia. 2. Acute kidney injury, secondary to acute tubular necrosis. 3. Hyperkalemia. 4. Acute respiratory failure. 5. Traumatic hematuria. 6. Third-degree heart block. 7. Physical deconditioning. CONSULTATIONS DURING THIS HOSPITALIZATION: 1. Cardiology, Davin Awad MD. 2. Nephrology, Mitchellrafael Cruz MD. 3. Pulmonology, Ridge Moon MD. 4. Urology, Dr. Rae. 5. Electrophysiology, Fady Antonio MD. CONDITION OF PATIENT ON THE DAY OF DISCHARGE: I assessed Mr. Guy on November 18, 2018. He denies any chest pain or shortness of breath. Vital signs are stable. S1 and S2 are heard, regular. Lungs are clear to auscultation bilaterally. DISCHARGE MEDICATIONS: 1. Digoxin 0.125 mg daily. 2. Flomax 0.4 mg at bedtime. 3. Amiodarone 400 mg 2 times a day for 2 weeks, then 400 mg daily for 2 weeks, then 200 mg daily. 4. Apixaban 5 mg 2 times a day. 5. Coreg 25 mg 2 times a day. 6. Lasix 40 mg daily. HOSPITAL COURSE: Mr. Guy is a pleasant 82-year-old gentleman, who was admitted to [facility] on November 03, 2018, for symptomatic bradycardia. Please refer to Dr. Gloria's history and physical note for further details. The patient was bradycardic with heart rate in the 20s to 30s. 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 He had multiple episodes of torsade while attempting transvenous pacer. Therefore, decision was made to externally pace him. The patient had respiratory arrest and was intubated. He was also seen by Nephrology Service for acute kidney injury. His renal function slowly normalized. It was deemed to be secondary to acute tubular necrosis by Nephrology Service. He was seen by Urology Service for traumatic hematuria, which improved with CBI. On November 08, he was extubated. He was subsequently transferred to telemetry floor. He was physically deconditioned. He was seen by Therapy Services. He was declined for inpatient rehab. Case Management was waiting for insurance authorization before he could be [facility]. He is being discharged to [facility] on November 18, 2018. Many thanks for allowing me to participate in your patient's care. Please feel free to contact me with any questions or concerns. DISCHARGE DESTINATION: [facility]. Total amount of time spent coordinating this discharge: 33 minutes. Job ID: [id number]
== END 2018-11-18 13:16 | DRG 242 ==
LOC: ERS 15:11 → IMCU/EMU 16:25 → CCU 17:50 → IMCU/EMU 11-10 16:58 → 2NO 11-13 19:12
PROVIDERS: ADMIT Emergency Medicine; ATTEND Emergency Medicine
PROC: 5A2204Z Restoration of Cardiac Rhythm, Single (ICD-10-PCS; 2018-11-03)
PROC: 5A1955Z Respiratory Ventilation, Greater than 96 Consecutive Hours (ICD-10-PCS; 2018-11-03)
PROC: 0BH17EZ Insertion of Endotracheal Airway into Trachea, Via Natural or Artificial Opening (ICD-10-PCS; 2018-11-03)
PROC: 0JH604Z Insertion of Pacemaker, Single Chamber into Chest Subcutaneous Tissue and Fascia, Open Approach (ICD-10-PCS; principal; 2018-11-05)
PROC: 02HK3JZ Insertion of Pacemaker Lead into Right Ventricle, Percutaneous Approach (ICD-10-PCS; 2018-11-05)
DX: R00.1 Bradycardia, unspecified (principal); I50.33 Acute on chronic diastolic (congestive) heart failure; N17.0 Acute kidney failure with tubular necrosis; A41.9 Sepsis, unspecified organism; J96.00 Acute respiratory failure, unspecified whether with hypoxia or hypercapnia; E87.0 Hyperosmolality and hypernatremia; E87.1 Hypo-osmolality and hyponatremia; E87.2 Acidosis; S37.39XA Other injury of urethra, initial encounter; D62 Acute posthemorrhagic anemia; Z66 Do not resuscitate; E87.5 Hyperkalemia; I11.0 Hypertensive heart disease with heart failure; E87.6 Hypokalemia; I27.20 Pulmonary hypertension, unspecified; I48.2 Chronic atrial fibrillation; N40.0 Benign prostatic hyperplasia without lower urinary tract symptoms; I44.2 Atrioventricular block, complete; Z79.01 Long term (current) use of anticoagulants; Z79.899 Other long term (current) drug therapy; X58.XXXA Exposure to other specified factors, initial encounter; Y92.239 Unspecified place in hospital as the place of occurrence of the external cause
CPT/HCPCS: 33207; 33210; 36005; 36415; 71045; 75820; 76942; 80048; 80053; 80069; 80162; 81003; 81015; 82533; 82553; 82565; 82805; 83735; 83880; 84484; 85014; 85018; 85025; 85049; 85610; 85730; 86850; 86900; 86901; 87040; 87086; 93005; 93306; 93798; 94002; 94003; 96374; 96375; C1769; C1786; C1898; J0282; J0360; J0461; J0690; J0696; J1160; J1250; J1265; J1610; J1644; J1650; J1815; J1940; J2060; J2270; J2405; J2704; J3010; J3475; J3490; J7050; J7070

== ENCOUNTER 2018-12-23 10:05 | Day surgery (SDC) | payer MEDICARE ==
[2018-12-22 14:23] VITALS: BMI 25.9
[2018-12-23] MEDS ORDERED: PROPOFOL 200 MG/20 ML VIAL ONE (11:29)
[2018-12-23] MEDS ORDERED: Lidocaine 1% PF 5 ML VIAL ONE (11:29)
--- NOTE | 2018-12-23 19:49 | OP ---
DATE OF PROCEDURE: 12/23/2018 PROCEDURES PERFORMED: Esophagogastroduodenoscopy with control of hemorrhage and colonoscopy. PREOPERATIVE DIAGNOSIS: Iron deficiency anemia, on chronic anticoagulation. DESCRIPTION OF PROCEDURE: Informed consent was obtained from the patient. He was sedated with total intravenous anesthesia. The bite block was placed and the endoscope was advanced easily to the second portion of the duodenum and retroflexion was performed in the stomach. The esophagus was normal. The GE junction was normal. 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 Around 25 of these were cauterized with argon plasma coagulation. Retroflexed views in the stomach were normal. The pylorus and first and second portions of the duodenum were normal. The patient was turned around. Rectal exam was performed and was normal. The colonoscope was advanced to the terminal ileum without difficulty. The mucosa of the terminal ileum was normal. The ileocecal valve and appendiceal orifice were clearly identified. There was mild diverticulosis of the sigmoid and descending colon. The remainder of the colonic mucosa was normal. Retroflexed views in the rectum were unremarkable. IMPRESSION: 1. 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 25 of these were cauterized with argon plasma coagulation. 2. Otherwise, normal esophagogastroduodenoscopy. 3. Left-sided diverticulosis. 4. Otherwise, normal ileocolonoscopy. RECOMMENDATIONS: 1. Proton pump inhibitor daily for a month. 2. Ferrous sulfate 325 mg twice daily for a month. 3. He should be able to restart Eliquis tomorrow. 4. Follow up in GI Clinic in 1 month. Job ID: [id number]
== END 2018-12-23 14:40 | disposition home or self-care (01) ==
LOC: SDC 10:05
PROVIDERS: ATTEND Internal Medicine Gastroenterology
PROC: 0W3P8ZZ Control Bleeding in Gastrointestinal Tract, Via Natural or Artificial Opening Endoscopic (ICD-10-PCS; principal; 2018-12-23)
PROC: 0DJD8ZZ Inspection of Lower Intestinal Tract, Via Natural or Artificial Opening Endoscopic (ICD-10-PCS; 2018-12-23)
DX: K31.811 Angiodysplasia of stomach and duodenum with bleeding (principal); K57.30 Diverticulosis of large intestine without perforation or abscess without bleeding; D50.9 Iron deficiency anemia, unspecified; M19.90 Unspecified osteoarthritis, unspecified site; I48.91 Unspecified atrial fibrillation; I11.0 Hypertensive heart disease with heart failure; I50.9 Heart failure, unspecified; K59.09 Other constipation; Z79.01 Long term (current) use of anticoagulants; Z79.899 Other long term (current) drug therapy; Z95.0 Presence of cardiac pacemaker
CPT/HCPCS: 88305; J2001; J2704

== ENCOUNTER 2019-01-30 12:03 | Inpatient (IN) | payer MEDICARE ==
[2019-01-30 13:40] LABS: #Eosinphils 0.1 thou/uL (0.0-0.7); #Lymphocytes 1.6 thou/uL (1.20-3.40); #Monocytes 0.8 thou/uL (0.11-0.59); #Neutrophils 5.1 thou/uL (1.40-6.50); %Basophils 0.5 % (0.0-1.0); %Eosinophils 1.9 % (0.0-10.0); %Lymphocytes 20.7 % (21.0-51.0); Hemoglobin 5.1 g/dL (14.0-18.0); Mean Corpuscular HGB CONC 31.6 g/dL (32.0-36.0); Mean Corpuscular Hemoglobin 29.7 pg (27.0-31.0); Mean Corpuscular Volume 93.9 fL (78.0-98.0); Mean Platelet Volume 6.5 fL (7.4-10.4); Platelet Count 255 thou/uL (130-400); RBC Distribution Width 15.5 % (11.5-14.5); Red Blood Cell (RBC) Count 1.71 mill/uL (4.70-6.10); White Blood Cell (WBC) Count 7.7 thou/uL (4.8-10.8)
[2019-01-30 13:54] LABS: ALT (SGPT) 17 U/L (8-55); AST (SGOT) 21 U/L (5-34); Albumin 3.6 g/dL (3.4-4.8); Alkaline Phosphatase 61 U/L (40-150); Anion Gap 13 mmol/L (10-20); BUN (Urea Nitrogen) 102 mg/dL (8.4-25.7); Bilirubin, Total 0.6 mg/dL (0.2-1.2); Calc. Creatinine Clearance 0 mL/min (70-130); Calcium 8.8 mg/dL (7.8-10.44); Carbon Dioxide 26 mmol/L (23-31); Chloride 104 mmol/L (98-107); Estimated GFR-MDRD 22; Globulin 2.4 g/dL (2.4-3.5); Glucose 119 mg/dL (83-110); Potassium 5.9 mmol/L (3.5-5.1); Sodium 137 mmol/L (136-145)
[2019-01-30] MEDS ORDERED: Pantoprazole 40 MG VIAL ONE (14:31)
[2019-01-30] MEDS ORDERED: Insulin Regular 300 UNITS/3 ML VIAL ONE (15:14)
[2019-01-30] MEDS ORDERED: Dextrose 50% Abboject 50 ML SYRINGE ONE (15:14)
[2019-01-30] MEDS ORDERED: Finasteride 5 MG TAB PO PRN (16:33)
[2019-01-30 17:37] LABS: Digoxin 3.22 ng/mL (0.8-2.0)
[2019-01-30] MEDS ORDERED: Sodium Chloride 0.9% 1,000 ML IV SCH (19:00)
[2019-01-30 19:37] LABS: Anion Gap 13 mmol/L (10-20); BUN (Urea Nitrogen) 96 mg/dL (8.4-25.7); Calc. Creatinine Clearance 0 mL/min (70-130); Calcium 8.6 mg/dL (7.8-10.44); Carbon Dioxide 25 mmol/L (23-31); Chloride 104 mmol/L (98-107); Estimated GFR-MDRD 24; Glucose 99 mg/dL (83-110); Sodium 137 mmol/L (136-145)
--- NOTE | 2019-01-30 20:33 | CON ---
DATE OF CONSULTATION: 01/30/2019 REASON FOR CONSULTATION: CORTES and hyperkalemia. CONSULTING PHYSICIAN: Naz Ortega MD HISTORY OF PRESENT ILLNESS: An 83-year-old male with past medical history significant for intermittent CORTES, congestive heart failure, atrial fibrillation, and hypertension as well as prior GI bleed, who presents to the hospital due to abnormal lab of severe anemia with hemoglobin 6.1 as noted on blood work done yesterday January 29 by the PCP, who recommended the patient present to the emergency room. The patient had seen the PCP due to worsening weakness and generalized weakness as well as poor appetite and oral intake. He also reported weight loss. Further evaluation in the emergency room showed hemoglobin of 5.1, as well as creatinine of 2.7 and potassium of 5.9. The patient was treated with dextrose and insulin and Nephrology consulted for further evaluation and treatment. The patient with congestive heart failure, has been on diuretics like Lasix and metolazone, but reported poor oral intake due to an early/easy satiety. He denied nausea, vomiting, diarrhea, or change in bowel habit. He also denied hematuria, dysuria, hematemesis, or hematochezia. He; however, admitted to black stools, but reported taking iron tablet. The patient with atrial fibrillation, has been on chronic anticoagulation with Eliquis. Of note, the patient was treated for GI bleed about 5 weeks ago with EGD and cauterization of vascular ectasias. Of note, the patient has a creatinine of 1.30 on January 08, 2019. His baseline creatinine ranges from 0.8 to 1.1. The patient also has had prior episode of acute kidney injury in the past. He denied any new medication or use of NSAIDs. PAST MEDICAL HISTORY: 1. Hypertension. 2. Atrial fibrillation. 3. Chronic anticoagulation with Eliquis. 4. Pacemaker placement. 5. Acute blood loss anemia. 6. Pulmonary hypertension. 7. [id number] tricuspid regurgitation. 8. BPH. 9. Restless legs syndrome. 10. Back pain. 11. Congestive heart failure. PAST SURGICAL HISTORY: 1. Right shoulder surgery. 2. Right ACL surgery. 3. Pacemaker placement. 4. Hernia operation. FAMILY HISTORY: Significant for throat cancer in mother, who in her 50s. Otherwise, noncontributory. SOCIAL HISTORY: The patient is and lives with spouse. He denied smoking, alcohol, or recreational drug use. The patient continues to walk. ALLERGIES: NO KNOWN DRUG ALLERGIES REPORTED. HOME MEDICATIONS: 1. Ferrous sulfate 325 mg p.o. b.i.d. 2. Lasix 80 mg daily. 3. Potassium chloride 40 mEq daily. 4. Lisinopril 2.5 mg daily. 5. Carvedilol 3.125 mg b.i.d. 6. Diazepam 5 mg daily at bedtime. 7. Eliquis 5 mg p.o. b.i.d. 8. Digoxin 125 mcg p.o. daily. 9. Metolazone 5 mg daily. 10. Amiodarone 200 mg daily. REVIEW OF SYSTEMS: A 12-point review of system performed was negative other than pertinent positives and negatives included in the history of present illness. PHYSICAL EXAMINATION: VITAL SIGNS: Temperature 97.6, pulse 96, respiratory rate 18, SpO2 of 100 on room air, and BP 105/56. GENERAL: Healthy-looking elderly male, in no obvious distress. Afebrile and anicteric, but fatigued. HEENT: Normocephalic and atraumatic. Pupils are equal and reacting to light. Oral mucosa is moist. Conjunctival pallor noted. NECK: Supple and nontender with full range of motion. CARDIOVASCULAR: Regular rhythm and rate with normal sounds 1 and 2. Systolic murmur noted. RESPIRATORY: Good air entry bilaterally with no obvious crackle or rhonchi or use of accessory muscles. GI: Abdomen is full, soft, nontender, and nondistended with normal bowel sounds. EXTREMITIES: Grossly normal looking atraumatic with no edema, erythema, or cyanosis. NEUROLOGIC: Conscious, alert, and oriented x3 with appropriate mental status. Cranial nerves 2 through 12 are intact. The patient moves all extremities. DIAGNOSTIC DATA: CBC showed WBC count of 7.7, hemoglobin of 5.1, MCV of 93.9, and platelet of 255. CMP showed sodium 137, potassium 5.9, chloride 104, CO2 of 26, BUN 102, creatinine 2.77, glucose 119, calcium 8.9, total bilirubin 0.6, AST 21, ALT 17, alkaline phosphatase 61, total protein 6.0, albumin 3.6, and globulin 2.4. Digoxin level is 3.22. ASSESSMENT: 1. Acute kidney injury: This most likely due to volume depletion from gastrointestinal bleeding as well as diuretic therapy. Contribution from hemodynamic factors related to lisinopril cannot be ruled out. The patient also reported poor oral intake. Markedly elevated BUN of 102 is consistent with gastrointestinal bleeding. 2. Hyperkalemia: Due to acute kidney injury. The patient also is on potassium supplementation. 3. Digoxin toxicity. Digoxin level is 3.22. 4. Severe symptomatic anemia with hemoglobin of 5.1. 5. Chronic gastrointestinal bleeding. The patient has history of gastrointestinal bleeding and was recently seen by Gastroenterology and had esophagogastroduodenoscopy with cauterization of vascular ectasias. The patient; however, continued to be on chronic anticoagulation. PLAN: 1. Agree with blood transfusion. 2. The patient also will be started on low-dose IV fluid therapy. 3. We will also give the patient Kayexalate for treatment of hyperkalemia. 4. We will also get urine electrolytes and recheck BMP in the morning. 5. Anticoagulation has been held. We will defer GI bleeding management to the primary attending. Digoxin is held at this time also. Many thanks for involving us in the care of this patient. We will continue to follow along with you. Job ID: [id number]
[2019-01-30] MEDS: Tamsulosin HCl 0.4 MG CAP PO SCH (21:52)
[2019-01-30] MEDS: Diazepam 2 MG TAB PO SCH (21:52)
[2019-01-30 22:13] VITALS: BMI 23.8
--- NOTE | 2019-01-30 22:35 | CON ---
DATE OF CONSULTATION: 01/30/2019 REASON FOR CONSULTATION: Anemia. HISTORY OF PRESENT ILLNESS: Mikal Guy is a very pleasant 83-year-old man, previously seen by my GI colleague, Dr. Shreyas Casey. He met him in consultation for iron-deficiency anemia last November. On 12/23/2018, Dr. Casey performed EGD and colonoscopy. The EGD was notable for multiple punctate arteriovenous malformations, some of which were oozing actively. Dr. Casey performed extensive argon plasma coagulation treatment to 25 at these areas. The patient was continued on Eliquis and started on iron supplementation, which he has been taking twice per day. He is also continued on daily acid suppression with omeprazole. Despite this, the patient has had persistent anemia, now anemia has worsened prompting this presentation. He says really over the past several months, he has been having progressive weakness and decline in appetite. He has actually had a 40-pound weight loss. His stool is dark, though he is not sure whether this is due to melena or due to his iron supplement that he takes. Notably, duodenal biopsies were obtained at the time of his recent EGD and were normal and colonoscopy was normal except for left-sided diverticulosis. Again, the patient has continued on Eliquis throughout this time. He has been on some kind of anticoagulation for years, the Eliquis for the past 6 months or so. REVIEW OF SYSTEMS: Full review of systems including constitutional, head, eyes, ears, nose, throat, GI, , cardiovascular, respiratory, musculoskeletal, and neurologic systems is negative except as noted in the HPI. PAST MEDICAL HISTORY: Chronic anemia; arthritis; atrial fibrillation, on Eliquis; congestive heart failure; hemorrhoids; hypertension; pacemaker; and cataract surgery. ALLERGIES: NO KNOWN DRUG ALLERGIES. OUTPATIENT MEDICATIONS: 1. Amiodarone. 2. Eliquis 5 mg b.i.d. 3. Carvedilol. 4. Vitamin B12. 5. Diazepam. 6. Digoxin. 7. Ferrous sulfate 325 mg b.i.d. 8. Finasteride. 9. Lasix. 10. Lisinopril. 11. . 12. Omeprazole 40 mg daily. 13. Flomax. SOCIAL HISTORY: No smoking, alcohol, or drug use. FAMILY HISTORY: Noncontributory. PHYSICAL EXAMINATION: VITAL SIGNS: Pulse 81, blood pressure 109/47, and 100% oxygen saturation on room air. GENERAL: An 83-year-old gentleman, lying in bed comfortably, in no acute distress. SKIN: He is pale. No jaundice. No rashes were palpable. HEENT: Eyes, no scleral icterus. Extraocular movements intact. ENT, mucous membranes moist. No oral lesions. LYMPH: No submandibular or supraclavicular lymphadenopathy. Thyroid, nontender to palpation. HEART: Regular rate and rhythm. LUNGS: Clear to auscultation bilaterally. ABDOMEN: Bowel sounds present. Soft, nontender to palpation throughout. No masses or organomegaly appreciated. EXTREMITIES: No peripheral edema. VESSELS: Radial pulses 2+ bilaterally. NEURO: Cranial nerves 2 through 12 intact bilaterally. No focal deficits. LABORATORY STUDIES: Hemoglobin is 5.1, MCV 93, WBC 7.7, and platelets 255. Baseline hemoglobin is about 8 over the past month, so this is a significant recent decline. Sodium 137, potassium 5.9, BUN 102, creatinine 2.77, total bilirubin 0.6, alkaline phosphatase 61, AST 21, and ALT 17. ASSESSMENT AND PLAN: 1. Melena. 2. Recurrent ongoing blood-loss anemia. 3. Gastric arteriovenous malformations, status post endoscopic therapy with Dr. Casey in 11/2018. 4. Atrial fibrillation, on chronic anticoagulation with Eliquis. I reviewed the results of Mr. Guy's recent endoscopic investigations with Dr. Casey. The colonoscopy was normal, and he had multiple gastric arteriovenous malformations, which were actively oozing at the time of the procedure and treated with APC. It is highly likely that Mr. Guy has more arteriovenous malformations in the stomach, but also likely throughout the small bowel. This puts him at high risk for ongoing slow chronic gastrointestinal blood loss, particularly if he is going to be continuing anticoagulation. At this time, I agree with blood transfusion and continued acid suppression. We would need to hold Eliquis at least a couple of days before repeating esophagogastroduodenoscopy, so please hold the Eliquis starting now. The patient may be better off completely without anticoagulation going forward if he is unable to maintain his blood counts on iron supplementation. No plan for any urgent endoscopy at this time. GI can follow along. Job ID: [id number]
--- NOTE | 2019-01-31 00:10 | HP ---
CHIEF COMPLAINT: Sent from PCP's office for low H and H and generalized weakness. HISTORY OF PRESENT ILLNESS: The patient is an 83-year-old male with past medical history of hypertension, atrial fibrillation, currently on Eliquis, pacemaker placement after significant symptomatic bradycardia, also vascular ectasia, recently EGD performed in November, who presents to the hospital with complaints of generalized weakness and also was sent from his PCPs office. The patient stated that for the past couple months, he has been feeling unwell, he has lost about 14 pounds in the past 2 months due to decreased appetite. The patient states that he feels that he is hungry; however, when he gets to eat his meal, after couple bites he feels full and he is unable to eat anymore. The patient stated that he has been feeling very weak and very tired. The patient stated that about a couple months ago, he did have a low hemoglobin and underwent a upper endoscopy, which indicated that he had a small pinpoint vascular ectasia, multiple of them, which were cauterized by GI. The patient states that he continues to be on Eliquis and his current dose of Eliquis was earlier this morning. The patient stated that he did follow up with his PCP yesterday for his generalized weakness, who checked an H and H and called him this morning stating that his hemoglobin was 6.1. The patient, at this time, was directed to come into the ER for further evaluation. In the ER, he was found to have an H and H of 5.1. The patient was typed and screened and is being transfused blood. PAST MEDICAL HISTORY: 1. Hypertension. 2. Atrial fibrillation, is on anticoagulation. 3. Recent pacemaker after symptomatic bradycardia and cardiac arrest. 4. Acute blood loss anemia, EGD indicated small pinpoint vascular ectasia and cauterized in the context of chronic anticoagulation. 5. Pulmonary hypertension on a recent echocardiogram performed on November 04, 2018, which indicated an EF of 60% to 65%, and also had moderate tricuspid regurgitation. 6. BPH. 7. Macular degeneration. 8. Restless legs syndrome. PAST SURGICAL HISTORY: He has a history of right shoulder surgery, right ACL surgery, pacemaker placement, and macular degeneration. FAMILY HISTORY: His mother in the 50s with throat cancer and she was a smoker. SOCIAL HISTORY: The patient is , lives with his . Denies any smoking, alcohol, or drug use. He is a full code. ALLERGIES: NO KNOWN DRUG ALLERGIES. MEDICATIONS: 1. Amiodarone 200 mg daily. 2. Apixaban 5 mg b.i.d. 3. Carvedilol 25 mg b.i.d. 4. Diazepam mg q.p.m. 5. Digoxin 0.125 mg daily. 6. Ferrous sulfate b.i.d. 7. Proscar 5 mg q.p.m. 8. Tamsulosin 0.4 at bedtime. 9. He is also on Lasix. 10. Zaroxolyn. REVIEW OF SYSTEMS: All negative except for the ones mentioned above. PHYSICAL EXAMINATION: VITAL SIGNS: Temperature of 97.9, 98% on room air, respirations 20, blood pressure 108/48, pulse of 82. GENERAL: He is awake, alert, and oriented x3. Appears very dehydrated and very cachectic. HEENT: Normocephalic, atraumatic. The patient's mucous membranes are very dry. Pupils are equal and reactive to light. CV: Irregularly irregular. He does have a mild systolic murmur heard on his right sternal border and left sternal border. LUNGS: Clear to auscultation. No rhonchi or wheezes noted. ABDOMEN: Soft and nontender. Bowel sounds are present x2. EXTREMITIES: He does have +1 lower extremity edema. NEUROVASCULAR: No focal deficits noted. SKIN: He does have some age spots to his bilateral lower extremities, otherwise pretty intact. LABORATORY RESULTS: As of the following; WBCs of 7.7, hemoglobin of 5.1, hematocrit of 16.0. His platelets are 255. Chemistry; sodium of 137, potassium of 5.6, BUN of 95, creatinine of 2.85. His BNP has not been collected. ASSESSMENT AND PLAN: The patient is an 83-year-old male who presents to the hospital with symptomatic anemia. 1. Symptomatic anemia, could be secondary to recurrent bleed from his vascular ectasia and also the patient has been treated Eliquis. We will hold the Eliquis for now. Gastroenterology has been consulted. We will put the patient on a PPI b.i.d. The patient is receiving 3 units of PRBC. We will continue to monitor carefully for fluid status given his moderate to severe tricuspid regurgitation. 2. Moderate to severe tricuspid regurgitation. We will continue to monitor. The patient may require Lasix; however, at this time, he appears very severely dehydrated. 3. Dehydration. Right now, we will transfuse with 3 units. The patient most likely will be on clear liquid diet per Gastroenterology's recommendation. 4. Benign prostatic hyperplasia. We will continue his home medications. 5. Deep vein thrombosis prophylaxis. We will hold any kind of anticoagulation. 6. Atrial fibrillation. Again, the patient has been notified that we will have to hold his anticoagulation due to his recent bleed. Job ID: [id number]
[2019-01-31 04:11] LABS: Bilirubin Negative (Negative); Blood, Urine Negative (Negative); Clarity CLEAR (Clear); Glucose, Urine (Dipstick) Negative (Negative); Leukocyte Negative (Negative); Nitrite Negative (Negative); Protein, Urine (Dipstick) Negative (Neg-Trace); Urobilinogen 0.2 mg/dL (0.2-1.0)
[2019-01-31 04:13] LABS: Bacteria/HPF None Seen HPF (None Seen); Hyaline Casts/LPF 0-3 HYALINE CAST LPF (0-3 Hyaline); Pathc Cast-AUWi Flag 0.13 (0-2.49); RBC/HPF 0-3 HPF (0-3); Squamous Epithelial None Seen HPF (0-3); WBC/HPF None Seen HPF (0-3)
[2019-01-31 04:15] LABS: Urine Culture Reflex No No
[2019-01-31 06:05] LABS: #Eosinphils 0.2 thou/uL (0.0-0.7); #Lymphocytes 1.5 thou/uL (1.20-3.40); #Neutrophils 4.8 thou/uL (1.40-6.50); %Basophils 0.1 % (0.0-1.0); %Eosinophils 2.6 % (0.0-10.0); %Lymphocytes 19.5 % (21.0-51.0); %Monocytes 12.9 % (0.0-10.0); %Neutrophils 64.9 % (42.0-75.0); Hemoglobin 5.5 g/dL (14.0-18.0); Mean Corpuscular HGB CONC 33.1 g/dL (32.0-36.0); Mean Corpuscular Hemoglobin 30.5 pg (27.0-31.0); Mean Corpuscular Volume 92.1 fL (78.0-98.0); Mean Platelet Volume 6.2 fL (7.4-10.4); Platelet Count 234 thou/uL (130-400); RBC Distribution Width 15.3 % (11.5-14.5); Red Blood Cell (RBC) Count 1.82 mill/uL (4.70-6.10); White Blood Cell (WBC) Count 7.5 thou/uL (4.8-10.8)
[2019-01-31 06:24] LABS: Anion Gap 12 mmol/L (10-20); BUN (Urea Nitrogen) 87 mg/dL (8.4-25.7); Calc. Creatinine Clearance 25 mL/min (70-130); Calcium 8.1 mg/dL (7.8-10.44); Carbon Dioxide 27 mmol/L (23-31); Chloride 107 mmol/L (98-107); Estimated GFR-MDRD 26; Glucose 106 mg/dL (83-110); Potassium 4.5 mmol/L (3.5-5.1); Sodium 141 mmol/L (136-145)
[2019-01-31 08:52] LABS: Digoxin 2.35 ng/mL (0.8-2.0)
[2019-01-31 09:27] LABS: Sodium, Urine 36 mmol/L (Not Available); Urea Nitrogen, Random Urine 554 mg/dl
[2019-01-31] MEDS: Amiodarone 200 MG TAB PO SCH (10:28)
--- NOTE | 2019-01-31 12:52 | PRG ---
DATE OF SERVICE: 01/31/2019 SUBJECTIVE: An 83-year-old male followed up for acute kidney injury. The patient is currently getting blood transfusion. Reports feeling better. Denied shortness of breath, leg swelling, chest pain, or dysuria. PHYSICAL EXAMINATION: VITAL SIGNS: Temperature 98.4, pulse 89, respiratory rate 16, SpO2 of 99% on room air, and blood pressure 104/56. GENERAL: Elderly male, in no obvious distress. Afebrile. HEENT: Normocephalic, atraumatic. Pupils are equal and reacting to light. CARDIOVASCULAR: Regular rhythm and rate with normal heart sounds 1 and 2. Systolic murmur noted. RESPIRATORY: Fair air entry bilaterally with some transmitted sounds. No obvious rhonchi or crackles are appreciated. GI: Full, soft, nontender, nondistended with normal bowel sounds. EXTREMITIES: Grossly normal, atraumatic with no obvious edema. Bilateral distal leg hyperpigmentation consistent with chronic venous insufficiency noted. NEUROLOGIC: Conscious, alert, oriented x3 with appropriate mental status. DIAGNOSTIC DATA: BMP today showed sodium 141, potassium 4.5, chloride 107, CO2 of 27, BUN 87, creatinine 2.38, glucose 106, and calcium 8.1. CBC today showed WBC count of 7.5, hemoglobin of 5.5, and platelets of 234. Random total urine-protein less than 10. ASSESSMENT: 1. Acute kidney injury, most likely due to hemodynamic factors related to cardiac decompensation from severe congestive heart failure and diuretic therapy. Creatinine is trending downward with IV fluids and diuretics. IV fluid and blood transfusion. Diuretics are held at this time. 2. Hyperkalemia: Due to acute kidney injury. Resolved with dextrose and insulin plus Kayexalate. 3. Iron deficiency anemia. 4. Chronic gastrointestinal bleeding. 5. Volume status: The patient is close to euvolemia. We will continue to history of diuretics at this time. PLAN: 1. Continue to monitor renal function with discontinuation of Lasix and RAAS kee. Stop IV fluids at this time to avoid fluid overload. 2. Get repeat iron chemistry. 3. Transfusion as per primary attending and GI. 4. Continue to hold antihypertensives. Job ID: [id number]
--- NOTE | 2019-01-31 15:00 | PRG ---
DATE OF SERVICE: 01/31/2019 SUBJECTIVE: Mr. Guy is feeling okay today. Hemoglobin came up from 5.1 only to 5.5 this morning after 1 unit RBC transfusion yesterday. He is currently getting another unit of blood. He denies any melena since we talked yesterday. Vital signs have been stable. He has no abdominal pain or other complaints. He has been tolerating his diet. This is day 1 of holding the Eliquis. OBJECTIVE: VITAL SIGNS: Temperature 98.4, pulse 89, blood pressure 104/56, and 99% oxygen saturation on room air. GENERAL: No acute distress. HEART: Regular rate and rhythm. LUNGS: Clear to auscultation bilaterally. ABDOMEN: Soft and nontender to palpation. EXTREMITIES: No peripheral edema. LABORATORY STUDIES: Hemoglobin 5.5, WBC 7.5, platelets 234. Sodium 141, potassium 4.5, BUN 87, creatinine 2.38. ASSESSMENT AND PLAN: 1. Acute on chronic anemia, appears likely secondary to ongoing gastrointestinal blood loss. 2. Melena. 3. Gastric arteriovenous malformations, status post endoscopic therapy with Dr. Casey in November 2018. Mr. Guy is clinically stable. Agree with further transfusion. Today is day 1 of holding the Eliquis. We generally like to hold the Eliquis at least 2 to 3 days prior to any endoscopic investigation. No urgent indication for repeat EGD at this time, though this could be considered later this admission if he continues to drop his blood count. The patient is considering stopping the Eliquis altogether, and this might be the best course for him. Job ID: [id number]
[2019-01-31] MEDS: Pantoprazole 80 MG in Sodium Chloride 0.9% 100 ML IVP SCH (15:19)
--- NOTE | 2019-01-31 15:20 | CON ---
DATE OF CONSULTATION: 01/31/2019 REASON FOR CONSULTATION: Anemia and history of atrial fibrillation. HISTORY OF PRESENT ILLNESS: Mr. Guy is a very pleasant 83-year-old gentleman, who recently underwent pacemaker/ICD placement. He has a history of underlying atrial fibrillation. He has been on Eliquis. He states he has had bleeding issues noted, but difficult to ascertain based on hemorrhoids. He presents to his primary provider, where he had a hemoglobin of 6. His followup hemoglobin has been 5. PAST MEDICAL HISTORY: Atrial fibrillation, hypertension, knee surgery, shoulder surgery. HOME MEDICATIONS: Include; 1. Gabapentin. 2. Diazepam. 3. Digoxin. 4. Finasteride. 5. Tamsulosin. 6. Lasix. 7. Carvedilol. REVIEW OF SYSTEMS: Ten-point review of systems is reviewed and as above, otherwise negative. PHYSICAL EXAMINATION: GENERAL: Patient is a pleasant male, who is in no acute distress. The patient appears their stated age. VITAL SIGNS: Blood pressure 104/56, pulse 89, temperature 98.4. NEUROLOGIC: The patient is alert and oriented x3 with no focal neurologic deficits. HEENT: Sclerae without icterus. Mouth has moist mucous membranes with normal pallor. NECK: No JVD. Carotid upstroke brisk. No bruits bilaterally. LUNGS: Clear to auscultation with unlabored respirations. BACK: No scoliosis or kyphosis. CARDIAC: Regular rate and rhythm with normal S1 and S2. No S3 or S4 noted. No significant rubs, murmurs, thrills, or gallops noted throughout the precordium. PMI is not displaced. There is no parasternal heave. ABDOMEN: Soft, nontender, nondistended. No peritoneal signs present. No hepatosplenomegaly. No abnormal striae. EXTREMITIES: 2+ femoral and 2+ dorsalis pedis pulses. No cyanosis, clubbing, or edema. SKIN: No gross abnormalities. PERTINENT LABORATORY DATA: Hemoglobin 5.5. Creatinine 2.3. IMPRESSION: 1. Atrial fibrillation, on anticoagulation therapy. 2. Profound anemia. 3. Status post pacemaker/ICD. RECOMMENDATIONS: We will stop anticoagulation therapy. Mr. Guy is prepared to stop treatment and understands the risks. He may be a candidate for Watchman device. He has received 2 units of packed red blood cells today. Repeat his CBC and reassess. Further recommendations per Dr. Davin Perez in a.m. Job ID: [id number]
--- NOTE | 2019-01-31 15:59 | PRG ---
DATE OF SERVICE: 01/31/2019 SUBJECTIVE: The patient was seen and examined at the bedside. He feels somewhat better. He received 2 units of packed red blood cells so for. He admits that he saw black tarry stools for the last couple of months. He did not see any fresh red blood in his stool and he did not have any emesis with blood. OBJECTIVE: VITAL SIGNS: Blood pressure is 104/56, temperature is 98.4, pulse is 89, respiratory rate is 16, and O2 saturation is 99% on room air. HEENT: Head is atraumatic and normocephalic. Sclerae nonicteric. Conjunctivae palish. Oral mucosa is moist. NECK: Supple. LUNGS: Breath sounds diminished at both bases. HEART: S1 and S2, irregularly irregular. No S3. No S4. ABDOMEN: Soft and nontender. Bowel sounds are present. No organomegaly. EXTREMITIES: No clubbing, cyanosis, or edema. NEUROLOGIC: He follows my commands. There is no any motor or sensory deficits present. Cranial nerves are intact. LABORATORY DATA: Labs showed hemoglobin of 5.5, hematocrit 16.7, and platelet count 234. White count of 7.5. Chemistry showed normal electrolytes, BUN of 87, creatinine 2.38, and the rest of chemistry within normal limits. IMPRESSION: 1. Chronic anemia, most likely blood loss from gastric arteriovenous malformations, which were treated by Dr. Casey in November 2018. His Eliquis is on hold. He was seen by return to vendor, Dr. Melara, who wants to wait additional day or two before going in and trying to stop the bleeding since his general condition is relatively good and his vitals look to be stable. 2. Dehydration and some hypotension. The patient is receiving 3 units of packed red blood cells. 3. Atrial fibrillation. 4. Pacemaker, ICD. 5. Acute kidney injury, most likely secondary to hemodynamic instability with some cardiac decompensation. The patient was seen by telephone appointment clerk, Dr. Jesus, who recommends to close monitoring, discontinuation of Lasix, and RAAS blockers. IV fluids to avoid fluid overload. Job ID: [id number]
[2019-01-31] MEDS: Tamsulosin HCl 0.4 MG CAP PO SCH (20:41)
[2019-01-31] MEDS: Diazepam 2 MG TAB PO SCH (20:41)
[2019-02-01] MEDS: Pantoprazole 80 MG in Sodium Chloride 0.9% 100 ML IVP SCH ×3 (00:12→23:26)
[2019-02-01 05:59] LABS: #Eosinphils 0.2 thou/uL (0.0-0.7); #Lymphocytes 1.4 thou/uL (1.20-3.40); #Monocytes 1.3 thou/uL (0.11-0.59); %Basophils 0.1 % (0.0-1.0); %Eosinophils 1.7 % (0.0-10.0); %Lymphocytes 12.7 % (21.0-51.0); %Monocytes 11.8 % (0.0-10.0); %Neutrophils 73.8 % (42.0-75.0); Hemoglobin 7.4 g/dL (14.0-18.0); Mean Corpuscular HGB CONC 34.1 g/dL (32.0-36.0); Mean Corpuscular Hemoglobin 31.1 pg (27.0-31.0); Mean Corpuscular Volume 91.2 fL (78.0-98.0); Mean Platelet Volume 6.1 fL (7.4-10.4); Platelet Count 210 thou/uL (130-400); RBC Distribution Width 15.1 % (11.5-14.5); Red Blood Cell (RBC) Count 2.37 mill/uL (4.70-6.10); White Blood Cell (WBC) Count 10.9 thou/uL (4.8-10.8)
[2019-02-01 06:20] LABS: Albumin 3.3 g/dL (3.4-4.8); Anion Gap 12 mmol/L (10-20); BUN (Urea Nitrogen) 59 mg/dL (8.4-25.7); Calc. Creatinine Clearance 32 mL/min (70-130); Calcium 8.1 mg/dL (7.8-10.44); Carbon Dioxide 26 mmol/L (23-31); Chloride 106 mmol/L (98-107); Estimated GFR-MDRD 36; Glucose 124 mg/dL (83-110); Iron Binding Capacity, Total 280 mcg/dL (261-462); Phosphorus 3.8 mg/dL (2.3-4.7); Potassium 3.7 mmol/L (3.5-5.1); Sodium 140 mmol/L (136-145)
[2019-02-01 06:23] LABS: Digoxin 1.69 ng/mL (0.8-2.0)
[2019-02-01] MEDS: Amiodarone 200 MG TAB PO SCH (08:48)
--- NOTE | 2019-02-01 08:58 | PRG ---
DATE OF SERVICE: 02/01/2019 SUBJECTIVE: An 83-year-old male admitted due to GI bleeding. The patient also was found to have acute kidney injury necessitating Nephrology consult. The patient reports black stools still, but denied nausea, vomiting, or chest pain. He also denies shortness of breath. Bilateral leg swelling has improved a lot. OBJECTIVE: VITAL SIGNS: Temperature 97.7, pulse 82, respiratory rate 18, SpO2 of 95% on room air, blood pressure 112/60. GENERAL: Elderly male, in no obvious distress. Afebrile, anicteric, acyanotic. HEENT: Normocephalic, atraumatic. Oral mucosa is dry. CARDIOVASCULAR: Regular rhythm and rate with normal heart sounds. Soft systolic murmur noted. RESPIRATORY: Good air entry bilaterally with bibasilar crackles posteriorly. No obvious rhonchi were noted. GI: Abdomen is full, soft, nontender, nondistended with normal bowel sound. EXTREMITIES: Trace bilateral leg edema noted. NEUROLOGIC: Conscious, alert, and oriented x3 with appropriate mental status. DIAGNOSTIC DATA: Renal function panel showed sodium 140, potassium 3.7, chloride 106, CO2 of 22, BUN 59, creatinine 1.81, glucose 124, calcium 8.1, phosphorus 3.8, and albumin 3.3. TIBC is 280, ferritin is 121. CBC showed WBC count of 10.9, hemoglobin of 7.4, platelet of 210. ASSESSMENT: 1. Acute kidney injury: This is due to hemodynamic factors related to volume depletion from gastrointestinal bleeding, diuretics and stress kee. The patient had creatinine of 1.30 on January 08, 2019. With improvement in hemodynamics, creatinine is trending downwards. The patient received IV fluid initially, but due to history of congestive heart failure, IV fluid was discontinued. [place] oral intake recommended. We will continue to monitor renal function. 2. Hyperkalemia: Due to acute kidney injury. Resolved with dextrose infusion and insulin as well as Kayexalate. 3. Iron deficiency anemia: We will replete body iron with IV iron supplementation. 4. Volume status: The patient is close to euvolemia. We will continue to avoid diuretics at this time. 5. Gastrointestinal bleeding: The patient has history of vascular ectasia, status post catheterization. GI is following. Repeat endoscopy is contemplated. 6. Acute blood loss anemia: The patient is status post transfusion of 3 units of packed red blood cells. Continue to monitor hemoglobin and hematocrit. Job ID: [id number]
[2019-02-01 09:11] LABS: Iron Binding Capacity, Total 285 mcg/dL (261-462)
[2019-02-01 09:12] LABS: Iron 22 ug/dL (65-175)
[2019-02-01] MEDS: Iron, Sodium Ferric Gluconate 250 MG in Sodium Chloride 0.9% 100 ML IVPB SCH ×2 (10:15→20:37)
[2019-02-01] MEDS ORDERED: Furosemide 40 MG/4 ML VIAL SLOW IVP SCH (12:15)
--- NOTE | 2019-02-01 12:57 | PRG ---
DATE OF SERVICE: 02/01/2019 SUBJECTIVE: The patient is seen and examined at the bedside. He is feeling better. OBJECTIVE: VITAL SIGNS: Blood pressure is 134/56, pulse is 97, temperature is 97.6, respirations are 18, O2 saturation is 96% on room air. HEENT: His head is atraumatic and normocephalic. Sclerae are nonicteric. Oral mucosa is moist. NECK: Supple. LUNGS: Clear. HEART: S1, S2, somewhat irregular. No S3. No S4. There is a systolic murmur in our precordium, 2/. ABDOMEN: Soft, nontender, nondistended. EXTREMITIES: No clubbing, cyanosis, or edema. NEUROLOGIC: He is alert and oriented x4. There are no any motor or sensory deficits present. Cranial nerves are intact. LABORATORY DATA: Labs showed white count of 10.9, hemoglobin 7.4, hematocrit 21.6, platelet count 210. Normal electrolytes. BUN of 59, creatinine 1.81, glucose 124, iron 22, total iron-binding capacity 285, ferritin 121, O2 saturation 8, albumin 3.3. Normal urinalysis. Digoxin level is 1.69. IMPRESSION: 1. Chronic anemia, most likely secondary to gastric arteriovenous malformations and blood loss. Apparently, Dr. Casey in November 2018 cauterized his arteriovenous malformations. Eliquis is on hold because of recurrent bleeding. 2. Atrial fibrillation. Cardiology was consulted and EP was consulted for evaluation of this quite difficult situation since we do not use Eliquis or any other anticoagulation because of recurrent bleeding. 3. Pacemaker/implantable cardioverter-defibrillator. 4. Acute kidney injury. does not recommend to restart his diuretics yet. 5. History of congestive heart failure, and he was on diuretics at home. We will wait most likely additional 24 to 48 hours before we restart him back on his regimen gradually. Because of his hypotension, he is still off his medications he was taking at home. PLAN: The patient was started on IV iron. EGD/colonoscopy is still an option if he bleeds and we have some evidence of more active bleeding. If not, we will have more conservative approach to his situation. He received 3 units of packed red blood cells, and he will have more transfusion today. Job ID: [id number]
--- NOTE | 2019-02-01 18:26 | PRG ---
DATE OF SERVICE: 02/01/2019 SUBJECTIVE: Mr. Guy has no abdominal pain. No further overt bleeding. OBJECTIVE: VITAL SIGNS: Temperature 98.2, pulse 86, and blood pressure 149/71. GENERAL: He is in no acute distress. Alert and oriented x3. He has dry mouth. LUNGS: Clear to auscultation bilaterally. HEART: Irregular, S1 and S2. A 3/6 systolic murmur in left lower sternal border. ABDOMEN: Soft, nontender, and nondistended. Bowel sounds are present. EXTREMITIES: No lower extremity edema. LABORATORY DATA: Hemoglobin was 7.4 this morning, up from 5.5 yesterday morning. He has received a total of 3 units now including one this afternoon. IMPRESSION: 1. Anemia of acute on chronic blood loss. 2. Gastric arteriovenous malformations, again presenting with acute bleed. Status post cautery back in November. Followup endoscopy is indicated at this point. 3. Atrial fibrillation, on anticoagulation. Decision is made at this point to discontinue anticoagulation. He is being considered for Watchman device. RECOMMENDATIONS: 1. EGD tomorrow. 2. Anticoagulation has been discontinued. 3. Proton pump inhibitor. Job ID: [id number]
[2019-02-01] MEDS: Diazepam 2 MG TAB PO SCH (20:37)
[2019-02-01] MEDS: Tamsulosin HCl 0.4 MG CAP PO SCH (20:38)
[2019-02-02 06:01] LABS: #Eosinphils 0.1 thou/uL (0.0-0.7); #Monocytes 1.6 thou/uL (0.11-0.59); #Neutrophils 10.9 thou/uL (1.40-6.50); %Basophils 0.1 % (0.0-1.0); %Eosinophils 0.6 % (0.0-10.0); %Lymphocytes 13.7 % (21.0-51.0); %Monocytes 10.8 % (0.0-10.0); %Neutrophils 74.8 % (42.0-75.0); Hemoglobin 8.6 g/dL (14.0-18.0); Mean Corpuscular HGB CONC 33.2 g/dL (32.0-36.0); Mean Corpuscular Hemoglobin 30.5 pg (27.0-31.0); Mean Corpuscular Volume 91.9 fL (78.0-98.0); Mean Platelet Volume 6.4 fL (7.4-10.4); Platelet Count 203 thou/uL (130-400); RBC Distribution Width 15.1 % (11.5-14.5); White Blood Cell (WBC) Count 14.5 thou/uL (4.8-10.8)
[2019-02-02 06:15] LABS: Albumin 3.3 g/dL (3.4-4.8); Anion Gap 12 mmol/L (10-20); BUN (Urea Nitrogen) 41 mg/dL (8.4-25.7); BUN/Creatinine Ratio 21.93; Calc. Creatinine Clearance 31 mL/min (70-130); Calcium 8.1 mg/dL (7.8-10.44); Carbon Dioxide 28 mmol/L (23-31); Chloride 104 mmol/L (98-107); Estimated GFR-MDRD 35; Glucose 122 mg/dL (83-110); Phosphorus 3.6 mg/dL (2.3-4.7); Potassium 3.5 mmol/L (3.5-5.1); Sodium 140 mmol/L (136-145)
[2019-02-02] MEDS ORDERED: Pantoprazole 80 MG, Admixture Fee 1 EACH in Sodium Chloride 0.9% 100 ML IVP SCH (06:30)
[2019-02-02] MEDS ORDERED: Ketamine 50 MG/ML (10ML VIAL) ONE (09:20)
[2019-02-02] MEDS ORDERED: Promethazine HCl 25 MG/ML VIAL IM PRN (10:15)
[2019-02-02] MEDS ORDERED: Promethazine HCl 25 MG/ML VIAL SLOW IVP PRN (10:15)
[2019-02-02] MEDS ORDERED: Ondansetron HCl/PF 4 MG/2 ML Vial IVP PRN (10:15)
--- NOTE | 2019-02-02 10:41 | OP ---
DATE OF PROCEDURE: 02/02/2019 PROCEDURE PERFORMED: Esophagogastroduodenoscopy with control of hemorrhage. INDICATION FOR PROCEDURE: Significant anemia, history of bleeding gastric arteriovenous malformations. DESCRIPTION OF PROCEDURE: After the risks and benefits of the procedure were explained to the patient including risks of bleeding, infection, perforation, reactions to anesthesia, aspiration and/or pain, informed consent was obtained. The patient was then taken to the endoscopy suite, where deep sedation was administered via propofol and the anesthesia support. Once adequate sedation was achieved, the standard gastroscope was introduced to the mouth with intubation of the esophagus, stomach, and the proximal small intestines with the findings listed below. The patient tolerated the procedure well with no immediate perioperative complications. Upon completion of the procedure, all equipment was removed from the patient, and he was transferred to PACU in satisfactory condition. FINDINGS: Esophagus: Normal-appearing mucosa was seen in the proximal, mid, and distal esophagus. There was no evidence of erosions, ulcerations, mass, lesions, or active/recent bleeding. Stomach: Normal-appearing mucosa was seen in the gastric cardia, fundus, incisura, and antrum. However, within the gastric body, there were 4 small nonbleeding arteriovenous malformations measuring approximately 1 to 2 mm in size. There was no evidence of active or recent bleeding upon evaluation of these arteriovenous malformations. However, given his recent history of bleeding from these sites on full anticoagulation, they were intervened upon with argon plasma coagulation with good hemostasis achieved and no bleeding seen at the end of the procedure. Otherwise, there was no evidence of erosions, ulcerations, mass, lesions, or active/recent bleeding. Duodenum: Normal-appearing mucosa was seen both in the duodenal bulb and the second portion of the duodenum. There was no evidence of erosions, ulcerations, mass, lesions, or active/recent bleeding. IMPRESSION: 1. Four small (1 to 2 mm) nonbleeding arteriovenous malformations seen in the gastric body intervened upon with argon plasma coagulation. 2. No evidence of active or recent bleeding was seen during this examination. RECOMMENDATIONS: 1. Would continue to trend H and H and transfuse as necessary to maintain an H and H of 8/24. 2. Would continue to monitor clinically for signs of active GI bleeding. 3. Would hold anticoagulation for at least the next 48 to 72 hours given the intervention today and recent episodes of bleeding. 4. If the patient continues to have a decreased H and H, would consider a tagged red cell scan for further localization of bleeding given his negative colonoscopy in November 2018. 5. Would give strong consideration to Watchman procedure and removal of full anticoagulation given his recurrent history of possible GI bleed. We will continue to follow, please call with any questions. Job ID: [id number]
[2019-02-02] MEDS: Amiodarone 200 MG TAB PO SCH (11:23)
--- NOTE | 2019-02-02 12:25 | PQF ---
CLINICAL DOCUMENTATION IMPROVEMENT CLARIFICATION FORM: ICD-10 Updated PLEASE DO AN ADDENDUM TO THE PROGRESS NOTE WITH ANY DOCUMENTATION UPDATES OR ADDITIONS AND CARRY THROUGH TO DC SUMMARY. THANK YOU. DATE: 02/02/2019; 02/03/2019; 02/04/2019 ATTN: Dr. Barrientos/ Dr. Jesus/ Dr. Gloria Please exercise your independent, professional judgment in responding to the clarification form. Clinical indicators are provided on the bottom of this form for your review Please check appropriate box(s): HEART FAILURE: A. ACUITY [ ] Acute [ ] Acute on Chronic [ X ] Chronic [ ] Other diagnosis [ ] Unable to determine In addition, please specify: Present on Admission (POA): [ X ] Yes [ ] No [ ] Unable to determine For continuity of documentation, please document condition throughout progress notes and discharge summary. Thank You. CLINICAL INDICATORS - SIGNS / SYMPTOMS / LABS H&P 01/30: Pulmonary hypertension on a recent echocardiogram performed on November 04, 2018, which indicated an EF of 60% to 65%, and also had moderate tricuspid regurgitation He does have +1 lower extremity edema. Pn 01/31 ([place]): Acute kidney injury, most likely due to hemodynamic factors related to cardiac decompensation from severe congestive heart failure and diuretic therapy. Pn 02/01([place]) History of congestive heart failure, and he was on diuretics at home. Consult 02/01 ([facility]) PMH: Preserved LV systolic function, EF 60% to 65%. RISKS: H&P 01/30: Hx Hypertension, Atrial fibrillation , is on anticoagulation. Recent pacemaker after symptomatic bradycardia and cardiac arrest. Presents to the hospital with symptomatic anemia. Moderate to severe tricuspid regurgitation. TREATMENT: Order 02/01: Lasix 40mg slow IVP now Thank you, Negra (This form is maintained as a part of the permanent medical record) 2014 [employer]. All Rights Reserved Negra Shepherd RN, BSN [email or web address] Office: [phone] [facility]
[2019-02-02] MEDS ORDERED: PROPOFOL 200 MG/20 ML VIAL ONE (12:27)
[2019-02-02] MEDS ORDERED: ePHEDrine 50 MG/ML VIAL ONE (12:27)
[2019-02-02] MEDS ORDERED: PHENYLEPHRINE-NS 100 MCG/ML 10 ML SYRINGE ONE (12:27)
[2019-02-02] MEDS ORDERED: Sodium Chloride 0.9% (PF) 10 ML VIAL FS PRN (15:34)
--- NOTE | 2019-02-02 15:34 | PDOC.CTH ---
Cardiology Progress Note - Subjective EP PROGRESS NOTE: 02/02/19 Seen as follow up for watchman consideration. S/P AVM ablation with kimmie by GI. No new cardiac concerns or complaints. Feeling somewhat stronger after blood transfusions. 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 Atrial fibrillation - controlled VR 2. 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 Acute anemia - AVM bleed - s/p multiple transfusions 4. Gastric AVM, multiple - s/p argon ablation - trending H/H - possible tagged RBC study 5. CHADS2-VASC: 3 - Previously on Eliquis 5mg PO BID. Age and elevated creat--> qualify for reduced dose Eliquis - Good candidate for watchman but must be back on Eliquis 2.5mg BID to schedule WM and continue therapy for 6 weeks post implant. - once bleeding is stable and Eliquis resumed, may arrange expedited watchman -Per GI, ok to resume OAC in 48-72 hours (02/04- if H/H remains stable) Will continue to follow and assist with WM arrangements once acute bleeding is deemed stable and pt can resume OAC as mentioned above.
--- NOTE | 2019-02-02 16:03 | CON ---
DATE OF CONSULTATION: 02/01/2019 REASON FOR CONSULTATION: Anemia, consideration for a Watchman. HISTORY OF PRESENT ILLNESS: Mr. Guy is a pleasant 83-year-old gentleman, initially referred to our service earlier this year when he presented at the [facility] with altered mental status and was found to be in a third- degree AV block with junctional escape rhythms. He underwent emergent dual-chamber pacemaker implantation during that hospitalization, but has also had some intraoperative ventricular arrhythmias that were attributed to manipulation of the RV lead. He presented to [facility] this admission after finding that he was having acute anemia with hemoglobin as low as 5. He is on Eliquis for stroke prophylaxis at 5 mg p.o. b.i.d. for his underlying atrial fibrillation. Since being admitted to the hospital, he has undergone GI evaluation because of significant anemia and a history of bleeding gastric AVM. Following his EGD, he was found to have four small nonbleeding AVM seen in the gastric body, which were ablated with argon. There was no evidence of active or recent bleed seen during the recent examination. GI recommendations have been continued to trend his H and H and transfuse as needed with holding anticoagulation for at least 48 to 72 hours given the recent intervention and consideration for tagged red cell scan if further bleeding is seen. Given the patient's anemia and acute bleeding issues while on anticoagulation, EP has been consulted for consideration of a Watchman procedure and also for arrhythmia management. Mr. Guy is currently feeling well. He is in no apparent distress. He denies any heart racing, palpitations, chest pain, pressure, syncope, near syncope, stroke, or stroke-like symptoms. He is feeling quite weak with his recent anemia. PAST MEDICAL HISTORY: 1. Acute on chronic anemia. 2. Atrial fibrillation. 3. Hypertension. 4. Third-degree AV block with junctional escape, status post pacemaker implant. 5. History of renal failure during hospitalization in October of 2018. 6. Preserved LV systolic function, EF 60% to 65%. REVIEW OF SYSTEMS: Twelve-point review of systems is conducted and is negative unless listed above in the HPI. ALLERGIES: NONE. HOME MEDICATIONS: Include; 1. Furosemide 80 mg daily. 2. Digoxin 125 mcg daily. 3. B12 daily. 4. Coreg 25 mg p.o. b.i.d. 5. Eliquis 5 mg p.o. b.i.d. 6. Lasix 40 mg q.p.m. 7. Feosol 325 mg b.i.d. 8. Lisinopril 5 mg daily. 9. Omeprazole 20 mg daily. 10. Metolazone 2.5 mg p.o. Friday, Friday, and Friday. 11. Potassium chloride 40 mEq p.o. q.a.m. 12. Finasteride 5 mg q.p.m. 13. Diazepam 2 mg q.p.m. 14. Amiodarone 200 mg daily. 15. Tamsulosin 0.4 mg p.o. at bedtime. PHYSICAL EXAMINATION: GENERAL: The patient is alert and oriented. Speech is clear. Affect is appropriate. He is in no apparent distress. HEENT: Head is normocephalic and atraumatic. Sclerae are anicteric. EOMs are intact. Oral mucosa is moist and pink. His skin does have pallor to it. NECK: Supple without jugular venous distention. HEART: Heart rate is regularly regular. PMI nondisplaced. Pacemaker is seated at the left infraclavicular fossa without swelling, bruising, erosion, or drainage. ABDOMEN: Soft and nontender without palpable masses. LUNGS: Clear to auscultation throughout. EXTREMITIES: Warm and dry. Well perfused. No edema. NEUROLOGIC: Grossly intact and nonfocal. DATABASE: Laboratory: Hemoglobin 7.4 (5.1 on admission). Chemistry was reviewed. Creatinine currently 1.81 (2.55 on admission). Potassium 3.7 (5.0 on admission) . Telemetry and EKGs were all personally reviewed and show pacemaker in situ, interrogation pending. IMPRESSION: 1. History of atrial fibrillation, on amiodarone for arrhythmia suppression. 2. Acute anemia, status post argon ablation by GI for gastric arteriovenous malformations. 3. Acute kidney injury. 4. CHADS-VASc score of greater than or equal to 3. Home therapy with Eliquis 5 mg p.o. b.i.d. currently on hold with acute bleeding. 5. History of ventricular tachycardia, on pacemaker insertion. They are not seen clinically. 6. History of third-degree atrioventricular block, junctional bradycardia, status post pacemaker implantation. PLAN AND RECOMMENDATIONS: I had a discussion with Mr. Guy and his family today regarding oral anticoagulation and the Watchman device for left atrial appendage closure. Once his acute bleeding issues are resolved and he has been cleared by GI, we need to place him back on lower dose anticoagulation. Based on his age over 79 and his elevated creatinine, a reduced dose of Eliquis 2.5 mg p.o. b.i.d. is his indicated appropriate dose either way. Once he is able to tolerate anticoagulation, we can arrange for KENNETH occluder - Watchman device implantation. This will be arranged ultimately likely as an outpatient. He will require continued anticoagulation for at least 6 weeks on Eliquis following closure device insertion. For now, we will continue to watch his anemia issues and await GI clearance. So, I may think acute bleeding issues have been resolved and we can trial oral anticoagulation once again for scheduling him for his procedure. Thank you for allowing us to participate in the care of this patient. Job ID: [id number] [id number]
--- NOTE | 2019-02-02 17:08 | PRG ---
DATE OF SERVICE: 02/02/2019 SUBJECTIVE: The patient is seen and examined at the bedside. He actually feels better. He received first dose of his iron transfusion yesterday and he is getting another one today, which makes him probably stronger. OBJECTIVE: VITAL SIGNS: Blood pressure is 117/55, pulse is 87, temperature is 98.5, respiratory rate is 20, O2 saturation is 90% on room air. HEENT: His head is atraumatic and normocephalic. Eyes are PERRLA. Sclerae are nonicteric. Conjunctivae palish. Oral mucosa is moist. NECK: Supple. LUNGS: Breath sounds clear. HEART: S1, S2, somewhat irregular. No S3. No S4. ABDOMEN: Soft, nontender. Bowel sounds are present. No organomegaly. EXTREMITIES: No clubbing, cyanosis, or edema. NEUROLOGICAL: He follows my commands. He moves his all four extremities. There are no any motor or sensory deficits present. Cranial nerves are intact. LABORATORY DATA: Labs showed white count of 14.5, hemoglobin of 8.6, hematocrit 25.8, platelet count is 203,000. Normal electrolytes. BUN of 41, creatinine 1.87, glucose 122, and the rest of chemistry within normal limits. IMPRESSION: 1. Chronic anemia status post EGD, which showed four tiny arteriovenous malformations without any signs of bleeding, which were cauterized. 2. Atrial fibrillation, EP was consulted for Watchman since he is not able to take any anticoagulant anymore secondary to recurrent bleeding. 3. Pacemaker/implantable cardioverter-defibrillator. 4. Acute kidney injury, improved. 5. History of congestive heart failure. His blood pressure is still running on the lower side. We did not restart his carvedilol and lisinopril yet. PLAN: Plan is to continue IV iron transfusion and continue PPI. I am going to switch him from the drip to IV push every 12 hours and he will be set up for procedure with call out operator after this is arranged, and we will continue his amiodarone along with finasteride, diazepam, and Flomax. Job ID: [id number]
[2019-02-02] MEDS: Lactated Ringer's 1,000 ML IV SCH (18:37)
--- NOTE | 2019-02-02 18:45 | PRG ---
DATE OF SERVICE: 02/02/2019 SUBJECTIVE: The patient is feeling better today. He had EGD earlier today during which four small nonbleeding AV malformations seen in the gastric body, treated with argon plasma coagulation. Denied chest pain, nausea, or vomiting. OBJECTIVE: VITAL SIGNS: Temperature 98.5, pulse 87, respiratory rate 20, SpO2 of 90% on room air, and blood pressure 117/55. GENERAL: Elderly male, in no obvious distress. Afebrile. Anicteric. Acyanotic. HEENT: Normocephalic and atraumatic. Pupils are equal and reacting to light. CARDIOVASCULAR: Regular rhythm and rate with normal heart sounds. RESPIRATORY: Good air entry bilaterally with few transmitted sounds noted. No rhonchi were appreciated. GI: Abdomen is full, soft, nontender, and nondistended with normal bowel sounds. EXTREMITIES: Grossly normal looking, atraumatic with no edema. NEUROLOGIC: Conscious, alert, and oriented x3 with appropriate mental status. DIAGNOSTIC DATA: CBC done today showed WBC count of 14.5, hemoglobin of 8.6, MCV of 91.9, and platelet of 203. Renal function panel showed sodium 140, potassium 3.5, chloride 104, CO2 of 28, BUN 41, creatinine 1.87, glucose 122, and calcium 8.1, phosphorus 3.6, albumin 3.3. ASSESSMENT AND PLAN: 1. Acute kidney injury: Most likely due to hemodynamic factors related to volume depletion from GI bleeding, diuretic, and RAAS kee. The patient had creatinine of 1.3 on January 08, 2019. We will start gentle IV hydration with LR 50 mL/hour, and monitor renal function. We will also monitor the patient closely to avoid fluid overload given history of congestive heart failure. 2. Hyperkalemia: Due to acute kidney injury. Resolved with dextrose infusion as well as insulin and Kayexalate. 3. Iron deficiency anemia: The patient is status post IV iron treatment. Start the patient on oral iron once GI bleeding has subsided. 4. Volume status: The patient seems euvolemic. We will continue to hold diuretics at this time. 5. GI bleeding: We defer to Gastroenterology. Job ID: [id number]
[2019-02-02] MEDS: Tamsulosin HCl 0.4 MG CAP PO SCH ×2 (21:14→21:16)
[2019-02-02] MEDS: Diazepam 2 MG TAB PO SCH (21:14)
[2019-02-02] MEDS: Pantoprazole 40 MG VIAL IVP SCH (21:15)
[2019-02-03 05:49] LABS: #Eosinphils 0.2 thou/uL (0.0-0.7); #Lymphocytes 1.1 thou/uL (1.20-3.40); #Neutrophils 6.8 thou/uL (1.40-6.50); %Eosinophils 2.4 % (0.0-10.0); %Lymphocytes 12.3 % (21.0-51.0); %Monocytes 10.6 % (0.0-10.0); %Neutrophils 74.8 % (42.0-75.0); Hemoglobin 8.2 g/dL (14.0-18.0); Mean Corpuscular HGB CONC 32.8 g/dL (32.0-36.0); Mean Corpuscular Hemoglobin 30.9 pg (27.0-31.0); Mean Corpuscular Volume 94.2 fL (78.0-98.0); Mean Platelet Volume 6.4 fL (7.4-10.4); Platelet Count 172 thou/uL (130-400); RBC Distribution Width 15.6 % (11.5-14.5); Red Blood Cell (RBC) Count 2.67 mill/uL (4.70-6.10); White Blood Cell (WBC) Count 9.2 thou/uL (4.8-10.8)
[2019-02-03 05:59] LABS: Albumin 3.1 g/dL (3.4-4.8); Anion Gap 11 mmol/L (10-20); BUN (Urea Nitrogen) 33 mg/dL (8.4-25.7); BUN/Creatinine Ratio 22.76; Calc. Creatinine Clearance 40 mL/min (70-130); Calcium 8.1 mg/dL (7.8-10.44); Carbon Dioxide 29 mmol/L (23-31); Chloride 103 mmol/L (98-107); Estimated GFR-MDRD 46; Glucose 100 mg/dL (83-110); Phosphorus 3.1 mg/dL (2.3-4.7); Potassium 3.5 mmol/L (3.5-5.1); Sodium 139 mmol/L (136-145)
[2019-02-03] MEDS: Amiodarone 200 MG TAB PO SCH (09:28)
[2019-02-03] MEDS: Pantoprazole 40 MG VIAL IVP SCH ×2 (09:31→20:26)
--- NOTE | 2019-02-03 09:53 | PDOC.CTH ---
Cardiology Progress Note - Subjective EP PROGRESS NOTE: 02/03/19 Seen as follow up for watchman consideration. S/P AVM ablation with kimmie by GI. No new cardiac concerns or complaints. Feeling somewhat stronger after blood transfusions. - Objective Vital Signs Temp Pulse Resp BP Pulse Ox 02/03/19 07:35 97.8 F 86 20 133/68 90 L 02/03/19 03:35 98.4 F 89 20 108/58 L 93 L 02/02/19 23:40 98.1 F 81 20 126/66 93 L Admit Weight 166 lb Weight 166 lb 02/02/19 02/03/19 02/04/19 06:59 06:59 06:59 Intake Total 1350 1305 770 Output Total 1855 575 Balance -505 730 770 - Physical Examination General/Neuro: alert & oriented x3, NAD Neck: carotid US brisk, no JVD present Lungs: CTA, unlabored respirations Heart: PMI normal, other: (AF, SWING TYPE LATHE OPERATOR) Abdomen: NT/ND, soft - Telemetry Telemetry Rhythm: AF, V paced - Labs Result Diagrams: 02/03/19 05:19 02/03/19 05:19 - Assessment/Plan 1. Atrial fibrillation 2. 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 Acute anemia - AVM bleed - s/p multiple transfusions 4. Gastric AVM, multiple - s/p argon ablation - trending H/H - possible tagged RBC study if further bleeding per GI note. 5. CHADS2-VASC: 3 - Previously on Eliquis 5mg PO BID. Age and elevated creat--> qualify for reduced dose Eliquis - Good candidate for watchman but must be back on Eliquis 2.5mg BID to schedule WM and continue will need to be able to continue Eliquis therapy for 6 weeks post implant. - once bleeding is stable and Eliquis resumed, may arrange expedited watchman as outpatient - Per GI, ok to resume OAC in 48-72 hours (02/04- if H/H remains stable) Will continue to follow and assist with WM arrangements once acute bleeding is deemed stable and pt can resume OAC as mentioned above. Will await final approval from GI.
--- NOTE | 2019-02-03 13:59 | PDOC.PN ---
- Subjective Encounter Start Date: 02/03/19 Encounter Start Time: 13:57 Subjective: No new problem. Feeling good. -: No more black stools. -: Denied leg swelling and SOB - Objective Resuscitation Status - Order Detail: 01/30/19 14:42 Resuscitation Status Routine Resuscitation Status: FULL: Full Resuscitation Vital Signs & Weight: Vital Signs (12 hours) Temp Pulse Resp BP Pulse Ox 02/03/19 11:40 98.4 F 85 20 130/65 94 L 02/03/19 07:40 95 02/03/19 07:35 97.8 F 86 20 133/68 90 L 02/03/19 03:35 98.4 F 89 20 108/58 L 93 L Weight Admit Weight 166 lb Weight 166 lb I&O: 02/02/19 02/03/19 02/04/19 06:59 06:59 06:59 Intake Total 1350 1305 770 Output Total 1855 575 Balance -505 730 770 Result Diagrams: 02/03/19 05:19 02/03/19 05:19 Phys Exam - Physical Examination Constitutional: NAD HEENT: PERRLA, moist MMs Neck: no JVD, supple Respiratory: no wheezing, no rhonchi, clear to auscultation bilateral Cardiovascular: RRR Gastrointestinal: soft, non-tender, no distention, positive bowel sounds Musculoskeletal: no edema, pulses present Neurological: non-focal, moves all 4 limbs Psychiatric: A&O x 3 Dx/Plan (1) Acute on chronic blood loss anemia Code(s): D62 - ACUTE POSTHEMORRHAGIC ANEMIA Status: Acute (2) Iron deficiency Code(s): E61.1 - IRON DEFICIENCY Status: Acute (3) CORTES (acute kidney injury) Code(s): N17.9 - ACUTE KIDNEY FAILURE, UNSPECIFIED Status: Acute (4) Diastolic CHF Code(s): I50.30 - UNSPECIFIED DIASTOLIC (CONGESTIVE) HEART FAILURE Status: Acute Qualifiers: Comment: Severe pulmonary HTN and diastolic dysfunction on ECHO (5) S/P placement of cardiac pacemaker Code(s): Z95.0 - PRESENCE OF CARDIAC PACEMAKER Status: Acute Comment: no complications (6) BPH (benign prostatic hyperplasia) Code(s): N40.0 - BENIGN PROSTATIC HYPERPLASIA WITHOUT LOWER URINRY TRACT SYMP Status: Chronic Comment: stable (7) Paroxysmal atrial fibrillation Code(s): I48.0 - PAROXYSMAL ATRIAL FIBRILLATION Status: Chronic - Plan Continue Gentle IV hydration. -: Monitor H/H. -: For restart of anticoagulation tomorrow if H/H remained stable. -: Watchman procedure planning in progress. -: Monitor renal function. * .
--- NOTE | 2019-02-03 15:53 | PRG ---
DATE OF SERVICE: 02/03/2019 SUBJECTIVE: Mr. Guy has had no overt bleeding. He has no abdominal pain or other complaints currently. OBJECTIVE: VITAL SIGNS: Temperature 98.4, pulse 85, blood pressure 130/65. GENERAL: He is in no acute distress. Alert and oriented x3. LUNGS: Clear to auscultation bilaterally. HEART: Regular rate and rhythm. ABDOMEN: Soft, nontender, nondistended. Bowel sounds are present. EXTREMITIES: No lower extremity edema. IMPRESSION: Recurrent anemia of acute/chronic blood loss. He underwent esophagogastroduodenoscopy with cautery of a few small AVMs in the stomach yesterday. He had no active bleeding at this time, and at this point, his hemoglobin is stable. Given that he had recurrent severe anemia after cautery of the previous AVMs, plan is to remain off anticoagulation. Watchman procedure is being considered; however, he has to be on anticoagulation temporarily for couple months around the times of Watchman procedure. I would hold off anticoagulation for couple weeks and if his hemoglobin remained stable after that, then we could consider restarting the Eliquis with close monitoring of the hemoglobin. If he can tolerate that, then he can follow through with the Watchman procedure. Eliquis can be discontinued as soon as feasible after the Watchman. RECOMMENDATIONS: 1. Continue proton-pump inhibitor, which can be changed to orally daily. 2. Follow up in GI clinic in couple weeks. If his hemoglobin is stable, then he could potentially be restarted on Eliquis at that time with followup with Cardiology to consider Watchman. If the Eliquis is restarted, then the plan would be for this to be a temporary move for couple months and his hemoglobin would have to be monitored closely during that time. 3. I will sign off for now. Please call, if GI can be of assistance. Job ID: [id number]
[2019-02-03] MEDS: Lactated Ringer's 1,000 ML IV SCH (18:01)
[2019-02-03] MEDS: Diazepam 2 MG TAB PO SCH (20:26)
[2019-02-03] MEDS: Iron, Sodium Ferric Gluconate 250 MG in Sodium Chloride 0.9% 100 ML IVPB SCH (20:26)
[2019-02-03] MEDS: Tamsulosin HCl 0.4 MG CAP PO SCH (20:44)
[2019-02-04 06:39] LABS: #Eosinphils 0.2 thou/uL (0.0-0.7); #Lymphocytes 0.9 thou/uL (1.20-3.40); #Monocytes 0.8 thou/uL (0.11-0.59); #Neutrophils 5.9 thou/uL (1.40-6.50); %Basophils 0.2 % (0.0-1.0); %Eosinophils 2.1 % (0.0-10.0); %Lymphocytes 11.7 % (21.0-51.0); %Monocytes 9.8 % (0.0-10.0); %Neutrophils 76.1 % (42.0-75.0); Hemoglobin 7.9 g/dL (14.0-18.0); Mean Corpuscular HGB CONC 32.3 g/dL (32.0-36.0); Mean Corpuscular Hemoglobin 30.3 pg (27.0-31.0); Mean Corpuscular Volume 93.8 fL (78.0-98.0); Mean Platelet Volume 6.4 fL (7.4-10.4); Platelet Count 157 thou/uL (130-400); RBC Distribution Width 15.6 % (11.5-14.5); White Blood Cell (WBC) Count 7.7 thou/uL (4.8-10.8)
[2019-02-04 07:02] LABS: Anion Gap 10 mmol/L (10-20); BUN (Urea Nitrogen) 28 mg/dL (8.4-25.7); BUN/Creatinine Ratio 21.21; Calc. Creatinine Clearance 44 mL/min (70-130); Calcium 8.1 mg/dL (7.8-10.44); Carbon Dioxide 27 mmol/L (23-31); Chloride 104 mmol/L (98-107); Estimated GFR-MDRD 52; Glucose 100 mg/dL (83-110); Magnesium 2.8 mg/dL (1.6-2.6); Potassium 3.5 mmol/L (3.5-5.1); Sodium 137 mmol/L (136-145)
--- NOTE | 2019-02-04 08:22 | PDOC.PN ---
- Subjective Encounter Start Date: 02/04/19 Encounter Start Time: 11:00 Subjective: Patient reports feeling fine this AM. IV infiltrated giving iron this -: AM, so waiting to replace. - Objective Resuscitation Status - Order Detail: 01/30/19 14:42 Resuscitation Status Routine Resuscitation Status: FULL: Full Resuscitation MAR Reviewed: Yes Vital Signs & Weight: Vital Signs (12 hours) Temp Pulse Resp BP Pulse Ox 02/04/19 04:00 97.6 F 89 19 113/66 92 L 02/04/19 00:00 99.1 F 88 19 139/67 92 L 02/03/19 20:26 94 L Weight Admit Weight 166 lb Weight 166 lb I&O: 02/03/19 02/04/19 02/05/19 06:59 06:59 06:59 Intake Total 1305 1250 Output Total 575 750 Balance 730 500 Result Diagrams: 02/04/19 06:32 02/04/19 06:32 Phys Exam - Physical Examination Constitutional: NAD HEENT: moist MMs Respiratory: no wheezing, no rales, no rhonchi Cardiovascular: RRR, no significant murmur Gastrointestinal: soft, positive bowel sounds Musculoskeletal: no edema Neurological: non-focal, moves all 4 limbs Psychiatric: normal affect, A&O x 3 Dx/Plan (1) Acute on chronic blood loss anemia Code(s): D62 - ACUTE POSTHEMORRHAGIC ANEMIA Status: Acute Comment: H/H stable, ok for d/c and f/u in GI clinic in 2 weeks, can consider restarting low dose anticoagulation at that time and then EP followup for Watchman device (2) CORTES (acute kidney injury) Code(s): N17.9 - ACUTE KIDNEY FAILURE, UNSPECIFIED Status: Acute Comment: significantly improved with IV fluids and blood transfusion (3) Iron deficiency Code(s): E61.1 - IRON DEFICIENCY Status: Chronic Comment: oral iron supplementation (4) Paroxysmal atrial fibrillation Code(s): I48.0 - PAROXYSMAL ATRIAL FIBRILLATION Status: Chronic Comment: on amiodarone, digoxin held due to high and now down to therapeutic level (5) Diastolic CHF Code(s): I50.30 - UNSPECIFIED DIASTOLIC (CONGESTIVE) HEART FAILURE Status: Chronic Qualifiers: Comment: Severe pulmonary HTN and diastolic dysfunction on ECHO (6) S/P placement of cardiac pacemaker Code(s): Z95.0 - PRESENCE OF CARDIAC PACEMAKER Status: Chronic Comment: no complications (7) BPH (benign prostatic hyperplasia) Code(s): N40.0 - BENIGN PROSTATIC HYPERPLASIA WITHOUT LOWER URINRY TRACT SYMP Status: Chronic Comment: stable (8) Hypertension Code(s): I10 - ESSENTIAL (PRIMARY) HYPERTENSION Status: Chronic Comment: controlled - Plan cont current plan of care Plan for discharge this afternoon after finishing IV iron infusion * . - Discharge Day Encounter end time: 11:20
[2019-02-04] MEDS ORDERED: Apixaban 5 MG TAB PO SCH ×2 (09:45→21:00)
[2019-02-04] MEDS: Pantoprazole 40 MG VIAL IVP SCH (09:48)
[2019-02-04] MEDS: Amiodarone 200 MG TAB PO SCH (09:48)
--- NOTE | 2019-02-04 10:06 | PRG ---
DATE OF SERVICE: 02/04/2019 SUBJECTIVE: An 83-year-old male being followed up for acute kidney injury. The patient has no new complaints. Denied nausea, vomiting, or diarrhea. Oral intake is adequate. OBJECTIVE: VITAL SIGNS: Temperature 97.6, pulse 89, respiratory rate 19, SpO2 of 92 on room air and blood pressure is 118/66. GENERAL: Elderly male, in no distress. Anxious. HEENT: Normocephalic, atraumatic. Pupils are reacting to light. CARDIOVASCULAR: Regular rhythm and rate with normal heart sounds 1 and 2. RESPIRATORY: Good air entry bilaterally with a few bibasilar crackles. No respiratory distress noted. GI: Abdomen is full, soft, nontender, nondistended with normal bowel sounds. EXTREMITIES: Grossly normal looking, atraumatic with no edema. NEUROLOGIC: Conscious and alert and oriented x3 with appropriate mental status. DIAGNOSTIC DATA: CBC showed WBC count of 7, hemoglobin of 7.9, platelet of 157. Of note, hemoglobin was 8.2 yesterday. Renal function panel showed sodium 137, potassium 3.5, chloride 104, CO2 27, BUN 28, creatinine 1.32, glucose 100, calcium 8.1, phosphorus 3.0, magnesium 2.8, and albumin 3.0. ASSESSMENT AND PLAN: 1. Acute kidney injury: Due to hemodynamic factors related to volume depletion from GI bleeding, diuretic and RAAS kee use. The patient had normal creatinine of 0.8 to 1.1 earlier this year. It is trending downwards to baseline. Creatinine today is 1.3 from peak creatinine of 2.85 on admission. We will continue gentle IV hydration while holding diuretics and MARIA ELENA inhibitor. 2. Hyperkalemia: Due to acute kidney injury, resolved. 3. Iron deficiency anemia. Treated with IV iron. 4. Volume status: The patient still looks euvolemic. No need for diuretics at this time. Job ID: [id number]
[2019-02-04 11:49] VITALS: BP 119/60; TEMP 98.7
[2019-02-04] MEDS: Iron, Sodium Ferric Gluconate 250 MG in Sodium Chloride 0.9% 100 ML IVPB SCH (12:27)
--- NOTE | 2019-02-04 13:29 | PDOC.CTH ---
Cardiology Progress Note - Subjective EP PROGRESS NOTE: 02/04/19 Seen as follow up for watchman consideration. S/P AVM ablation with argon by GI. No new cardiac concerns or complaints. Possible DC today after IV Iron infusion is completed. - Objective Vital Signs Temp Pulse Resp BP Pulse Ox 02/04/19 11:49 98.7 F 89 16 119/60 96 02/04/19 04:00 97.6 F 89 19 113/66 92 L Admit Weight 166 lb Weight 166 lb 02/03/19 02/04/19 02/05/19 06:59 06:59 06:59 Intake Total 1305 1250 Output Total 575 750 Balance 730 500 - Physical Examination General/Neuro: alert & oriented x3, NAD Neck: carotid US brisk, no JVD present Lungs: CTA, unlabored respirations Heart: PMI normal Abdomen: NT/ND, soft - Telemetry Telemetry Rhythm: AF,INFORMATION SUPPORT PROJECT MANAGER - Labs Result Diagrams: 02/04/19 06:32 02/04/19 06:32 - Assessment/Plan 1. Atrial fibrillation 2. Permanent pacemaker in situ - INFORMATION SUPPORT PROJECT MANAGER, CVR - interrogation pending 3. Acute anemia - AVM bleed - s/p multiple transfusions 4. Gastric AVM, multiple - s/p argon ablation - trending H/H 5. CHADS2-VASC: 3 - Previously on Eliquis 5mg PO BID. Age and elevated creat--> qualify for reduced dose Eliquis - Good candidate for watchman but must be back on Eliquis 2.5mg BID to schedule WM and continue will need to be able to continue Eliquis therapy for 6 weeks post implant. - once bleeding is stable and Eliquis resumed, may arrange expedited watchman as outpatient GI signed off. Plan is to see GI as OP in 2 weeks. If H/H stable, could resume Eliquis 2.5mg BID at that time. Appt with [facility]CA on 03/02 at 12:45 to discuss watchman if H/H stable. Stop amiodarone. VT was seen with attempted RV lead insertion in October but not since that time. Will monitor for recurrent VT through PPM.
[2019-02-04] MEDS: Lactated Ringer's 1,000 ML IV SCH (13:42)
--- NOTE | 2019-02-05 03:15 | DIS ---
DATE OF ADMISSION: 01/30/2019 DATE OF DISCHARGE: 02/04/2019 PRIMARY CARE PHYSICIAN: Emile Jack MD REASON FOR ADMISSION: Symptomatic anemia with GI bleed. DIAGNOSES AT DISCHARGE: 1. Acute on chronic blood loss anemia. 2. Gastrointestinal arteriovenous malformations. 3. Acute kidney injury, improved. 4. Iron deficiency. 5. Paroxysmal atrial fibrillation. 6. Diastolic congestive heart failure with severe pulmonary hypertension. 7. Previous pacemaker. 8. Benign prostatic hyperplasia. 9. Hypertension. 10. Elevated digoxin, now down to normal. PROCEDURES: EGD with 4 small nonbleeding AV malformations in the gastric body, status post argon plasma coagulation. CONSULTATIONS: 1. Gastroenterology, Dr. Melara. 2. Nephrology, Dr. Jesus. 3. Cardiology, Dr. Awad. 4. Electrophysiology Dr. Antonio. PERTINENT LABORATORY: Hemoglobin on admission 5.1, up to 7.9 at discharge. Creatinine 2.77 at admission, down to 1.32 at discharge. SUMMARY OF HOSPITAL COURSE: This is an 83-year-old male with a history of atrial fibrillation and longstanding anticoagulation, but with recent blood loss anemia , status post EGD with AV malformations coagulated. The patient was restarted on his Eliquis. He presented again today with weakness and low H and H, and his blood count dropped again. The patient was transfused multiple units. He also had iron infusions. He had a repeat EGD by Gastroenterology, it did show some nonbleeding AV malformations, which were coagulated. Given his recurrent hemoglobin drop, Gastroenterology, Dr. Casey recommended that we hold anticoagulation for the next 2 weeks and have him follow up in clinic. If his blood count is improved by that time, he may able to go on to a half dose anticoagulation after that, Eliquis 2.[address] a day[address] Dr[address] Awad and Dr. Antonio were consulted. Dr. Antonio did recommend a Watchman procedure, but stated the patient will need to be on anticoagulation for 6 weeks afterward. As a result, he will need to wait until anticoagulation is restarted to get the watchman done. Dr. Jesus monitored the patient's renal function in the hospital. All diuretics and MARIA ELENA inhibitor were held and renal function was improving. He recommended continuing to hold these medications and having the patient to follow up in his office next week for recheck. The patient also had elevated digoxin level, likely due to his renal failure on presentation. With improvement in renal failure, his digoxin level came back down to normal, so he is being restarted on that at discharge. DISCHARGE MANAGEMENT: Location: Discharged home. Followup: Follow up with Dr. Casey on the at 9:40 a.m. with repeat CBC at that time, with Dr. Jesus in 1 week with repeat basic metabolic panel, H and H and digoxin at that time, with Dr. Perez in 2 to 3 weeks, with Dr. Antnoio on March 02 at 12:45 p.m. Activity: As tolerated. Diet: Healthy heart, low-sodium diet. MEDICATIONS: 1. Ferrous sulfate 325 mg twice a day, 60 tablets dispensed. 2. Continue amiodarone 200 mg daily. 3. Diazepam 2 mg at night. 4. Proscar 5 mg at night. 5. Tamsulosin 0.4 mg at night. 6. Vitamin B12 1000 mcg daily. 7. Digoxin 0.125 mg daily. 8. Omeprazole 20 mg daily. 9. The patient is to hold his furosemide, his lisinopril, his metolazone, and his potassium chloride until seen by Dr. Jesus next week. Arranging the details of this discharge took 35 minutes. Job ID: [id number] [facility]
--- NOTE | 2019-02-06 10:18 | EKG ---
Test Reason : Blood Pressure : / mmHG Vent. Rate : 080 BPM Atrial Rate : 083 BPM P-R Int : 000 ms QRS Dur : 210 ms QT Int : 442 ms P-R-T Axes : 000 -59 123 degrees QTc Int : 509 ms Ventricular-paced rhythm Abnormal ECG Confirmed by SUSHANT LONGORIA DO ([id number]), editor at large HUI AGUIRRE ([id number]) on 02/06/2019 10:17:36 AM Referred By: Confirmed By:SUSHANT LONGORIA DO
== END 2019-02-04 16:23 | disposition home or self-care (01) | DRG 378 ==
LOC: ERS 12:03 → ERHOLD 15:20 → 2SE 18:25
PROVIDERS: ADMIT Internal Medicine; ATTEND Internal Medicine
PROC: 0W3P8ZZ Control Bleeding in Gastrointestinal Tract, Via Natural or Artificial Opening Endoscopic (ICD-10-PCS; principal; 2019-02-02)
DX: K31.811 Angiodysplasia of stomach and duodenum with bleeding (principal); D62 Acute posthemorrhagic anemia; N17.9 Acute kidney failure, unspecified; I44.2 Atrioventricular block, complete; I50.32 Chronic diastolic (congestive) heart failure; M19.90 Unspecified osteoarthritis, unspecified site; I11.0 Hypertensive heart disease with heart failure; N40.0 Benign prostatic hyperplasia without lower urinary tract symptoms; G25.81 Restless legs syndrome; I07.1 Rheumatic tricuspid insufficiency; E86.0 Dehydration; I27.20 Pulmonary hypertension, unspecified; E87.5 Hyperkalemia; D50.0 Iron deficiency anemia secondary to blood loss (chronic); I48.0 Paroxysmal atrial fibrillation; Z95.0 Presence of cardiac pacemaker; Z79.899 Other long term (current) drug therapy; Z79.01 Long term (current) use of anticoagulants
CPT/HCPCS: 36415; 36430; 80048; 80053; 80069; 80162; 81001; 82274; 82570; 82728; 83540; 83550; 83735; 84156; 84300; 84443; 84540; 85025; 86850; 86900; 86901; 93005; 96374; 96375; C9113; J1815; J1940; J2704; J2916; J3490; J7050; P9016; P9040

== ENCOUNTER 2019-05-20 05:59 | Day surgery (SDC) | payer MEDICARE ==
[2019-05-19 10:18] VITALS: BMI 22.5
[2019-05-20 08:03] LABS: #Eosinphils 0.3 thou/uL (0.0-0.7); #Lymphocytes 1.1 thou/uL (1.20-3.40); #Monocytes 0.7 thou/uL (0.11-0.59); #Neutrophils 3.1 thou/uL (1.40-6.50); %Basophils 0.3 % (0.0-1.0); %Eosinophils 5.2 % (0.0-10.0); %Lymphocytes 21.9 % (21.0-51.0); %Monocytes 13.4 % (0.0-10.0); %Neutrophils 59.2 % (42.0-75.0); Hemoglobin 9.9 g/dL (14.0-18.0); Mean Corpuscular HGB CONC 34.1 g/dL (32.0-36.0); Mean Corpuscular Hemoglobin 30.8 pg (27.0-31.0); Mean Corpuscular Volume 90.5 fL (78.0-98.0); Mean Platelet Volume 6.1 fL (7.4-10.4); Platelet Count 164 thou/uL (130-400); RBC Distribution Width 13.9 % (11.5-14.5); Red Blood Cell (RBC) Count 3.22 mill/uL (4.70-6.10); White Blood Cell (WBC) Count 5.2 thou/uL (4.8-10.8)
[2019-05-20 08:12] LABS: INR-International Normal Ratio 1.4; PTT 39.5 SEC (22.9-36.1); Prothrombin Time 16.8 SEC (12.0-14.7)
[2019-05-20 08:22] LABS: Anion Gap 11 mmol/L (10-20); BUN (Urea Nitrogen) 37 mg/dL (8.4-25.7); Calc. Creatinine Clearance 38 mL/min (70-130); Calcium 9.2 mg/dL (7.8-10.44); Carbon Dioxide 31 mmol/L (23-31); Chloride 99 mmol/L (98-107); Estimated GFR-MDRD 46; Glucose 105 mg/dL (83-110); Potassium 3.2 mmol/L (3.5-5.1); Sodium 138 mmol/L (136-145)
[2019-05-20] MEDS ORDERED: PROPOFOL 20 ML ONE (11:19)
--- NOTE | 2019-05-20 14:05 | OP ---
DATE OF PROCEDURE: 05/20/2019 PROCEDURE PERFORMED: Transesophageal echocardiogram. INDICATION: An 83-year-old gentleman with a Watchman device. DESCRIPTION OF PROCEDURE: The patient was taken to the PACU. The patient was sedated by Anesthesiology. Transesophageal probe was placed into the distal esophagus and stomach. Echocardiographic images were obtained. The transesophageal probe was removed. FINDINGS: 1. Normal left ventricular systolic function. 2. Biatrial enlargement. 3. Mild mitral regurgitation. 4. Mild tricuspid regurgitation. 5. Pacemaker wire is noted in the right ventricle. 6. The Watchman device is well positioned in the left atrial appendage. A small 1 mm leak was noted around the device. 7. Atherosclerotic debris in the descending aorta. IMPRESSION: Small 1 mm leak noted around the Watchman device. Job ID: [id number] [facility]
--- NOTE | 2019-05-24 08:42 | EKG ---
Test Reason : PREOP EDITA Blood Pressure : / mmHG Vent. Rate : 072 BPM Atrial Rate : 072 BPM P-R Int : 000 ms QRS Dur : 212 ms QT Int : 516 ms P-R-T Axes : 000 175 -06 degrees QTc Int : 565 ms Ventricular paced rhythm with Premature Ventricular Contractions Abnormal ECG Confirmed by DR. Rosario KING ([id number]) on 05/24/2019 8:42:19 AM Referred By: CAROL ANN Confirmed By:DR. Rosario KING
== END 2019-05-20 14:05 | disposition home or self-care (01) ==
LOC: CCL 05:59
PROVIDERS: ATTEND Internal Medicine Cardiovascular Disease
PROC: B245ZZ4 Ultrasonography of Left Heart, Transesophageal (ICD-10-PCS; principal; 2019-05-20)
DX: I08.1 Rheumatic disorders of both mitral and tricuspid valves (principal); Z95.5 Presence of coronary angioplasty implant and graft; Z95.818 Presence of other cardiac implants and grafts
CPT/HCPCS: 36415; 80048; 85025; 85610; 85730; 93005; 93010; 93312; J2704

== ENCOUNTER 2019-07-16 09:15 | Day surgery (SDC) | payer MEDICARE ==
[2019-07-16] MEDS ORDERED: Iron, Sodium Ferric Gluconate 125 MG in Sodium Chloride 0.9% 100 ML IVPB SCH (10:30)
[2019-07-16] MEDS ORDERED: Acetaminophen 325 MG TAB PO SCH (10:30)
[2019-07-16 14:51] VITALS: BP 129/60; TEMP 98.4
== END 2019-07-16 14:51 | disposition home or self-care (01) ==
LOC: ONC/OP 09:15
PROVIDERS: ATTEND Internal Medicine Gastroenterology
DX: D50.9 Iron deficiency anemia, unspecified (principal)
CPT/HCPCS: 36430; 86850; 86900; 86901; 96365; J2916; J3490; P9016

== ENCOUNTER 2019-07-20 14:12 | Day surgery (SDC) | payer MEDICARE ==
[2019-07-20 15:53] VITALS: BMI 24.4
[2019-07-20] MEDS ORDERED: Acetaminophen 325 MG TAB PO SCH (16:45)
[2019-07-20 23:14] VITALS: BP 131/63; TEMP 98.6
== END 2019-07-20 23:30 | disposition home or self-care (01) ==
LOC: SDC/OP 14:12 → UNDOADMOB 14:12 → 2SW 14:12 → SDC/OP 23:30 → UNDODISOB 23:30 → EDSTATUS 07-21 14:56
PROVIDERS: ATTEND Internal Medicine Gastroenterology
DX: D64.9 Anemia, unspecified (principal)
CPT/HCPCS: 36430; 86850; 86900; 86901; 86920; P9016; 36415; 85014; 85018

== ENCOUNTER → 2019-07-22 | Day surgery (SDC) | payer MEDICARE ==
[2019-07-21 12:54] VITALS: BMI 24.8
[~2019-07-22] MED LIST changes: -Atropine Sulfate 1 mg/10 ml Syringe ONE; +Lidocaine 1% PF 5 ML VIAL ONE; -Magnesium 5 GM/10 ML Abboject SYRINGE ONE; +PROPOFOL 200 MG/20 ML VIAL ONE; -Succinylcholine Chloride 20 MG/ML 10 ml SYRINGE FS ONE
--- NOTE | 2019-07-22 19:21 | OP ---
DATE OF PROCEDURE: 07/22/2019 PROCEDURE PERFORMED: Esophagogastroduodenoscopy. PREOPERATIVE DIAGNOSES: Recurrent anemia and GI bleed. He started developing anemia again after switching from oral anticoagulant to Plavix. He has previously undergone an EGD with cautery of small AVMs in the stomach. He required 3 units of transfusion over the last week. His Plavix was held 1 week ago. DESCRIPTION OF PROCEDURE: Informed consent was obtained from the patient. He was sedated with total intravenous anesthesia. The bite block was placed, and the endoscope was advanced easily to the second portion of the duodenum, and retroflexion was performed in the stomach. The esophagus was normal. The GE junction was normal. The stomach was normal including retroflexed views. There were no AVMs. The pylorus and first and second and third portions of the duodenum were normal. Again, no AVMs were seen. There was no stigmata of recent bleeding. The air was suctioned from the stomach, and procedure was completed. IMPRESSION: 1. Normal esophagogastroduodenoscopy to the third portion of the duodenum. 2. No bleeding source is identified. Given that he has had prior small AVMs, he could have additional small AVM scattered anywhere through the small bowel and the primary treatment at this point is to avoid the antiplatelet medication. He did see Dr. Perez yesterday and it is felt the patient has had an adequate treatment course with the anticoagulation and antiplatelets for his Watchman device. Especially considering now recurrent anemia and suspected bleeding. RECOMMENDATIONS: 1. He should be okay to continue with aspirin 81 mg daily. 2. His Plavix has been discontinued. 3. Continue to follow trend of his hemoglobin, status post transfusion. Job ID: [id number]
== END ==
LOC: SDC 09:04
PROVIDERS: ATTEND Internal Medicine Gastroenterology
PROC: 0DJ08ZZ Inspection of Upper Intestinal Tract, Via Natural or Artificial Opening Endoscopic (ICD-10-PCS; principal; 2019-07-22)
DX: D50.0 Iron deficiency anemia secondary to blood loss (chronic) (principal); K92.2 Gastrointestinal hemorrhage, unspecified; M19.90 Unspecified osteoarthritis, unspecified site; I48.91 Unspecified atrial fibrillation; I11.0 Hypertensive heart disease with heart failure; I50.9 Heart failure, unspecified; Z79.02 Long term (current) use of antithrombotics/antiplatelets; Z79.899 Other long term (current) drug therapy; Z95.0 Presence of cardiac pacemaker; Z98.890 Other specified postprocedural states
CPT/HCPCS: J2001; J2704

== ENCOUNTER 2019-10-23 17:23 | Inpatient (IN) | payer MEDICARE ==
--- NOTE | 2019-10-23 18:14 | CT ---
Head CT without contrast 10/23/2019: Comparison: None HISTORY: Syncope, weakness TECHNIQUE: Axial CT imaging at 5 mm intervals from vertex through skull base without contrast FINDINGS: Imaged paranasal sinuses and mastoid air cells well-aerated. No displaced calvarial fractur e. No intracranial hemorrhage, midline shift, mass effect, or ventricular enlargement. IMPRESSION: No acute findings.
[2019-10-23 18:19] LABS: Bilirubin Negative (Negative); Blood, Urine Negative (Negative); Clarity Clear (Clear); Glucose, Urine (Dipstick) Normal (Negative); Leukocyte Negative Leu/uL (Negative); Nitrite Negative (Negative); Protein, Urine (Dipstick) Negative (Neg-Trace); Urobilinogen Normal mg/dL (Less than 2)
[2019-10-23 18:27] LABS: #Eosinphils 0.1 thou/uL (0.0-0.7); #Lymphocytes 1.3 thou/uL (1.20-3.40); #Monocytes 0.6 thou/uL (0.11-0.59); #Neutrophils 4.1 thou/uL (1.40-6.50); %Basophils 0.7 % (0.0-1.0); %Lymphocytes 21.7 % (21.0-51.0); %Monocytes 9.1 % (0.0-10.0); %Neutrophils 66.6 % (42.0-75.0); Mean Corpuscular HGB CONC 34.7 g/dL (32.0-36.0); Mean Corpuscular Hemoglobin 31.7 pg (27.0-31.0); Mean Corpuscular Volume 91.2 fL (78.0-98.0); Mean Platelet Volume 6.7 fL (7.4-10.4); Platelet Count 171 thou/uL (130-400); RBC Distribution Width 16.8 % (11.5-14.5); White Blood Cell (WBC) Count 6.2 thou/uL (4.8-10.8)
[2019-10-23 18:48] LABS: ALT (SGPT) 15 U/L (8-55); AST (SGOT) 26 U/L (5-34); Albumin 4.3 g/dL (3.4-4.8); Alkaline Phosphatase 71 U/L (40-110); Anion Gap 12 mmol/L (10-20); BUN (Urea Nitrogen) 33 mg/dL (8.4-25.7); Bilirubin, Total 1.4 mg/dL (0.2-1.2); Calc. Creatinine Clearance 0 mL/min (70-130); Calcium 9.3 mg/dL (7.8-10.44); Carbon Dioxide 32 mmol/L (23-31); Chloride 97 mmol/L (98-107); Estimated GFR-MDRD 47; Globulin 3.1 g/dL (2.4-3.5); Glucose 106 mg/dL (83-110); Potassium 3.1 mmol/L (3.5-5.1); Protein, Total 7.4 g/dL (5.8-8.1); Sodium 138 mmol/L (136-145)
[2019-10-23 19:10] LABS: CKMB 2.5 ng/mL (0-6.6)
[2019-10-23 22:21] LABS: Troponin I 0.097 ng/mL (< 0.028)
[2019-10-23 22:58] VITALS: BMI 22.5
[2019-10-24] MEDS ORDERED: Guaifenesin DM 100-10/5 ML UDCUP PO PRN (00:06)
[2019-10-24] MEDS ORDERED: Finasteride 5 MG TAB PO PRN (00:06)
[2019-10-24] MEDS ORDERED: Ondansetron PF 4 MG/2 ML Vial IVP PRN (00:06)
[2019-10-24] MEDS ORDERED: Tamsulosin HCl 0.4 MG CAP PO PRN (00:06)
[2019-10-24] MEDS ORDERED: Senokot S 8.6-50 MG TAB PO PRN (00:06)
[2019-10-24] MEDS ORDERED: Acetaminophen 325 MG TAB PO PRN (00:06)
[2019-10-24] MEDS ORDERED: Bisacodyl 10 MG SUPP PR PRN (00:06)
[2019-10-24] MEDS ORDERED: Potassium Chloride 20 MEQ TAB PO SCH ×2 (00:15→21:00)
[2019-10-24] MEDS ORDERED: Gabapentin 300 MG CAP PO SCH (00:15)
[2019-10-24] MEDS ORDERED: Diazepam 2 MG TAB PO SCH (00:15)
[2019-10-24] MEDS ORDERED: Sodium Chloride 0.9% 1,000 ML IV SCH (00:15)
--- NOTE | 2019-10-24 00:57 | HP ---
REASON FOR ADMISSION: Near syncope. HISTORY OF PRESENTING ILLNESS: The patient gives history of traveling in a car in the backseat with his around 5 p.m., and felt like he will almost pass out. He had a strange feeling in his head and did not feel good. The patient says he did not lose consciousness. This lasted for 5 seconds or so. No blurred vision, chest pain or shortness of breath. As this concerned him, he and his made it to the emergency room. No complaints of fever, cough, or expectoration. The patient takes 80 mg of Lasix daily and metolazone on alternate days. He also takes diazepam at bedtime along with gabapentin as well. He states he does not hydrate himself much. PAST MEDICAL AND SURGICAL HISTORY: History of chronic atrial fibrillation with Watchman device placed, history of CHF, hypertension, chronic anemia, cataract surgery, pacemaker, shoulder, knee surgery, and hernia surgery. CURRENT MEDICATIONS: The patient is on: 1. Vitamin D3 5000 units p.o. daily. 2. Vitamin B12 2500 mcg p.o. daily. 3. Diazepam 4 mg p.o. q.p.m. 4. Digoxin 0.125 mg p.o. daily. 5. Proscar 5 mg p.o. q.p.m. 6. Flomax 0.4 mg p.o. at bedtime. 7. Folic acid 400 mcg p.o. daily. 8. Lasix 80 mg p.o. q.a.m. 9. Metolazone 2.5 mg on Friday, Friday, Friday. 10. Gabapentin 300 mg p.o. at bedtime. 11. Potassium chloride 20 mEq p.o. q.a.m. and q.p.m. ALLERGIES: NO KNOWN DRUG ALLERGIES. PERSONAL HISTORY: Does not abuse alcohol or drugs. No history of smoking. FAMILY HISTORY: Mother at the age of 57 years. She has had history of cancer of the lymph nodes, likely lymphoma. He does not know much about his father. CODE STATUS: Full. Power of civil litigation attorney is his . REVIEW OF SYSTEMS: CONSTITUTIONAL: Negative for weight loss or gain, ability to conduct usual activities. SKIN: Negative for rash, itching. EYES: Negative for double vision, pain. ENT/MOUTH: Negative for nose bleeding, neck stiffness, pain, tenderness. CARDIOVASCULAR: Negative for palpitations, dyspnea on exertion, orthopnea. RESPIRATORY: Negative for shortness of breath, wheezing, cough, hemoptysis, fever or night sweats. GASTROINTESTINAL: Negative for poor appetite, abdominal pain, heartburn, nausea , vomiting, constipation, or diarrhea. GENITOURINARY: Negative for urgency, frequency, dysuria, nocturia. MUSCULOSKELETAL: Negative for pain, swelling. NEUROLOGIC/PSYCHIATRIC: Negative for anxiety, depression. ALLERGY/IMMUNOLOGIC: Negative for skin rash, bleeding tendency. PHYSICAL EXAMINATION: GENERAL: The patient is an 83-year-old male, who is currently not in any acute distress. VITAL SIGNS: Blood pressure 126/54, pulse 86 per minute, respiratory rate 16 per minute, temperature 97.9 degrees Fahrenheit, saturating 100% on room air. NECK: Supple. No elevated JVD. HEENT: Eyes; extraocular muscles intact. Pupils reacting to light. Oral cavity, mucous membranes are moist. No exudates or congestion. CARDIOVASCULAR: S1-S2 heard. Regular rhythm. RESPIRATORY: Air entry 2+ bilateral. No rales or rhonchi. ABDOMEN: Soft bowel sounds heard. No tenderness, rigidity, or guarding. EXTREMITIES: No peripheral edema or calf tenderness. VASCULAR: Peripheral pulses 1+ bilateral. No ischemic ulcerations or gangrene. CENTRAL NERVOUS SYSTEM: No gross focal deficits noted. The patient is alert, awake and oriented well. PSYCHIATRIC: The patient's mood is euthymic. No hallucinations or delusions. LABORATORY DATA: EKG done shows paced rhythm at 95 beats per minute. QRS duration is 210 milliseconds, corrected QT is 560 milliseconds. White count of 6, H and H 12 and 34, platelet count 171, MCV is 91 with 66% neutrophils. BUN 33, creatinine 1.4, serum bicarb 32, T. bilirubin 1.4. Liver enzymes within normal limits, troponin I is 0.06, a 2nd set is 0.09, CK-MB 2.5. Albumin is 4.3. IMAGING: CT brain done shows no acute findings. CLINICAL IMPRESSION AND PLAN: The patient will be under observation on telemetry for near syncope, likely orthostasis. The patient is on Lasix high dose and metolazone as well. He does not hydrate himself on top of it. We will obtain orthostatic blood pressures. He will be gently hydrated with normal saline at 70 mL per hour for a total of 1 L. We will continue his potassium replacement for tonight and twice daily as before. We will also continue all his home medication including aspirin, vitamin B12, vitamin D3, Valium at bedtime, digoxin as before, gabapentin at bedtime. Flomax and finasteride as before. We will obtain digoxin levels, serum levels and also interrogate his Medtronic pacemaker while he is on the floor. Job ID: [id number] [facility]
[2019-10-24 00:58] LABS: Digoxin 0.46 ng/mL (0.8-2.0)
[2019-10-24 05:19] LABS: #Eosinphils 0.1 thou/uL (0.0-0.7); #Lymphocytes 1.5 thou/uL (1.20-3.40); #Monocytes 0.8 thou/uL (0.11-0.59); #Neutrophils 3.3 thou/uL (1.40-6.50); %Basophils 0.3 % (0.0-1.0); %Eosinophils 2.5 % (0.0-10.0); %Lymphocytes 25.8 % (21.0-51.0); %Monocytes 14.2 % (0.0-10.0); %Neutrophils 57.3 % (42.0-75.0); Hemoglobin 10.9 g/dL (14.0-18.0); Mean Corpuscular HGB CONC 34.1 g/dL (32.0-36.0); Mean Corpuscular Hemoglobin 31.3 pg (27.0-31.0); Mean Corpuscular Volume 91.6 fL (78.0-98.0); Mean Platelet Volume 7.4 fL (7.4-10.4); Platelet Count 154 thou/uL (130-400); RBC Distribution Width 16.9 % (11.5-14.5); Red Blood Cell (RBC) Count 3.48 mill/uL (4.70-6.10); White Blood Cell (WBC) Count 5.7 thou/uL (4.8-10.8)
[2019-10-24 05:36] LABS: Anion Gap 12 mmol/L (10-20); BUN (Urea Nitrogen) 35 mg/dL (8.4-25.7); Calc. Creatinine Clearance 40 mL/min (70-130); Calcium 8.8 mg/dL (7.8-10.44); Carbon Dioxide 31 mmol/L (23-31); Chloride 101 mmol/L (98-107); Estimated GFR-MDRD 49; Glucose 97 mg/dL (83-110); Potassium 3.7 mmol/L (3.5-5.1); Sodium 140 mmol/L (136-145)
[2019-10-24] MEDS ORDERED: FOLIC ACID 400 MCG PO SCH (09:00)
[2019-10-24] MEDS: Cyanocobalamin (Vitamin B-12) 1,000 MCG TAB PO SCH (10:46)
[2019-10-24] MEDS: Furosemide 80 MG TAB PO SCH (10:47)
[2019-10-24] MEDS: Famotidine 20 MG TAB PO SCH (10:47)
[2019-10-24] MEDS: Aspirin Chewable 81 MG TAB PO SCH (10:48)
[2019-10-24] MEDS: Folic Acid 1 MG TAB PO SCH (10:48)
[2019-10-24] MEDS: Digoxin 0.125 MG TAB PO SCH (10:48)
[2019-10-24] MEDS: Potassium Chloride 20 MEQ TAB PO SCH ×2 (10:51→15:43)
[2019-10-24] MEDS: Enoxaparin Sodium 40 MG/0.4 ML SYRINGE SC SCH (10:52)
--- NOTE | 2019-10-24 18:00 | PDOC.HOSPP ---
- Subjective Encounter Date: 10/24/19 Encounter Time: 15:00 Subjective: cc: f/u for diziness and near syncope subjective: patient is new to me. seen and personally examined. chart, labs, imaging results reviewed. feels well and back to baseline. reports episodes of near-syncope and head tightness that happened yesterday at rest at ~1715pm while sitting in care without angina, obvious palpitations, or changes in position. reports similar episode 6-8 weeks prior. eager to go home. compliant with all home medications. reports he "flatlined" 3 times in october 2018 requiring ventilator dependence and eventual PPM as well as watchman's device months later for symptomatic anemia. was on amiodarone for several months in oct and nov but has been taken off it since by clam shucker. RN notes PPM medtronic interrogation showed 45 episodes of ventricular arrhythmias in unclear timeframe. - Objective Vital Signs & Weight: Vital Signs (12 hours) Temp Pulse Resp BP BP BP Pulse Ox 10/24/19 15:05 97.7 F 73 14 116/56 L 100 10/24/19 11:30 97.2 F L 73 20 123/57 L 100 10/24/19 10:48 69 10/24/19 08:10 97.6 F 69 16 127/70 136/70 127/63 95 Weight Weight 157 lb 3.2 oz I&O: 10/23/19 10/24/19 10/25/19 06:59 06:59 06:59 Intake Total 580 Output Total 600 Balance -20 Result Diagrams: 10/24/19 05:03 10/24/19 05:03 Hospitalist ROS - Review of Systems Other: ROS: pertinent positive per SUBJECTIVE; remainder ROS negative - Medication Medications: Active Medications Generic Name Dose Route Start Last Admin Trade Name Freq PRN Reason Stop Dose Admin Aspirin 81 mg 10/24/19 09:00 10/24/19 10:48 Aspirin Chewable PO 81 mg DAILY JENI Administration Cholecalciferol 5,000 units 10/24/19 09:00 10/24/19 10:47 Vitamin D3 PO 5,000 units DAILY JENI Administration Cyanocobalamin 2,500 mcg 10/24/19 09:00 10/24/19 10:46 Vitamin B-12 PO 2,500 mcg DAILY JENI Administration Digoxin 0.125 mg 10/24/19 09:00 10/24/19 10:48 Lanoxin PO 0.125 mg DAILY JENI Administration Enoxaparin Sodium 40 mg 10/24/19 09:00 10/24/19 10:52 Lovenox SC Not Given 0900 JENI Famotidine 20 mg 10/24/19 09:00 10/24/19 10:47 Pepcid PO 20 mg QAM JENI Administration Folic Acid 0.5 mg 10/24/19 09:00 10/24/19 10:48 Folvite PO 0.5 mg DAILY JENI Administration Furosemide 80 mg 10/24/19 09:00 10/24/19 10:47 Lasix PO 80 mg QAM JENI Administration Potassium Chloride 20 meq 10/24/19 12:00 10/24/19 10:51 K-Dur PO 20 meq 1200 JENI Administration Potassium Chloride 20 meq 10/24/19 17:00 10/24/19 15:43 K-Dur PO 20 meq QPM-WM JENI Administration Sodium Chloride 10 ml 10/24/19 00:14 10/24/19 00:29 Flush - Normal Saline IVF 10 ml PRN PRN Administration Saline Flush - Exam General Appearance: awake alert Eye: PERRL, anicteric sclera ENT: normocephalic atraumatic, no oropharyngeal lesions Neck: supple, symmetric, no JVD Heart: RRR, no murmur Heart - other findings: left chest wall PPM Respiratory: CTAB, no wheezes, no rales, no ronchi Gastrointestinal: soft, non-tender, non-distended Extremities: no cyanosis, no clubbing, no edema Neurological: cranial nerve grossly intact, normal sensation to touch, no focal deficits Musculoskeletal: normal tone, normal strength Psychiatric: normal affect, normal behavior, A&O x 3 Hosp A/P - Plan Near-syncope. possibly cardiogenic etiology. PPM interrogation suggests frequent ventricular tachyarrhythmias. consult cardiology who will see patient. patient denies anginal complaints. denies prior history HI or stents. denies orthostatic symptoms but also has received IVF as well as continuation on daily Lasix and TIW zaroxolyn CKD 3 stable. Chronic atrial fibrillation. patient has PPM in place. has history watchman's procedure Hypertension, benign history cardiac arrest 10/2018. prior code note suggests ?torsades history PPM 10/2018 history VT reported with prior RV pacemaker lead insertion severe pulmonary hypertension per 10/2018 TTE. history watchman's history GI bleeding DVT px: LMWH dispo: await cardiology evaluation
[2019-10-24] MEDS: Gabapentin 300 MG CAP PO SCH (20:15)
[2019-10-24] MEDS: Diazepam 2 MG TAB PO SCH (20:15)
--- NOTE | 2019-10-24 21:36 | CON ---
DATE OF CONSULTATION: PRIMARY WANIGAN CLERK: Dr. Davin Perez. REASON FOR CONSULTATION: Near-syncope with probable ventricular arrhythmias seen on pacemaker. HISTORY OF PRESENT ILLNESS: Mr. Mikal Guy is a very pleasant 83-year-old gentleman. He has a history of pacemaker insertion for complete heart block. He also has a history of atrial arrhythmias. He initially was on Eliquis, but had severe anemia. Subsequently, he had successful implantation of a Watchman device. The patient has been doing well, but had several episodes of near-syncope prompting this admission. The pacemaker has been interrogated. It looks like he has had some ventricular arrhythmias. The patient does have a history of diastolic congestive heart failure. MEDICATIONS: Prior to admission included; 1. Digoxin 0.125 mg a day. 2. Lasix 80 mg a day. 3. Zaroxolyn 2.5 mg Friday, Friday, Friday. 4. Potassium 20 mEq twice a day. 5. Gabapentin. ALLERGIES: NONE KNOWN. SOCIAL HISTORY: No alcohol or drugs. No smoking. FAMILY HISTORY: Mother at age 57 of cancer. Code status is full. REVIEW OF SYSTEMS: CONSTITUTIONAL: No significant weight gain or loss. VISION: No changes. HEARING: No changes. PULMONARY: No cough or wheezing. GASTROINTESTINAL: No nausea, vomiting, or diarrhea. SKIN: No rashes. PHYSICAL EXAMINATION: GENERAL: This is a delightful 83-year-old gentleman in no distress. VITAL SIGNS: Blood pressure 116/56, pulse 70, regular. LUNGS: Clear. CARDIAC: Normal S1, normal S2. ABDOMEN: Soft, nontender. EXTREMITIES: Warm and dry. No clubbing or cyanosis. There is a very minimal edema. He did have some chronic venous stasis discoloration of his skin. PERTINENT LABORATORY DATA: Troponin 0.097, creatinine is 1.42, potassium initially was 3.1, followup 3.7. The pacemaker with good thresholds, but looks like there may have been some ventricular arrhythmias. The patient previously had normal left ventricular function. ASSESSMENT: 1. Near syncopal episodes. 2. Pacer interrogation suggests some ventricular arrhythmias. 3. Previous Watchman device, successful. 4. Previous pacemaker. PLAN: 1. Repeat echocardiogram for left ventricular function. He has a very wide-complex on the EKG. He needs to have the left ventricular function re-evaluated. 2. Try to avoid hypokalemia. We will hold metolazone. He is also getting potassium orally. 3. We will ask Dr. Antonio to see the patient tomorrow. Job ID: [id number]
[2019-10-25 05:35] LABS: Anion Gap 15 mmol/L (10-20); BUN (Urea Nitrogen) 31 mg/dL (8.4-25.7); Calc. Creatinine Clearance 35 mL/min (70-130); Calcium 8.9 mg/dL (7.8-10.44); Carbon Dioxide 27 mmol/L (23-31); Chloride 100 mmol/L (98-107); Estimated GFR-MDRD 43; Glucose 96 mg/dL (83-110); Potassium 3.5 mmol/L (3.5-5.1); Sodium 138 mmol/L (136-145)
[2019-10-25] MEDS ORDERED: Metolazone 5 MG TAB PO SCH (08:30)
--- NOTE | 2019-10-25 10:15 | PDOC.HOSPP ---
- Subjective Encounter Date: 10/25/19 Encounter Time: 10:15 Subjective: cc: f/u for diziness and near syncope subjective: patient seen at bedside. offers no acute complaints. NPO and awaiting further EP evalaution. nurse notes no acute overnight events. discussed with chart reviewer who notes patient meets medical necessity for inpatient criteria. - Objective Vital Signs & Weight: Vital Signs (12 hours) Temp Pulse Resp BP BP BP Pulse Ox 10/25/19 07:45 97.4 F L 75 20 132/61 143/68 H 129/60 95 10/25/19 04:10 98.0 F 78 15 130/63 96 10/24/19 23:00 98.6 F 75 15 132/62 96 Weight Weight 154 lb 9.6 oz I&O: 10/24/19 10/25/19 10/26/19 06:59 06:59 06:59 Intake Total 580 1870 Output Total 600 1400 Balance -20 470 Result Diagrams: 10/24/19 05:03 10/25/19 04:39 Hospitalist ROS - Review of Systems Other: ROS: pertinent positive per SUBJECTIVE; remainder ROS negative. - Medication Medications: Active Medications Generic Name Dose Route Start Last Admin Trade Name Freq PRN Reason Stop Dose Admin Aspirin 81 mg 10/24/19 09:00 10/24/19 10:48 Aspirin Chewable PO 81 mg DAILY JENI Administration Cholecalciferol 5,000 units 10/24/19 09:00 10/24/19 10:47 Vitamin D3 PO 5,000 units DAILY JENI Administration Cyanocobalamin 2,500 mcg 10/24/19 09:00 10/24/19 10:46 Vitamin B-12 PO 2,500 mcg DAILY JENI Administration Diazepam 4 mg 10/24/19 21:00 10/24/19 20:15 Valium PO 4 mg QPM JENI Administration Digoxin 0.125 mg 10/24/19 09:00 10/24/19 10:48 Lanoxin PO 0.125 mg DAILY JENI Administration Enoxaparin Sodium 40 mg 10/24/19 09:00 10/24/19 10:52 Lovenox SC Not Given 0900 JNEI Famotidine 20 mg 10/24/19 09:00 10/24/19 10:47 Pepcid PO 20 mg QAM JENI Administration Folic Acid 0.5 mg 10/24/19 09:00 10/24/19 10:48 Folvite PO 0.5 mg DAILY JENI Administration Furosemide 80 mg 10/24/19 09:00 10/24/19 10:47 Lasix PO 80 mg QAM JENI Administration Gabapentin 300 mg 10/24/19 21:00 10/24/19 20:15 Neurontin PO 300 mg HS JENI Administration Potassium Chloride 20 meq 10/24/19 12:00 10/24/19 10:51 K-Dur PO 20 meq 1200 JENI Administration Potassium Chloride 20 meq 10/24/19 17:00 10/24/19 15:43 K-Dur PO 20 meq QPM-WM JENI Administration Sodium Chloride 10 ml 10/24/19 00:14 10/24/19 20:18 Flush - Normal Saline IVF 10 ml PRN PRN Administration Saline Flush Hosp A/P - Plan Near-syncope. possibly cardiogenic etiology. PPM interrogation suggests frequent ventricular tachyarrhythmias. cardiology consulted yesterday and recommends EP evaluation. await EP consultation today and continue NPO in interim as unclear if further invasive testing will be required to evaluate for arrhythmogenic focus or if any AICD prevention of Suddent cardiac will be necessary. patient denies anginal complaints. denies prior history MA or stents. denies orthostatic symptoms. TTE noted 10/25/19 with small area of akinesis, preserved LVEF, moderate to severe MR and TR, and severely elevated PASP 75mmhg. CKD 3 stable. Chronic atrial fibrillation. patient has PPM in place. has history watchman's procedure Hypertension, benign history cardiac arrest 10/2018. prior code note suggests ?torsades history PPM 10/2018 history VT reported with prior RV pacemaker lead insertion severe pulmonary hypertension per 10/2018 TTE. history watchman's history GI bleeding DVT px: LMWH dispo: await further cardiology and EP evaluate of cardiogenic near-syncope. change to inpatient status.
[2019-10-25] MEDS: Enoxaparin Sodium 40 MG/0.4 ML SYRINGE SC SCH (10:51)
[2019-10-25] MEDS: Potassium Chloride 20 MEQ TAB PO SCH ×2 (16:10→16:11)
[2019-10-25] MEDS: Aspirin Chewable 81 MG TAB PO SCH (16:11)
[2019-10-25] MEDS: Folic Acid 1 MG TAB PO SCH (16:11)
[2019-10-25] MEDS: Famotidine 20 MG TAB PO SCH (16:11)
[2019-10-25] MEDS: Digoxin 0.125 MG TAB PO SCH (16:12)
[2019-10-25] MEDS: Furosemide 80 MG TAB PO SCH (16:12)
[2019-10-25] MEDS: Cyanocobalamin (Vitamin B-12) 1,000 MCG TAB PO SCH (16:12)
--- NOTE | 2019-10-25 21:25 | CON ---
DATE OF CONSULTATION: 10/25/2019 PRIMARY HIGH SCHOOL PROFESSIONAL: Davin Perez MD HISTORY OF PRESENT ILLNESS: I am seeing Mr. Guy at our [facility] as an electrophysiology oracle consultant. His problems are: 1. Near syncopal spell. 2. History of recurrent ventricular tachycardia. a. History of ventricular tachyarrhythmia during pacing insertion attempt in October 2018. b. History of a nonsustained rapid tachycardia corresponding to current near syncopal spell and an earlier over 1 minute and 30 seconds episode of rapid tachycardia registered by the pacemaker at night time hours up to 240 beats per minute. 3. History of chronic atrial fibrillation, failed prior cardioversion and immunosuppression in the past. 4. 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 a. Status post Watchman device placement in April. 5. History of preserved LVEF on echocardiogram on 10/25/2019 at 55% to 60%, severely dilated left atrium, moderate to severe mitral regurgitation, severe pulmonary hypertension, [id number] tricuspid regurgitation. 6. History of hypertension. 7. History of single-chamber pacemaker implantation in October 2018. ALLERGIES: NONE NOTED. MEDICATIONS: At home included; 1. Vitamin D3. 2. Vitamin B12. 3. Diazepam. 4. Digoxin 0.125 mg daily. 5. Proscar. 6. Flomax. 7. Folic acid. 8. Lasix. 9. Metolazone. 10. Gabapentin. 11. Potassium chloride. SUBJECTIVE: Mr. Guy is here due to an acute near syncopal spell while he was sitting in the car. The episode lasted short, less than 1 minute, was significant enough for him to come to the ER. He did not completely pass out. He denies chest pains. He had some head pounding sensation. No stroke-like symptoms. No neurological deficits. No fever, chills, or cough. No seizure activities are noted. No incontinence. REVIEW OF SYSTEMS: Rest of 12-point review of system otherwise unremarkable. PAST MEDICAL HISTORY: As above. SOCIAL HISTORY: The patient denies smoking, EtOH, or drug abuse. 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 He is . FAMILY HISTORY: Not contributory. OBJECTIVE DATA: VITAL SIGNS: Blood pressure 143/68 standing, supine 179/60, heart rate 75, respirations 20, and temperature 97.4 degrees Fahrenheit. Blood pressures on the day of admission was 132/62 standing and supine 117/59 suggestive of no significant orthostatic hypotension. GENERAL: Alert and oriented man, in no apparent distress. NECK: Supple. Jugular veins not distended. CHEST: Coarse without crackles. HEART: Sounds are regular to rate and rhythm. No murmur or gallop. Left epicardial pacemaker insertion site is well healed. ABDOMEN: Benign. Bowel sounds positive. EXTREMITIES: Lower extremities without edema, clubbing, or cyanosis. Pulses are adequate. NEUROLOGIC: The patient is nonfocal. MUSCULOSKELETAL: No joint swelling, or deformity. SKIN: Without rash. DATABASE: EKG is reviewed, revealing atrial fibrillation with a paced ventricular rhythm. Wide-complex is seen. Occasional PVCs are noted and QRS duration is 210 milliseconds. QTc is 560 milliseconds. LABORATORY DATA: Sodium 138, potassium 3.5, BUN is 31, creatinine 1.54. AST and ALT are 26 and 15. Troponin levels 0.06 and 0.097 on admission consecutively. Digoxin level was 0.46. I reviewed the interrogation of the [employer] Sensia single-chamber device revealing adequate battery voltage at 8 years, ventricular sensing is also adequate, but mostly paced. Impedance 583 ohms. The patient is 93% ventricularly paced. Recurrent ventricular high rate episodes are seen. Longest duration is 1 minute and 14 seconds on 09/19/2019 at 3 a.m. in the morning. Corresponding to his dizzy spell on 10/15/2019, there is another high ventricular rate episode at 240 beats per minute is noted. It is suggestive of likely ventricular arrhythmia, hence the history of using an AV block and was 100% ventricular pacing. Telemetry strips reviewed, reveal couplets, mostly isolated PVCs and continued ventricular pacing throughout. ASSESSMENT AND PLAN: Mr. Guy is an 83-year-old man with prior history of chronic atrial fibrillation, failing amiodarone and cardioversion in the past. He also has advanced AV block, which eventually required a single-chamber pacemaker implantation back in October of this year. Hence, GI bleeds. Also, he has received a Watchman device and currently off anticoagulation. Even in October at the time of his device implant, high irritability of his ventricles were noted making temporary pacemaker placement difficult. But after correction of his electrolytes, these episodes have resolved. Now, he is returning with a recurrent episode of dizziness, nearly passing out. The episode does correlate to 20 seconds episodes of high ventricular rate registered on the device. The limited electrograms could represent sustained monomorphic ventricular tachycardia, less likely atrial tachycardia, has a history of AV block. Also concerning that he had a more sustained episode over 1 minute 24 seconds about 6 weeks ago is similarly very rapid heart rate. I discussed these findings with him. Hence, he has symptomatic likely ventricular arrhythmias. Treatment would be warranted. I discussed the options of an antiarrhythmic agent like amiodarone versus Mexitil, potentially EP study to confirm the presence of inducible ventricular tachycardia and if so, possibly ventricular ICD implantation is a consideration. Also discussed potential ablation options. It is somewhat difficult proposition in this elderly gentleman with pulmonary hypertension. Pros and cons of these approaches were discussed. Eventually agreed that undergoing an EP study and potential ICD upgrade as the most reasonable option. If VT is inducible ICD could provide protection in this otherwise very active and well preserved gentleman. Pros and cons of the procedure were discussed including chance of infection, bleeding, pneumothorax, tamponade, device malfunctions, and recalls. He understands and willing to proceed. Job ID: [id number] [facility]
[2019-10-25] MEDS: Gabapentin 300 MG CAP PO SCH (22:15)
[2019-10-25] MEDS: Diazepam 2 MG TAB PO SCH (22:15)
[2019-10-26] MEDS ORDERED: Heparin (Artline) 500 ML ONE (07:04)
[2019-10-26] MEDS ORDERED: Midazolam HCl 2 mg/2 ml Vial ONE (07:59)
[2019-10-26] MEDS ORDERED: Fentanyl 100 MCG/2 ML VIAL ONE (08:00)
[2019-10-26] MEDS ORDERED: Isoproterenol 0.2 MG/1 ML AMP ONE (08:24)
--- NOTE | 2019-10-26 09:46 | OP ---
DATE OF PROCEDURE: 10/26/2019 PROCEDURE PERFORMED: Electrophysiology study ADDITIONAL REFERRING PHYSICIAN: Davin Perez MD HISTORY OF PRESENT ILLNESS: I am seeing Mr. Guy at our [facility] [place] for his near-syncopal spell and possible ventricular arrhythmias on his device, here for EP study to assess inducibility of ventricular and atrial arrhythmias. He has a history of AV block with chronic AFib, which is still persistent, but has high-grade ventricular pacing. LVF on the other hand is preserved. DESCRIPTION OF PROCEDURE: The patient received conscious sedation with Versed and fentanyl. The right femoral venous area was prepped and draped and anesthetized using subcutaneous lidocaine. Under ultrasound guidance, the right femoral vein was cannulated. A 6-Mongolian short sheath was introduced, through which a octapolar catheter was advanced to the right atrium, right ventricle, His bundle area. Pacing, mapping, and recording were performed in these locations. Following findings were noted. Baseline rhythm was a very low-amplitude atrial fibrillation. Atrial capture was not possible. Ventricular pacing was seen at baseline. His bundle was not readily available. The catheter was advanced to the right ventricle to the base as well as the high septal area. Standard ventricular extrastimulation testing protocol was performed in these locations with [address] trains with up to 3 ventricular extrastimuli, which were decremented to the refractory period. About 10-beat nonsustained VT was induced with this method, but self-terminated. Following that, Isuprel was administered at 5 mcg/kg per minute. The AV conduction was again checked as there appeared to have been a regular likely junctional escape rhythm arising, not true AV conduction. Atrial fibrillation remained without conduction to the ventricle. Ventricular extrastimulation protocol was again repeated at [address], achieving ERP at 400/190/180/180 milliseconds. No ventricular tachycardia was induced on Isuprel of significance. Moderate frequent PVCs were observed on and off Isuprel as well. CONCLUSION: 1. No inducible sustained ventricular tachycardia on electrophysiology study, only nonsustained ventricular tachycardia is noted. 2. Complete atrioventricular block with no atrioventricular conduction. Junctional escape rhythm noted on Isuprel overdriving the pacemaker. 3. Chronic atrial fibrillation with very low atrial amplitude. 4. Adequate functioning single-chamber pacemaker in place. PLAN: Continue monitoring for recurrent arrhythmias. Add beta-kee. We will stop digoxin. Optimize electrolytes, which may play a role in the monitored rapid arrhythmias. Consider Mexitil as an option if further ventricular arrhythmias are seen. Job ID: [id number]
[2019-10-26] MEDS: Enoxaparin Sodium 40 MG/0.4 ML SYRINGE SC SCH (09:52)
[2019-10-26] MEDS: Cyanocobalamin (Vitamin B-12) 1,000 MCG TAB PO SCH (10:35)
[2019-10-26] MEDS: Aspirin Chewable 81 MG TAB PO SCH (10:35)
[2019-10-26] MEDS: Potassium Chloride 20 MEQ TAB PO SCH ×2 (10:35→16:46)
[2019-10-26] MEDS: Furosemide 80 MG TAB PO SCH (10:36)
[2019-10-26] MEDS: Folic Acid 1 MG TAB PO SCH (10:36)
[2019-10-26] MEDS: Famotidine 20 MG TAB PO SCH (10:37)
[2019-10-26] MEDS: Digoxin 0.125 MG TAB PO SCH (10:43)
[2019-10-26 13:10] LABS: #Eosinphils 0.1 thou/uL (0.0-0.7); #Lymphocytes 1.1 thou/uL (1.20-3.40); #Monocytes 0.6 thou/uL (0.11-0.59); #Neutrophils 4.4 thou/uL (1.40-6.50); %Basophils 0.2 % (0.0-1.0); %Eosinophils 1.4 % (0.0-10.0); %Lymphocytes 18.1 % (21.0-51.0); %Monocytes 9.1 % (0.0-10.0); %Neutrophils 71.2 % (42.0-75.0); Hemoglobin 11.6 g/dL (14.0-18.0); Mean Corpuscular HGB CONC 35.9 g/dL (32.0-36.0); Mean Corpuscular Hemoglobin 32.9 pg (27.0-31.0); Mean Corpuscular Volume 91.7 fL (78.0-98.0); Platelet Count 147 thou/uL (130-400); RBC Distribution Width 16.2 % (11.5-14.5); Red Blood Cell (RBC) Count 3.53 mill/uL (4.70-6.10); White Blood Cell (WBC) Count 6.2 thou/uL (4.8-10.8)
--- NOTE | 2019-10-26 13:11 | PDOC.HOSPP ---
- Subjective Encounter Date: 10/26/19 Encounter Time: 13:09 Subjective: Patient states he is feeling great and denies any complaints. Had EP study which he is aware was negative. Tolerating oral intake. No n/v. - Objective Vital Signs & Weight: Vital Signs (12 hours) Temp Pulse Resp BP Pulse Ox 10/26/19 11:17 97.5 F L 75 20 122/60 100 10/26/19 10:43 71 10/26/19 07:09 97.9 F 71 20 117/59 L 97 10/26/19 04:43 97.5 F L 78 14 123/60 97 Weight Weight 154 lb 9.6 oz I&O: 10/25/19 10/26/19 10/27/19 06:59 06:59 06:59 Intake Total 1870 1440 240 Output Total 1400 750 Balance 470 690 240 Result Diagrams: 10/24/19 05:03 10/25/19 04:39 Hospitalist ROS - Review of Systems Constitutional: denies: fever, chills, sweats, weakness, malaise, other Eyes: denies: pain, vision change, conjunctivae inflammation, eyelid inflammation, redness, other ENT: denies: ear pain, ear discharge, nose pain, nose discharge, nose congestion , mouth pain, mouth swelling, throat pain, throat swelling, other Respiratory: denies: cough, dry, shortness of breath, hemoptysis, SOB with excertion, pleuritic pain, sputum, wheezing, other Cardiovascular: denies: chest pain, palpitations, orthopnea, paroxysmal noc. dyspnea, edema, light headedness, other Gastrointestinal: denies: nausea, vomiting, abdominal pain, diarrhea, constipation, melena, hematochezia, other Genitourinary: denies: dysuria, frequency, incontinence, hematuria, retention, other Musculoskeletal: reports: leg pain (chronic, takes gabapentin (used to be on higher dose but afraid to be overmedicated and weaned down dose)). denies: neck pain, shoulder pain, arm pain, back pain, hand pain, foot pain, other Skin: reports: other (chronic venous stasis changes.). denies: rash, lesions, jermaine, bruising Neurological: denies: weakness, numbness, incoordination, change in speech, confusion, seizures, other - Medication Medications: Active Medications Generic Name Dose Route Start Last Admin Trade Name Sanjeevq PRN Reason Stop Dose Admin Aspirin 81 mg 10/24/19 09:00 10/26/19 10:35 Aspirin Chewable PO 81 mg DAILY JENI Administration Cholecalciferol 5,000 units 10/24/19 09:00 10/26/19 10:35 Vitamin D3 PO 5,000 units DAILY JENI Administration Cyanocobalamin 2,500 mcg 10/24/19 09:00 10/26/19 10:35 Vitamin B-12 PO 2,500 mcg DAILY JENI Administration Diazepam 4 mg 10/24/19 21:00 10/25/19 22:15 Valium PO 4 mg QPM JENI Administration Enoxaparin Sodium 40 mg 10/24/19 09:00 10/26/19 09:52 Lovenox SC Not Given 0900 JENI Famotidine 20 mg 10/24/19 09:00 10/26/19 10:37 Pepcid PO 20 mg QAM JENI Administration Folic Acid 0.5 mg 10/24/19 09:00 10/26/19 10:36 Folvite PO 0.5 mg DAILY JENI Administration Furosemide 80 mg 10/24/19 09:00 10/26/19 10:36 Lasix PO 80 mg QAM JENI Administration Gabapentin 300 mg 10/24/19 21:00 10/25/19 22:15 Neurontin PO 300 mg HS JENI Administration Potassium Chloride 20 meq 10/24/19 12:00 10/26/19 10:35 K-Dur PO 20 meq 1200 JENI Administration Potassium Chloride 20 meq 10/24/19 17:00 10/25/19 16:11 K-Dur PO 20 meq QPM-WM JENI Administration Sodium Chloride 10 ml 10/24/19 00:14 10/24/19 20:18 Flush - Normal Saline IVF 10 ml PRN PRN Administration Saline Flush - Exam General Appearance: NAD, awake alert Eye: PERRL, anicteric sclera ENT: normocephalic atraumatic, no oropharyngeal lesions, moist mucosa Neck: supple, symmetric, no JVD, no thyromegaly, no lymphadenopathy Heart: RRR, no murmur, no gallops, no rubs, normal peripheral pulses Respiratory: CTAB, no wheezes, no rales, no ronchi, normal chest expansion, no tachypnea, normal percussion Gastrointestinal: soft, non-tender, non-distended, normal bowel sounds, no palpable masses Extremities: no cyanosis, no clubbing, no edema Skin: normal turgor, no lesions, no rashes Neurological: cranial nerve grossly intact, normal sensation to touch, no weakness, no focal deficits, no new deficit Musculoskeletal: normal tone, normal strength, no muscle wasting Psychiatric: normal affect, normal behavior, A&O x 3 Hosp A/P (1) Near syncope Status: Resolved (2) Nonsustained ventricular tachycardia Code(s): I47.2 - VENTRICULAR TACHYCARDIA Status: Acute (3) Third degree AV block Code(s): I44.2 - ATRIOVENTRICULAR BLOCK, COMPLETE Status: Acute (4) Presence of permanent cardiac pacemaker Code(s): Z95.0 - PRESENCE OF CARDIAC PACEMAKER Status: Acute (5) Chronic anticoagulation Code(s): Z79.01 - [facility] (CURRENT) USE OF ANTICOAGULANTS Status: Chronic (6) Chronic atrial fibrillation Code(s): I48.2 - CHRONIC ATRIAL FIBRILLATION * DO NOT USE * Status: Chronic (7) Diastolic CHF Code(s): I50.30 - UNSPECIFIED DIASTOLIC (CONGESTIVE) HEART FAILURE Status: Chronic Qualifiers: (8) Hypertension Code(s): I10 - ESSENTIAL (PRIMARY) HYPERTENSION Status: Chronic - Plan Patient being followed by Dr. Antonio and Cardiology. S/p EP study this AM which showed no inducible sustained Vtach. Advised to continue monitoring. Check electrolytes, replace as needed. Add-Beta kee, d/c digoxin. Possible Mexitil if further arrhthmias. Patient otherwise doing well and without complaints. Disposition as per Dr. Antonio/Cardiology.
[2019-10-26 13:33] LABS: Anion Gap 11 mmol/L (10-20); BUN (Urea Nitrogen) 24 mg/dL (8.4-25.7); Calc. Creatinine Clearance 40 mL/min (70-130); Calcium 8.8 mg/dL (7.8-10.44); Carbon Dioxide 30 mmol/L (23-31); Chloride 99 mmol/L (98-107); Estimated GFR-MDRD 50; Glucose 116 mg/dL (83-110); Magnesium 2.3 mg/dL (1.6-2.6); Phosphorus 2.6 mg/dL (2.3-4.7); Potassium 3.5 mmol/L (3.5-5.1); Sodium 136 mmol/L (136-145)
[2019-10-26] MEDS: Diazepam 2 MG TAB PO SCH (20:49)
[2019-10-26] MEDS: Gabapentin 300 MG CAP PO SCH (20:49)
[2019-10-27 05:14] LABS: #Eosinphils 0.2 thou/uL (0.0-0.7); #Lymphocytes 1.5 thou/uL (1.20-3.40); #Monocytes 0.9 thou/uL (0.11-0.59); #Neutrophils 4.5 thou/uL (1.40-6.50); %Basophils 0.3 % (0.0-1.0); %Eosinophils 3.4 % (0.0-10.0); %Lymphocytes 20.5 % (21.0-51.0); %Monocytes 12.7 % (0.0-10.0); %Neutrophils 63.1 % (42.0-75.0); Hemoglobin 10.9 g/dL (14.0-18.0); Mean Corpuscular HGB CONC 33.6 g/dL (32.0-36.0); Mean Corpuscular Hemoglobin 31.4 pg (27.0-31.0); Mean Corpuscular Volume 93.5 fL (78.0-98.0); Mean Platelet Volume 6.6 fL (7.4-10.4); Platelet Count 147 thou/uL (130-400); RBC Distribution Width 16.3 % (11.5-14.5); Red Blood Cell (RBC) Count 3.48 mill/uL (4.70-6.10); White Blood Cell (WBC) Count 7.2 thou/uL (4.8-10.8)
[2019-10-27 05:30] LABS: Anion Gap 13 mmol/L (10-20); BUN (Urea Nitrogen) 26 mg/dL (8.4-25.7); Calc. Creatinine Clearance 43 mL/min (70-130); Calcium 8.8 mg/dL (7.8-10.44); Carbon Dioxide 29 mmol/L (23-31); Chloride 98 mmol/L (98-107); Estimated GFR-MDRD 54; Glucose 95 mg/dL (83-110); Potassium 3.5 mmol/L (3.5-5.1); Sodium 136 mmol/L (136-145)
[2019-10-27] MEDS: Cyanocobalamin (Vitamin B-12) 1,000 MCG TAB PO SCH (08:53)
[2019-10-27] MEDS: Furosemide 80 MG TAB PO SCH (08:54)
[2019-10-27] MEDS: Famotidine 20 MG TAB PO SCH (08:54)
[2019-10-27] MEDS: Enoxaparin Sodium 40 MG/0.4 ML SYRINGE SC SCH (08:54)
[2019-10-27] MEDS: Aspirin Chewable 81 MG TAB PO SCH (08:55)
[2019-10-27] MEDS: Folic Acid 1 MG TAB PO SCH (08:55)
[2019-10-27] MEDS: Potassium Chloride 20 MEQ TAB PO SCH ×2 (11:12→17:23)
[2019-10-27] MEDS ORDERED: Potassium Chloride 20 MEQ TAB PO SCH (11:15)
--- NOTE | 2019-10-27 13:09 | PDOC.CPN ---
- Subjective Date: 10/27/19 Time: 13:14 Interval history: The pt seen and examined. No overnight events. No cardiac complaints. S/p 13 beats of NSVTs this AM; the pt was asymptomatic during the episode - Objective Allergies/Adverse Reactions: Allergies Allergy/AdvReac Type Severity Reaction Status Date / Time No Known Allergies Allergy Verified 10/23/19 23:01 Visit Medications: Current Medications Acetaminophen (Tylenol) 650 mg PO Q4H PRN PRN Reason: Headache/Fever/Mild Pain (1-3) Aspirin (Aspirin Chewable) 81 mg PO DAILY PENDING SALE TO [facility] Last Admin: 10/27/19 08:55 Dose: 81 mg Bisacodyl (Dulcolax) 10 mg ME DAILYPRN PRN PRN Reason: Constipation Cholecalciferol (Vitamin D3) 5,000 units PO DAILY PENDING SALE TO [facility] Last Admin: 10/27/19 08:54 Dose: 5,000 units Cyanocobalamin (Vitamin B-12) 2,500 mcg PO DAILY PENDING SALE TO [facility] Last Admin: 10/27/19 08:53 Dose: 2,500 mcg Diazepam (Valium) 4 mg PO QPM PENDING SALE TO [facility] Last Admin: 10/26/19 20:49 Dose: 4 mg Enoxaparin Sodium (Lovenox) 40 mg SC 0900 PENDING SALE TO [facility] Last Admin: 10/27/19 08:54 Dose: 40 mg Famotidine (Pepcid) 20 mg PO QAM PENDING SALE TO [facility] Last Admin: 10/27/19 08:54 Dose: 20 mg Finasteride (Proscar) 5 mg PO QPM PRN PRN Reason: TO HELP URINATE Folic Acid (Folvite) 0.5 mg PO DAILY PENDING SALE TO [facility] Last Admin: 10/27/19 08:55 Dose: 0.5 mg Furosemide (Lasix) 80 mg PO QAM PENDING SALE TO [facility] Last Admin: 10/27/19 08:54 Dose: 80 mg Gabapentin (Neurontin) 300 mg PO HS PENDING SALE TO [facility] Last Admin: 10/26/19 20:49 Dose: 300 mg Guaifenesin/Dextromethorphan (Robitussin Dm) 15 ml PO Q4H PRN PRN Reason: Cough Metoprolol Succinate (Toprol Xl) 12.5 mg PO DAILY PENDING SALE TO [facility] Last Admin: 10/27/19 08:55 Dose: 12.5 mg Ondansetron HCl (Zofran) 4 mg IVP Q6H PRN PRN Reason: Nausea/Vomiting Potassium Chloride (K-Dur) 20 meq PO 1200 JENI Last Admin: 10/27/19 11:12 Dose: 20 meq Potassium Chloride (K-Dur) 20 meq PO QPM-WM JENI Last Admin: 10/26/19 16:46 Dose: 20 meq Potassium Chloride (K-Dur) 40 meq PO NOW JENI Stop: 10/27/19 13:15 Last Admin: 10/27/19 11:54 Dose: 40 meq Senna/Docusate Sodium (Senokot S) 2 tab PO BID PRN PRN Reason: Constipation Sodium Chloride (Flush - Normal Saline) 10 ml IVF PRN PRN PRN Reason: Saline Flush Last Admin: 10/24/19 20:18 Dose: 10 ml Tamsulosin HCl (Flomax) 0.4 mg PO HS PRN PRN Reason: urology symtoms Vital Signs & Weight: Vital Signs Temp Pulse Resp BP BP Pulse Ox 10/27/19 11:08 98.6 F 76 16 103/55 L 96 10/27/19 07:15 97.9 F 88 16 137/56 L 96 10/27/19 04:15 98.4 F 72 14 105/55 L 97 Weight 154 lb 9.6 oz - Physical Exam General: alert & oriented x3 HEENT: mucus membranes moist Neck: supple neck Cardiac: irregularly regular, S1/S2 Lungs: clear to auscultation - Labs Result Diagrams: 10/27/19 04:44 10/27/19 04:44 Troponin/CKMB CK-MB (CK-2) 2.5 ng/mL (0-6.6) 10/23/19 18:19 Troponin I 0.097 ng/mL (< 0.028) H 10/23/19 21:52 - Telemetry Sinus rhythms and dysrhythmias: other (V paced) - Assessment/Plan Assessment/Plan: 1. Near syncope 2/2 episodes of NSVT -s/p 13 beats of NSVT this AM; Toprol was started from last night by Dr Antonio; cont. to monitor until tomorrow; may consider Mexitil if he cont. arrhthmias. 2. Chronic Afib with Watchman device placement 3. SSS with hx of PM placement 4. HTN - 5. Chronic diastolic HF - stable MAR reviewed Pt. seen and eval. by me. I agree with the A/P by the STATE [employer]ENT. 1 episode of NSVTAH but he had only had 1 dose of metoprolol. Continue to monitor. [email or web address] * Dr Preez' pt
--- NOTE | 2019-10-27 16:46 | PDOC.HOSPP ---
- Subjective Subjective: Seen and examined on medical unit with telemetry. Patient breathing comfortably on room air. No further syncopal or near syncopal episodes. Patient had nonsustained ventricular tachycardia this a.m., patient was asymptomatic at the time. Patient tells me he has had three episodes of cardiac arrest this year from arrhythmias. Patient went for EP study by Dr. Antonio, permanent pacemaker not needed at this time per trading specialist. - Objective Vital Signs & Weight: Vital Signs (12 hours) Temp Pulse Resp BP Pulse Ox 10/27/19 15:17 98.3 F 82 16 108/59 L 96 10/27/19 11:08 98.6 F 76 16 103/55 L 96 10/27/19 07:15 97.9 F 88 16 137/56 L 96 Weight Weight 154 lb 9.6 oz I&O: 10/26/19 10/27/19 10/28/19 06:59 06:59 06:59 Intake Total 1440 1620 Output Total 750 500 Balance 690 1120 Result Diagrams: 10/27/19 04:44 10/27/19 04:44 Radiology Reviewed by me: Yes Hospitalist ROS - Review of Systems All other systems reviewed; all pertinent +/- noted in HPI/Subj - Medication Medications: Active Medications Generic Name Dose Route Start Last Admin Trade Name Freq PRN Reason Stop Dose Admin Aspirin 81 mg 10/24/19 09:00 10/27/19 08:55 Aspirin Chewable PO 81 mg DAILY JENI Administration Cholecalciferol 5,000 units 10/24/19 09:00 10/27/19 08:54 Vitamin D3 PO 5,000 units DAILY JENI Administration Cyanocobalamin 2,500 mcg 10/24/19 09:00 10/27/19 08:53 Vitamin B-12 PO 2,500 mcg DAILY JENI Administration Diazepam 4 mg 10/24/19 21:00 10/26/19 20:49 Valium PO 4 mg QPM JENI Administration Enoxaparin Sodium 40 mg 10/24/19 09:00 10/27/19 08:54 Lovenox SC 40 mg 0900 JENI Administration Famotidine 20 mg 10/24/19 09:00 10/27/19 08:54 Pepcid PO 20 mg QAM JENI Administration Folic Acid 0.5 mg 10/24/19 09:00 10/27/19 08:55 Folvite PO 0.5 mg DAILY JENI Administration Furosemide 80 mg 10/24/19 09:00 10/27/19 08:54 Lasix PO 80 mg QAM JENI Administration Gabapentin 300 mg 10/24/19 21:00 10/26/19 20:49 Neurontin PO 300 mg HS JENI Administration Metoprolol Succinate 12.5 mg 10/27/19 09:00 10/27/19 08:55 Toprol Xl PO 12.5 mg DAILY JENI Administration Potassium Chloride 20 meq 10/24/19 12:00 10/27/19 11:12 K-Dur PO 20 meq 1200 JENI Administration Potassium Chloride 20 meq 10/24/19 17:00 10/26/19 16:46 K-Dur PO 20 meq QPM-WM JENI Administration Sodium Chloride 10 ml 10/24/19 00:14 10/24/19 20:18 Flush - Normal Saline IVF 10 ml PRN PRN Administration Saline Flush - Exam General Appearance: NAD, awake alert Eye: PERRL ENT: normocephalic atraumatic, moist mucosa Neck: supple, symmetric, no lymphadenopathy Heart: no murmur, no gallops, no rubs, normal peripheral pulses Respiratory: CTAB, no wheezes, no rales, no ronchi Gastrointestinal: soft, non-tender, non-distended, no palpable masses, no guarding, no rigidity Extremities: no edema Skin: no lesions, no rashes Neurological: cranial nerve grossly intact, no focal deficits Musculoskeletal: generalized weakness Psychiatric: normal affect, normal behavior, A&O x 3 Hosp A/P (1) Nonsustained ventricular tachycardia Code(s): I47.2 - VENTRICULAR TACHYCARDIA Status: Acute (2) Near syncope Status: Resolved (3) CORTES (acute kidney injury) Code(s): N17.9 - ACUTE KIDNEY FAILURE, UNSPECIFIED Status: Acute (4) Anemia Code(s): D64.9 - ANEMIA, UNSPECIFIED Status: Acute (5) Dizziness Code(s): R42 - DIZZINESS AND GIDDINESS Status: Acute (6) Elevated troponin Code(s): R74.8 - ABNORMAL LEVELS OF OTHER SERUM ENZYMES Status: Acute (7) Physical deconditioning Code(s): R53.81 - OTHER MALAISE Status: Acute (8) Presence of permanent cardiac pacemaker Code(s): Z95.0 - PRESENCE OF CARDIAC PACEMAKER Status: Acute (9) Third degree AV block Code(s): I44.2 - ATRIOVENTRICULAR BLOCK, COMPLETE Status: Acute (10) Anxiety Code(s): F41.9 - ANXIETY DISORDER, UNSPECIFIED Status: Chronic (11) BPH (benign prostatic hyperplasia) Code(s): N40.0 - BENIGN PROSTATIC HYPERPLASIA WITHOUT LOWER URINRY TRACT SYMP Status: Chronic (12) Chronic anticoagulation Code(s): Z79.01 - HAND IRONER (CURRENT) USE OF ANTICOAGULANTS Status: Chronic (13) Chronic atrial fibrillation Code(s): I48.2 - CHRONIC ATRIAL FIBRILLATION * DO NOT USE * Status: Chronic (14) Diastolic CHF Code(s): I50.30 - UNSPECIFIED DIASTOLIC (CONGESTIVE) HEART FAILURE Status: Chronic Qualifiers: (15) Hypertension Code(s): I10 - ESSENTIAL (PRIMARY) HYPERTENSION Status: Chronic (16) Iron deficiency Code(s): E61.1 - IRON DEFICIENCY Status: Chronic (17) Paroxysmal atrial fibrillation Code(s): I48.0 - PAROXYSMAL ATRIAL FIBRILLATION Status: Chronic - Plan Plan: medical unit with telemetry trading specialist consultation, recommendations appreciated general cardiology consultation, recommendations appreciated continuous telemetry to monitor for really rate control versus rhythm control agents for specialists permanent pacemaker in place, recent EP study noted continue other home medications is able replace electrolytes as needed blood pressure control blood sugar control
[2019-10-27] MEDS: Gabapentin 300 MG CAP PO SCH (20:25)
[2019-10-27] MEDS: Diazepam 2 MG TAB PO SCH (20:25)
[2019-10-28 05:43] LABS: #Eosinphils 0.2 thou/uL (0.0-0.7); #Lymphocytes 1.4 thou/uL (1.20-3.40); #Monocytes 0.7 thou/uL (0.11-0.59); #Neutrophils 3.3 thou/uL (1.40-6.50); %Basophils 0.5 % (0.0-1.0); %Eosinophils 3.4 % (0.0-10.0); %Lymphocytes 25.5 % (21.0-51.0); %Monocytes 12.6 % (0.0-10.0); Mean Corpuscular HGB CONC 33.8 g/dL (32.0-36.0); Mean Corpuscular Hemoglobin 31.1 pg (27.0-31.0); Mean Corpuscular Volume 92.1 fL (78.0-98.0); Mean Platelet Volume 7.4 fL (7.4-10.4); Platelet Count 139 thou/uL (130-400); RBC Distribution Width 15.9 % (11.5-14.5); Red Blood Cell (RBC) Count 3.54 mill/uL (4.70-6.10); White Blood Cell (WBC) Count 5.7 thou/uL (4.8-10.8)
[2019-10-28 06:05] LABS: Anion Gap 14 mmol/L (10-20); BUN (Urea Nitrogen) 27 mg/dL (8.4-25.7); Calc. Creatinine Clearance 39 mL/min (70-130); Carbon Dioxide 26 mmol/L (23-31); Chloride 102 mmol/L (98-107); Estimated GFR-MDRD 49; Glucose 89 mg/dL (83-110); Potassium 3.9 mmol/L (3.5-5.1); Sodium 138 mmol/L (136-145)
--- NOTE | 2019-10-28 06:54 | PDOC.EP ---
- Subjective Date: 10/28/19 Time: 08:00 Interval History: Follow up for NSVT and rhythm management. - Review of Systems Constitutional: denies: chills, fever, malaise, sweats, weakness, other Respiratory: denies: cough, dry, hemoptysis, pleuritic pain, shortness of breath , SOB with excertion, sputum, wheezing, other Cardiology: denies: chest pain, edema, heart racing, light headedness, orthopnea , palpitations Gastrointestinal: denies: abdominal pain, constipation, diarrhea, nausea, vomitting Musculoskeletal: denies: unstable gait, falls, neck pain, shoulder pain - Objective Allergies/Adverse Reactions: Allergies Allergy/AdvReac Type Severity Reaction Status Date / Time No Known Allergies Allergy Verified 10/23/19 23:01 Current Medications Acetaminophen (Tylenol) 650 mg PO Q4H PRN PRN Reason: Headache/Fever/Mild Pain (1-3) Aspirin (Aspirin Chewable) 81 mg PO DAILY [facility] Last Admin: 10/27/19 08:55 Dose: 81 mg Bisacodyl (Dulcolax) 10 mg [place] DAILYPRN PRN PRN Reason: Constipation Cholecalciferol (Vitamin D3) 5,000 units PO DAILY [facility] Last Admin: 10/27/19 08:54 Dose: 5,000 units Cyanocobalamin (Vitamin B-12) 2,500 mcg PO DAILY [facility] Last Admin: 10/27/19 08:53 Dose: 2,500 mcg Diazepam (Valium) 4 mg PO QPM [facility] Last Admin: 10/27/19 20:25 Dose: 4 mg Enoxaparin Sodium (Lovenox) 40 mg SC 0900 [facility] Last Admin: 10/27/19 08:54 Dose: 40 mg Famotidine (Pepcid) 20 mg PO QAM [facility] Last Admin: 10/27/19 08:54 Dose: 20 mg Finasteride (Proscar) 5 mg PO QPM PRN PRN Reason: TO HELP URINATE Folic Acid (Folvite) 0.5 mg PO DAILY [facility] Last Admin: 10/27/19 08:55 Dose: 0.5 mg Furosemide (Lasix) 80 mg PO QAM [facility] Last Admin: 10/27/19 08:54 Dose: 80 mg Gabapentin (Neurontin) 300 mg PO HS [facility] Last Admin: 10/27/19 20:25 Dose: 300 mg Guaifenesin/Dextromethorphan (Robitussin Dm) 15 ml PO Q4H PRN PRN Reason: Cough Metoprolol Succinate (Toprol Xl) 12.5 mg PO DAILY [facility] Last Admin: 10/27/19 08:55 Dose: 12.5 mg Ondansetron HCl (Zofran) 4 mg IVP Q6H PRN PRN Reason: Nausea/Vomiting Potassium Chloride (K-Dur) 20 meq PO 1200 [facility] Last Admin: 10/27/19 11:12 Dose: 20 meq Potassium Chloride (K-Dur) 20 meq PO QPM-WM [facility] Last Admin: 10/27/19 17:23 Dose: 20 meq Senna/Docusate Sodium (Senokot S) 2 tab PO BID PRN PRN Reason: Constipation Sodium Chloride (Flush - Normal Saline) 10 ml IVF PRN PRN PRN Reason: Saline Flush Last Admin: 10/24/19 20:18 Dose: 10 ml Tamsulosin HCl (Flomax) 0.4 mg PO HS PRN PRN Reason: urology symtoms Vital Signs & Weight: Vital Signs Temp Pulse Resp BP BP Pulse Ox 10/28/19 04:15 98.5 F 88 14 120/63 98 10/27/19 20:25 96 10/27/19 19:14 98.4 F 74 18 117/56 L 98 Weight 154 lb 9.6 oz I/O: I/O 10/26/19 10/27/19 10/28/19 06:59 06:59 06:59 Intake Total 1440 1620 1400 Output Total 750 500 Balance 690 1120 1400 - Physical Exam General: alert & oriented x3 HEENT: mucus membranes moist, normocephaly Neck: supple neck, midline trachea, no JVD/HJR, no masses, no bruit, no lymphadenopathy, no thromegaly Cardiology: regular rate and rhythm, no murmur, regular rate, regular rhythm, PMI nondisplaced Lungs: clear to auscultation, normal breath sounds, normal exam, no wheeze, rales, rhonchi, no wheezes, no rales, no rhonchi Neurology: cranial nerve 2-12 intact, grossly intact, motor function intact Abdomen: unremarkable, active bowel sounds, soft, no masses, HJR negative - Labs Result Diagrams: 10/28/19 05:22 10/28/19 05:22 - EKG Interpretation EKG shows: Atrial fibrillation (V paced) - Device Device: single, pacemaker - Assessment/Plan Assessment/Plan: EP STUDY CONCLUSION: 1. No inducible sustained ventricular tachycardia on electrophysiology study, only nonsustained ventricular tachycardia is noted. 2. Complete atrioventricular block with no atrioventricular conduction. Junctional escape rhythm noted on Isuprel overdriving the pacemaker. 3. Chronic atrial fibrillation with very low atrial amplitude. 4. Adequate functioning single-chamber pacemaker in place. IMPRESSION: 1. Near syncope 2. Ventricular tachycardia -see EPS results above 3. Chronic atrial firillation 4. Chronic anemia 5. Watchman/ left atrial appendage closure - requires EDITA for repeat evaluation, possibly tomorrow? 6. Single chamber pacemaker PLAN: Continue monitoring for recurrent arrhythmias. Added beta-kee and stopped digoxin. Will monitor overnight. Optimize electrolytes, which may play a role in the monitored rapid arrhythmias. Consider Mexitil as an option if further ventricular arrhythmias are seen. Plan for EDITA with Dr Perez tomorrow to check left atrial appendage after Watchman placement. Discussed R/B/U. Patient in agreement and wishes to proceed. Likely OK for DC by EP after EDITA tomorrow.
[2019-10-28] MEDS: Enoxaparin Sodium 40 MG/0.4 ML SYRINGE SC SCH (13:25)
[2019-10-28] MEDS: Cyanocobalamin (Vitamin B-12) 1,000 MCG TAB PO SCH (13:26)
[2019-10-28] MEDS: Potassium Chloride 20 MEQ TAB PO SCH (13:26)
[2019-10-28] MEDS: Furosemide 80 MG TAB PO SCH (13:26)
[2019-10-28] MEDS: Folic Acid 1 MG TAB PO SCH (13:27)
[2019-10-28] MEDS: Aspirin Chewable 81 MG TAB PO SCH (13:27)
[2019-10-28] MEDS: Famotidine 20 MG TAB PO SCH (14:03)
--- NOTE | 2019-10-28 15:26 | PDOC.HOSPP ---
- Subjective Subjective: Seen and examined. Patient has felt no palpitations and had no sustained rhythm abnormalities. Medications being adjusted appropriately by specialist. Patient may undergo EDITA by cardiology tomorrow. All questions answered in detail. Patient happy with plan of care. - Objective Vital Signs & Weight: Vital Signs (12 hours) Temp Pulse Resp BP BP Pulse Ox 10/28/19 11:23 98.2 F 81 20 110/55 L 98 10/28/19 07:08 97.5 F L 70 16 116/58 L 97 10/28/19 04:15 98.5 F 88 14 120/63 98 Weight Weight 154 lb 9.6 oz I&O: 10/27/19 10/28/19 10/29/19 06:59 06:59 06:59 Intake Total 1620 1400 Output Total 500 Balance 1120 1400 Result Diagrams: 10/28/19 05:22 10/28/19 05:22 Radiology Reviewed by me: Yes Hospitalist ROS - Review of Systems All other systems reviewed; all pertinent +/- noted in HPI/Subj - Medication Medications: Active Medications Generic Name Dose Route Start Last Admin Trade Name Freq PRN Reason Stop Dose Admin Aspirin 81 mg 10/24/19 09:00 10/28/19 13:27 Aspirin Chewable PO 81 mg DAILY JENI Administration Cholecalciferol 5,000 units 10/24/19 09:00 10/28/19 13:26 Vitamin D3 PO 5,000 units DAILY JENI Administration Cyanocobalamin 2,500 mcg 10/24/19 09:00 10/28/19 13:26 Vitamin B-12 PO 2,500 mcg DAILY JENI Administration Diazepam 4 mg 10/24/19 21:00 10/27/19 20:25 Valium PO 4 mg QPM JENI Administration Enoxaparin Sodium 40 mg 10/24/19 09:00 10/28/19 13:25 Lovenox SC 40 mg 0900 JENI Administration Famotidine 20 mg 10/24/19 09:00 10/28/19 14:03 Pepcid PO Not Given QAM JENI Folic Acid 0.5 mg 10/24/19 09:00 10/28/19 13:27 Folvite PO 0.5 mg DAILY JENI Administration Furosemide 80 mg 10/24/19 09:00 10/28/19 13:26 Lasix PO 80 mg QAM JENI Administration Gabapentin 300 mg 10/24/19 21:00 10/27/19 20:25 Neurontin PO 300 mg HS JENI Administration Metoprolol Succinate 12.5 mg 10/27/19 09:00 10/28/19 13:26 Toprol Xl PO 12.5 mg DAILY JENI Administration Potassium Chloride 40 meq 10/28/19 12:00 10/28/19 13:26 K-Dur PO 40 meq 1200 JENI Administration Sodium Chloride 10 ml 10/24/19 00:14 10/24/19 20:18 Flush - Normal Saline IVF 10 ml PRN PRN Administration Saline Flush - Exam General Appearance: NAD, awake alert Eye: anicteric sclera ENT: normocephalic atraumatic, moist mucosa Neck: supple, symmetric, no lymphadenopathy Heart: no murmur, no gallops, no rubs Respiratory: CTAB, no wheezes, no rales, no ronchi, normal chest expansion, no tachypnea Gastrointestinal: soft, non-tender, no guarding, no rigidity Extremities: no clubbing, no edema Skin: no lesions, no rashes Neurological: cranial nerve grossly intact, no focal deficits Musculoskeletal: generalized weakness Psychiatric: normal affect, A&O x 3 Hosp A/P (1) Nonsustained ventricular tachycardia Code(s): I47.2 - VENTRICULAR TACHYCARDIA Status: Acute (2) Near syncope Status: Resolved (3) CORTES (acute kidney injury) Code(s): N17.9 - ACUTE KIDNEY FAILURE, UNSPECIFIED Status: Acute (4) Anemia Code(s): D64.9 - ANEMIA, UNSPECIFIED Status: Acute (5) Dizziness Code(s): R42 - DIZZINESS AND GIDDINESS Status: Acute (6) Elevated troponin Code(s): R74.8 - ABNORMAL LEVELS OF OTHER SERUM ENZYMES Status: Acute (7) Physical deconditioning Code(s): R53.81 - OTHER MALAISE Status: Acute (8) Presence of permanent cardiac pacemaker Code(s): Z95.0 - PRESENCE OF CARDIAC PACEMAKER Status: Acute (9) Third degree AV block Code(s): I44.2 - ATRIOVENTRICULAR BLOCK, COMPLETE Status: Acute (10) Anxiety Code(s): F41.9 - ANXIETY DISORDER, UNSPECIFIED Status: Chronic (11) BPH (benign prostatic hyperplasia) Code(s): N40.0 - BENIGN PROSTATIC HYPERPLASIA WITHOUT LOWER URINRY TRACT SYMP Status: Chronic (12) Chronic anticoagulation Code(s): Z79.01 - DETENTION (CURRENT) USE OF ANTICOAGULANTS Status: Chronic (13) Chronic atrial fibrillation Code(s): I48.2 - CHRONIC ATRIAL FIBRILLATION * DO NOT USE * Status: Chronic (14) Diastolic CHF Code(s): I50.30 - UNSPECIFIED DIASTOLIC (CONGESTIVE) HEART FAILURE Status: Chronic Qualifiers: (15) Hypertension Code(s): I10 - ESSENTIAL (PRIMARY) HYPERTENSION Status: Chronic (16) Iron deficiency Code(s): E61.1 - IRON DEFICIENCY Status: Chronic (17) Paroxysmal atrial fibrillation Code(s): I48.0 - PAROXYSMAL ATRIAL FIBRILLATION Status: Chronic - Plan Plan: medical unit with telemetry operations staff specialist security consultation, recommendations appreciated general cardiology consultation, recommendations appreciated EDITA 10/29/19 planned continuous telemetry to monitor for arrhythmia rate control versus rhythm control agents for specialists permanent pacemaker in place, recent EP study noted continue other home medications is able replace electrolytes as needed blood pressure control blood sugar control
[2019-10-28] MEDS ORDERED: Potassium Chloride 20 MEQ TAB PO SCH (17:00)
[2019-10-28] MEDS: Gabapentin 300 MG CAP PO SCH (20:03)
[2019-10-28] MEDS: Diazepam 2 MG TAB PO SCH (20:03)
[2019-10-29] MEDS ORDERED: Ketamine 50 MG/ML (10ML VIAL) ONE (07:47)
[2019-10-29] MEDS ORDERED: PROPOFOL 20 ML ONE (07:47)
[2019-10-29 08:39] LABS: Anion Gap 12 mmol/L (10-20); BUN (Urea Nitrogen) 31 mg/dL (8.4-25.7); Calc. Creatinine Clearance 37 mL/min (70-130); Calcium 8.8 mg/dL (7.8-10.44); Carbon Dioxide 28 mmol/L (23-31); Chloride 104 mmol/L (98-107); Estimated GFR-MDRD 46; Glucose 91 mg/dL (83-110); Potassium 4.5 mmol/L (3.5-5.1); Sodium 139 mmol/L (136-145)
--- NOTE | 2019-10-29 09:32 | OP ---
DATE OF PROCEDURE: 10/29/2019 PROCEDURE PERFORMED: Transesophageal echocardiogram. DESCRIPTION OF PROCEDURE: The patient was taken to PACU. The patient was sedated by Anesthesiology. A transesophageal probe was placed into the distal esophagus and stomach. Echocardiographic images were obtained. The transesophageal probe was removed. FINDINGS: 1. Normal left ventricular systolic function. 2. Marked biatrial enlargement. 3. [id number] mitral regurgitation. 4. Mild tricuspid regurgitation. 5. A pacemaker wire was noted in the right ventricle. 6. Watchman device is well positioned in the left atrial appendage with no appreciable leak noted. 7. Atherosclerotic debris in the descending aorta. IMPRESSION: Watchman device is well positioned in the left atrial appendage without any appreciable leaks. Job ID: [id number]
--- NOTE | 2019-10-29 10:31 | PDOC.EP ---
- Subjective Date: 10/29/19 Time: 09:00 Interval History: EDITA today for WM check. Feels well. eager to go home - Review of Systems Constitutional: denies: chills, fever, malaise, sweats, weakness, other Respiratory: denies: cough, dry, hemoptysis, pleuritic pain, shortness of breath , SOB with excertion, sputum, wheezing, other Cardiology: denies: chest pain, edema, heart racing, light headedness, paroxysmal noc. dyspnea, orthopnea, palpitations, passing out, pleuritic pain, pressure, swelling, other Gastrointestinal: denies: abdominal pain, constipation, diarrhea, hematochezia, melena, nausea, vomitting, other - Objective Allergies/Adverse Reactions: Allergies Allergy/AdvReac Type Severity Reaction Status Date / Time No Known Allergies Allergy Verified 10/23/19 23:01 Current Medications Acetaminophen (Tylenol) 650 mg PO Q4H PRN PRN Reason: Headache/Fever/Mild Pain (1-3) Aspirin (Aspirin Chewable) 81 mg PO DAILY [facility] Last Admin: 10/28/19 13:27 Dose: 81 mg Bisacodyl (Dulcolax) 10 mg [place] DAILYPRN PRN PRN Reason: Constipation Cholecalciferol (Vitamin D3) 5,000 units PO DAILY [facility] Last Admin: 10/28/19 13:26 Dose: 5,000 units Cyanocobalamin (Vitamin B-12) 2,500 mcg PO DAILY [facility] Last Admin: 10/28/19 13:26 Dose: 2,500 mcg Diazepam (Valium) 4 mg PO QPM [facility] Last Admin: 10/28/19 20:03 Dose: 4 mg Enoxaparin Sodium (Lovenox) 40 mg SC 0900 [facility] Last Admin: 10/28/19 13:25 Dose: 40 mg Famotidine (Pepcid) 20 mg PO QAM [facility] Last Admin: 10/28/19 14:03 Dose: Not Given Finasteride (Proscar) 5 mg PO QPM PRN PRN Reason: TO HELP URINATE Folic Acid (Folvite) 0.5 mg PO DAILY [facility] Last Admin: 10/28/19 13:27 Dose: 0.5 mg Furosemide (Lasix) 80 mg PO QAM [facility] Last Admin: 10/28/19 13:26 Dose: 80 mg Gabapentin (Neurontin) 300 mg PO HS [facility] Last Admin: 10/28/19 20:03 Dose: 300 mg Guaifenesin/Dextromethorphan (Robitussin Dm) 15 ml PO Q4H PRN PRN Reason: Cough Metoprolol Succinate (Toprol Xl) 12.5 mg PO DAILY [facility] Last Admin: 10/28/19 13:26 Dose: 12.5 mg Ondansetron HCl (Zofran) 4 mg IVP Q6H PRN PRN Reason: Nausea/Vomiting Potassium Chloride (K-Dur) 40 meq PO 1200 [facility] Last Admin: 10/28/19 13:26 Dose: 40 meq Potassium Chloride (K-Dur) 40 meq PO QPM-WM [facility] Last Admin: 10/28/19 16:49 Dose: 40 meq Senna/Docusate Sodium (Senokot S) 2 tab PO BID PRN PRN Reason: Constipation Sodium Chloride (Flush - Normal Saline) 10 ml IVF PRN PRN PRN Reason: Saline Flush Last Admin: 10/24/19 20:18 Dose: 10 ml Vital Signs & Weight: Vital Signs Temp Pulse Resp BP Pulse Ox 10/29/19 07:15 97.7 F 82 16 113/55 L 96 10/29/19 04:22 97 F L 71 16 120/56 L 96 Weight 154 lb 9.6 oz I/O: I/O 10/28/19 10/29/19 10/30/19 06:59 06:59 06:59 Intake Total 1400 1200 Output Total 550 Balance 1400 650 - Physical Exam General: alert & oriented x3, appears well, no apparent distress, speech clear, affect appropriate HEENT: mucus membranes moist, normocephaly Neck: supple neck, midline trachea, no JVD/HJR, no masses, no bruit, no lymphadenopathy, no thromegaly Cardiology: regular rate and rhythm, no murmur, regular rate, regular rhythm, PMI nondisplaced Lungs: clear to auscultation, normal breath sounds, normal exam, no wheeze, rales, rhonchi, no wheezes, no rales, no rhonchi Neurology: cranial nerve 2-12 intact, grossly intact, motor function intact, sensory function intact, negative rhomberg, coordination normal, no lateralizing findings - Labs Result Diagrams: 10/28/19 05:22 10/29/19 08:01 - EKG Interpretation EKG shows: Sinus rhythm - Assessment/Plan Assessment/Plan: EP STUDY CONCLUSION: 1. No inducible sustained ventricular tachycardia on electrophysiology study, only nonsustained ventricular tachycardia is noted. 2. Complete atrioventricular block with no atrioventricular conduction. Junctional escape rhythm noted on Isuprel overdriving the pacemaker. 3. Chronic atrial fibrillation with very low atrial amplitude. 4. Adequate functioning single-chamber pacemaker in place. IMPRESSION: 1. Near syncope 2. Ventricular tachycardia -see EPS results above 3. Chronic atrial firillation 4. Chronic anemia 5. Watchman/ left atrial appendage closure - EDITA today showed no wATCHMAN LEAK. cON TRANSITION TO asa/pLAVIX, STOP OAC. 6. Single chamber pacemaker - Adequate function. 7. Renal insufficiency - creat 1.48, per hospitalist Continue betablocker and ASA 81mg on DC. May DC home after recovered from EDITA from EP perspective. 6 week follow up requested
[2019-10-29] MEDS ORDERED: PROPOFOL 200 MG/20 ML VIAL ONE (10:41)
[2019-10-29] MEDS: Cyanocobalamin (Vitamin B-12) 1,000 MCG TAB PO SCH (10:58)
[2019-10-29] MEDS: Enoxaparin Sodium 40 MG/0.4 ML SYRINGE SC SCH (10:58)
[2019-10-29] MEDS: Famotidine 20 MG TAB PO SCH (10:58)
[2019-10-29] MEDS: Furosemide 80 MG TAB PO SCH (10:59)
[2019-10-29] MEDS: Folic Acid 1 MG TAB PO SCH (10:59)
[2019-10-29] MEDS: Aspirin Chewable 81 MG TAB PO SCH (11:00)
[2019-10-29] MEDS: Potassium Chloride 20 MEQ TAB PO SCH (11:00)
[2019-10-29 12:20] VITALS: BP 118/64; TEMP 98.6
--- NOTE | 2019-10-29 19:07 | DIS ---
DATE OF ADMISSION: 10/25/2019 DATE OF DISCHARGE: 10/29/2019 REASON FOR HOSPITALIZATION: Near syncope. PROCEDURES PERFORMED AND TREATMENTS RENDERED: The patient was admitted to medical unit with telemetry for close management. Cardiology and curriculum coach specialist consultations were requested - please see full consultation notes and progress notes for details. Tag Stringer Dr. Antonio taking the patient to the EP lab on 10/25/2019. Please see full EP report for details. Report conclusions that the patient had no inducible sustained ventricular tachycardia and maximum medical therapy was recommended. The patient was stopped on his digoxin and started on beta kee therapy with metoprolol. The patient was monitored in [facility] and Cardiology, Dr. Perez recommending transesophageal echocardiogram, which was performed on 10/29/2019 - please see full operative report for details. The patient was identified to have a Watchman device that is well positioned in the left atrial appendage without appreciable leaks. After this procedure, the patient was recommended safe for discharge by Cardiology and hub inventory specialist. A prescription of metoprolol was sent to the patient's preferred pharmacy, in addition to all other cardiac medications as directed by deadener. The patient recommended safe for discharge with close followup in the outpatient setting. The patient recommended to follow up with primary care physician in the next 5 to 7 days. The patient recommended to follow up with the hub inventory specialist in the next 1 to 2 weeks. The patient recommended follow up with general deadener in the next 1 to 2 weeks. The patient recommended to take all medications as directed, to be re-evaluated by primary care physician and Cardiology/hub inventory specialist in the outpatient setting. The patient recommended to return to acute care hospital immediately if signs or symptoms return, worsen, or any other new symptoms occur. CONDITION ON DISCHARGE: Stable. SPECIFIC INSTRUCTIONS FOR THE PATIENT/FAMILY: 1. The patient is recommended to take all medications as directed. 2. The patient is recommended to follow up with primary care physician in the next 5 to 7 days. 3. The patient is recommended to follow up with hub inventory specialist, Dr. Antonio in the next 1 to 2 weeks. 4. The patient recommended to follow up with General Cardiology in the next 1 to 2 weeks. 5. The patient is recommended to return to acute care hospital immediately if signs or symptoms return, worsen, or any other new symptoms occur. DISCHARGE MEDICATIONS: 1. Metoprolol succinate extended release 12.5 mg one tablet p.o. daily. 2. Aspirin 81 mg one tablet p.o. daily. 3. Diazepam 4 mg p.o. at bedtime p.r.n. insomnia. 4. Gabapentin 300 mg p.o. at bedtime. 5. Lasix 80 mg p.o. daily. 6. Metolazone 2.5 mg p.o. Friday, Friday, and Friday. 7. Potassium chloride total of 80 mEq throughout the day. 8. Vitamin D3 of 5000 units p.o. daily. 9. Vitamin B12 of 250 mcg p.o. daily. 10. Folic acid 400 mcg one tablet p.o. daily. 11. Finasteride 5 mg one tablet p.o. daily. 12. Tamsulosin 0.4 mg one tablet p.o. at bedtime. Greater than 36 minutes spent coordinating care and discharge process for this patient. Job ID: [id number]
== END 2019-10-29 15:07 | disposition home or self-care (01) | DRG 274 ==
LOC: ERS 17:23 → 2SW 22:32 → OBSVTOIN 10-25 15:15
PROVIDERS: ADMIT Internal Medicine; ATTEND Internal Medicine
PROC: 4B02XSZ Measurement of Cardiac Pacemaker, External Approach (ICD-10-PCS; 2019-10-24)
PROC: 4A023FZ Measurement of Cardiac Rhythm, Percutaneous Approach (ICD-10-PCS; principal; 2019-10-26)
PROC: 4A0234Z Measurement of Cardiac Electrical Activity, Percutaneous Approach (ICD-10-PCS; 2019-10-26)
PROC: B24BZZ4 Ultrasonography of Heart with Aorta, Transesophageal (ICD-10-PCS; 2019-10-29)
DX: I47.2 Ventricular tachycardia (principal); I13.0 Hypertensive heart and chronic kidney disease with heart failure and stage 1 through stage 4 chronic kidney disease, or unspecified chronic kidney disease; I50.32 Chronic diastolic (congestive) heart failure; N17.9 Acute kidney failure, unspecified; I48.20 Chronic atrial fibrillation, unspecified; I44.2 Atrioventricular block, complete; N18.3 Chronic kidney disease, stage 3 (moderate); I08.1 Rheumatic disorders of both mitral and tricuspid valves; I49.5 Sick sinus syndrome; N40.0 Benign prostatic hyperplasia without lower urinary tract symptoms; E61.1 Iron deficiency; D63.1 Anemia in chronic kidney disease; I48.0 Paroxysmal atrial fibrillation; Z95.0 Presence of cardiac pacemaker; Z79.899 Other long term (current) drug therapy; Z86.74 Personal history of sudden cardiac arrest
CPT/HCPCS: 36415; 70450; 76942; 80048; 80053; 80162; 81003; 82553; 83735; 84100; 84484; 85025; 93005; 93306; 93312; 93621; 99152; 99153; C1730; C1769; J1644; J1650; J2250; J2704; J3010

== ENCOUNTER 2020-08-07 11:47 | Inpatient (IN) | payer MEDICARE ==
[2020-08-07 12:47] LABS: #Eosinphils 0.2 thou/uL (0.0-0.7); #Lymphocytes 1.5 thou/uL (1.20-3.40); #Monocytes 1.1 thou/uL (0.11-0.59); #Neutrophils 6.7 thou/uL (1.40-6.50); %Basophils 0.3 % (0.0-1.0); %Lymphocytes 15.4 % (21.0-51.0); %Monocytes 11.5 % (0.0-10.0); %Neutrophils 70.8 % (42.0-75.0); Hemoglobin 10.7 g/dL (14.0-18.0); Mean Corpuscular HGB CONC 33.2 g/dL (32.0-36.0); Mean Corpuscular Hemoglobin 30.6 pg (27.0-31.0); Mean Corpuscular Volume 92.2 fL (78.0-98.0); Mean Platelet Volume 6.6 fL (7.4-10.4); Platelet Count 260 thou/uL (130-400); RBC Distribution Width 12.9 % (11.5-14.5); Red Blood Cell (RBC) Count 3.51 mill/uL (4.70-6.10); White Blood Cell (WBC) Count 9.4 thou/uL (4.8-10.8)
[2020-08-07 13:13] LABS: ALT (SGPT) 18 U/L (8-55); AST (SGOT) 25 U/L (5-34); Albumin 3.8 g/dL (3.4-4.8); Alkaline Phosphatase 99 U/L (40-110); Anion Gap 12 mmol/L (10-20); BUN (Urea Nitrogen) 30 mg/dL (8.4-25.7); Bilirubin, Total 1.5 mg/dL (0.2-1.2); CK (CPK) 33 U/L (30-200); Calc. Creatinine Clearance 0 mL/min (70-130); Carbon Dioxide 32 mmol/L (23-31); Chloride 96 mmol/L (98-107); Estimated GFR-MDRD 49; Globulin 3.5 g/dL (2.4-3.5); Glucose 96 mg/dL (83-110); Protein, Total 7.3 g/dL (5.8-8.1); Sodium 136 mmol/L (136-145)
[2020-08-07 13:33] LABS: CKMB 1.1 ng/mL (0-6.6)
--- NOTE | 2020-08-07 14:09 | ULT ---
EXAM: Right lower extremity venous Doppler US HISTORY: Right lower extremity edema and pain FINDINGS: Grayscale, color-flow, Doppler evaluation, spectral analysis of the right lower extremity venous stru ctures is performed with 2-D imaging. The right common femoral, superficial femoral, popliteal, posterior tibial, proximal greater saphenous and profunda femoral veins are imaged. There is normal luminal compressibility, flow, and augmentation the visualized deep venous structures of the right lower extremity. IMPRESSION: No evidence of a deep vein thrombosis in the right lower extremity.
[2020-08-07] MEDS ORDERED: Cefepime 2 GM VIAL ONE (15:51)
--- NOTE | 2020-08-07 17:04 | PDOC.HHP ---
Hospitalist HPI - History of Present Illness Right lower extremity pain and swelling History of Present Illness: Mr. Guy is a 84-year-old male with a past medical history of CHF (last EF 55 to 60%), chronic venous hypertension, atrial fibrillation status post pacemaker and watchman, hypertension, BPH who presents with acute worsening of his right lower extremity redness and swelling. Patient reports that approximately 2 weeks ago he dropped a ladder on the dorsum of his foot. A few days later he noticed increased swelling and erythema up his leg. He saw his primary care doctor last week who started him on oral antibiotics. Patient believes the antibiotic was Keflex but is unsure. Over the past 2 days patient noticed that the redness has spread up his thigh and has become exquisitely caity nful to touch. Patient does have a history of chronic venous stasis that is worse on the right side, however not nearly as inflamed as it is today. Patient denies numbness/paresthesias. Denies fever, chills, night sweats. Denies chest pain, shortness of breath. In emergency room initial vital signs 114/60, 75, 16, 98.8, 97% on room air. EKG showed paced rhythm. White blood cell count 9.4, BNP 338 which is slightly better than patient's baseline. Troponin indeterminate at 0.049. Right lower extremity ultrasound negative for DVT. Patient started on IV vancomycin, cefepime, clindamycin. Hospitalist ROS - Review of Systems Constitutional: denies: fever, chills, sweats, weakness, malaise, other Eyes: denies: pain, vision change, conjunctivae inflammation, eyelid inflammation, redness, other ENT: denies: ear pain, ear discharge, nose pain, nose discharge, nose congest ion, mouth pain, mouth swelling, throat pain, throat swelling, other Respiratory: denies: cough, dry, shortness of breath, hemoptysis, SOB with excertion, pleuritic pain, sputum, wheezing, other Cardiovascular: denies: chest pain, palpitations, orthopnea, paroxysmal noc. dyspnea, edema, light headedness, other Gastrointestinal: denies: nausea, vomiting, abdominal pain, diarrhea, constipation, melena, hematochezia, other Genitourinary: denies: dysuria, frequency, incontinence, hematuria, retention, other Musculoskeletal: denies: neck pain, shoulder pain, arm pain, back pain, hand pain, leg pain, foot pain, other Skin: reports: rash, lesions Neurological: denies: weakness, numbness, incoordination, change in speech, c onfusion, seizures, other - Medication Medications: metoprolol tartrate oral FriAug 07, 2020 12:12 KIRSTEN [place] Taylor tablet : Strength - 25 mg : ORAL Patient Dose: unk mg Oral once a day. Klor-Con FriAug 07, 2020 12:13 KIRSTEN Hill Taylor PACKET (EA) : Strength - 20 mEq : ORAL Patient Dose: 40 mEq Oral once a day (in the morning). diazepam oral FriAug 07, 2020 12:13 KIRSTEN [place] Taylor TABLET : Strength - 5 mg : ORAL Patient Dose: 4 mg Oral once a day (at bedtime). gabapentin FriAug 07, 2020 12:13 KIRSTEN [place] Taylor tablet : Strength - 300 mg : ORAL Patient Dose: 2 tab(s) Oral once a day (in the evening). Lasix oral FriAug 07, 2020 12:14 KIRSTEN [place] Taylor TABLET : Strength - 80 mg : ORAL Patient Dose: 80 mg Oral once a day (in the morning). metolazone FriAug 07, 2020 12:14 KIRSTEN [place] Taylor TABLET : Strength - 2.5 mg : ORAL Patient Dose: once a day (in the morning). No known drug allergies Hospitalist History - Past Medical History Other Medical History: Medical history includes CHF with EF of 55 to 60% in 2019 Hypertension Chronic venous stasis Chronic A. fib status post permanent pacemaker and watchman - Past Surgical History Other Surgical History: Past surgical history Watchman Right lower extremity vein ablation in April 2020 Shoulder and knee surgery Hernia repair - Family History Other Family History: Family history pertinent for mother with unknown type of cancer - Social History Smoking Status: Never smoker Alcohol: reports: None Drugs: reports: none Living Situation: With Family Activity level: independent ambulation - Exam General Appearance: NAD, awake alert Eye: PERRL, anicteric sclera ENT: normocephalic atraumatic, no oropharyngeal lesions, moist mucosa Neck: supple, symmetric, no JVD, no thyromegaly, no lymphadenopathy, no carotid bruit Heart: RRR, no gallops, no rubs, normal peripheral pulses, murmur present Respiratory: CTAB, no wheezes, no rales, no ronchi, normal chest expansion, no tachypnea, normal percussion Gastrointestinal: soft, non-tender, non-distended, normal bowel sounds, no palpable masses, no hepatomegaly, no splenomegaly, no bruit Extremities: 2+ LE edema Extremities - other findings: Right lower extremity with erythema extending dorsum of the foot to thigh Skin - other findings: Erythema, induration to right lower extremity Neurological: normal sensation to touch, no weakness, no focal deficits, no new deficit Musculoskeletal: normal tone, normal strength, no muscle wasting Psychiatric: normal affect, normal behavior, A&O x 3 Hospitalist Results - Labs Result Diagrams: 08/08/20 05:45 08/08/20 05:45 Lab results: WBC 9.4 thou/uL (4.8-10.8) 08/07/20 12:37 Hgb 10.7 g/dL (14.0-18.0) L 08/07/20 12:37 Hct 32.4 % (42.0-52.0) L 08/07/20 12:37 MCV 92.2 fL (78.0-98.0) 08/07/20 12:37 Plt Count 260 thou/uL (130-400) 08/07/20 12:37 Neutrophils % 70.8 % (42.0-75.0) 08/07/20 12:37 Sodium 136 mmol/L (136-145) 08/07/20 12:38 Potassium 4.0 mmol/L (3.5-5.1) 08/07/20 12:38 Chloride 96 mmol/L (98-107) L 08/07/20 12:38 Carbon Dioxide 32 mmol/L (23-31) H 08/07/20 12:38 BUN 30 mg/dL (8.4-25.7) H 08/07/20 12:38 Creatinine 1.37 mg/dL (0.7-1.3) H 08/07/20 12:38 Glucose 96 mg/dL (83-110) 08/07/20 12:38 Calcium 9.0 mg/dL (7.8-10.44) 08/07/20 12:38 Total Bilirubin 1.5 mg/dL (0.2-1.2) H 08/07/20 12:38 AST 25 U/L (5-34) 08/07/20 12:38 ALT 18 U/L (8-55) 08/07/20 12:38 Alkaline Phosphatase 99 U/L (40-110) 08/07/20 12:38 Creatine Kinase 33 U/L (30-200) 08/07/20 12:38 CK-MB (CK-2) 1.1 ng/mL (0-6.6) 08/07/20 12:37 Troponin I 0.049 ng/mL (< 0.028) H 08/07/20 12:37 B-Natriuretic Peptide 338.3 pg/mL (0-100) H 08/07/20 12:37 Serum Total Protein 7.3 g/dL (5.8-8.1) 08/07/20 12:38 Albumin 3.8 g/dL (3.4-4.8) 08/07/20 12:38 Hospitalist H&P A/P - Plan Plan: 84-year-old male with history of CHF, chronic venous stasis presents for 2-weeks of worsening erythema and edema to right lower extremity after failing outpatient antibiotics. Patient admitted for cellulitis. #Cellulitis Failed outpatient treatment with question Keflex. Right lower extremity erythematous and edematous with induration. Erythema extends to the thigh. No signs of bullae, necrosis, crepitus. No new recent medications. Negative Niklosky's sign. White blood cell count 9.4. Lower extremity ultrasound negative for DVT. In the ED patient received vancomycin, cefepime, clindamycin. Given extent of erythema, will order CT of leg to rule out gas or abscess. Plan: -Continue vancomycin, cefepime, clindamycin -CT lower extremity -Blood cultures -Trend white blood cell, fever curve #Elevation in troponin Pt's troponin mildly elevated at 0.04. EKG with no ischemic changes, patient denies chest pain. Low suspicion for ACS. Likely small trop leak. Will trend troponin. Plan: -Trend troponins -Continue to monitor for symptoms #CHF History of CHF with most recent echo showing 45 to 60% EF. On home Lasix 80 mg daily, and metazalone 2.5 mg. Patient denies shortness of breath. BNP 338. Chest x-ray without infiltrate. Plan: -Continue Lasix, metazalone #Hypertension Continue home metoprolol #BPH Continue home flowmax DVT prophylaxis: Lovenox Full code Case discussed with attending physician, Dr. Mcgee.
[2020-08-07] MEDS ORDERED: Clindamycin/D5W 900 mg/50 ml Premix Bag ONE (17:20)
[2020-08-07] MEDS ORDERED: Vancomycin 1.5 GRAM/300 ML BAG 1.5 GM in Premix Bag 1 BAG IVPB SCH (17:45)
[2020-08-07] MEDS ORDERED: Acetaminophen 325 MG TAB PO PRN (17:53)
[2020-08-07] MEDS ORDERED: Tamsulosin HCl 0.4 MG CAP PO PRN (17:57)
[2020-08-07 18:14] VITALS: BMI 25.4
--- NOTE | 2020-08-07 19:42 | CT ---
CT OF THE RIGHT LOWER EXTREMITY PERFORMED WITHOUT CONTRAST ENHANCEMENT: History: Patient reports right lower extremity cellulitis for one year that has gotten worse recently . Painful to walk. FINDINGS: Examination was performed from the proximal femur to the level of the foot. This shows cellulitis deniz nges. Subcutaneous edema change seen along the medial aspect of the thigh and more circumferentially involving the calf and ankle region. No underlying changes of osteomyelitis. There is no air within t he soft tissue. No signs of any abscess. Incidental note is made of a intramuscular fat density mass which appears to represent a lipoma invol ving the adductor temitope muscle. Moderate atherosclerotic changes are seen. IMPRESSION: Cellulitis changes. No evidence of any air within the soft tissue or any type of abscess. Other incid ental findings as noted above. POS: OFF
[2020-08-07] MEDS ORDERED: Diazepam 2 MG TAB PO SCH (21:30)
[2020-08-07] MEDS ORDERED: Gabapentin 300 MG CAP PO SCH (21:30)
[2020-08-07] MEDS ORDERED: Ibuprofen 200 MG TAB PO PRN (21:32)
[2020-08-08] MEDS: Clindamycin/D5W 900 MG in Premix Bag 1 BAG IVPB SCH ×3 (02:03→17:38)
[2020-08-08] MEDS: Cefepime 2 GM in Sodium Chloride 0.9% 100 ML IVPB SCH ×2 (03:49→15:44)
[2020-08-08 06:02] LABS: #Eosinphils 0.3 thou/uL (0.0-0.7); #Lymphocytes 1.1 thou/uL (1.20-3.40); #Monocytes 0.8 thou/uL (0.11-0.59); #Neutrophils 3.6 thou/uL (1.40-6.50); %Basophils 0.4 % (0.0-1.0); %Eosinophils 5.2 % (0.0-10.0); %Lymphocytes 18.4 % (21.0-51.0); %Monocytes 14.5 % (0.0-10.0); %Neutrophils 61.5 % (42.0-75.0); Hemoglobin 9.4 g/dL (14.0-18.0); Mean Corpuscular HGB CONC 32.1 g/dL (32.0-36.0); Mean Corpuscular Hemoglobin 29.8 pg (27.0-31.0); Mean Platelet Volume 6.7 fL (7.4-10.4); Platelet Count 220 thou/uL (130-400); RBC Distribution Width 12.8 % (11.5-14.5); Red Blood Cell (RBC) Count 3.14 mill/uL (4.70-6.10); White Blood Cell (WBC) Count 5.8 thou/uL (4.8-10.8)
[2020-08-08 06:38] LABS: Anion Gap 12 mmol/L (10-20); BUN (Urea Nitrogen) 36 mg/dL (8.4-25.7); Calc. Creatinine Clearance 41 mL/min (70-130); Calcium 8.5 mg/dL (7.8-10.44); Carbon Dioxide 30 mmol/L (23-31); Chloride 97 mmol/L (98-107); Estimated GFR-MDRD 45; Glucose 107 mg/dL (83-110); Potassium 3.4 mmol/L (3.5-5.1); Sodium 136 mmol/L (136-145)
[2020-08-08] MEDS ORDERED: Sodium Chloride 0.9% 500 ML IV SCH (08:00)
[2020-08-08] MEDS: Enoxaparin Sodium 40 MG/0.4 ML SYRINGE SC SCH (09:06)
[2020-08-08] MEDS: Furosemide 40 MG TAB PO SCH (09:12)
--- NOTE | 2020-08-08 09:58 | PDOC.HOSPP ---
- Subjective Encounter Date: 08/08/20 Encounter Time: 09:57 Subjective: No overnight events. Patient states he overall mild to moderate pain and burning to the right lower extremity. Denies chest pain, shortness of breath, abdominal pain. Denies numbness or paresthesias. Denies fever, chills, night sweats. Try medications reviewed. - Objective Vital Signs & Weight: Vital Signs (12 hours) Temp Pulse Resp BP BP BP Pulse Ox 08/08/20 07:43 97.4 F L 81 16 105/68 96 08/08/20 05:44 95/56 L 08/08/20 04:59 97.7 F 73 18 91/48 L 95/55 L 97/46 L 95 08/08/20 00:19 98.0 F 71 18 106/63 96 Weight Weight 176 lb 15.088 oz I&O: 08/07/20 08/08/20 08/09/20 06:59 06:59 06:59 Intake Total 450 Balance 450 Result Diagrams: 08/08/20 05:45 08/08/20 05:45 Hospitalist ROS - Review of Systems Constitutional: denies: fever, chills, sweats, weakness, malaise, other Eyes: denies: vision change Respiratory: denies: cough, shortness of breath Cardiovascular: denies: chest pain, palpitations Gastrointestinal: denies: nausea, vomiting, abdominal pain, diarrhea Genitourinary: denies: dysuria Musculoskeletal: reports: leg pain Skin: reports: rash Neurological: denies: weakness, numbness - Medication Medications: Active Medications Generic Name Dose Route Start Last Admin Trade Name Jennifer PRN Reason Stop Dose Admin Enoxaparin Sodium 40 mg 08/08/20 09:00 08/08/20 09:06 Enoxaparin Sodium 40 Mg/0.4 Ml Syringe SC 40 mg 0900 JENI Administration Furosemide 80 mg 08/08/20 09:00 08/08/20 09:12 Furosemide 40 Mg Tab PO Not Given QAM JENI Cefepime HCl 2 gm/ Sodium 100 mls @ 200 mls/hr 08/08/20 04:00 08/08/20 03:49 Chloride IVPB 100 mls 0400,1600 JENI Administration Clindamycin Phosphate/Dextrose 50 mls @ 100 mls/hr 08/08/20 02:00 08/08/20 02:03 900 mg/ Device IVPB 50 mls 0200,1000,1800 JENI Administration Ibuprofen 200 mg 08/07/20 21:32 08/07/20 21:48 Ibuprofen 200 Mg Tab PO 200 mg Q4H PRN Administration Pain Metoprolol Succinate 12.5 mg 08/08/20 09:00 08/08/20 09:12 Metoprolol Succinate Xl 25 Mg Tab PO Not Given DAILY JENI - Exam General Appearance: NAD, awake alert Eye: anicteric sclera ENT: normocephalic atraumatic, no oropharyngeal lesions, moist mucosa Neck: supple, symmetric, no JVD, no thyromegaly, no lymphadenopathy, no carotid bruit Heart: RRR, no murmur, no gallops, no rubs, normal peripheral pulses Respiratory: CTAB, no wheezes, no rales, no ronchi, normal chest expansion, no tachypnea, normal percussion Gastrointestinal: soft, non-tender, non-distended, normal bowel sounds, no palpable masses, no hepatomegaly, no splenomegaly, no bruit Extremities - other findings: 2+ right lower extremity swelling with erythema, induration Skin - other findings: Erythema extends to the medial aspect of the thigh Neurological: normal sensation to touch, no weakness, no focal deficits Musculoskeletal: normal tone, normal strength, no muscle wasting Psychiatric: normal affect, normal behavior, A&O x 3 Hosp A/P - Plan 84-year-old male with history of CHF, chronic venous stasis presents for 2-weeks of worsening erythema and edema to right lower extremity after failing outpatient antibiotics. Patient admitted for cellulitis. #Cellulitis Failed outpatient treatment with question Keflex. Right lower extremity erythematous and edematous with induration. Erythema extends to the thigh. No signs of bullae, necrosis, crepitus. No new recent medications. Negative Niklosky's sign. White blood cell count 9.4. Lower extremity ultrasound negative for DVT. In the ED patient received vancomycin, cefepime, clindamycin. CT of the leg showed no evidence for abscess or gas formation. Erythema and edema mildly improving on exam today. Plan: -Continue vancomycin, cefepime, clindamycin -Blood cultures -Trend white blood cell, fever curve Probiotics #Elevation in troponin Pt's troponin mildly elevated at 0.04. EKG with no ischemic changes, patient denies chest pain. Low suspicion for ACS. Likely small trop leak. Repeat troponin 0 0.023. Patient denies chest pain, palpitations. Plan: -Trend troponins -Continue to monitor for symptoms #CORTES Small increase in creatinine this morning to 1.48. BUN 36. Will give gentle fluids given patient's CHF. Plan: Trend renal function Gentle IV fluids Avoid nephrotoxic agents and possible #CHF History of CHF with most recent echo showing 45 to 60% EF. On home Lasix 80 mg daily, and metazalone 2.5 mg. Patient denies shortness of breath. BNP 338. Chest x-ray without infiltrate. Plan: -Continue Lasix, metazalone #Hypertension Continue home metoprolol #BPH Continue home flowmax #Peripheral neuropathy: Continue home gabapentin DVT prophylaxis: Lovenox Full code Case discussed with attending physician, Dr. Mcgee.
[2020-08-08] MEDS ORDERED: Saccharomyces boulardii 250 MG CAP PO SCH (11:00)
[2020-08-08] MEDS ORDERED: Vancomycin HCl 1.25 GM in Sodium Chloride 0.9% 250 ML 250 ML IVPB SCH (18:00)
[2020-08-08] MEDS: Ibuprofen 200 MG TAB PO PRN (21:05)
[2020-08-08] MEDS: Gabapentin 300 MG CAP PO SCH (21:29)
[2020-08-08] MEDS: Diazepam 2 MG TAB PO SCH (21:29)
[2020-08-09] MEDS: Clindamycin/D5W 900 MG in Premix Bag 1 BAG IVPB SCH ×2 (02:35→09:40)
[2020-08-09] MEDS: Cefepime 2 GM in Sodium Chloride 0.9% 100 ML IVPB SCH (03:31)
[2020-08-09 06:41] LABS: #Eosinphils 0.2 thou/uL (0.0-0.7); #Lymphocytes 0.8 thou/uL (1.20-3.40); #Monocytes 0.5 thou/uL (0.11-0.59); #Neutrophils 2.3 thou/uL (1.40-6.50); %Basophils 0.2 % (0.0-1.0); %Eosinophils 6.5 % (0.0-10.0); %Monocytes 12.2 % (0.0-10.0); Hemoglobin 9.2 g/dL (14.0-18.0); Mean Corpuscular HGB CONC 32.6 g/dL (32.0-36.0); Mean Corpuscular Hemoglobin 30.8 pg (27.0-31.0); Mean Corpuscular Volume 94.4 fL (78.0-98.0); Mean Platelet Volume 6.5 fL (7.4-10.4); Platelet Count 201 thou/uL (130-400); RBC Distribution Width 12.8 % (11.5-14.5); Red Blood Cell (RBC) Count 2.99 mill/uL (4.70-6.10); White Blood Cell (WBC) Count 3.8 thou/uL (4.8-10.8)
[2020-08-09 06:58] LABS: Anion Gap 10 mmol/L (10-20); BUN (Urea Nitrogen) 35 mg/dL (8.4-25.7); Calc. Creatinine Clearance 48 mL/min (70-130); Calcium 8.4 mg/dL (7.8-10.44); Carbon Dioxide 30 mmol/L (23-31); Chloride 100 mmol/L (98-107); Estimated GFR-MDRD 53; Glucose 95 mg/dL (83-110); Potassium 3.6 mmol/L (3.5-5.1); Sodium 136 mmol/L (136-145)
[2020-08-09] MEDS: Metolazone 2.5 MG TAB PO SCH (07:48)
[2020-08-09] MEDS: Saccharomyces boulardii 250 MG CAP PO SCH (07:51)
[2020-08-09] MEDS: Enoxaparin Sodium 40 MG/0.4 ML SYRINGE SC SCH (07:51)
[2020-08-09] MEDS: Furosemide 40 MG TAB PO SCH (07:52)
--- NOTE | 2020-08-09 10:13 | PDOC.HOSPP ---
- Subjective Encounter Date: 08/09/20 Encounter Time: 10:11 Subjective: No overnight events. Patient reports he overall feels well. Reports he feels the swelling in his right lower extremity slightly improved but not redness. Reports burning and itching sensation to right upper and lower leg. Denies fever, night sweats, chills. Denies numbness, paresthesias. Denies chest pain, shortness of breath, abdominal pain. Chart and medications reviewed. - Objective Vital Signs & Weight: Vital Signs (12 hours) Temp Pulse Resp BP BP BP Pulse Ox 08/09/20 08:00 97 08/09/20 07:41 97.5 F L 78 14 102/62 97 08/09/20 05:57 109/66 08/09/20 04:00 97.5 F L 72 16 93/57 L 93 L 08/09/20 00:00 97.4 F L 69 16 110/67 98 Weight Weight 176 lb 15.088 oz I&O: 08/08/20 08/09/20 08/10/20 06:59 06:59 06:59 Intake Total 450 240 Balance 450 240 Result Diagrams: 08/09/20 06:14 08/09/20 06:14 Hospitalist ROS - Review of Systems Constitutional: denies: fever, chills, sweats, weakness, malaise, other Eyes: denies: vision change Respiratory: denies: cough, shortness of breath Cardiovascular: denies: chest pain, palpitations, orthopnea Gastrointestinal: denies: nausea, vomiting, abdominal pain Genitourinary: denies: dysuria Musculoskeletal: reports: leg pain Skin: reports: rash Neurological: denies: weakness, numbness, incoordination, change in speech, confusion, seizures, other - Medication Medications: Active Medications Generic Name Dose Route Start Last Admin Trade Name Freq PRN Reason Stop Dose Admin Diazepam 4 mg 08/08/20 21:00 08/08/20 21:29 Diazepam 2 Mg Tab PO 4 mg QPM JENI Administration Enoxaparin Sodium 40 mg 08/08/20 09:00 08/09/20 07:51 Enoxaparin Sodium 40 Mg/0.4 Ml Syringe SC 40 mg 0900 JENI Administration Furosemide 80 mg 08/08/20 09:00 08/09/20 07:52 Furosemide 40 Mg Tab PO Not Given QAM JENI Gabapentin 600 mg 08/08/20 21:00 08/08/20 21:29 Gabapentin 300 Mg Cap PO 600 mg HS JENI Administration Vancomycin HCl 1.25 gm/ Sodium 250 mls @ 166.667 mls/hr 08/08/20 18:00 18:33 Chloride IVPB 250 mls 1800 JENI Administration Cefepime HCl 2 gm/ Sodium 100 mls @ 200 mls/hr 08/08/20 04:00 08/09/20 03:31 Chloride IVPB 100 mls 0400,1600 JENI Administration Clindamycin Phosphate/Dextrose 50 mls @ 100 mls/hr 08/08/20 02:00 08/09/20 09:40 900 mg/ Device IVPB 50 mls 0200,1000,1800 JENI Administration Ibuprofen 200 mg 08/07/20 21:32 08/07/20 21:48 Ibuprofen 200 Mg Tab PO 200 mg Q4H PRN Administration Pain Ibuprofen 400 mg 08/08/20 20:21 08/08/20 21:05 Ibuprofen 200 Mg Tab PO 400 mg Q4H PRN Administration Pain Metolazone 2.5 mg 08/09/20 08:30 08/09/20 07:48 Metolazone 2.5 Mg Tab PO 2.5 mg MoWeFr JENI Administration Metoprolol Succinate 12.5 mg 08/08/20 09:00 08/09/20 07:48 Metoprolol Succinate Xl 25 Mg Tab PO 12.5 mg DAILY JENI Administration Saccharomyces Boulardii 250 mg 08/09/20 09:00 08/09/20 07:51 Saccharomyces Boulardii 250 Mg Cap PO 250 mg DAILY JENI Administration - Exam General Appearance: NAD, awake alert Eye: anicteric sclera ENT: normocephalic atraumatic, moist mucosa Neck: supple, symmetric, no JVD, no thyromegaly, no lymphadenopathy, no carotid bruit Heart: RRR, no murmur, no gallops, no rubs, normal peripheral pulses Respiratory: CTAB, no wheezes, no rales, no ronchi, normal chest expansion, no tachypnea, normal percussion Gastrointestinal: soft, non-tender, non-distended, normal bowel sounds, no palpable masses, no hepatomegaly, no splenomegaly, no bruit Extremities - other findings: Extensive erythema to right lower extremity extending to upper thigh Skin - other findings: Edema to right lower extremity Neurological: normal sensation to touch, no weakness, no focal deficits Musculoskeletal: normal tone, normal strength, no muscle wasting Psychiatric: normal affect, normal behavior, A&O x 3 Hosp A/P - Plan 84-year-old male with history of CHF, chronic venous stasis presents for 2-weeks of worsening erythema and edema to right lower extremity after failing outpatient antibiotics. Patient admitted for cellulitis. #Cellulitis Failed outpatient treatment with question Keflex. Right lower extremity er ythematous and edematous with induration. Erythema extends to the thigh. No signs of bullae, necrosis, crepitus. No new recent medications. Negative Niklosky's sign. White blood cell count 9.4. Lower extremity ultrasound negative for DVT. In the ED patient received vancomycin, cefepime, clindamycin. CT of the leg showed no evidence for abscess or gas formation. Erythema and edema are essentially stable from day prior. Rash on upper thigh has small hives and is not well demarcated. No signs of necrosis, bullae, crepitus. No area of fluctuance. Given broad-spectrum antibiotics would expect clinical course to have improved more significantly. Will obtain ID consult, recommendations appreciated. Plan: -Continue vancomycin, cefepime, clindamycin -Blood cultures pending -Trend white blood cell, fever curve Probiotics #Elevation in troponin Pt's troponin mildly elevated at 0.04. EKG with no ischemic changes, patient denies chest pain. Low suspicion for ACS. Likely secondary to kidney function. Repeat troponin 0 0.023, 0.016. Patient denies chest pain, palpitations. Plan: -Continue to monitor for symptoms #CORTES Small increase in creatinine on 08/08 to 1.48. BUN 36. Received gentle fluids and held Lasix with improvement in creatinine this morning back to baseline 1.2. Plan: Trend renal function Avoid nephrotoxic agents and possible #CHF History of CHF with most recent echo showing 45 to 60% EF. On home Lasix 80 mg daily, and metazalone 2.5 mg. Patient denies shortness of breath. BNP 338. Chest x-ray without infiltrate. Plan: -Continue Lasix, metazalone #Hypertension Continue home metoprolol #BPH Continue home flowmax #Peripheral neuropathy: Continue home gabapentin DVT prophylaxis: Lovenox Full code Case discussed with attending physician, Dr. Mcgee who is in agreement with assessment and plan.
--- NOTE | 2020-08-09 14:55 | PQF ---
CLINICAL DOCUMENTATION CLARIFICATION FORM: Dear Rosario Snyder Date: 08/09/2020, 08/10/2020 1216 Please exercise your independent, professional judgment in responding to the clarification form. Clinical indicators are provided on the bottom of this form for your review. Please check appropriate box(es): [ ] Acute Respiratory Failure: [ ] with Hypoxia [ ] with Hypercapnia [ ] Acute On Chronic Respiratory Failure: [ ] with Hypoxia [ ] with Hypercapnia [ ] Acute Respiratory Failure due to: (etiology) [ ] Chronic Respiratory Failure only [ ] with Hypoxia [ ] with Hypercapnia [ x ] Other diagnosis ____Congestive Heart Failure [ ] Unable to determine In addition, please specify: Present on Admission (POA): [ ] Yes [ x ] No [ ] Unable to determine For continuity of documentation, please document condition throughout progress notes and discharge summary. Thank You. To be completed by CDI/Coding staff for physician review: CLINICAL INDICATORS - SIGNS / SYMPTOMS / LABS / RESULTS AND LOCATION IN MR BNP 08/07 338.3 Past medical history CHF with EF of 55 to 60% in 2019, A/P: CHF with most recent echo showing 45-60% EF. On home Lasix 80mg daily. Patient denies shortness of breath. (H&P/ [facility]) 08/07 RISK FACTORS / RESULTS AND LOCATION IN MR Hx Congestive Heart Failure, advanced age, 84 (H&P/ [facility]) 08/07 - 08/08 TREATMENTS / RESULTS AND LOCATION IN MR Furosemide 80mg QD ( 08/08- present) Acute Respiratory Failure: ABG pH < 7.35 or > 7.45; Decreased oxygen saturation (<90% room air or < 95% on oxygen); PCO2 > 50 mm Hg; PO2 < 60 mm Hg; Labored or rapid respirations ARDS: Dx Criteria [[place] ARDS]: Respiratory symptoms within one week of a known clinical insult (e.g. shock, infection, surgery, trauma) Bilateral opacities in CXR/Chest CT not due to CHF or fluid THANK YOU! CDS Signature: Dayana Day RN Phone #: [phone] Date: 08/09/2020 This is a permanent part of the Medical Record [facility]
[2020-08-09 17:36] LABS: Vancomycin, Trough 13.2 ug/mL
--- NOTE | 2020-08-09 20:02 | CON ---
DATE OF CONSULTATION: REASON FOR CONSULTATION: Cellulitis. HISTORY OF PRESENT ILLNESS: An 84-year-old, who has a history of venous insufficiency with prior ablation of one of the veins in the right lower extremity, history of pacemaker, management of ablation and Watchman procedure with onset of inflammatory process, dorsal aspect of the right foot, was treated with oral cephalexin with improvement. After that medication was stopped, he developed diffuse swelling of the right leg with pain, some dyspnea associated with it. No fever. Redness was present. No diarrhea. No genitourinary symptoms. No vomiting or sore throat. No cough. PHYSICAL EXAMINATION: VITAL SIGNS: On arrival blood pressure 114/60, pulse 75, respirations 16, temperature 98.8, O2 saturation 97%. SKIN: Showed right lower extremity swelling with circumferential erythema covering about two-thirds of the leg areas of hyperpigmentation associated with venous hypertension. No lymphadenopathy. HEENT: Ocular movements conjugate. Oral cavity with quite a few teeth in place with some decay. NECK: Supple. LUNGS: Symmetric. Clear breath sounds. HEART: S1 and S2. Regular rate. No S3 or S4. ABDOMEN: Soft, not distended or tender. No ascites. No bladder distention. EXTREMITIES: No joint inflammatory activity. Pulses 1+ in dorsalis pedis. Moves all extremities with some limitations from inflammatory process in right leg. Cognitive function appears to be intact. LABORATORY DATA: White cell count is 9.4, is down to 3.8; hemoglobin 9.2; platelets 201; 61% neutrophils. Creatinine 1.29. Four sets of blood cultures thus far no growth. IMAGING STUDIES: There is a lower extremity CT scan, which just showed cellulitis, but no abscess. Vascular ultrasound, no DVT noted. ASSESSMENT AND DISCUSSION: Prior ablation of vein in the right lower extremity, venous insufficiency, now cellulitis, probably originating from the previous inflammatory process, dorsal aspect of right foot, typical organisms associated include beta-hemolytic streptococci, more likely scenario here. Bacteremia has not been shown. He has a pacemaker, so he would be at risk for colonization of the pacemaker down the road. Right now, we will switch him to cefazolin, hoping for eventual transition to oral Keflex. He would be eligible for compression stockings, which have been shown to reduce the risk of recurrence by 80% as well as penicillin VK 250 b.i.d. for one year, which also reduces further the risk of recurrence until the stockings have had time to work. Job ID: [id number]
[2020-08-09] MEDS: Gabapentin 300 MG CAP PO SCH (20:43)
[2020-08-09] MEDS: Diazepam 2 MG TAB PO SCH (20:43)
[2020-08-09] MEDS: Ibuprofen 200 MG TAB PO PRN (21:50)
[2020-08-09] MEDS: CEFAZOLIN 2 GM in Premix Bag 1 BAG IVPB SCH (21:51)
[2020-08-10] MEDS: CEFAZOLIN 2 GM in Premix Bag 1 BAG IVPB SCH ×3 (05:21→22:01)
[2020-08-10 06:47] LABS: #Eosinphils 0.2 thou/uL (0.0-0.7); #Lymphocytes 0.9 thou/uL (1.20-3.40); #Monocytes 0.5 thou/uL (0.11-0.59); #Neutrophils 2.9 thou/uL (1.40-6.50); %Basophils 0.3 % (0.0-1.0); %Lymphocytes 19.9 % (21.0-51.0); %Monocytes 10.9 % (0.0-10.0); %Neutrophils 64.9 % (42.0-75.0); Mean Corpuscular HGB CONC 33.1 g/dL (32.0-36.0); Mean Corpuscular Hemoglobin 31.1 pg (27.0-31.0); Mean Corpuscular Volume 93.8 fL (78.0-98.0); Mean Platelet Volume 6.6 fL (7.4-10.4); Platelet Count 208 thou/uL (130-400); RBC Distribution Width 12.8 % (11.5-14.5); Red Blood Cell (RBC) Count 3.21 mill/uL (4.70-6.10); White Blood Cell (WBC) Count 4.4 thou/uL (4.8-10.8)
[2020-08-10 07:17] LABS: Anion Gap 11 mmol/L (10-20); BUN (Urea Nitrogen) 33 mg/dL (8.4-25.7); Calc. Creatinine Clearance 43 mL/min (70-130); Calcium 8.4 mg/dL (7.8-10.44); Carbon Dioxide 27 mmol/L (23-31); Chloride 100 mmol/L (98-107); Estimated GFR-MDRD 48; Glucose 125 mg/dL (83-110); Potassium 3.4 mmol/L (3.5-5.1); Sodium 135 mmol/L (136-145)
[2020-08-10] MEDS: Saccharomyces boulardii 250 MG CAP PO SCH (08:24)
[2020-08-10] MEDS: Furosemide 40 MG TAB PO SCH (08:25)
[2020-08-10] MEDS: Enoxaparin Sodium 40 MG/0.4 ML SYRINGE SC SCH (08:25)
--- NOTE | 2020-08-10 11:56 | PDOC.HOSPP ---
- Subjective Encounter Date: 08/10/20 Encounter Time: 11:55 Subjective: No overnight events. Patient reports improvement in the pain in his leg. He denies fever chills or night sweats. He denies shortness of breath chest pain or palpitations. Chart and medications reviewed. - Objective Vital Signs & Weight: Vital Signs (12 hours) Temp Pulse Resp BP Pulse Ox 08/10/20 08:00 98 08/10/20 07:47 97.5 F L 70 16 110/65 98 Weight Weight 176 lb 15.088 oz I&O: 08/09/20 08/10/20 08/11/20 06:59 06:59 06:59 Intake Total 1190 240 Output Total 400 Balance 790 240 Result Diagrams: 08/10/20 06:08 08/10/20 06:08 Hospitalist ROS - Review of Systems Constitutional: denies: fever, chills, sweats, weakness, malaise, other Eyes: denies: vision change Respiratory: denies: cough, shortness of breath, sputum, wheezing Cardiovascular: denies: chest pain, palpitations, orthopnea, paroxysmal noc. dyspnea Gastrointestinal: denies: nausea, vomiting, abdominal pain Genitourinary: denies: dysuria Skin: reports: rash, lesions Neurological: denies: weakness, numbness, incoordination, change in speech, confusion, seizures, other - Medication Medications: Active Medications Generic Name Dose Route Start Last Admin Trade Name Freq PRN Reason Stop Dose Admin Diazepam 4 mg 08/08/20 21:00 08/09/20 20:43 Diazepam 2 Mg Tab PO 4 mg QPM JENI Administration Enoxaparin Sodium 40 mg 08/08/20 09:00 08/10/20 08:25 Enoxaparin Sodium 40 Mg/0.4 Ml Syringe SC 40 mg 0900 JENI Administration Furosemide 80 mg 08/08/20 09:00 08/10/20 08:25 Furosemide 40 Mg Tab PO 80 mg QAM JENI Administration Gabapentin 600 mg 08/08/20 21:00 08/09/20 20:43 Gabapentin 300 Mg Cap PO 600 mg HS JENI Administration Cefazolin Sodium/Dextrose 2 gm 50 mls @ 100 mls/hr 08/09/20 22:00 08/10/20 05:21 / Device IVPB 50 mls Q8HR JENI Administration Ibuprofen 200 mg 08/07/20 21:32 08/07/20 21:48 Ibuprofen 200 Mg Tab PO 200 mg Q4H PRN Administration Pain Ibuprofen 400 mg 08/08/20 20:21 08/09/20 21:50 Ibuprofen 200 Mg Tab PO 400 mg Q4H PRN Administration Pain Metolazone 2.5 mg 08/09/20 08:30 08/09/20 07:48 Metolazone 2.5 Mg Tab PO 2.5 mg MoWeFr JENI Administration Metoprolol Succinate 12.5 mg 08/08/20 09:00 08/10/20 08:25 Metoprolol Succinate Xl 25 Mg Tab PO 12.5 mg DAILY JENI Administration Saccharomyces Boulardii 250 mg 08/09/20 09:00 08/10/20 08:24 Saccharomyces Boulardii 250 Mg Cap PO 250 mg DAILY JENI Administration Sodium Chloride 10 ml 08/07/20 17:53 08/10/20 08:26 Flush - Normal Saline 10 Ml Syringe IVF 10 ml PRN PRN Administration Saline Flush - Exam General Appearance: NAD, awake alert Eye: anicteric sclera ENT: normocephalic atraumatic, no oropharyngeal lesions Neck: supple, symmetric, no JVD, no thyromegaly, no lymphadenopathy, no carotid bruit Heart: RRR, no murmur, no gallops, no rubs, normal peripheral pulses Respiratory: CTAB, no wheezes, no rales, no ronchi, normal chest expansion, no tachypnea, normal percussion Gastrointestinal: soft, non-tender, non-distended, normal bowel sounds, no palpable masses, no hepatomegaly, no splenomegaly, no bruit Extremities - other findings: Edema, erythema, induration to right lower e xtremity. Skin - other findings: Erythema, edema, induration to right lower extremity that extends to thigh Neurological: normal sensation to touch, no weakness, no focal deficits, no new deficit Musculoskeletal: normal tone, normal strength, no muscle wasting Psychiatric: normal affect, normal behavior, A&O x 3 Hosp A/P - Plan 84-year-old male with history of CHF, chronic venous stasis presents for 2-weeks of worsening erythema and edema to right lower extremity after failing outpatient antibiotics. Patient admitted for cellulitis. Cellulitis Failed outpatient treatment with question Keflex. Right lower extremity erythematous and edematous with induration. Erythema extends to the thigh. No signs of bullae, necrosis, crepitus. No new recent medications. Negative Niklosky's sign. White blood cell count 9.4. Lower extremity ultrasound negative for DVT. In the ED patient received vancomycin, cefepime, clindamycin. CT of the leg showed no evidence for abscess or gas formation. Infectious disease consulted since patient cellulitis extensive extending up to the thigh. Dr. Pabon of ID recommended IV cefazolin as long as blood cultures remain negative. Also recommended to consider outpatient penicillin to prevent recurrent infections. On exam today patient's cellulitis much improved and descending from initial border. Patient also reports that his pain has improved. Plan: -Continue cefazolin -Blood cultures -Trend white blood cell, fever curve Probiotics Elevation in troponin Pt's troponin mildly elevated at 0.04. EKG with no ischemic changes, patient denies chest pain. Low suspicion for ACS. Likely small trop leak. Repeat troponin 0 0.023, 0.016. Patient denies chest pain, palpitations. Plan: -Resolved -Continue to monitor for symptoms CORTES Small increase in creatinine on 08/10 of 1.48. BUN 36. Will give gentle fluids given patient's CHF. Plan: Trend renal function Gentle IV fluids Avoid nephrotoxic agents and possible CHF History of CHF with most recent echo showing 45 to 60% EF. On home Lasix 80 mg daily, and metolazone 2.5 mg. Patient denies shortness of breath. BNP 338. Chest x-ray without infiltrate. Plan: -Continue Lasix, metazalone Hypertension Continue home metoprolol BPH Continue home flowmax Peripheral neuropathy: Continue home gabapentin DVT prophylaxis: Lovenox Full code Case discussed with attending physician, Dr. Mcgee.
[2020-08-10] MEDS: Gabapentin 300 MG CAP PO SCH (20:23)
[2020-08-10] MEDS: Diazepam 2 MG TAB PO SCH (20:24)
[2020-08-10] MEDS: Ibuprofen 200 MG TAB PO PRN (20:24)
[2020-08-11] MEDS: CEFAZOLIN 2 GM in Premix Bag 1 BAG IVPB SCH (05:24)
[2020-08-11 07:50] VITALS: BP 109/67; TEMP 97.4
[2020-08-11] MEDS: Enoxaparin Sodium 40 MG/0.4 ML SYRINGE SC SCH (07:58)
[2020-08-11] MEDS: Saccharomyces boulardii 250 MG CAP PO SCH (07:59)
[2020-08-11] MEDS: Furosemide 40 MG TAB PO SCH (07:59)
[2020-08-11] MEDS: Metolazone 2.5 MG TAB PO SCH (07:59)
[2020-08-11] MEDS ORDERED: Potassium Chloride 20 MEQ TAB PO SCH (08:30)
[2020-08-11 11:00] LABS: #Eosinphils 0.2 thou/uL (0.0-0.7); #Lymphocytes 1.3 thou/uL (1.20-3.40); #Monocytes 0.5 thou/uL (0.11-0.59); #Neutrophils 3.5 thou/uL (1.40-6.50); %Basophils 0.4 % (0.0-1.0); %Eosinophils 3.5 % (0.0-10.0); %Lymphocytes 23.4 % (21.0-51.0); %Monocytes 9.7 % (0.0-10.0); %Neutrophils 63.1 % (42.0-75.0); Hemoglobin 9.7 g/dL (14.0-18.0); Mean Corpuscular HGB CONC 32.2 g/dL (32.0-36.0); Mean Corpuscular Hemoglobin 29.9 pg (27.0-31.0); Mean Corpuscular Volume 92.9 fL (78.0-98.0); Mean Platelet Volume 6.7 fL (7.4-10.4); Platelet Count 223 thou/uL (130-400); RBC Distribution Width 12.8 % (11.5-14.5); Red Blood Cell (RBC) Count 3.24 mill/uL (4.70-6.10); White Blood Cell (WBC) Count 5.5 thou/uL (4.8-10.8)
[2020-08-11 11:16] LABS: Anion Gap 12 mmol/L (10-20); BUN (Urea Nitrogen) 28 mg/dL (8.4-25.7); Calc. Creatinine Clearance 48 mL/min (70-130); Calcium 8.7 mg/dL (7.8-10.44); Carbon Dioxide 28 mmol/L (23-31); Chloride 100 mmol/L (98-107); Estimated GFR-MDRD 53; Glucose 97 mg/dL (83-110); Potassium 3.5 mmol/L (3.5-5.1); Sodium 136 mmol/L (136-145)
--- NOTE | 2020-08-12 17:29 | DIS ---
DATE OF ADMISSION: 08/07/2020 DATE OF DISCHARGE: 08/11/2020 DISCHARGE DIAGNOSES: 1. Cellulitis of Right leg. 2. Elevated troponin. 3. Congestive heart failure. 4. Hypertension. 5. Benign prostatic hypertrophy. 6. Peripheral neuropathy. BRIEF HOSPITAL COURSE: This is an 84 year old male patient who has a history of CHF, who presented to the ED on the day of admission failure of outpatient treatment for cellulitis of his right lower extremity. Evaluation for DVT ultrasound was negative. He had apparently taking Keflex at home and was started on vancomycin, cefepime, and clindamycin. Antibiotics was descalated to cefazolin on consultation with ID ID suggested to complete treatment with Keflex at home and to continue on oral penicillin for prophylactics. The patient was discharged to follow up with his PCP. DISCHARGE PHYSICAL EXAMINATION: GENERAL: The patient in bed, in no acute distress. RESPIRATORY SYSTEM: Air entry adequate bilaterally. CARDIOVASCULAR SYSTEM: S1, S2 present and normal. No murmurs, gallops, or rubs. ABDOMEN: Benign. EXTREMITIES: Right lower extremity cellulitis significantly resolved. Reduced erythema. CONSULTATIONS: Dr. Davin Guzman - ID. DISCHARGE PLAN: Complete Keflex and continue on prophylactic penicillin at home. He will follow up with Dr. Guzman. Job ID: [id number] [facility]
--- NOTE | 2020-08-14 02:29 | PQF ---
CLINICAL DOCUMENTATION CLARIFICATION FORM: Dear : Herbie Mcgee Date / Time: 08/14/20 0228 Please exercise your independent, professional judgment in responding to the clarification form. Clinical indicators are provided on the bottom of this form for your review Please check appropriate box(es): HEART FAILURE: A. ACUITY [ ] Acute [ ] Acute on Chronic [x ] Chronic B. TYPE: [ ] Systolic / HFrEF [ ] Diastolic / HFpEF [ ] Combined Systolic / Diastolic [ ] Other diagnosis [ ] Unable to determine In addition, please specify: Present on Admission (POA): [ x ] Yes [ ] No [ ] Unable to determine Physician Signature: Date/Time: For continuity of documentation, please document condition throughout progress notes and discharge summary. Thank You. To be completed by CDI/Coding staff for physician review: Present Clinical Indicators - Signs / Symptoms / Labs Results and Location in Medical Record [X] BP 111/54, Pulse 90, Resp 16, Temp 98.0 Laboratory 08/07 [X] BNP 338.3, Troponin I 0.49; 0.023; 0.016 Laboratory 08/07 [X] EKG showed paced rhythm H&P p1 08/07 Jameson HERNANDEZ [X] CHF with EF 55-60% H&P p1 08/07 Jameson SHARPE-C [X] Acute worsening of his right lower extremity redness and swelling H&P p1 08/07 Jameson SHARPE-Luz Elena [X] Chest X-ray without infiltrates H&P p5 08/07 Jameson HERNANDEZ Present Risk Factors Results and Location in Medical Record [X] 84 year old Male H&P p1 08/07 Jameson PA-C [X] HTN H&P p1 08/07 Jameson SHARPE-C [X] Chronic venous HTN H&P p1 08/07 Jameson SHARPE-C [X] Hypertension H&P p5 08/07 Jameson SHARPE-C [X] Treatments Results and Location in Medical Record [X] Lasix 80 mg oral MAR 08/08 [X] Metazolne 2.5 mg oral MAR 08/08 [X] Toprol 12.5 mg oral JAN 03 [X] Blood Chemistry Laboratory 08/07 [X] EKG H&P p1 08/07 Jameson SHARPE-Luz Elena [X] Chest Xray H&P p5 08/07 Jameson HERNANDEZ CD[employer] Sales Associate Signature: Sandi Garcia Phone #: ext [phone] Date/Time: 08/14/2020227 This is a permanent part of the Medical Record [facility]
--- NOTE | 2020-08-17 05:17 | PQF ---
CLINICAL DOCUMENTATION CLARIFICATION FORM: Dear : Herbie Mcgee Date / Time: 08/17/20 0516 Please exercise your independent, professional judgment in responding to the clarification form. Clinical indicators are provided on the bottom of this form for your review Please check appropriate box(es): HEART FAILURE: TYPE: [ ] Systolic / HFrEF [ x ] Diastolic / HFpEF [ ] Combined Systolic / Diastolic [ ] Other diagnosis, please advise [ ] Unable to determine Physician Signature: INNA Date/Time: 08/18/2020 For continuity of documentation, please document condition throughout progress notes and discharge summary. Thank You. To be completed by CDI/Coding staff for physician review: Present Clinical Indicators - Signs / Symptoms / Labs Results and Location in Medical Record [X] BP 111/54, Pulse 90, Resp 16, Temp 98.0 Laboratory 08/07 [X] BNP 338.3, Troponin I 0.49; 0.023; 0.016 Laboratory 08/07 [X] EKG showed paced rhythm H&P p1 08/07 Jameson PA-C [X] CHF with EF 55-60% H&P p1 08/07 Jameson PA-C [X] Acute worsening of his right lower extremity redness and swelling H&P p1 08/07 Jameson PA-C [X] Chest X-ray without infiltrates H&P p5 08/07 Jameson PA-C [X] Chronic Heart failure Physcian documentation Dr Mcgee 08/15 Present Risk Factors Results and Location in Medical Record [X] 84 year old Male H&P p1 08/07 Jameson PA-C [X] HTN H&P p1 08/07 Jameson PA-C [X] Chronic venous HTN H&P p1 08/07 Jameson PA-C [X] Hypertension H&P p5 08/07 Jameson PA-C [X] Afib ED Notes 08/07 Present Treatments Results and Location in Medical Record [X] Lasix 80 mg oral MAR 08/08 [X] Metazolne 2.5 mg oral MAR 08/08 [X] Toprol 12.5 mg oral MAR 08/08 [X] Blood Chemistry Laboratory 08/07 [X] EKG H&P p1 08/07 Jameson PA-C [X] Chest Xray H&P p5 08/07 Jameson PA-C CDS/[employer] Signature: Sandi Garcia Phone #: [phone] Date/Time: 08/17/2020 0516 This is a permanent part of the Medical Record [facility]
== END 2020-08-11 13:46 | disposition home or self-care (01) | DRG 603 ==
LOC: ERS 11:47 → T4-B 16:13
PROVIDERS: ADMIT Student in an Organized Health Care Education/Training Program; ATTEND Student in an Organized Health Care Education/Training Program
DX: L03.116 Cellulitis of left lower limb (principal); I48.20 Chronic atrial fibrillation, unspecified; N17.9 Acute kidney failure, unspecified; I50.32 Chronic diastolic (congestive) heart failure; N40.0 Benign prostatic hyperplasia without lower urinary tract symptoms; I87.309 Chronic venous hypertension (idiopathic) without complications of unspecified lower extremity; I11.0 Hypertensive heart disease with heart failure; R79.89 Other specified abnormal findings of blood chemistry; G62.9 Polyneuropathy, unspecified; R21 Rash and other nonspecific skin eruption; Z95.810 Presence of automatic (implantable) cardiac defibrillator; Z79.899 Other long term (current) drug therapy
CPT/HCPCS: 36415; 80048; 80053; 80202; 82550; 82553; 83735; 83880; 84484; 85025; 87040; 93005; 96365; 96367; 96375; J0690; J0692; J1650; J3370; J3490; J7050

== ENCOUNTER 2020-12-18 13:16 | Outpatient (CLI) | payer MEDICARE ==
[~2020-12-18 13:16] MED LIST changes: +Iopamidol 370 76% 100 ML VIAL ONE; -Lidocaine 1% PF 5 ML VIAL ONE; -PROPOFOL 200 MG/20 ML VIAL ONE
--- NOTE | 2020-12-18 15:31 | CT ---
CT ABDOMEN AND PELVIS WITH IV CONTRAST 12/18/2020 CLINICAL INFORMATION: Epigastric abdominal pain, weight loss, decreased appetite. COMPARISON: None. Technique: Multiple contiguous axial CT images are obtained through the abdomen and pelvis with IV contrast. Cor onal reformatted images are provided. FINDINGS: Lower Chest: There are patchy and linear parenchymal densities at each lung base which may be related to bibasilar pneumonia. Follow-up to resolution is recommended. Trace left pleural effusion is present. The heart is in enlarged. A single lead right ventricular pacemaking lead is present. Vessels: Vascular calcifications are seen in the coronary arteries as well as involving the abdominal aorta and iliac arteries. Abdomen: Portal vein:Patent Gallbladder: Multiple gallbladder calculi visualized. Liver: Suggestion of a slightly lobulated contour which is nonspecific but can be seen with cirrhosis . Spleen: within normal limits. Pancreas: within normal limits. Adrenals: within normal limits. Kidneys: A 4.1 cm exophytic fluid attenuation cystic lesion is seen midportion left kidney compatible with a cyst. Right kidney has a normal CT appearance. Bowel: Evidence of colonic diverticulosis. Small amount retained fecal material seen throughout the c olon. Loops of small bowel are normal in caliber. Appendix: The appendix is visualized and normal in caliber. Peritoneum: No ascites or free air; no fluid collection. Mesentery and Retroperitoneum: No enlarged mesenteric or retroperitoneal lymph nodes. Abdominal Wall: within normal limits. Pelvis: Reproductive Organs: Prostate gland is enlarged with transverse dimension of 7.3 cm. Prostate calcifi cations are visualized. Bladder: within normal limits. Bones: Multilevel degenerative changes seen in the spine. Schmorl's nodes are seen at several levels. Bilateral hip osteoarthritis is present greater on the left. IMPRESSION: 1. Bibasilar pneumonia. Follow-up to resolution is recommended. 2. Trace left pleural effusion. 3. Cardiomegaly. 4. Cholelithiasis. 5. Lobulated contour of the liver suggesting cirrhotic morphology. 6. Left renal cyst. 7. Colonic diverticulosis. 8. Significant enlargement of the prostate gland.
== END 2020-12-18 13:17 | disposition home or self-care (01) ==
LOC: BICCT 13:16
PROVIDERS: ATTEND Physician Assistant Medical
DX: R10.13 Epigastric pain (principal); R63.4 Abnormal weight loss; R63.0 Anorexia; I51.7 Cardiomegaly; K80.20 Calculus of gallbladder without cholecystitis without obstruction; J18.9 Pneumonia, unspecified organism; N28.1 Cyst of kidney, acquired; K57.30 Diverticulosis of large intestine without perforation or abscess without bleeding; N40.0 Benign prostatic hyperplasia without lower urinary tract symptoms; K76.89 Other specified diseases of liver
CPT/HCPCS: 74177; Q9967

== ENCOUNTER 2021-06-01 10:07 | Outpatient (CLI) | payer MEDICARE | END 2021-06-01 10:08 | disposition home or self-care (01) | LOC: ULT 10:07 | PROVIDERS: ATTEND Physician Assistant Medical | DX: R93.2 Abnormal findings on diagnostic imaging of liver and biliary tract (principal); K74.60 Unspecified cirrhosis of liver; R18.8 Other ascites; K80.20 Calculus of gallbladder without cholecystitis without obstruction | CPT/HCPCS: 76705 ==